=== PATIENT | female | born 1940 | race Caucasian/White ===

== ENCOUNTER → 2016-08-27 | Outpatient (CLI) | payer OTHER ==
[~2016-08-27] MED LIST: ALBU1AER9 INH; ASPCH81X PO; ATV1 PO; LSN40 PO; LXP10 PO; METF500T5 PO; ONDA4TAB46 PO; TRAM-10 PO; ZNTT/150 PO
--- NOTE | 2016-08-27 15:47 | MAMMOGRAPHY REPORT ---
BILATERAL DIGITAL SCREENING MAMMOGRAM WITH CAD: 08/27/2016 CLINICAL HISTORY: Routine screening. Patient has no complaints. TECHNIQUE: Bilateral CC, MLO and left cleavage views were obtained. Current study was also evaluate d with a Computer Aided Detection (CAD) system. COMPARISON: Comparison is made to exams dated: 05/09/2015 mammogram, 11/01/2013 mammogram, 10/13/2012 m ammogram, 07/22/2011 mammogram, 07/18/2010 mammogram, and 04/30/2009 mammogram - [facility] enter. BREAST COMPOSITION: There are scattered areas of fibroglandular density in both breasts. FINDINGS: There are minimal vascular calcifications bilaterally. Stable grouped microcalcifications in the 6:00 left breast and a stable circumscribed 7 mm mass in the upper outer quadrant of the lef t breast. No new suspicious mass, architectural distortion or cluster of microcalcifications is see n. IMPRESSION: ACR BI-RADS CATEGORY 1: NEGATIVE There is no mammographic evidence of malignancy. A 1 year screening mammogram is recommended. The p atient will receive written notification of the results. Approximately 10% of breast cancers are not detected with mammography. A negative mammographic repor t should not delay biopsy if a clinically suggestive mass is present. Ade Vargas M.D. ay/:08/27/2016 15:30:38 Paraprofessional Aide Teacher: Angelina DE LEON)(Tony), [facility] letter sent: Normal 1/2 BI-RADS Code: ACR BI-RADS Category 1: Negative
== END | disposition home or self-care (01) ==
LOC: C.MAMM 13:36
PROVIDERS: ATTEND Family Medicine
DX: Z12.31 Encounter for screening mammogram for malignant neoplasm of breast (principal)

== ENCOUNTER → 2017-04-15 | Day surgery (SDC) | payer OTHER ==
[2017-04-02 13:27] VITALS: Ht 160 cm; Wt 88.2 kg
[~2017-04-15] VITALS: Ht 160 cm; Wt 88.2 kg
[~2017-04-15] MED LIST changes: -ALBU1AER9 INH; -ASPCH81X PO; +GABA-113 PO; +LIDOCAINE HCL 2% 2 ML VIAL (20MG/ML) ONE; -LXP10 PO; +PANT1TAB3 PO; +PROPOFOL IV EMULSION 10 MG/ML 20 ML VIAL IV ONE; +SERT-234 PO; +SODIUM CHLORIDE 0.9% 500ML 500 ML IV ONE; +VNTHFA/IN INH; -ZNTT/150 PO
--- NOTE | 2017-04-15 15:39 | Endo History and Physical ---
History & Physical Date of Service: Apr 15, 2017. Chief Complaint: Abd Pain, Diarrhea Referring Physician: Dr Silvina Murrya History of Present Illness abd pain/diarrhea Past Surgical History Hx Cardiac Surgery: No Hx Internal Defibrillator: No Hx Pacemaker: No Hx Abdominal Surgery: Yes (LIANNA AND STITCH REMOVAL 7 YEARS LATER) Hx of Implantable Prosthesis: No Hx Post-Op Nausea and Vomiting: No Hx Cancer Surgery: No Hx Thoracic Surgery: No Hx Orthopedic: Yes (RT/LEFT TKA, LEFT KNEE REVISION) Hx Urinary Tract Surgery: No Family History None Social History Smoking Status: Never Smoker Hx Substance Use: No Hx Alcohol Use: No Allergies Coded Allergies: Ciprofloxacin (Verified Allergy, Unknown, DIARRHEA, 04/02/17) Pravastatin (Verified Allergy, Unknown, HEART ATTACK LIKE SYMPTOMS, ) Sitagliptin (Unverified Allergy, Unknown, ILLNESS, 04/02/17) CI Pigment Blue 63 (Verified Adverse Reaction, Unknown, LOSS OF CONSCIOUSNESS, 04/02/17) Duloxetine (Verified Adverse Reaction, Unknown, LOSS OF CONSCIOUSNESS, 04/02) Current Medications Reported Home Medications Medications Dose Route/Sig Max Daily Dose Days Date Category Ultram (Tramadol HCl) 50 Mg Tab 50-100 Mg PO Q6H PRN 04/02/17 Reported Zoloft (Sertraline HCl) 100 Mg Tab 100 Mg PO QAM 04/02/17 Reported Protonix (Pantoprazole) 40 Mg Tab 40 Mg PO QAM 04/02/17 Reported Zofran (Ondansetron HCl) 4 Mg Tab 4 Mg PO TID PRN 04/02/17 Reported Neurontin (Gabapentin) 300 Mg Cap 300 Mg PO HS 04/02/17 Reported Ventolin Hfa (Albuterol) 200 Puffs/84656 Mcg Aers 2-4 Puffs INH Q6H PRN 04/02/17 Reported Lorazepam 1 Mg Tab 1 Mg PO BID 10/22/15 Reported Lisinopril 40 Mg Tab 40 Mg PO QAM 10/22/15 Reported Glucophage Er (Metformin HCl) 500 Mg Tab 1,000 Mg PO BID 10/22/15 Reported Vital Signs Weight (Kilograms): 88.18 Height (Feet): 5 Height (Inches): 3 Date Time Temp Pulse Resp B/P (MAP) Pulse Ox O2 Delivery O2 Flow Rate FiO2 04/15/17 14:54 37.1 91 20 153/86 (108) 94 Room Air Physical Exam General Appearance: WD/WN, no apparent distress Respiratory/Chest: Auscultation: breath sounds normal Cardiovascular: Heart Auscultation: RRR Abdomen: Bowel Sounds: normal Inspection & Palpation: soft, non-distended, no tenderness, guarding & rebound Assessment and Plan EGD/Bx Colon Bx
--- NOTE | 2017-04-15 16:20 | Discharge Instructions ---
Endoscopy Patient Instructions Date / Procedure(s) Performed Apr 15, 2017. Colonoscopy, EGD Allergy Information Coded Allergies: Ciprofloxacin (Verified Allergy, Unknown, DIARRHEA, 04/02/17) Pravastatin (Verified Allergy, Unknown, HEART ATTACK LIKE SYMPTOMS, ) Sitagliptin (Unverified Allergy, Unknown, ILLNESS, 04/02/17) CI Pigment Blue 63 (Verified Adverse Reaction, Unknown, LOSS OF CONSCIOUSNESS, 04/02/17) Duloxetine (Verified Adverse Reaction, Unknown, LOSS OF CONSCIOUSNESS, 04/02) Discharge Date / Findings Apr 15, 2017. colon polyp/ diverticulosis Medication Instructions Stopped Medication(s): Metformin Restart Stopped Medication(s): Reported Home Medications Medications Dose Route/Sig Max Daily Dose Days Date Category Ultram (Tramadol HCl) 50 Mg Tab 50-100 Mg PO Q6H PRN 04/02/17 Reported Zoloft (Sertraline HCl) 100 Mg Tab 100 Mg PO QAM 04/02/17 Reported Protonix (Pantoprazole) 40 Mg Tab 40 Mg PO QAM 04/02/17 Reported Zofran (Ondansetron HCl) 4 Mg Tab 4 Mg PO TID PRN 04/02/17 Reported Neurontin (Gabapentin) 300 Mg Cap 300 Mg PO HS 04/02/17 Reported Ventolin Hfa (Albuterol) 200 Puffs/61059 Mcg Aers 2-4 Puffs INH Q6H PRN 04/02/17 Reported Lorazepam 1 Mg Tab 1 Mg PO BID 10/22/15 Reported Lisinopril 40 Mg Tab 40 Mg PO QAM 10/22/15 Reported Glucophage Er (Metformin HCl) 500 Mg Tab 1,000 Mg PO BID 10/22/15 Reported Reported Home Medications Medications Dose Route/Sig Max Daily Dose Days Date Category Ultram (Tramadol HCl) 50 Mg Tab 50-100 Mg PO Q6H PRN 04/02/17 Reported Zoloft (Sertraline HCl) 100 Mg Tab 100 Mg PO QAM 04/02/17 Reported Protonix (Pantoprazole) 40 Mg Tab 40 Mg PO QAM 04/02/17 Reported Zofran (Ondansetron HCl) 4 Mg Tab 4 Mg PO TID PRN 04/02/17 Reported Neurontin (Gabapentin) 300 Mg Cap 300 Mg PO HS 04/02/17 Reported Ventolin Hfa (Albuterol) 200 Puffs/09554 Mcg Aers 2-4 Puffs INH Q6H PRN 04/02/17 Reported Lorazepam 1 Mg Tab 1 Mg PO BID 10/22/15 Reported Lisinopril 40 Mg Tab 40 Mg PO QAM 10/22/15 Reported Glucophage Er (Metformin HCl) 500 Mg Tab 1,000 Mg PO BID 10/22/15 Reported Provider Instructions Activity Restrictions - No exercising or heavy lifting for 24 hours. - Do not drink alcohol the day of the procedure. - Do not drive a car or operate machinery until the day after the procedure. - Do not make any important decisions or sign important papers in 24 hours after the procedure. Following Day: - Return to full activity which may include returning to work/school. Diet Start your diet with liquids and light foods (jello, soup, juice, toast). Then eat your usual diet if not nauseated. Treatment For Common After Affects For mild abdominal pain, bloating, or excessive gas: - Rest - Eat lightly - Lie on right side Follow-Up Information Follow-up with Dr Silvina Murray as scheduled Anesthesia Information What You Should Know You have had a procedure that required some medicine to reduce anxiety and discomfort. This treatment is called moderate sedation. After receiving the treatment, you may be sleepy, but you will be able to breathe on your own. The effects of the treatment may last for several hours. Follow these instructions along with Activity/Diet recommendations noted above: * Do NOT do anything where dizziness or clumsiness would be dangerous. * Rest quietly at home today, then you can be up and about tomorrow. * Have a responsible person stay with you the rest of today. * You may have had an I.V. today. If so, you may take the dressing off later today. Recommendations Call your doctor if: * Trouble breathing * Continuous vomiting for more than 24 hours * Temperature above 101 degrees * Severe abdominal pain or bloating * Pain not relieved by pain medicine ordered * There is increased drainage or redness from any incision * A large amount of rectal bleeding greater than 2-3 tablespoons. (If you had a polyp/s removed or have hemorrhoids, a small amount of blood - from the rectum is to be expected.) * You have any unanswered questions or concerns. IN THE EVENT OF A SERIOUS EMERGENCY, GO TO THE NEAREST EMERGENCY ROOM Your discharge instructions were prepared by provider Jese Falk. Patient Instructions Signature Page Gena Perez Patient (or Guardian) Signature/Date: I have read and understand the instructions given to me by my caregivers. Caregiver/RN/Doctor Signature/Date: The above-named patient and/or guardian has received patient instructions on this date. + Original Patient Signature Page (only) stays with chart. Please make copy for patient.
--- NOTE | 2017-04-15 16:25 | GI REPORT ---
Procedure Date: 04/15/2017 3:45 PM Procedure: Colonoscopy Indications: Chronic diarrhea Medicines: Propofol per Anesthesia Complications: No immediate complications. Estimated blood loss: Minimal. Estimated Blood Loss: Estimated blood loss was minimal. Procedure: Pre-Anesthesia Assessment: - Prior to the procedure, a History and Physical was performed, and patient medications and allergies were reviewed. The patient's tolerance of previous anesthesia was also reviewed. The risks and benefits of the procedure and the sedation options and risks were discussed with the patient. All questions were answered, and informed consent was obtained. Prior Anticoagulants: The patient has taken no previous anticoagulant or antiplatelet agents. ASA Grade Assessment: III - A patient with severe systemic disease. After reviewing the risks and benefits, the patient was deemed in satisfactory condition to undergo the procedure. After I obtained informed consent, the scope was passed under direct vision. Throughout the procedure, the patient's blood pressure, pulse, and oxygen saturations were monitored continuously. The scope was introduced through the anus and advanced to the terminal ileum, with identification of the appendiceal orifice and IC valve. The colonoscopy was performed without difficulty. The patient tolerated the procedure well. The quality of the bowel preparation was good. Findings: The perianal and digital rectal examinations were normal. Pertinent negatives include normal sphincter tone, no palpable rectal lesions and no anal lesion or abnormality was detected. A 3 mm polyp was found in the proximal ascending colon. The polyp was sessile. The polyp was removed with a cold biopsy forceps. Resection and retrieval were complete. Estimated blood loss was minimal. Verification of patient identification for the specimen was done by the physician and hotel maintenance technician using the patient's name and medical record number. The rectum, descending colon, ascending colon and ileum appeared normal. Biopsies were taken with a cold forceps for histology. Estimated blood loss was minimal. Verification of patient identification for the specimen was done by the physician and hotel maintenance technician using the patient's name and medical record number. Many small-mouthed diverticula were found in the sigmoid colon. The retroflexed view of the distal rectum and anal verge was normal and showed no anal or rectal abnormalities. Impression: - One 3 mm polyp in the proximal ascending colon, removed with a cold biopsy forceps. Resected and retrieved. - The rectum, descending colon, ascending colon and terminal ileum are normal. Biopsied. - Diverticulosis in the sigmoid colon. - The distal rectum and anal verge are normal on retroflexion view. Recommendation: - Discharge patient to home (ambulatory). - Resume regular diet. - Continue present medications. - Await pathology results. - Repeat colonoscopy for surveillance based on pathology results. - Return to GI clinic as previously scheduled. MD Jese Aldridge MD 04/15/2017 4:24:48 PM This report has been signed electronically. Note Initiated On: 04/15/2017 3:45 PM I attest to the content of the Intraoperative Record and orders documented therein, exceptions below
--- NOTE | 2017-04-15 16:31 | GI REPORT ---
Procedure Date: 04/15/2017 3:45 PM Procedure: Upper GI endoscopy Indications: Epigastric abdominal pain, Diarrhea Medicines: Propofol per Anesthesia Complications: No immediate complications. Estimated blood loss: Minimal. Estimated Blood Loss: Estimated blood loss was minimal. Procedure: Pre-Anesthesia Assessment: - Prior to the procedure, a History and Physical was performed, and patient medications and allergies were reviewed. The patient's tolerance of previous anesthesia was also reviewed. The risks and benefits of the procedure and the sedation options and risks were discussed with the patient. All questions were answered, and informed consent was obtained. Prior Anticoagulants: The patient has taken no previous anticoagulant or antiplatelet agents. ASA Grade Assessment: III - A patient with severe systemic disease. After reviewing the risks and benefits, the patient was deemed in satisfactory condition to undergo the procedure. After obtaining informed consent, the endoscope was passed under direct vision. Throughout the procedure, the patient's blood pressure, pulse, and oxygen saturations were monitored continuously. The scope was introduced through the mouth, and advanced to the second part of duodenum. The upper GI endoscopy was accomplished without difficulty. The patient tolerated the procedure well. Findings: The upper third of the esophagus and middle third of the esophagus were normal. A widely patent, non-obstructing and mild Schatzki ring (acquired) was found at the gastroesophageal junction. A small hiatal hernia was found. The proximal extent of the gastric folds (end of tubular esophagus) was 35 cm from the incisors. The hiatal narrowing was 37 cm from the incisors. The Z-line was 35 cm from the incisors. Diffuse minimal inflammation characterized by erythema was found in the gastric body and in the gastric antrum. Biopsies were taken with a cold forceps for histology. Verification of patient identification for the specimen was done by the physician and career resource technician using the patient's name and medical record number. The examined duodenum was normal. Biopsies for histology were taken with a cold forceps for evaluation of celiac disease. Estimated blood loss was minimal. Verification of patient identification for the specimen was done by the physician and career resource technician using the patient's name and medical record number. The examined jejunum was normal. The cardia and gastric fundus were normal on retroflexion. Retained gastric contents are not identified on this exam. Impression: - Normal upper third of esophagus and middle third of esophagus. - Widely patent, non-obstructing and mild Schatzki ring. - Small hiatal hernia. - Gastritis. Biopsied. - Normal examined duodenum. Biopsied. - Normal examined jejunum. Recommendation: - Discharge patient to home (ambulatory). - Resume regular diet. - Continue present medications. - Await pathology results. MD Jese Aldridge MD 04/15/2017 4:31:14 PM This report has been signed electronically. Note Initiated On: 04/15/2017 3:45 PM I attest to the content of the Intraoperative Record and orders documented therein, exceptions below
--- NOTE | 2017-04-15 16:49 | Anesthesiology Progress Note ---
Anesthesia Post Op Note Date & Time Apr 15, 2017 at 16:49 Vital Signs Vital Signs Past 12 Hours Date Time Temp Pulse Resp B/P (MAP) Pulse Ox O2 Delivery O2 Flow Rate FiO2 04/15/17 16:41 83 20 129/80 (96) 95 Room Air 04/15/17 16:30 87 20 146/73 (97) 96 Room Air 04/15/17 14:54 37.1 91 20 153/86 (108) 94 Room Air Notes Mental Status: alert / awake / arousable, participated in evaluation Pt Amnestic to Procedure: Yes Nausea / Vomiting: adequately controlled Pain: adequately controlled Airway Patency, RR, SpO2: stable & adequate BP & HR: stable & adequate Hydration State: stable & adequate Anesthetic Complications: no major complications apparent
[2017-04-15 17:01] VITALS: BP 154/79; PULSE 80; O2SAT 97
== END | disposition home or self-care (01) ==
LOC: C.GI 13:39
PROVIDERS: ATTEND Internal Medicine Gastroenterology
DX: R10.9 Unspecified abdominal pain (principal); R19.7 Diarrhea, unspecified; K29.50 Unspecified chronic gastritis without bleeding; D12.2 Benign neoplasm of ascending colon; D12.8 Benign neoplasm of rectum; K22.2 Esophageal obstruction; K44.9 Diaphragmatic hernia without obstruction or gangrene; K29.70 Gastritis, unspecified, without bleeding; K57.30 Diverticulosis of large intestine without perforation or abscess without bleeding

== ENCOUNTER 2019-01-04 15:51 | Observation (INO) ==
[2019-01-04] MEDS ORDERED: NITROGLYCERIN SL 0.4 MG/TAB TAB SL STA ×2 (16:08→16:10)
[2019-01-04 16:58] LABS: Appearance Urine Clear (Clear); Bacteria Urine Automated 3+ (Negative); Bilirubin Urine Negative (Negative); Blood Urine Negative (Negative); Cast Urine Automated 0 /lpf (0-5); Color Urine Yellow; Epithelial Cell Urine Auto 0-5 /lpf (0-5); Glucose Urine UA Negative (Negative); Ketones Urine Negative (Negative); Leukocyte Esterase Urine Trace (Negative); Nitrite Urine Negative (Negative); Protein Urine Negative (Negative); Urobilinogen Urine Negative (Negative); WBC Urine Automated >30 /hpf (0-5); pH Urine 5.5 (4.5-7.5)
[2019-01-04 17:15] LABS: Basophils # (auto) 0.01 K/uL (0-0.2); Basophils % (auto) 0.2 %; Eosinophils % (auto) 3.2 %; Hematocrit (blood only) 42.9 % (37-47); Hemoglobin 14.7 g/dL (12.0-16.0); Immature Granulocytes # (auto) 0.02 K/uL (0.00-0.02); Immature Granulocytes % (auto) 0.3 %; Lymphocytes # (auto) 1.72 K/uL (1.2-3.4); Lymphocytes % (auto) 27.8 %; Mean Corpuscular Hemoglobin 30.8 pg (25-34); Mean Corpuscular Hgb Conc 34.3 g/dL (32-36); Mean Corpuscular Volume 89.9 fL (80-100); Mean Platelet Volume 9.9 fL (7.4-10.4); Monocytes # (auto) 0.34 K/uL (0.11-0.59); Monocytes % (auto) 5.5 %; Neutrophils # (auto) 3.89 K/uL (1.4-6.5); Platelet Count 211 K/uL (130-400); RDW Coefficient of Variation 13.1 % (11.5-14.5); RDW Standard Deviation 42.9 fL (36.4-46.3); Red Blood Count 4.77 M/uL (4.2-5.4); White Blood Count 6.18 K/uL (4.8-10.8)
--- NOTE | 2019-01-04 17:17 | XRay Report ---
XR chest 1V portable CLINICAL HISTORY: 78 years-old Female presenting with Dyspnea. TECHNIQUE: Portable upright AP view of the chest was obtained. COMPARISON: 12/26/2018. FINDINGS: Atherosclerosis of the aortic arch. Cardiac silhouette enlarged. Minimal bandlike opacity in the left mid lung periphery as on prior. No new focal opacity. No large effusion or pneumothorax. Degenerativ e changes of the thoracic spine. Upper abdomen normal. IMPRESSION: 1. Cardiomegaly. No other convincing evidence of acute cardiopulmonary disease. Electronically signed by: Beau Cerda M.D. 01/04/2019 5:15 PM
[2019-01-04 17:34] LABS: Partial Thromboplastin Ratio 1.1; Partial Thromboplastin Time 29.3 Seconds (21.0-31.0)
[2019-01-04 17:40] LABS: Alanine Aminotransferase 18 U/L (12-78); Albumin Globulin Ratio 0.8 (0.9-2); Albumin Level 3.9 gm/dl (3.4-5.0); Alkaline Phosphatase 81 U/L (45-117); Aspartate Aminotransferase 18 U/L (15-37); BUN Creatinine Ratio 10.2 (10-20); Bilirubin,Total 0.4 mg/dl (0.2-1); Blood Urea Nitrogen 10 mg/dl (7-18); Calcium 9.7 mg/dl (8.5-10.1); Carbon Dioxide 27 mmol/L (21-32); Chloride 102 mmol/L (98-107); Est GFR (African American) 65.2; Est GFR (Non-African American) 56.2; Globulin 4.6 gm/dl (2.5-4.0); Glucose 106 mg/dl (70-99); Potassium 3.8 mmol/L (3.5-5.1); Sodium 137 mmol/L (136-145); Total Protein 8.5 gm/dl (6.4-8.2); Troponin I < 0.015 ng/ml (0-0.045)
[2019-01-04] MEDS ORDERED: ASPIRIN CHEW 324 MG PO STA (18:03)
--- NOTE | 2019-01-04 19:11 | Consultation ---
Date of Consultation January 04, 2019 History of Present Illness Requesting Physician: Dr. Amezquita Reason for Consultation: Chest pain Attending Physician: Dr. Kirsten Stephens History of Present Illness 78 yo female h/o Afib, DM, HTN, HLD presents from behavioral health clinician office Allergies Allergy/AdvReac Type Severity Reaction Status Date / Time Cipro Allergy Unknown DIARRHEA Verified 04/15/17 13:24 ciprofloxacin Allergy Unknown DIARRHEA Verified 01/04/19 18:04 pravastatin Allergy Unknown HEART Verified 01/04/19 18:04 ATTACK LIKE SYMPTOMS sitagliptin Allergy Unknown ILLNESS Verified 01/04/19 18:04 apixaban [From Eliquis] AdvReac Severe BODY WENT Verified 01/04/19 18:05 NUMB duloxetine AdvReac Unknown LOSS OF Verified 01/04/19 18:04 CONSCIOUSNESS metformin AdvReac Diarrhea Unverified 01/04/19 18:04 Home Medications Home Medications Medication Instructions Recorded Confirmed Type albuterol sulfate [Ventolin HFA] 2 puff INHALATION Q4 PRN 12/16/17 01/04/19 His tory lisinopril 40 mg PO DAILY 12/16/17 01/04/19 History amitriptyline 10 mg PO HS 07/19/18 01/04/19 History lorazepam 1 mg tablet 1 mg PO TID PRN #90 tab 10/27/18 01/04/19 History metoprolol succinate ER 25 mg 25 mg PO DAILY #30 tab 11/10/18 01/04/19 History tablet,extended release 24 hr tramadol 50 mg tablet 50 mg PO BID tab 11/10/18 01/04/19 History ranitidine HCl 150 mg PO BID 12/26/18 01/04/19 History tramadol 100 mg PO HS 12/26/18 01/04/19 History glipizide 2.5 mg PO DAILY 01/04/19 01/04/19 History ondansetron HCl 4 mg tablet 4 mg PO TID PRN 01/04/19 01/04/19 History pantoprazole 40 mg tablet,delayed 40 mg PO DAILY 01/04/19 01/04/19 History release sertraline 100 mg tablet 100 mg PO DAILY 01/04/19 01/04/19 History Patient History Medical History Abdominal pain Asthma Diabetes mellitus, type 2 Diarrhea Dyslipidemia Hypertension Surgical History H/O tubal ligation Hx of cataract surgery Hx of cholecystectomy Hx of total knee arthroplasty Family History Grandmother Cancer Mother Diabetes Breast cancer Arthritis Skin cancer Brother Diabetes Lymphoma Sister Breast cancer Skin cancer Grandmother Lung cancer Social History Communication Ability: Effective Beliefs That Will Affect Care: None Current Living Situation: Alone Feels Safe at Home: Yes Smoking Status: Never smoker Hx Alcohol Use: No Hx Substance Use: No Results & Data Vital Signs (Past 12 Hours) Vital Signs Temp Pulse Pulse Resp BP BP Pulse Ox 01/04/19 18:58 76 18 142/89 H 98 01/04/19 18:14 82 17 117/83 96 01/04/19 17:00 92 H 18 127/80 93 01/04/19 16:55 85 24 156/88 H 95 01/04/19 16:53 75 20 161/86 H 94 01/04/19 15:54 37.5 C 88 20 167/93 H 96 PG Care Time/CCT Total # of Minutes Spent Total Time Spent with Patient: Total time spent is greater than 50% in coordination of care (as documented) at patient's floor/unit and/or counseling patient:
--- NOTE | 2019-01-04 19:44 | History & Physical Report ---
Date of Service January 04, 2019 Assessment & Plan (1) Chest pain: 78-year-old female with history of DM, HTN, HLD, A. fib, JILLIAN presents with chest pain shortness of breath. Her chest pain symptoms have been ongoing, nonexertional over the past couple months. The patient did not show any acute changes on EKG and troponins were negative the ED, but the patient has significant risk factors with a heart score of 5. Considering risk factors and recommendation of her gun perforator loader to come the ED, we are admitting for further work-upcontinue to trend troponin and consider additional test, stress test versus catheterization. Chest pain rule out Admit to telemetry, continue to trend troponin, EKG in the a.m., ASA in the a.m. Hold blood pressure medications for possible stress test tomorrow Keep the patient n.p.o. after midnight Atrial fibrillation Nonadherence with Eliquis We will start Xarelto tonight, 20 mg with evening meal Continue metoprolol Hypertension Hold meds for possible stress test Diabetes Sliding scale insulin Neuropathy Continue amitriptyline GERD Continue PPI, ranitidine Depression Continue sertraline Continue lorazepam 3 times daily DVT prophylaxisXarelto FENregular diet, carb count, n.p.o. after midnight CODE STATUSfull (2) Atrial fibrillation: (3) Shortness of breath: (4) Anxiety: (5) Diabetes: (6) HTN (hypertension): (7) Asthma: (8) Sleep apnea: History of Present Illness Primary Care Provider: Salena Angel DO 78-year-old female with a history of DM, HTN, HLD, A. fib presents from cardiology office with shortness of breath and chest pain, symptoms have been ongoing for the past couple months. She states that she is been more dyspneic recently and was in the ED last week. She states that the chest pain is intermittent, nonexertional. She describes it as a pressure like sensation with radiation to her left arm. She states that she sometimes wakes up in the middle the night with the chest pain. She does have a history of atrial fibrillation for which she is rate controlled. She stopped taking Eliquis because of perceived symptoms of numbness. The patient has neuropathy at baseline. She denies a history of smoking. Allergies Allergy/AdvReac Type Severity Reaction Status Date / Time Cipro Allergy Unknown DIARRHEA Verified 04/15/17 13:24 ciprofloxacin Allergy Unknown DIARRHEA Verified 01/04/19 18:04 pravastatin Allergy Unknown HEART Verified 01/04/19 18:04 ATTACK LIKE SYMPTOMS sitagliptin Allergy Unknown ILLNESS Verified 01/04/19 18:04 apixaban [From Eliquis] AdvReac Severe BODY WENT Verified 01/04/19 18:05 NUMB duloxetine AdvReac Unknown LOSS OF Verified 01/04/19 18:04 CONSCIOUSNESS metformin AdvReac Diarrhea Unverified 01/04/19 18:04 Home Medications Home Medications Medication Instructions Recorded Confirmed Type albuterol sulfate [Ventolin HFA] 2 puff INHALATION Q4 PRN 12/16/17 01/04/19 History lisinopril 40 mg PO DAILY 12/16/17 01/04/19 History amitriptyline 10 mg PO HS 07/19/18 01/04/19 History lorazepam 1 mg tablet 1 mg PO TID PRN #90 tab 10/27/18 01/04/19 History metoprolol succinate ER 25 mg 25 mg PO DAILY #30 tab 11/10/18 01/04/19 History tablet,extended release 24 hr tramadol 50 mg tablet 50 mg PO BID tab 11/10/18 01/04/19 History ranitidine HCl 150 mg PO BID 12/26/18 01/04/19 History tramadol 100 mg PO HS 12/26/18 01/04/19 History glipizide 2.5 mg PO DAILY 01/04/19 01/04/19 History ondansetron HCl 4 mg tablet 4 mg PO TID PRN 01/04/19 01/04/19 History pantoprazole 40 mg tablet,delayed 40 mg PO DAILY 01/04/19 01/04/19 History release sertraline 100 mg tablet 100 mg PO DAILY 01/04/19 01/04/19 History Past Med/Surg History Medical History Abdominal pain Asthma Diabetes mellitus, type 2 Diarrhea Dyslipidemia Hypertension Surgical History H/O tubal ligation Hx of cataract surgery Hx of cholecystectomy Hx of total knee arthroplasty Family History Grandmother Cancer Mother Diabetes Breast cancer Arthritis Skin cancer Brother Diabetes Lymphoma Sister Breast cancer Skin cancer Grandmother Lung cancer Social History Communication Ability: Effective Beliefs That Will Affect Care: None Current Living Situation: Alone Feels Safe at Home: Yes Smoking Status: Never smoker Hx Alcohol Use: No Hx Substance Use: No Review of Systems Review of Systems: All systems reviewed & are unremarkable except as noted in HPI & below Physical Exam Constitutional: WD/WN, vitals as above Eyes: PERRL, conjunctivae normal, anicteric sclerae ENMT: external ear and nose normal, oropharynx normal Neck: trachea midline, no thyromegaly Respiratory: normal respiratory effort, lungs clear to auscultation Cardiovascular: RRR, no murmur, no edema Gastrointestinal (Abdomen): normal bowel sounds, soft, nontender, no hepatosplenomegaly Musculoskeletal: no cyanosis or clubbing, extremities motor strength 5/5 Skin: no rashes, warm and dry Neurologic: PERRL, EOMI, accommodation nl, no face palsy, no dysarthria Psychiatric: A+Ox3, euthymic affect Results & Data Vital Signs (Past 12 Hours) Vital Signs Temp Pulse Pulse Resp BP BP Pulse Ox 01/04/19 18:58 76 18 142/89 H 98 01/04/19 18:14 82 17 117/83 96 01/04/19 17:00 92 H 18 127/80 93 01/04/19 16:55 85 24 156/88 H 95 01/04/19 16:53 75 20 161/86 H 94 01/04/19 15:54 37.5 C 88 20 167/93 H 96 Code Status & VTE Plan Code Status Full code VTE Prophylaxis Plan VTE Prophylaxis will be ordered: Yes Supervising Physician Co-Signing Physician Notes Patient seen and examined, chart reviewed, case discussed with Dr. Montejo and I agree with his assessment and plan as documented above. Briefly patient is a 78-year-old female with history of diabetes, hypertension, hyperlipidemia and paroxysmal atrial fibrillation on anticoagulation with Eliquis presenting with left-sided chest pain. Patient was sent to the ER at request of her gun perforator loader, Dr. Guaman. She reports a prolonged history of intermittent, nonexertional, nonpleuritic chest pain. It occurs often when she wakes in the morning and when she becomes upset. Additionally she admits to progressive dyspnea on exertion, becoming short of breath after walking as little as 50 feet. On physical exam she is afebrile, mildly hypertensive at 162/86 otherwise hemodynamically stable. Stable respiratory status with adequate oxygenation on room air General: No acute distress Skin: Warm, dry, intact. No rashes or lesions HEENT: Normocephalic atraumatic, pupils equal round and reactive, neck supple, moist mucous membranes, no JVD Heart: S1-S2 present, regular, no murmurs/rubs/gallops. One area of focal tenderness on left sternal border, pain with palpation Lungs: CTA, no rales/rhonchi/wheezes Abdomen: Bowel sounds present, soft, nontender/nondistended Extremities: Warm, well-perfused, no clubbing/cyanosis/edema, 2+ pulses Labs and images reviewed. Troponin x1 negative. Chest x-ray with atherosclerosis of the aortic arch. Enlarged cardiac silhouette EKG with normal sinus rhythm at 76 bpm. Normal axis and intervals. No acute ischemic changes Assessment/plan. 78-year-old female with hypertension, hyp erlipidemia, diabetes, paroxysmal A. fib on anticoagulation therapy with Eliquis, nonadherent with therapy presenting with prolonged history of atypical chest pain. She has been worked up for this in the past with a dobutamine stress echo on 12/21/2017. More concerning is patient's history of progressive dyspnea on exertion which may be an anginal equivalent. -Observation with telemetry -Trend cardiac enzymes -Cardiology consult appreciated -Remainder of plan as above PG Care Time/CCT Total # of Minutes Spent Total Time Spent with Patient: Total time spent is greater than 50% in coordination of care (as documented) at patient's floor/unit and/or counseling patient: Resident Activity Tracking Resident Involvement: Resident Care Provided Care Provided: Adult Hospital Medicine (1) Atrial fibrillation Atrial fibrillation type: paroxysmal Qualified Code(s): I48.0 - Paroxysmal atrial fibrillation
--- NOTE | 2019-01-04 19:48 | Emergency Department Note ---
Entered by Divya Navarro acting as a scribe for Swapnil Amezquita MD History of Present Illness General Chief complaint: Shortness of Breath/Dyspnea Stated complaint: TROUBLE BREATHING, CHEST PAIN Time Seen by Provider: 01/04/19 15:59 Source: patient History of Present Illness Provider complaint: shortness of breath Onset (ago): month(s) 2 Location: chest Pain Consistency: + other (worsening ) Quality: + other ("heavy") Relieved By: + medication (aspirin ) Exacerbated By: + movement Associated symptoms: + chest pain and + other (dry mouth ); no diaphoresis and no nausea/vomiting The patient is a 78 year old female with a PMHX of RAD, JILLIAN, A-fib, diabetes, HTN, who presents to the ED with complaints of a worsening shortness of breath that began this morning. She states that she can barely walk from the couch to the bathroom without needing her inhaler. The patient states that the chest pain feels heavy. The patient states that she was seen by Dr. Guaman, [facility], and this morning. She states that they did a CT of her Chest and found calcification in the arteries around her heart. The patient states that she has been short of breath for 2 months now, but it has progressively been getting worse. She states that she takes aspirin to relieve her pain. The patient denies nausea, vomiting, diaphoresis. The patient states that she was taking Eliquis and it made her legs numb but she stopped taking it 3-4 weeks ago. The patient denies smoking. The patient states that she has dry mouth. Medical review of the patient's chart revealed that the patient was seen in the ED on 12/30/2018. The patient had a CT Angio of Chest which came back negative, EKG was negative, and Lab work was unremarkable. Home Medications Home Medications Medication Instructions Recorded Confirmed Type albuterol sulfate [Ventolin HFA] 2 puff INHALATION Q4 PRN 12/16/17 01/04/19 History lisinopril 40 mg PO DAILY 12/16/17 01/04/19 History amitriptyline 10 mg PO HS 07/19/18 01/04/19 History lorazepam 1 mg tablet 1 mg PO TID PRN #90 tab 10/27/18 01/04/19 History metoprolol succinate ER 25 mg 25 mg PO DAILY #30 tab 11/10/18 01/04/19 History tablet,extended release 24 hr tramadol 50 mg tablet 50 mg PO BID tab 11/10/18 01/04/19 History ranitidine HCl 150 mg PO BID 12/26/18 01/04/19 History tramadol 100 mg PO HS 12/26/18 01/04/19 History glipizide 2.5 mg PO DAILY 01/04/19 01/04/19 History ondansetron HCl 4 mg tablet 4 mg PO TID PRN 01/04/19 01/04/19 History pantoprazole 40 mg tablet,delayed 40 mg PO DAILY 01/04/19 01/04/19 History release sertraline 100 mg tablet 100 mg PO DAILY 01/04/19 01/04/19 History Allergies Allergy/AdvReac Type Severity Reaction Status Date / Time Cipro Allergy Unknown DIARRHEA Verified 04/15/17 13:24 ciprofloxacin Allergy Unknown DIARRHEA Verified 01/04/19 18:04 pravastatin Allergy Unknown HEART Verified 01/04/19 18:04 ATTACK LIKE SYMPTOMS sitagliptin Allergy Unknown ILLNESS Verified 01/04/19 18:04 apixaban [From Eliquis] AdvReac Severe BODY WENT Verified 01/04/19 18:05 NUMB duloxetine AdvReac Unknown LOSS OF Verified 01/04/19 18:04 CONSCIOUSNESS metformin AdvReac Diarrhea Unverified 01/04/19 18:04 Past Med/Surg History Medical History Abdominal pain Asthma Diabetes mellitus, type 2 Diarrhea Dyslipidemia Hypertension Surgical History H/O tubal ligation Hx of cataract surgery Hx of cholecystectomy Hx of total knee arthroplasty Family History Grandmother Cancer Mother Diabetes Breast cancer Arthritis Skin cancer Brother Diabetes Lymphoma Sister Breast cancer Skin cancer Grandmother Lung cancer Social History Communication Ability: Effective Beliefs That Will Affect Care: None Current Living Situation: Alone Feels Safe at Home: Yes Smoking Status: Never smoker Hx Alcohol Use: No Hx Substance Use: No Review of Systems See HPI for pertinent positives & negatives. and A total of 10 systems reviewed and were otherwise negative Physical Exam Vital Signs Vital Signs - 24 hr 01/04/19 15:54 01/04/19 16:53 01/04/19 16:55 Temperature 37.5 C Temperature Source Oral Sepsis Recent Fever Within 48 Hours No Sepsis New/Unexplained Change in Mental Status No Sepsis Action Taken by Nursing No Action Required Pulse Rate 88 Pulse Rate [Left Finger] 75 85 Respiratory Rate 20 20 24 Respiratory Effort / Characteristics Non-Labored Non-Labored Respiratory Depth Normal Normal Normal Respiratory Pattern Regular Regular Blood Pressure 167/93 H Blood Pressure [Right Arm] 161/86 H 156/88 H Blood Pressure Mean 117 Blood Pressure Mean [Right Arm] 111 110 Pulse Oximetry 96 94 95 Oxygen Delivery Method Room Air Room Air 01/04/19 17:00 01/04/19 18:14 01/04/19 18:58 Temperature Temperature Source Sepsis Recent Fever Within 48 Hours Sepsis New/Unexplained Change in Mental Status Sepsis Action Taken by Nursing Pulse Rate Pulse Rate [Left Finger] 92 H 82 76 Respiratory Rate 18 17 18 Respiratory Effort / Characteristics Non-Labored Non-Labored Respiratory Depth Normal Normal Respiratory Pattern Regular Regular Blood Pressure Blood Pressure [Right Arm] 127/80 117/83 142/89 H Blood Pressure Mean Blood Pressure Mean [Right Arm] 95 94 106 Pulse Oximetry 93 96 98 Oxygen Delivery Method Room Air Room Air Room Air GENERAL: Well nourished, NAD, non-toxic. EYE EXAM: Normal conjunctiva. PERRL, no anisocoria and EOM's grossly intact w/o pain. OROPHARYNX: Moist mucous membranes. Grossly normal dentition. NECK: Supple, no nuchal rigidity, no adenopathy, non-tender. No signs of meningismus. LUNGS: Clear to auscultation. Normal chest wall mechanics. HEART: NSR, no MRG. ABDOMEN: Abdomen soft, non-tender, normo-active bowel sounds, no masses, no rebound or guarding. BACK: No CVA TTP. SKIN: No rashes and no bruising. UPPER EXTREMITIES: Upper extremities are grossly normal. LOWER EXTREMITIES: No pitting edema. No calf pain. Negative Rosalia's sign. NEURO EXAM: A&O x3, cranial nerves II-XII grossly intact, normal speech, moves all 4 extremities on command w/o issue. Course 1559: Past medical records reviewed. The patient was evaluated in room A4. A com plete history and physical exam was performed. 1702: I discussed the patients case with Dr. Guaman, Cardiology. He stated that he would like the patient to be admitted for a diagnostic catheterization. 1757: I discussed the patient's [facility] She agreed to evaluate the patient for further management. 1821: I reevaluated the patient at this time and updated her on the treatment plan. She verbally agreed and understood. Consultations Consultation #1: I discussed the patients case with Dr. Guaamn, Cardiology. He stated that he would like the patient to be admitted for a diagnostic catheterization. Time: 17:02 Consultation #2: I discussed the patient's case with Cat Nieves [facility]. She agreed to evaluate the patient for further management. Time: 17:57 Administered Medications Discontinued Medications Aspirin (Aspirin) 162 mg PO NOW STA Stop: 01/04/19 18:04 Last Admin: 01/04/19 18:13 Dose: 162 mg Documented by: [id number] Nitroglycerin (Nitrostat) 0.4 mg SL NOW STA Stop: 01/04/19 16:09 Last Admin: 01/04/19 16:53 Dose: 0.4 mg Documented by: [id number] Medical Decision Making Differential Diagnosis Differential diagnosis: Etiologies such as infections, reactive airway disease, COPD, pneumonia, pleural effusion, pulmonary edema, ARDS, pneumothorax, CHF, cardiac ischemia, cardiac tamponade, dysrhythmia, anemia, pulmonary embolism, musculoskeletal, gastrointestinal process, as well as others were entertained. Medical Records Attestation: I reviewed the patient's medical records. Home Medications Current Medication List: was personally reviewed by me Laboratory Data Attestation: I reviewed the patient's lab results. Result diagrams: 01/04/19 16:52 01/04/19 16:52 Lab Results 01/04/19 01/04/19 01/04/19 Range/Units 16:40 16:52 16:52 WBC 6.18 (4.8-10.8) K/uL RBC 4.77 (4.2-5.4) M/uL Hgb 14.7 (12.0-16.0) g/dL Hct 42.9 (37-47) % MCV 89.9 (80-100) fL MCH 30.8 (25-34) pg MCHC 34.3 (32-36) g/dL RDW Std Deviation 42.9 (36.4-46.3) fL RDW Coeff of Roxi 13.1 (11.5-14.5) % Plt Count 211 (130-400) K/uL MPV 9.9 (7.4-10.4) fL Immature Gran % (Auto) 0.3 % Neut % (Auto) 63.0 % Lymph % (Auto) 27.8 % Baldwin % (Auto) 5.5 % Eos % (Auto) 3.2 % Baso % (Auto) 0.2 % Immature Gran # (Auto) 0.02 (0.00-0.02) K/uL Neut # (Auto) 3.89 (1.4-6.5) K/uL Lymph # (Auto) 1.72 (1.2-3.4) K/uL Baldwin # (Auto) 0.34 (0.11-0.59) K/uL Eos # (Auto) 0.20 (0-0.5) K/uL Baso # (Auto) 0.01 (0-0.2) K/uL PT 10.0 (9.0-12.0) Seconds INR 1.0 (0.9-1.1) APTT 29.3 (21.0-31.0) Seconds PTT Ratio 1.1 Sodium (136-145) mmol/L Potassium (3.5-5.1) mmol/L Chloride (98-107) mmol/L Carbon Dioxide (21-32) mmol/L Anion Gap (3-11) BUN (7-18) mg/dl Creatinine (0.6-1.2) mg/dl Est Cr Clr Drug Dosing Est GFR ( Amer) Est GFR (Non-Af Amer) BUN/Creatinine Ratio (10-20) Glucose (70-99) mg/dl Calcium (8.5-10.1) mg/dl Magnesium (1.8-2.4) mg/dl Total Bilirubin (0.2-1) mg/dl AST (15-37) U/L ALT (12-78) U/L Alkaline Phosphatase (45-117) U/L Troponin I (0-0.045) ng/ml Total Protein (6.4-8.2) gm/dl Albumin (3.4-5.0) gm/dl Globulin (2.5-4.0) gm/dl Albumin/Globulin Ratio (0.9-2) Urine Color Yellow Urine Appearance Clear (Clear) Urine pH 5.5 (4.5-7.5) Ur Specific [place] 1.010 (1.000-1.030) Urine Protein Negative (Negative) Urine Glucose (UA) Negative (Negative) Urine Ketones Negative (Negative) Urine Blood Negative (Negative) Urine Nitrite Negative (Negative) Urine Bilirubin Negative (Negative) Urine Urobilinogen Negative (Negative) Ur Leukocyte Esterase Trace H (Negative) Urine WBC (Auto) >30 H (0-5) /hpf Urine RBC (Auto) 10-30 H (0-4) /hpf U Hyaline Cast (Auto) 0 (0-5) /lpf U Epithel Cells (Auto) 0-5 (0-5) /lpf Urine Bacteria (Auto) 3+ H (Negative) 01/04/19 Range/Units 16:52 WBC (4.8-10.8) K/uL RBC (4.2-5.4) M/uL Hgb (12.0-16.0) g/dL Hct (37-47) % MCV (80-100) fL MCH (25-34) pg MCHC (32-36) g/dL RDW Std Deviation (36.4-46.3) fL RDW Coeff of Roxi (11.5-14.5) % Plt Count (130-400) K/uL MPV (7.4-10.4) fL Immature Gran % (Auto) % Neut % (Auto) % Lymph % (Auto) % Baldwin % (Auto) % Eos % (Auto) % Baso % (Auto) % Immature Gran # (Auto) (0.00-0.02) K/uL Neut # (Auto) (1.4-6.5) K/uL Lymph # (Auto) (1.2-3.4) K/uL Baldwin # (Auto) (0.11-0.59) K/uL Eos # (Auto) (0-0.5) K/uL Baso # (Auto) (0-0.2) K/uL PT (9.0-12.0) Seconds INR (0.9-1.1) APTT (21.0-31.0) Seconds PTT Ratio Sodium 137 (136-145) mmol/L Potassium 3.8 (3.5-5.1) mmol/L Chloride 102 (98-107) mmol/L Carbon Dioxide 27 (21-32) mmol/L Anion Gap 8.0 (3-11) BUN 10 (7-18) mg/dl Creatinine 0.96 (0.6-1.2) mg/dl Est Cr Clr Drug Dosing Not Reportable Est GFR ( Amer) 65.2 Est GFR (Non-Af Amer) 56.2 BUN/Creatinine Ratio 10.2 (10-20) Glucose 106 H (70-99) mg/dl Calcium 9.7 (8.5-10.1) mg/dl Magnesium 2.0 (1.8-2.4) mg/dl Total Bilirubin 0.4 (0.2-1) mg/dl AST 18 (15-37) U/L ALT 18 (12-78) U/L Alkaline Phosphatase 81 (45-117) U/L Troponin I < 0.015 (0-0.045) ng/ml Total Protein 8.5 H (6.4-8.2) gm/dl Albumin 3.9 (3.4-5.0) gm/dl Globulin 4.6 H (2.5-4.0) gm/dl Albumin/Globulin Ratio 0.8 L (0.9-2) Urine Color Urine Appearance (Clear) Urine pH (4.5-7.5) Ur Specific [place] (1.000-1.030) Urine Protein (Negative) Urine Glucose (UA) (Negative) Urine Ketones (Negative) Urine Blood (Negative) Urine Nitrite (Negative) Urine Bilirubin (Negative) Urine Urobilinogen (Negative) Ur Leukocyte Esterase (Negative) Urine WBC (Auto) (0-5) /hpf Urine RBC (Auto) (0-4) /hpf U Hyaline Cast (Auto) (0-5) /lpf U Epithel Cells (Auto) (0-5) /lpf Urine Bacteria (Auto) (Negative) Imaging Data Radiologist's Impression: Radiology results as stated below per my review and the radiologist's interpretation: XR chest 1V portable CLINICAL HISTORY: 78 years-old Female presenting with Dyspnea. TECHNIQUE: Portable upright AP view of the chest was obtained. COMPARISON: 12/26/2018. FINDINGS: Atherosclerosis of the aortic arch. Cardiac silhouette enlarged. Minimal bandlike opacity in the left mid lung periphery as on prior. No new focal opacity. No large effusion or pneumothorax. Degenerative changes of the thoracic spine. Upper abdomen normal. IMPRESSION: 1. Cardiomegaly. No other convincing evidence of acute cardiopulmonary disease. Electronically signed by: Beau Cerda M.D. 01/04/2019 5:15 PM ECG Data Attestation: I personally reviewed and interpreted this ECG as follows: Indication: SOB/dyspnea Rate (beats per minute): 76 Rhythm: normal sinus Findings: + other (normal intervals and axis ), + Q waves and + T-wave inversion Comparison ECG Date: from (12/26/18) Change: no significant change Blood Pressure Blood Pressure Findings: Elevated blood pressure Blood Pressure Disposition: Referred to patients primary care provider MDM Narrative The patient is a 78 year old female with a PMHX of RAD, JILLIAN, A-fib, diabetes, HTN, who presents to the ED with complaints of a worsening shortness of breath that began this morning. Patient was seen and evaluated the bedside. The patient had been referred here from her primary geotechnical engineer Dr. Guaman from [facility]. The patient has had some off and on chest pains and shortness of breath. The patient has already taken 2 baby aspirin today. There was concern from the primary geotechnical engineer due to potential calcifications from a CAT scan of the chest that did not the patient had from several days ago which was negative for PE. There was a suggestion from the patient the primary geotechnical engineer wanted the patient to have a diagnostic cardiac catheterization. Patient's EKG does not show any acute changes from prior. Patient did a blood work completed was given nitro. Nitro did resolve the patient's chest pain. The patient does look and feel improved upon reassessment. I did speak with the hospitalist who agreed to further evaluate treat the patient. Given the patient's lack of an elevated t roponin chronicity of symptoms and no EKG changes I do not believe she needs to go to [employer] at this moment. I discussed with the patient that if she has recurrence of worsening symptoms she should notify someone for repeat EKGs and blood work to be obtained. Patient is a full code. I did speak the on-call hospitalist who agreed to further evaluate treat the patient. Patient was given the rest of a full dose aspirin. Patient was admitted to the medicine service. Of note the patient stop taking her apixaban at her own discretion. The patient is currently in sinus rhythm. Impression & Plan SOB (shortness of breath), Atypical chest pain Discharge Plan Visit Data Chief Complaint: Shortness of Breath/Dyspnea Stated Complaint: TROUBLE BREATHING, CHEST PAIN ED Provider: Swapnil Amezquita Discharge Problem: SOB (shortness of breath), Atypical chest pain Patient Disposition: Being Evaluated by Hospitalist Forms Stand Alone Forms: My [facility] Prescriptions Prescriptions: No Action sertraline 100 mg tablet 100 mg PO DAILY RF: 0 ondansetron HCl 4 mg tablet 4 mg PO TID PRN (Reason: Nausea) RF: 0 pantoprazole 40 mg tablet,delayed release (DR/EC) 40 mg PO DAILY RF: 0 lorazepam 1 mg tablet 1 mg PO TID PRN (Reason: Anxiety) Qty: 90 RF: 0 metoprolol succinate 25 mg tablet extended release 24 hr 25 mg PO DAILY Qty: 30 RF: 0 tramadol 50 mg tablet 50 mg PO BID RF: 0 amitriptyline 10 mg tablet 10 mg PO HS RF: 0 lisinopril 40 mg Tablet 40 mg PO DAILY RF: 0 albuterol sulfate [Ventolin HFA] 90 mcg/actuation Hfa Aerosol Inhaler 2 puff INHALATION Q4 PRN (Reason: Shortness Of Breath) RF: 0 tramadol 50 mg Tablet 100 mg PO HS RF: 0 ranitidine HCl 150 mg Tablet 150 mg PO BID RF: 0 glipizide 2.5 mg Tablet Extended Release 24hr 2.5 mg PO DAILY RF: 0 Referrals Referrals: Salena Angel DO [Primary Care Provider] - The scribe's documentation has been prepared under my direction and personally reviewed by me in its entirety. I confirm that the note above accurately reflects all work, treatment, procedures, and medical decision making performed by me.
[2019-01-04] MEDS ORDERED: ONDANSETRON 4 MG TAB PO PRN (20:55)
[2019-01-04] MEDS ORDERED: ACETAMINOPHEN 325 MG TAB PO PRN (20:55)
[2019-01-04] MEDS ORDERED: ALBUTEROL HFA 8 GM INHALER INH PRN (20:55)
[2019-01-04] MEDS ORDERED: TRAMADOL HCL 50 MG TABLET PO SCH (21:00)
[2019-01-04] MEDS ORDERED: GLUCOSE 10 TABS/TUBE PO PRN (21:15)
[2019-01-04] MEDS ORDERED: DEXTROSE 50% 50 ML SYRINGE IV PRN (21:15)
[2019-01-04] MEDS ORDERED: GLUCAGON FOR INJ 1 MG VIAL IM PRN (21:15)
[2019-01-04] MEDS ORDERED: CARBOHYDRATES FOR HYPOGLYCEMIA PO PRN (21:15)
[2019-01-04] MEDS ORDERED: GLUCOSE 40% GEL 15 GM TUBE PO PRN (21:15)
[2019-01-04] MEDS ORDERED: RIVAROXABAN 20 MG TAB PO ONE (21:45)
[2019-01-04] MEDS ORDERED: AMITRIPTYLINE HCL 10 MG TAB PO SCH (22:00)
[2019-01-04] MEDS: LORazepam 1 MG TAB PO PRN (22:09)
[2019-01-04] MEDS: INSULIN ASPART 100 UNITS/ML 3 ML PEN SC SCH (22:45)
[2019-01-05 05:29] LABS: Eosinophils # (auto) 0.25 K/uL (0-0.5); Eosinophils % (auto) 4.8 %; Hematocrit (blood only) 36.4 % (37-47); Hemoglobin 12.1 g/dL (12.0-16.0); Immature Granulocytes # (auto) 0.01 K/uL (0.00-0.02); Immature Granulocytes % (auto) 0.2 %; Lymphocytes # (auto) 1.84 K/uL (1.2-3.4); Lymphocytes % (auto) 35.2 %; Mean Corpuscular Hgb Conc 33.2 g/dL (32-36); Mean Corpuscular Volume 90.1 fL (80-100); Mean Platelet Volume 9.3 fL (7.4-10.4); Monocytes # (auto) 0.54 K/uL (0.11-0.59); Monocytes % (auto) 10.3 %; Neutrophils # (auto) 2.58 K/uL (1.4-6.5); Neutrophils % (auto) 49.5 %; Platelet Count 176 K/uL (130-400); RDW Coefficient of Variation 13.2 % (11.5-14.5); RDW Standard Deviation 43.5 fL (36.4-46.3); Red Blood Count 4.04 M/uL (4.2-5.4); White Blood Count 5.22 K/uL (4.8-10.8)
[2019-01-05 06:06] LABS: BUN Creatinine Ratio 13.7 (10-20); Calcium 8.8 mg/dl (8.5-10.1); Creatinine Clr Calc Pharmacy 59.1 ml/min; Est GFR (African American) 70.5; Est GFR (Non-African American) 60.8; Potassium 4.1 mmol/L (3.5-5.1)
[2019-01-05] MEDS: INSULIN ASPART 100 UNITS/ML 3 ML PEN SC SCH ×3 (08:15→17:07)
[2019-01-05] MEDS ORDERED: PANTOprazole 40 MG TAB PO SCH (09:00)
[2019-01-05] MEDS ORDERED: ASPIRIN 81 MG ECTAB PO SCH (09:00)
[2019-01-05] MEDS ORDERED: SERTRALINE HCL 100 MG TABLET PO SCH (09:00)
[2019-01-05] MEDS: LORazepam 1 MG TAB PO PRN (10:15)
[2019-01-05] MEDS ORDERED: fentaNYL citrate 100 MCG/2 ML VIAL ONE (11:19)
[2019-01-05] MEDS ORDERED: NiCARDipine HCL INJ 2.5 MG/ML 10 ML AMP ONE (11:19)
[2019-01-05] MEDS ORDERED: MIDAZOLAM HCL 1 MG/ML 2ML VIAL ONE (11:19)
[2019-01-05] MEDS ORDERED: HEPARIN (PORCINE) 1000 UNIT/ML 10 ML (CATH LAB USE ONLY) ONE (11:19)
[2019-01-05] MEDS ORDERED: NITROGLYCERIN/D5W 100MCG/ML 20ML SYR ONE (11:20)
--- NOTE | 2019-01-05 12:07 | Pre Anesthesia Assessment ---
Date of Service January 05, 2019 Pre Sedation Assessment Vital Signs Temp Pulse Pulse Resp BP BP BP 01/05/19 06:47 98.1 F 68 20 123/69 01/05/19 03:07 98.1 F 73 18 110/62 01/04/19 23:08 98.4 F 69 20 146/71 H 01/04/19 20:35 98.6 F 83 20 188/99 H 01/04/19 20:11 80 20 162/86 H 01/04/19 18:58 76 18 142/89 H 01/04/19 18:14 82 17 117/83 01/04/19 17:00 92 H 18 127/80 01/04/19 16:55 85 24 156/88 H 01/04/19 16:53 75 20 161/86 H 01/04/19 15:54 99.5 F 88 20 167/93 H Pulse Ox 01/05/19 06:47 96 01/05/19 03:07 96 01/04/19 23:08 96 01/04/19 20:35 99 01/04/19 20:11 97 01/04/19 18:58 98 01/04/19 18:14 96 01/04/19 17:00 93 01/04/19 16:55 95 01/04/19 16:53 94 01/04/19 15:54 96 Cardiovascular RRR, no murmur, no edema Respiratory normal respiratory effort, lungs clear to auscultation Pre-Sedation Airway Assessment Smoking Status: Never smoker Hx Sleep Apnea: No Hx Difficult Intubation: No Short, Thick Neck: No Thyromental Distance: > or= 3.5 Finger Breadths Mallampati Class: III Procedure Planning Contraindications for Sedation: none Current Medications Reviewed: Yes Notes The planned sedation has been discussed with the patient. Informed Consent was obtained. I have identified the patient, determined the appropriateness of sedation and have assessed the patient immediately prior to the procedure. All medicine(s) and interventions are by my order.
--- NOTE | 2019-01-05 12:08 | Post Anesthesia Assessment ---
Date of Service January 05, 2019 Post Sedation Assessment Vital Signs Temp Pulse Pulse Resp BP BP BP 01/05/19 06:47 98.1 F 68 20 123/69 01/05/19 03:07 98.1 F 73 18 110/62 01/04/19 23:08 98.4 F 69 20 146/71 H 01/04/19 20:35 98.6 F 83 20 188/99 H 01/04/19 20:11 80 20 162/86 H 01/04/19 18:58 76 18 142/89 H 01/04/19 18:14 82 17 117/83 01/04/19 17:00 92 H 18 127/80 01/04/19 16:55 85 24 156/88 H 01/04/19 16:53 75 20 161/86 H 01/04/19 15:54 99.5 F 88 20 167/93 H Pulse Ox 01/05/19 06:47 96 01/05/19 03:07 96 01/04/19 23:08 96 01/04/19 20:35 99 01/04/19 20:11 97 01/04/19 18:58 98 01/04/19 18:14 96 01/04/19 17:00 93 01/04/19 16:55 95 01/04/19 16:53 94 01/04/19 15:54 96 Recovery Score Activity: Moves 4 extremities Respiration: Deep Breath/Cough Circulation: +/-20% PreAnes Value Consciousness: Fully Awake Oxygen Saturation: O2 needed for >90% Discharge Sedation Level of Care: Fast Track Phase II Post Sedation Plan On clinical assessment, the patient appears to have tolerated the sedation without complications. Patient is recovering as anticipated. Patient will continue to be monitored by nursing and may be discharged when sedation discharge criteria are met per below protocol. Upon Completions of procedure and additional 15 minutes continue every 5 minute vital signs and the P.A.R. score; then discharge to a Phase I or Fast Track to Phase II per the following guidelines: * Discharge Patient to appropriate Phase II area if PAR is 8 or greater or return to pre- procedure baseline. The post - procedure orders will be as directed. * If PAR score is less than 8 or not return to pre-procedure baseline then patient will follow Phase I monitoring till PAR is reached for Phase II. The Phase I may be done in procedure room or may call to secure a Phase I area. * If naloxone or flumazenil are used for reversal, hold in Phase I for contin ued monitoring from when last reversal dose was given for a minimum of 60 minutes or longer pending the nurse and/or physician discretion of patient condition before discharge to Phase II. Please call the Sedation Physician to re-evaluate and complete post-note for discharge to Phase II area. Do NOT discharge from procedure sedation or Phase 1 until post- sedation evaluation note is complete by procedure /sedation MD Sedation Discharge Instructions to be given to the patient at discharge to home.
--- NOTE | 2019-01-05 12:26 | Cardiac Catheterization ---
[facility] Data: Commissary Helper Cardiac Status Clinical evaluation leading to the procedure CAD Presenation: Unstable angina Anginal Classification: CCS IV Heart Failure: No Cardiogenic Shock within 24 Hours: No Cardiac Arrest within 24 Hours: No Imaging Studies Past 6 Months: Yes Stress Studies Past 6 Months: Yes Stress Echocardiogram: Yes - Negative Diagnostic Physicians Name: Raul Beck MD Status: Elective Closure Device Percutaneous Entry Location: Radial Closure Device: Radial Band Recommendations: Medical Therapy and/or Counseling Intraprocedure Events Significant Disection: No Perforation: No Cardiac Cath Procedure Full Procedure Date January 05, 2019 Pre-Procedure Diagnosis Pre-Procedure Diagnosis: Cardiothoracic Symptom AUC Score AUC Score: 7 Post-Procedure Diagnosis Post-Procedure Diagnosis: Severe CAD and Normal Intracardiac Pressures Procedure(s) Performed Procedure(s) Performed: Coronary Angiography and Left Heart Cath Creative Producer Raul Beck MD Patient Financial Rep(s) Carlos Estimated Blood Loss Estimated Blood Loss: 10 Medication(s) Medication(s): Fentanyl, Heparin, Lidocaine 1%, Nicardipine, Nitroglycerin and Versed Summary of Findings Indication: Exertional dyspnea, atypical chest, coronary calcifications on CT Access: 6 Fr right radial artery Catheters: [place], pigtail Findings: LM -large caliber, luminal irregularities LAD -large caliber vessel, mildly calcified 30% proximal to mid diffuse disease. Distal vessel with luminal irregularities as wraps around apex. High first diagonal without significant disease. Moderate caliber second diagonal with 80 to 90% ostial/proximal stenosis, 50 to 60% mid segment stenosis. Small right PDA fills via collaterals from septals. Circumflex -large caliber, codominant, 20 to 30% mid segment disease, 40 to 50% ostial stenosis involving small OM 2. Moderate left PLB and PDA without significant disease. RCA -condominant, 80% mid segment disease, prior to 100% occlusion at takeoff of acute marginal. Subtotal occlusion of small acute marginal with vessel filling retrograde via collaterals from RV branch LVEDP - 13 Arterial Closure: TR Band Summary: 1. Severe multivessel coronary artery disease - 100% chronic mid RCA occlusion. Small R-PDA fills via left to right collaterals. - 80-90% ostial moderate caliber second diagonal 2. Normal intracardiac filling pressure Recommendations: No high risk disease or disease which would expect to cause chest pain at rest. Recommend further titration of antianginal therapy. Continue ASCVD risk factor modification. If in the future were to have refractory symptoms diagonal amenable to PCI. Post TR band removal could be discharged later today with follow-up with Dr. Guaman/Chelly. Hemodynamics Rest Ao:: 133/64/100 Final Ao: 156/70/110 LV: 150/13 Recommendations Recommendations: Medical Therapy and/or Counseling Specimens Specimens: None Radiation Exposure (mGy) 1239 Contrast (mls) 40 Fluids (cc crystalloids) Fluids (cc crystalloids): 45 Drains Drains: none Anesthesia moderate Procedural Complication(s) None Disposition PCU I attest to the content of the Intraoperative Record and any orders documented therein. Any exceptions are noted below.
--- NOTE | 2019-01-05 16:40 | Discharge Summary ---
Date of Service January 05, 2019 Admission HPI Per Admitting Provider 78-year-old female with a history of DM, HTN, HLD, A. kayley presents from cardiology office with shortness of breath and chest pain, symptoms have been ongoing for the past couple months. She states that she is been more dyspneic recently and was in the ED last week. She states that the chest pain is intermittent, nonexertional. She describes it as a pressure like sensation with radiation to her left arm. She states that she sometimes wakes up in the middle the night with the chest pain. She does have a history of atrial fibrillation for which she is rate controlled. She stopped taking Eliquis because of pe rceived symptoms of numbness. The patient has neuropathy at baseline. She denies a history of smoking. Admission Exam Per Admitting Provider Constitutional: WD/WN, vitals as above Eyes: PERRL, conjunctivae normal, anicteric sclerae ENMT: external ear and nose normal, oropharynx normal Neck: trachea midline, no thyromegaly Respiratory: normal respiratory effort, lungs clear to auscultation Cardiovascular: RRR, no murmur, no edema Gastrointestinal (Abdomen): normal bowel sounds, soft, nontender, no hepatos plenomegaly Musculoskeletal: no cyanosis or clubbing, extremities motor strength 5/5 Skin: no rashes, warm and dry Neurologic: PERRL, EOMI, accommodation nl, no face palsy, no dysarthria Psychiatric: A+Ox3, euthymic affect Principal Diagnosis Shortness of breath likely secondary to congestive heart failure Discharge Exam General: Obese female lying in bed in no acute distress HEENT: Normocephalic atraumatic Neck: Normal to visual inspection, exam limited due to adiposity Cardiac: Regular rate and rhythm, I did not appreciate any significant murmurs rubs or gallops, negative calf tenderness, 1+ pedal edema Respiratory: Clear to auscultation bilaterally with symmetrical chest rise I did not appreciate any wheezes, rales, rhonchi GI: Protuberant abdomen, soft, nontender, nondistended MSK: Moves all extremities Skin: Clean, dry, intact Neuro: Alert and oriented Psych: Calm, cooperative, bit tangential at times Discharge Data Allergies Allergy/AdvReac Type Severity Reaction Status Date / Time Cipro Allergy Unknown DIARRHEA Verified 04/15/17 13:24 ciprofloxacin Allergy Unknown DIARRHEA Verified 01/04/19 18:04 pravastatin Allergy Unknown HEART Verified 01/04/19 18:04 ATTACK LIKE SYMPTOMS sitagliptin Allergy Unknown ILLNESS Verified 01/04/19 18:04 apixaban [From Eliquis] AdvReac Severe BODY WENT Verified 01/04/19 18:05 NUMB duloxetine AdvReac Unknown LOSS OF Verified 01/04/19 18:04 CONSCIOUSNESS metformin AdvReac Diarrhea Unverified 01/04/19 18:04 Consultations 01/04/19 18:03 ED Decision to Admit Stat 01/04/19 20:55 Consult Case Management - Discharge Planning Routine 01/05/19 10:08 Consult Cardiology Routine Procedures Performed Operation Date: 01/05/19 11:00 Actual Procedures p Cath, Left with Cors and Vent - Edson Beck MD s Cineradiography w/Routine Exam - Edson Beck MD Ordered Studies 01/05/19 10:49 CL Cath Imgs for PACS use only Routine Hospital Course (1) Chest pain: 78-year-old female with history of DM, HTN, HLD, A. fib, JILLIAN presents with chest pain shortness of breath. Her chest pain symptoms have been ongoing, nonexertional over the past couple months. The patient did not show any acute changes on EKG and troponins were negative the ED, but the patient has significant risk factors with a heart score of 5. Considering risk factors and recommendation of her melter supervisor open hearth furnace to come the ED, we are admitting for further work-up. Chest pain rule out Troponins were trended overnight and continued to be negative, morning EKG was also within normal limits. Cardiology was consulted for further evaluation of her chest pain, the decision was made to perform a diagnostic cath. The patient tolerated the procedure well. Cardiac catheterization demonstrated 100% chronic mid RCA occlusion, with small right PDA filling via left to right collaterals and 80 to 90% ostial moderate caliber second diagonal. Cardiology felt there was no high risk disease or disease that would cause chest pain at rest. They recommend further titration of antianginal therapy, and risk factor mo dification. If in the future refractory symptoms were present diagonals amenable to PCI. Patient's TR band was removed and demonstrated adequate hemostasis. Patient was subsequently discharged. -Follow-up with Dr. Spaulding or Dr. Guaman Atrial fibrillation Patient has a history of nonadherence to her Eliquis secondary to diffuse numbness throughout her body which she attributes to Eliquis. Patient was started on Xarelto 20 mg and maintained on her home metoprolol on admission this will be continued as an outpatient. Patient provided with a prescription for Xarelto -Xarelto 20 mg daily -Metoprolol 25 mg daily Hypertension Upon admission antihypertensive medications were held overnight in the event the patient would require a stress test this morning. These were resumed upon discharge with the addition of amlodipine 5 mg -Amlodipine 5 mg -Continue lisinopril 40 mg daily Asthma versus COPD Patient still complaining of significant breathing difficulties status post cardiac catheterization. Given Dr. Cheung's findings these are not likely secondary to a cardiac source. After obtaining a further history, it sounds like the patient's pulmonary symptoms have been progressive in nature over the past 2 months, and she does not use her albuterol correctly at home. She reports during her last evaluation in the emergency department she felt significantly better status post albuterol nebulization. While hospitalized we provided the patient with a spacer and had respiratory therapy instruct her on the proper use of this. She can continue using this as an outpatient. Will defer to outpatient PCP for further evaluation and work-up of her pulmonary symptoms. -Outpatient spirometry and follow-up with Dr. Angel Diabetes Patient maintained on glipizide as an outpatient, this was stopped on admission and patient placed on SSI. Resume home diabetes medication on discharge Neuropathy Continue amitriptyline GERD Continue PPI, ranitidine Depression Continue sertraline Continue lorazepam 3 times daily DVT prophylaxisXarelto FENregular diet, carb count CODE STATUSfull Sam Stephens MD PGY 2, FCM This chart was completed utilizing [employer] voice recognition software. Grammatical errors, random word insertions, pronoun errors, and in complete sentences are an occasional consequence of the system. Any questions or concerns about the content, text, or information contained within the body of this dictation should be addressed directly to the physician for clarification. Total Time Total Time Spent Total Time Spent (In Minutes): >30 min Discharge Plan Discharge Items Patient Disposition: Home - Self-Care Reason For Visit: CHEST PAIN Discharge Diagnosis: Chest pain rule out hypertension Activity: Resume your previous activity Non-emergency contact: Primary Care Provider Call non-emergency contact if: you have any medication questions, your pain is worsening and your temperature is above 101 Follow-up/Referrals: Salena Angel, [Primary Care Provider] - Diet: Carb Consistent or DM2, Heart Healthy and Low Sodium (2gm) Addtl Attending Provider Instructions: Care instructions: You were admitted to [facility] for evaluation of chest pain. The melter supervisor open hearth furnace were consulted and a cardiac catheterization was performed demo nstrating some blockage however the melter supervisor open hearth furnace felt as if this was not the cause of your symptoms. Per the melter supervisor open hearth furnace recommendation you have also been started on a medication called amlodipine 5 mg, this is a blood pressure medication and should be taken once per day. Finally you were provided with sublingual nitroglycerin tablets to be taken in the event of chest pain. Should you require more than 2 of these or to be transported by ambulance to the hospital it is imperative that you alert them to the fact that you have taken this medication. Furthermore should you require more than 2 days medications you should contact your primary care provider or proceed to the emergency department for further evaluation. We also briefly discussed diet exercise and nutrition. Please see the attached forms for more information on this. Should you wish to see a specialist to discuss your diet and nutrition please feel free to contact Dr. Gabrielle Gutierrez he can schedule an appointment by contacting her at Upon speaking with you further it appears as if the majority of your symptoms appear to be related to your pulmonary status through a combination of both decreased exercise tolerance and asthma versus COPD. It is important to have this further evaluated seeking to determine the etiology of your shortness of breath on exertion. You have also been provided with a spacer to use with your albuterol and instructed on the correct usage of apparent respiratory therapy. Please discuss this with Dr. Angel in follow-up A discharge summary will be sent to your primary care physician to ensure continuity of care. Please bring this discharge summary with you to your next office appointment so that your provider can review it at that time. Follow-up appointments: - Keep all your follow-up appointments as already scheduled. If you cannot make an appointment, notify your provider. - Please call to request a follow-up appointment with your primary care physician within one week of discharge. Please let us know if you are unable to obtain an appointment Medications: - Your medication list has been reviewed and reconciled upon discharge to ensure accuracy and continuity of care. - You are provided with a list of all your current medications at this time. Please review this list closely and make note of any changes. - Please take all of your medications exactly as prescribed. - Tell your primary care provider if you cannot afford your medications. - Call your primary care provider if you are having any side effects or any other problems. - Call your primary care provider before taking any over the counter medications or supplements, including herbals and vitamins, because some of these may interact with your current medications and/or make your symptoms worse. Symptoms: Please call your primary care provider for symptoms including, but not limited to: fevers (temperatures greater than 100.4), chills, intractable nausea or vomiting, diarrhea, rash, shortness of breath, bleeding, pain, or if you experience any worsening of the symptoms that brought you to the hospital. For EMERGENCY and VERY SERIOUS health-related issues, such as chest pain, shortness of breath, or sudden onset of the symptoms that brought you to the hospital, you may need to call 911 or go directly to the Emergency Room It has been our privilege to take care of you during your hospital stay. And Above All Else Feel Better! Best Wishes, Sam Stephens MD PGY2 Resident, Family & Community Medicine [facility] [address] - [address], [address] : [place] [address] Addtl C[employer] [place] Cleaner Provider Instructions: ACTIVITY RECOMMENDATIONS: Excess manipulation of the wrist should be avoided for the next 24-48 hours. * No lifting over 2 pounds (approximately a 1/2 gallon of milk) with the utilized arm for 24 hours. * No strenuous activity such as bowling or tennis for 3 days. * Keep the site of the procedure covered with a bandage for 24 hours. *You may shower the day after the procedure. Do not take a tub bath or submerge the puncture site in water for the next 3 days. *Do not operate any motorized equipment for 3 days. SPECIAL CARE INSTRUCTIONS: The site may be slightly bruised and sore following your procedure. Should any of the following occur, contact the DrSabi who performed your procedure. 1. Redness/inflammation, swelling, chills, or fever, or colored drainage at procedure site within 3-7 days after your procedure. 2. Coldness, discoloration, ongoing numbness, severe pain, or swelling. Expect mild tingling of hand and tenderness at the puncture site for up to three days. If this persists beyond three days, or other symptoms develop, notify the Dr. who performed your procedure. BLEEDING: If the procedure site on your wrist begins to bleed, do not panic 1. Place 1 or 2 fingers firmly just slightly above the insertion site to stop the bleeding. You may be able to feel your pulse as you hold pressure. 2. Lift your finger after 5 minutes to see if the bleeding has stopped. 3. Once the bleeding has stopped, gently wipe the wrist area clean with a bandage. * If the bleeding from your wrist does not stop after 10 minutes, or if there is a large amount of bleeding or spurting, call 911 (do not drive yourself to the hospital). SKIN IRRITATION: * You may experience some redness and/or swelling in the area where radiation was administered. If any skin irritation occurs, please contact your family physician. FOLLOW UP VISIT: Keep any scheduled doctor appointments. Pending Studies at Discharge: No Visit Report Forms: Albuterol Inhaler Instructions Stand-Alone Forms: [facility] Medications and DC Order Prescriptions: New amlodipine [Norvasc] 5 mg Tablet 5 mg PO QAM 30 Days Qty: 30 RF: 6 aspirin [Ecotrin Low Strength] 81 mg Tablet,Delayed Release (Dr/Ec) 81 mg PO QAM 30 Days Qty: 30 RF: 0 Xarelto 20 mg Tablet 20 mg PO DAILY@1700 Qty: 30 RF: 3 nitroglycerin 0.3 mg tablet, sublingual 0.3 mg sublingual Q5M PRN (Reason: chest pain) Qty: 10 RF: 0 Continued sertraline 100 mg tablet 100 mg PO DAILY RF: 0 ondansetron HCl 4 mg tablet 4 mg PO TID PRN (Reason: Nausea) RF: 0 pantoprazole 40 mg tablet,delayed release (DR/EC) 40 mg PO DAILY RF: 0 lorazepam 1 mg tablet 1 mg PO TID PRN (Reason: Anxiety) Qty: 90 RF: 0 metoprolol succinate 25 mg tablet extended release 24 hr 25 mg PO DAILY Qty: 30 RF: 0 tramadol 50 mg tablet 50 mg PO BID RF: 0 amitriptyline 10 mg tablet 10 mg PO HS RF: 0 lisinopril 40 mg Tablet 40 mg PO DAILY RF: 0 albuterol sulfate [Ventolin HFA] 90 mcg/actuation Hfa Aerosol Inhaler 2 puff INHALATION Q4 PRN (Reason: Shortness Of Breath) RF: 0 tramadol 50 mg Tablet 100 mg PO HS RF: 0 ranitidine HCl 150 mg Tablet 150 mg PO BID RF: 0 glipizide 2.5 mg Tablet Extended Release 24hr 2.5 mg PO DAILY RF: 0 Discharge Orders: Discharge Order (Routine); Ordered 01/05/19 Ordered By: Sam Harris/Other Patient Handouts: Choices Low Salt, Diabetes Healthy Meals, Diabetes Carbs, Weight Manage Eat Healthy, Weight Manage Fact Fiction, Cooking Healthy Ways Quick, MyPlate Worksheet 1600 Calories Admission Data Admit Date/Time: 01/04/19 19:31 Attending Provider: Tracey Fan Admit Provider: Kirsten Stephens Primary Care Provider: Salena Angel Other Providers: Kirsten Stephens ; Nam Spaulding Other Interventions: Discharge Summary Assessment (RN) Last Done: 01/05/19 17:36 DC Date/Time DO NOT enter until pt leaves facility: 01/05/19 18:34 Supervising Physician Co-Signing Physician Notes Patient seen and examined with PGY-2 Dr. Stephens. Agree with history, exam findings, assessment and plan of care. IN brief, Ms. Perez is a 78 year old female with hx of DM, HTN, afib, JILLIAN sent to the ED for exertion dyspnea and chest pain from her cardiologists' office for possible diagnostic cardiac cath. She is doing well. Has some dyspnea, but minimal chest pain. Troponins have been flat. EKGs without ischemic changes. Had a stress echo in Nov 2017 that was negative for ischemia. I personally discussed the case with her referring melter supervisor open hearth furnace, Dr. Guaman. VS reviewed. Nursing notes reviewed. Heart with regular rate and rhythm. Lungs clear to ascultation. 1. chest pain concerning for angina. Cardiac cath today with multivessel disease, but no stents required. Started amlodipine for anti-anginal effects. Continue home metoprolol, lisinopril. 2. pafib. switched anticoagulation to Xarelto. Previously had side effects (numbness) with Eliquis. 3. HTN. lisinopril and metoprolol held at admission. Restart on discharge. 4. DM. Home glipizide held on admission, but ok to restart on discharge. Dispo: discharge home today. Close follow up with PCP. I personally spent 35 minutes discharge planning for this patient. Resident Activity Tracking Resident Involvement: Resident Care Provided Care Provided: Adult Hospital Medicine
[2019-01-05] MEDS ORDERED: RIVAROXABAN 20 MG TAB PO SCH (17:00)
[2019-01-06] MEDS ORDERED: AMLODIPINE BESYLATE 5 MG TAB PO SCH (09:00)
== END 2019-01-05 18:34 | disposition home or self-care (01) ==
LOC: 2S 15:51 → ED 15:51 → SUATTDRO 19:31 → 2S 20:22

== ENCOUNTER 2019-10-11 12:48 | Inpatient (IN) ==
[2019-10-11 13:38] LABS: Basophils # (auto) 0.01 K/uL (0-0.2); Basophils % (auto) 0.2 %; Eosinophils # (auto) 0.16 K/uL (0-0.5); Eosinophils % (auto) 2.5 %; Hematocrit (blood only) 39.8 % (37-47); Hemoglobin 13.3 g/dL (12.0-16.0); Immature Granulocytes # (auto) 0.02 K/uL (0.00-0.02); Immature Granulocytes % (auto) 0.3 %; Lymphocytes # (auto) 1.03 K/uL (1.2-3.4); Lymphocytes % (auto) 15.9 %; Mean Corpuscular Hemoglobin 29.6 pg (25-34); Mean Corpuscular Hgb Conc 33.4 g/dL (32-36); Mean Corpuscular Volume 88.4 fL (80-100); Mean Platelet Volume 9.7 fL (7.4-10.4); Monocytes # (auto) 0.34 K/uL (0.11-0.59); Monocytes % (auto) 5.2 %; Neutrophils # (auto) 4.93 K/uL (1.4-6.5); Neutrophils % (auto) 75.9 %; Platelet Count 245 K/uL (130-400); RDW Coefficient of Variation 13.8 % (11.5-14.5); RDW Standard Deviation 44.6 fL (36.4-46.3); White Blood Count 6.49 K/uL (4.8-10.8)
[2019-10-11 13:50] LABS: Partial Thromboplastin Ratio 1.2; Partial Thromboplastin Time 32.6 Seconds (21.0-31.0); Prothrombin Time 10.7 Seconds (9.0-12.0)
[2019-10-11 13:58] LABS: Alanine Aminotransferase 17 U/L (12-78); Albumin Level 3.3 gm/dl (3.4-5.0); Aspartate Aminotransferase 16 U/L (15-37); BUN Creatinine Ratio 6.8 (10-20); Blood Urea Nitrogen 7 mg/dl (7-18); Calcium 9.1 mg/dl (8.5-10.1); Carbon Dioxide 25 mmol/L (21-32); Chloride 105 mmol/L (98-107); Creatinine Clr Calc Pharmacy 47.7 ml/min; Est GFR (African American) 60.2; Est GFR (Non-African American) 51.9; Glucose 243 mg/dl (70-99); Potassium 4.2 mmol/L (3.5-5.1); Sodium 137 mmol/L (136-145)
[2019-10-11 14:02] LABS: Albumin Globulin Ratio 0.7 (0.9-2); Alkaline Phosphatase 90 U/L (45-117); Bilirubin,Total 0.4 mg/dl (0.2-1); Globulin 4.6 gm/dl (2.5-4.0); Total Protein 7.9 gm/dl (6.4-8.2); Troponin I < 0.015 ng/ml (0-0.045)
--- NOTE | 2019-10-11 14:14 | XRay Report ---
XR chest 1V portable CLINICAL HISTORY: SOB COMPARISON STUDY: May 17, 2019 FINDINGS: The heart is at the upper limits of normal in size. A parenchymal opacity visualized toward s left lung base laterally likely represents focal atelectasis/scarring. There is no lobar consolidat ion. There is mild interstitial prominence without evidence of overt failure. There are no significan t pleural effusions.[ IMPRESSION: No active disease in the chest. ACT 112: Negative or not required by law. Electronically signed by: Chiki Haddad M.D. 10/11/2019 2:12 PM
--- NOTE | 2019-10-11 14:32 | Emergency Department Note ---
History of Present Illness General Chief complaint: Shortness of Breath/Dyspnea Stated complaint: SOB Time Seen by Provider: 10/11/19 13:58 History of Present Illness Provider complaint: Shortness of breath Onset (ago): day(s) 4 Maximum Pain Intensity: 2 Exacerbated By: + movement Associated symptoms: + chest pain (Central chest tightness) and + shortness of breath; no syncope 79-year-old female presents emergency department shortness of breath. She reports that her shortness of breath is gotten worse over the last 4 days. She also reports central chest tightness. She states her symptoms are worsened with minimal exacerbation. She did state that she took a nitroglycerin yesterday which relieved some of her symptoms. Patient has a history of being on Xarelto for atrial fibrillation. She sees Dr. Lebron from cardiology. She has a history of severe multivessel coronary artery disease Home Medications Home Medications Medication Instructions Recorded Confirmed Type albuterol sulfate [Ventolin HFA] 2 puff INHALATION Q4 PRN 12/16/17 10/11/19 History lisinopril 40 mg PO DAILY 12/16/17 10/11/19 History amitriptyline 10 mg PO HS 07/19/18 10/11/19 History lorazepam 1 mg tablet 1 mg PO TID PRN #90 tab 10/27/18 10/11/19 History glipizide 2.5 mg PO DAILY 01/04/19 10/11/19 History ondansetron HCl 4 mg tablet 4 mg PO TID PRN 01/04/19 10/11/19 History pantoprazole 40 mg tablet,delayed 40 mg PO DAILY 01/04/19 10/11/19 History release sertraline 100 mg tablet 100 mg PO DAILY 01/04/19 10/11/19 History nitroglycerin 0.3 mg SUBLINGUAL Q5M PRN #10 tab 01/05/19 10/11/19 Rx rivaroxaban [Xarelto] 20 mg PO DAILY@1700 #30 tab 01/05/19 10/11/19 Rx metoprolol succinate 25 mg 25 mg PO DAILY #90 tab 01/17/19 10/11/19 Rx tablet,extended release 24 hr tramadol 50 mg tablet 50 mg PO .COMPLEX tab 01/24/19 10/11/19 History diltiazem HCl 300 mg PO DAILY 10/11/19 10/11/19 History Allergies Allergy/AdvReac Type Severity Reaction Status Date / Time pravastatin Allergy Intermediate HEART Verified 10/11/19 15:29 ATTACK LIKE SYMPTOMS apixaban [From Eliquis] AdvReac Severe BODY WENT Verified 10/11/19 15:29 NUMB duloxetine AdvReac Severe LOSS OF Verified 10/11/19 15:29 CONSCIOUSNESS ciprofloxacin AdvReac Intermediate DIARRHEA Verified 10/11/19 15:29 metformin AdvReac Intermediate Diarrhea Verified 10/11/19 15:29 sitagliptin AdvReac Intermediate ILLNESS Verified 10/11/19 15:29 Past Med/Surg History Medical History Abdominal pain Asthma Diabetes mellitus, type 2 Diarrhea Dyslipidemia Hypertension Surgical History H/O tubal ligation Hx of cataract surgery Hx of cholecystectomy Hx of total knee arthroplasty Family History Grandmother Cancer Mother Diabetes Breast cancer Arthritis Skin cancer Brother Diabetes Lymphoma Sister Breast cancer Skin cancer Grandmother Lung cancer Social History Communication Ability: Effective Beliefs That Will Affect Care: None Current Living Situation: Family Feels Safe at Home: Yes Smoking Status: Never smoker Hx Alcohol Use: No Hx Substance Use: No Review of Systems A total of 10 systems reviewed and were otherwise negative Physical Exam Vital Signs Vital Signs - 24 hr 10/11/19 13:08 10/11/19 13:48 10/11/19 14:48 Temperature 37.1 C Temperature Source Oral Pulse Rate 87 Pulse Rate [Apical] 72 Pulse Rate from SpO2 Sensor Pulse Rhythm [Apical] Regular Pulse Strength [Apical] Normal Respiratory Rate 26 H 19 Respiratory Effort / Characteristics Non-Labored Spontaneous Short of Breath SOB on Exertion Non-Labored Spontaneous Respiratory Depth Normal Normal Normal Respiratory Pattern Regular Regular Blood Pressure 150/89 H Blood Pressure [Right Arm] 137/82 Blood Pressure Mean 109 Blood Pressure Mean [Right Arm] 100 Pulse Oximetry 96 93 Oxygen Delivery Method Room Air Room Air Room Air Sepsis Recent Fever Within 48 Hours No Sepsis New/Unexplained Change in Mental Status No 10/11/19 15:16 10/11/19 15:30 10/11/19 16:39 Temperature Temperature Source Pulse Rate 82 77 83 Pulse Rate [Apical] Pulse Rate from SpO2 Sensor 81 Pulse Rhythm [Apical] Pulse Strength [Apical] Respiratory Rate 18 20 18 Respiratory Effort / Characteristics Respiratory Depth Respiratory Pattern Blood Pressure 137/82 114/82 157/85 H Blood Pressure [Right Arm] Blood Pressure Mean 101 94 123 Blood Pressure Mean [Right Arm] Pulse Oximetry 94 94 95 Oxygen Delivery Method Sepsis Recent Fever Within 48 Hours Sepsis New/Unexplained Change in Mental Status Course Course 1415: Patient seen by resident physician Dr. Pace. Patient was seen during time of extreme volume and acuity in the emergency department and nursing orders were placed via protocol. 1445: Vital signs stable. Labs and imaging within normal limits. Patient will be admitted for rule out ACS given her high heart score. Discussed with Dr. Starr who will evaluate the patient. Medical Decision Making Laboratory Data Result diagrams: 10/11/19 13:23 10/11/19 13:23 Lab Results 10/11/19 10/11/19 10/11/19 Range/Units 13:23 13:23 13:23 WBC 6.49 (4.8-10.8) K/uL RBC 4.50 (4.2-5.4) M/uL Hgb 13.3 (12.0-16.0) g/dL Hct 39.8 (37-47) % MCV 88.4 (80-100) fL MCH 29.6 (25-34) pg MCHC 33.4 (32-36) g/dL RDW Std Deviation 44.6 (36.4-46.3) fL RDW Coeff of Roxi 13.8 (11.5-14.5) % Plt Count 245 (130-400) K/uL MPV 9.7 (7.4-10.4) fL Immature Gran % (Auto) 0.3 % Neut % (Auto) 75.9 % Lymph % (Auto) 15.9 % Bladen % (Auto) 5.2 % Eos % (Auto) 2.5 % Baso % (Auto) 0.2 % Neut # (Auto) 4.93 (1.4-6.5) K/uL Lymph # (Auto) 1.03 L (1.2-3.4) K/uL Bladen # (Auto) 0.34 (0.11-0.59) K/uL Eos # (Auto) 0.16 (0-0.5) K/uL Baso # (Auto) 0.01 (0-0.2) K/uL Immature Gran # (Auto) 0.02 (0.00-0.02) K/uL PT 10.7 (9.0-12.0) Seconds INR 1.0 (0.9-1.1) APTT 32.6 H (21.0-31.0) Seconds PTT Ratio 1.2 Sodium 137 (136-145) mmol/L Potassium 4.2 (3.5-5.1) mmol/L Chloride 105 (98-107) mmol/L Carbon Dioxide 25 (21-32) mmol/L Anion Gap 7.0 (3-11) BUN 7 (7-18) mg/dl Creatinine 1.02 (0.6-1.2) mg/dl Est Cr Clr Drug Dosing 47.7 ml/min Est GFR ( Amer) 60.2 Est GFR (Non-Af Amer) 51.9 BUN/Creatinine Ratio 6.8 L (10-20) Glucose 243 H (70-99) mg/dl Calcium 9.1 (8.5-10.1) mg/dl Total Bilirubin 0.4 (0.2-1) mg/dl AST 16 (15-37) U/L ALT 17 (12-78) U/L Alkaline Phosphatase 90 (45-117) U/L Troponin I < 0.015 (0-0.045) ng/ml Total Protein 7.9 (6.4-8.2) gm/dl Albumin 3.3 L (3.4-5.0) gm/dl Globulin 4.6 H (2.5-4.0) gm/dl Albumin/Globulin Ratio 0.7 L (0.9-2) Imaging Data Radiologist's Impression: XR chest 1V portable CLINICAL HISTORY: SOB COMPARISON STUDY: May 17, 2019 FINDINGS: The heart is at the upper limits of normal in size. A parenchymal opacity visualized towards left lung base laterally likely represents focal atelectasis/scarring. There is no lobar consolidation. There is mild interstitial prominence without evidence of overt failure. There are no significant pleural effusions.[ IMPRESSION: No active disease in the chest. ACT 112: Negative or not required by law. Electronically signed by: Chiki Haddad M.D. 10/11/2019 2:12 PM Dictated: 10/11/19 141 Transcribed: 10/11/19 141 ECG Data Indication: + chest pain Rate (beats per minute): 84 Rhythm: + atrial fibrillation ECG Intervals/blocks: + Normal QRS and + Normal QT-c ECG ST segments: + Normal ST segments MDM Narrative Vital signs stable. Labs and imaging within normal limits. Patient will be admitted for rule out ACS given her high heart score. Discussed with Dr. Starr who will evaluate the patient. Impression & Plan Chest pain Discharge Plan Visit Data Chief Complaint: Shortness of Breath/Dyspnea Stated Complaint: SOB ED Provider: Oswaldo Thomas Discharge Problem: Chest pain Patient Disposition: Being Evaluated by Hospitalist Forms [facility] Prescriptions Prescriptions: No Action sertraline 100 mg tablet 100 mg PO DAILY RF: 0 ondansetron HCl 4 mg tablet 4 mg PO TID PRN (Reason: Nausea) RF: 0 pantoprazole 40 mg tablet,delayed release (DR/EC) 40 mg PO DAILY RF: 0 metoprolol succinate 25 mg tablet extended release 24 hr 25 mg PO DAILY Qty: 90 RF: 3 lorazepam 1 mg tablet 1 mg PO TID PRN (Reason: Anxiety) Qty: 90 RF: 0 tramadol 50 mg tablet 50 mg PO .COMPLEX RF: 0 amitriptyline 10 mg tablet 10 mg PO HS RF: 0 diltiazem HCl 300 mg capsule,extended release 24hr 300 mg PO DAILY RF: 0 lisinopril 40 mg Tablet 40 mg PO DAILY RF: 0 albuterol sulfate [Ventolin HFA] 90 mcg/actuation Hfa Aerosol Inhaler 2 puff INHALATION Q4 PRN (Reason: Shortness Of Breath) RF: 0 glipizide 2.5 mg Tablet Extended Release 24hr 2.5 mg PO DAILY RF: 0 Xarelto 20 mg Tablet 20 mg PO DAILY@1700 Qty: 30 RF: 3 nitroglycerin 0.3 mg tablet, sublingual 0.3 mg sublingual Q5M PRN (Reason: chest pain) Qty: 10 RF: 0 Referrals Referrals: Salena Angel DO [Primary Care Provider] - Discharge Problem: Chest pain Qualifiers: Chest pain type: unspecified Qualified Code(s): R07.9 - Chest pain, unspecified
--- NOTE | 2019-10-11 15:26 | Emergency Department Note ---
ED Visit Note This patient was seen in concert with Dr. Thomas and we discussed and agreed upon the history, physical, assessment and plan. See attending's note for details. Resident Activity Tracking Resident Involvement: Resident Care Provided Care Provided: Adult ED
--- NOTE | 2019-10-11 15:42 | Electrocardiogram Report ---
Test Reason : Blood Pressure : / mmHG Vent. Rate : 084 BPM Atrial Rate : 091 BPM P-R Int : 000 ms QRS Dur : 060 ms QT Int : 378 ms P-R-T Axes : 000 022 089 degrees QTc Int : 446 ms Atrial fibrillation Nonspecific ST abnormality Abnormal ECG When compared with ECG of 05-JAN-2019 10:13, Atrial fibrillation has replaced Sinus rhythm Confirmed by Raul Martins ([id number]) on 10/11/2019 3:42:05 PM Referred By: Confirmed By:Grabiel Martins
--- NOTE | 2019-10-11 16:39 | History & Physical Report ---
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 fib with RVR rate controlled on anticoagulation with rivaroxaban, and osteoarthritis who presents to the emergency department with increasing shortness of breath over 4 days Chest pain with associated shortness of breath, suspect 2/2 worsening angina ddx includes rate dependent Afib w/ pulm edema Patient with known multivessel coronary artery disease not previously amenable to PCI Patient with albuterol at home for history of asthma, PFTs this month were normal. Trace crackles on exam, trace JVD Patient reports that her shortness of breath and chest pain both quickly improved following nitro.? Progressing angina versus if she has some rate dependent pulmonary edema improved by nitrate. Patient mildly hypertensive today, reports of hypotension previously Decrease lisinopril to 20 mg, trialed Nitropaste 1/2 inch. If patient becomes hypotensive, wipe. If clinically does well consider addition of isosorbide to med management of CAD Observe on telemetry overnight Troponin negative, EKG without ST elevations on admission. Troponin trended x3. Low suspicion for acute coronary syndrome. - BNP pending - Pt reportedly had an echo via [facility] last week, will attempt to obtain records - CXR naf. Parenchymal opacity visualized towards left lung base laterally likely represents focal atelectasis/scarring. There is no lobar consolidation. There is mild interstitial prominence without evidence of overt failure. There are no significant pleural effusions. Continue metoprolol, aspirin, lisinopril. Lisinopril dose reduced with addition of nitrate as above Type 2 diabetes mellitus, [id number]-kweytbc-infbztynd with neuropathy A1c pending Lipid panel pending [employer] oral anti-glycemics held Sliding scale insulin ordered BMP daily On renal protective lisinopril as noted above Continue [employer] amitriptyline A. fib with history of RVR on anticoagulation Continue rivaroxaban 20 mg daily Rate controlled with diltiazem, metoprolol Patient with mild bilateral leg swelling since diltiazem started, no pitting edema. Follow clinically this time Med/telemetry ? Underlying rate dependent edema while medications (diltiazem) have been adjusted over the last week Anxiety Continue sertraline 100 mg daily [employer] lorazepam 1 mg up to 3 times daily continued, minimize use History of asthma Patient with normal PFTs this month, has an albuterol inhaler which has not improved her symptoms. No wheezing, suspect shortness of breath of cardiac etiology. Obstructive sleep apnea Continue CPAP, home CPAP at 12 cm H2O GERD - Continue protonix 40mg daily DVT prophylaxis: On A. fib anticoagulation as above Disposition: Medical/surgical with telemetry CODE STATUS: Full code FEN/GI: Heart healthy, consistent carb diet. 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 fib with RVR rate controlled on anticoagulation with rivaroxaban, and osteoarthritis who presents to the emergency department with increasing shortness of breath over 4 days. Jaclyn reports that over the last week she has had slowly and progressive increasing shortness of breath with one episode of chest pain yesterday. She reports her shortness of breath is exacerbated with any ambulation, and she is extremely winded even trying to get up to the restroom. She had an episode of pressure-like pain under her sternum yesterday which resolved with sublingual nitro. She has had intermittent heaviness in her chest, but has not tried nitro for several months. She has tried using her albuterol "puffer "which has not improved her symptoms. She reports she is not able to sleep laying flat due to shortness of breath, which improved sitting up with 3 pillows. Prior to this she has had gradually worsening shortness of breath and decreased exercise tolerance for several months. She has had outpatient PFTs in the last month which were normal. She reports she has no/minimal chest discomfort at time of HPI, at first says none and then "maybe a little ". 1 week ago she was switched from amlodipine to diltiazem for rate control of her A. fib, but has had bilateral leg swelling since. Last took her medications this morning. She has been seen by cardiology [facility] in the past, reportedly has multivessel severe disease not amenable to PCI and recommended for medical management. Family history: Reviewed Medical history: Reviewed in EMR, as above Medications: Patient poor historian of her medications, manages her own meds at home with a list. Does not have a list with her. Medications reconciled as noted in EMR state [place] system and last notes to cardiology, patient given affirmation to medications. Surgical history: Reviewed in EMR Allergies: Pravastatin, Eliquis, duloxetine, Cipro, metformin, sitagliptin as noted in EMR Social: Patient lives at home with her 36-year-old grandson. Trailer, minimal ambulation between rooms. Denies current or former tobacco product use. Denies current and former alcohol use. Denies recreational drug use. CODE STATUS: Full code. Decision maker would be her son Mo. Allergies Allergy/AdvReac Type Severity Reaction Status Date / Time pravastatin Allergy Intermediate HEART Verified 10/11/19 15:29 ATTACK LIKE SYMPTOMS apixaban [From Eliquis] AdvReac Severe BODY WENT Verified 10/11/19 15:29 NUMB duloxetine AdvReac Severe LOSS OF Verified 10/11/19 15:29 CONSCIOUSNESS ciprofloxacin AdvReac Intermediate DIARRHEA Verified 10/11/19 15:29 metformin AdvReac Intermediate Diarrhea Verified 10/11/19 15:29 sitagliptin AdvReac Intermediate ILLNESS Verified 10/11/19 15:29 Home Medications Home Medications Medication Instructions Recorded Confirmed Type albuterol sulfate [Ventolin HFA] 2 puff INHALATION Q4 PRN 12/16/17 10/11/19 History lisinopril 40 mg PO DAILY 12/16/17 10/11/19 History amitriptyline 10 mg PO HS 07/19/18 10/11/19 History lorazepam 1 mg tablet 1 mg PO TID PRN #90 tab 10/27/18 10/11/19 History glipizide 2.5 mg PO DAILY 01/04/19 10/11/19 History ondansetron HCl 4 mg tablet 4 mg PO TID PRN 01/04/19 10/11/19 History pantoprazole 40 mg tablet,delayed 40 mg PO DAILY 01/04/19 10/11/19 History release sertraline 100 mg tablet 100 mg PO DAILY 01/04/19 10/11/19 History nitroglycerin 0.3 mg SUBLINGUAL Q5M PRN #10 tab 01/05/19 10/11/19 Rx rivaroxaban [Xarelto] 20 mg PO DAILY@1700 #30 tab 01/05/19 10/11/19 Rx metoprolol succinate 25 mg 25 mg PO DAILY #90 tab 01/17/19 10/11/19 Rx tablet,extended release 24 hr tramadol 50 mg tablet 50 mg PO .COMPLEX tab 01/24/19 10/11/19 History diltiazem HCl 300 mg PO DAILY 10/11/19 10/11/19 History Past Med/Surg History Medical History Abdominal pain Asthma Diabetes mellitus, type 2 Diarrhea Dyslipidemia Hypertension Surgical History H/O tubal ligation Hx of cataract surgery Hx of cholecystectomy Hx of total knee arthroplasty Family History Grandmother Cancer Mother Diabetes Breast cancer Arthritis Skin cancer Brother Diabetes Lymphoma Sister Breast cancer Skin cancer Grandmother Lung cancer Social History Communication Ability: Effective Beliefs That Will Affect Care: None Current Living Situation: Alone Other Information That Helps Us Care for You: No Feels Safe at Home: Yes Safety Concerns: Feels Safe At This Time Smoking Status: Never smoker Hx Alcohol Use: No Hx Substance Use: No Review of Systems Review of Systems: Constitutional: Denies fever, chills. Endorses fatigue Eyes: Denies vision change ENT: Denies ear pain, sore throat, sinus pain Cardiovascular: See HPI Respiratory: See HPI Gastrointestinal: Denies abdominal pain, nausea, vomiting, constipation, diarrhea Genitourinary: Denies urinary symptoms Musculoskeletal: Chronic arthritis, otherwise denies acute muscle aches/pain Integumentary:Denies acute rash, lesions, bruising Neurological: Denies headache. Endorses numbness, tingling in the legs at baseline Physical Exam Physical Exam: General: A&Ox3. NAD. Cooperative. HEENT: Atraumatic, normocephalic. Pupils equal, round, and reactive to light and accommodation. No visual field cuts. Visual acuity grossly intact. No nystagmus. Pulm: Trace crackles in the dependent lobe bilaterally which clear with deep breath/cough. Symmetrical chest rise. No increased work of breathing. No respiratory distress. Cardiac: Irregularly irregular without murmur. Radial pulses intact and symmetrical. JVD is present about 1 inch above the clavicle, increases to the a ngle of the mandible with HJR. Abdominal: Nontender, nondistended, soft. BS present. Extremities: Nonpitting bilateral lower extremity swelling, nontender, Roman negative, soft touch intact in the toes bilaterally without asymmetry, plantarflexion/dorsiflexion with 5/5 strength, web assistant strength/elbow flexion 5/5 without asymmetry, sensation in fingertips intact to soft touch bilaterally without asymmetry. Superficial abrasion on right distal hallux, no signs of ulceration or erythema. Results & Data Results & Data ([facility]) Vital Signs (Past 12 Hours) Vital Signs Temp Pulse Pulse Resp BP BP Pulse Ox 10/11/19 15:30 77 20 114/82 94 10/11/19 15:16 82 18 137/82 94 10/11/19 14:48 72 19 137/82 93 10/11/19 13:08 37.1 C 87 26 H 150/89 H 96 Supervising Physician Co-Signing Physician Notes I also saw the patient and confirmed reyna portions of the history and physical examination. I discussed the case with the resident physician. This pleasant 79-year-old female notes what she describes as a 2-year history of progressive shortness of breath. It seemed to get worse approximately 6 weeks ago and she saw her superintendent terminal in early August noting the worsening shortness of breath. Over the last week, she notes that it has worsened furthermore, and along with this she has had some substernal chest discomfort. When I asked her what brought her into the emergency department today -the shortness of breath or the chest pain -she says both, although the progressive exertional dyspnea is what bothers her more. She took a nitroglycerin and was surprised how much relief she had from both the chest discomfort and the shortness of breath. Initial troponin is negative. Blood work is unremarkable except for elevated glucose. A chest x-ray is read as normal. EKG shows atrial fibrillation, nonspecific ST abnormality. Rate 90. Historically PFTs completed August 2019 were unremarkable. Cardiac catheterization December 2018 showed severe multivessel coronary disease. In November 2018 she had elevated d-dimer and an ED visit; subsequent CT of the chest was negative for thromboembolic phenomena. I agree with the impression and plan as documented above. Serial cardiac enzymes, observation on telemetry Trial dose of Lasix with repeat chest x-ray in AM Nitroglycerin paste with consideration for addition of long-acting nitrates. Cardiology consultation. Resident Activity Tracking Resident Involvement: Resident Care Provided Care Provided: Adult [facility] Medicine
[2019-10-11] MEDS ORDERED: CARBOHYDRATES FOR HYPOGLYCEMIA PO PRN (18:03)
[2019-10-11] MEDS ORDERED: NITROGLYCERIN 0.3 MG/1 TAB 100 TAB BTL SL PRN (18:03)
[2019-10-11] MEDS ORDERED: GLUCOSE 10 TABS/TUBE PO PRN (18:03)
[2019-10-11] MEDS ORDERED: ALBUTEROL HFA 8 GM INHALER INH PRN (18:03)
[2019-10-11] MEDS ORDERED: MoRPHine SULFATE 2 MG/ML CARP IV PRN (18:03)
[2019-10-11] MEDS ORDERED: DEXTROSE 50% 50 ML SYRINGE IV PRN (18:03)
[2019-10-11] MEDS ORDERED: ACETAMINOPHEN 325 MG TAB PO PRN (18:03)
[2019-10-11] MEDS ORDERED: NITROGLYCERIN SL 0.4 MG/TAB TAB SL PRN (18:03)
[2019-10-11] MEDS ORDERED: ONDANSETRON 4 MG OD TAB PO PRN (18:03)
[2019-10-11] MEDS ORDERED: GLUCOSE 40% GEL 15 GM TUBE PO PRN (18:03)
[2019-10-11] MEDS ORDERED: GLUCAGON FOR INJ 1 MG VIAL SQ PRN (18:03)
[2019-10-11 19:09] LABS: NT Pro B Type Natriuretic Pept 1986 pg/ml (0-1800); Troponin I < 0.015 ng/ml (0-0.045)
[2019-10-11] MEDS: NITROGLYCERIN 2% OINTMENT 30GM TUBE EXT SCH ×2 (19:57→23:51)
[2019-10-11] MEDS: RIVAROXABAN 20 MG TAB PO SCH (20:04)
[2019-10-11] MEDS: INSULIN GLARGINE SOLOSTAR 100 UNITS/ML 3 ML PEN SC SCH (20:15)
[2019-10-11] MEDS: INSULIN ASPART 100 UNITS/ML 3 ML PEN SC SCH (20:16)
[2019-10-11] MEDS: LORazepam 1 MG TAB PO PRN (22:00)
[2019-10-11] MEDS: TRAMADOL HCL 50 MG TABLET PO SCH (22:00)
[2019-10-11] MEDS: AMITRIPTYLINE HCL 10 MG TAB PO SCH (22:00)
[2019-10-12 01:33] LABS: Basophils # (auto) 0.01 K/uL (0-0.2); Basophils % (auto) 0.1 %; Eosinophils % (auto) 2.8 %; Hematocrit (blood only) 38.9 % (37-47); Hemoglobin 12.9 g/dL (12.0-16.0); Immature Granulocytes # (auto) 0.01 K/uL (0.00-0.02); Immature Granulocytes % (auto) 0.1 %; Lymphocytes % (auto) 26.5 %; Mean Corpuscular Hemoglobin 29.1 pg (25-34); Mean Corpuscular Hgb Conc 33.2 g/dL (32-36); Mean Corpuscular Volume 87.8 fL (80-100); Mean Platelet Volume 9.3 fL (7.4-10.4); Monocytes # (auto) 0.44 K/uL (0.11-0.59); Monocytes % (auto) 6.1 %; Neutrophils % (auto) 64.4 %; Platelet Count 237 K/uL (130-400); RDW Coefficient of Variation 13.8 % (11.5-14.5); RDW Standard Deviation 44.2 fL (36.4-46.3); Red Blood Count 4.43 M/uL (4.2-5.4); White Blood Count 7.16 K/uL (4.8-10.8)
[2019-10-12 01:43] LABS: BUN Creatinine Ratio 6.9 (10-20); Calcium 8.7 mg/dl (8.5-10.1); Creatinine Clr Calc Pharmacy 55.3 ml/min; Est GFR (African American) 67.3; Potassium 3.6 mmol/L (3.5-5.1)
[2019-10-12 05:57] LABS: Estimated Average Glucose 183 mg/dl
[2019-10-12] MEDS: NITROGLYCERIN 2% OINTMENT 30GM TUBE EXT SCH ×3 (06:10→18:09)
[2019-10-12] MEDS ORDERED: FUROSEMIDE 20 MG in SYRINGE 0 ML IV ONE ×2 (07:30→11:30)
--- NOTE | 2019-10-12 07:44 | Hospitalist Progress Note ---
Date of Service October 12, 2019 Assessment & Plan (1) SOB (shortness of breath): Linda is an 79-year-old female with a past medical history of multi- vessel coronary artery disease not amenable to stenting, type 2 diabetes mellitus not on insulin therapy with neuropathy, sleep apnea, anxiety/ depression, hypertension, A. fib with RVR rate controlled on anticoagulation with rivaroxaban, and osteoarthritis who presents to the emergency department with increasing shortness of breath over 4 days Chest pain with associated shortness of breath, suspect 2/2 AoC CHF, ddx includes rate dependent Afib w/ pulm edema Patient with known multivessel coronary artery disease not previously amenable to PCI. Cath December 2018 with a 30% proximal to mid LAD lesion, moderate size D2 with 80 to 90% ostial stenosis; Large caliber codominant circumflex with a 40 to 50% ostial stenosis of a small OM 2; Total occlusion of the right coronary artery with [id number] collaterals - Dobut echo 09/25 reach 90% max age-adjust HR, no signs of ischemia. EF 55-60% Patient with albuterol at home for history of asthma, PFTs this month were normal. Trace crackles on exam, trace JVD Patient reports that her shortness of breath and chest pain both quickly improved following nitro. ? Progressing angina versus if she has some rate dependent pulmonary edema improved by nitrate. Patient mildly hypertensive today, reports of hypotension previously - Seen by cards. Appreciate recs. Increase toprol to 25mg BID, will start on amio 400mg BID and plan for cardioversion prior to d/c. Increasing lasix to 40mg daily. Uptrate BB if symptoms persist, may still consider addition of isosorbide. Observe on telemetry overnight Troponin negative, EKG without ST elevations on admission. Troponin trended x3, negative. Low suspicion for acute coronary syndrome. - BNP 1985. - Lasix 20mg started. Pt lasix naiive. - CXR naf. Parenchymal opacity visualized towards left lung base laterally likely represents focal atelectasis/scarring. There is no lobar consolidation. There is mild interstitial prominence without evidence of overt failure. There are no significant pleural effusions. Continue metoprolol, aspirin, lisinopril. 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 fib with history of RVR on anticoagulation Continue rivaroxaban 20 mg daily Rate controlled with diltiazem, metoprolol Patient with mild bilateral leg swelling since diltiazem started, no pitting edema. Follow clinically this time Med/telemetry ? Underlying rate dependent edema while medications (diltiazem) have been adjusted over the last week. 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 No wheezing, suspect shortness of breath of cardiac etiology. Obstructive sleep apnea Continue CPAP, home CPAP at 12 cm H2O GERD - Continue protonix 40mg daily DVT prophylaxis: On A. fib anticoagulation as above Disposition: Medical/surgical with telemetry CODE STATUS: Full code FEN/GI: Heart healthy, consistent carb diet. Admission and Anticipated Discharge Date Admission Date: October 11, 2019 Supervising Physician Co-Signing Physician Notes I also saw the patient and confirmed reyna portions of the history and physical examination. I discussed the case with the resident physician. I also personally discussed the case with the senior product consultant. I agree with the impression and plan as noted above. Overall she continues to note the shortness of breath, not really at rest but she does noted with a short ambulation to the bathroom. Sounds as if the chest pain has not been evident overnight. Troponin I were negative overnight. BNP elevated at 1986. Cholesterol dated 05/24, with LDL cholesterol 153, HDL 46. As noted yesterday, historically: PFTs completed August 2019 were unremarkable. Cardiac catheterization December 2018 showed severe multivessel coronary disease. In November 2018 she had elevated d-dimer and an ED visit; subsequent CT of the chest was negative for thromboembolic phenomena. PLAN Appreciate cardiology input; emergent started with potential cardioversion later this week. Will review outpatient chart with respect to her previous statin intolerances. Could also consider addition of long-acting nitrates. Subjective Seen at the bedside this morning. Pleasant, reports her night went "okay ". She is not having shortness of breath at rest, no chest pain at rest, but quickly and immediately became badly winded trying to get up to go to the bathroom. She feels her breathing is about the same as it was yesterday. Has not noticed a benefit from the nitro paste. Has been several times overnight, pending Lasix this morning. No dysuria. Was not able to sleep laying flat, but did get some rest with the bed at a 30 degree incline. No palpitations. Review of Systems Review of Systems: Constitutional: Denies fever, chills. Endorses fatigue Eyes: Denies vision change ENT: Denies ear pain, sore throat, sinus pain Cardiovascular: See subj Respiratory: See subj Gastrointestinal: Denies abdominal pain, nausea, vomiting, constipation, diarrhea Genitourinary: Denies urinary symptoms Musculoskeletal: Chronic arthritis, otherwise denies acute muscle aches/pain Integumentary:Denies acute rash, lesions, bruising Neurological: Denies headache. Endorses numbness, tingling in the legs at baseline Physical Exam Physical Exam: General: A&Ox3. NAD. Cooperative. HEENT: Atraumatic, normocephalic. Visual acuity grossly intact. Pulm: Trace crackles in the dependent lobe bilaterally which clear with deep breath/cough. Symmetrical chest rise. No increased work of breathing. No respiratory distress. Cardiac: Irregularly irregular without murmur. Radial pulses intact and symmetrical. JVD is present about 1 inch above the clavicle, increases to the angle of the mandible with HJR. Abdominal: Nontender, nondistended, soft. BS present. Extremities: Nonpitting bilateral lower extremity swelling, nontender, soft touch intact in the toes bilaterally without asymmetry, plantarflexion/dorsiflexion with 5/5 strength, supervisor [employer] strength 5/5 without asymmetry, sensation in fingertips intact to soft touch bilaterally without asymmetry. Superficial abrasion on right distal hallux, unchanged from prior with no signs of ulceration or erythema. Results & Data Results & Data ([facility]) Vital Signs (Past 12 Hours) Vital Signs Temp Pulse Pulse Resp BP Pulse Ox 10/12/19 07:31 82 10/12/19 03:00 36.7 C 72 20 120/78 96 10/11/19 22:00 36.8 C 78 20 126/77 95 Resident Activity Tracking Resident Involvement: Resident Care Provided Care Provided: Adult [facility] Medicine
[2019-10-12 08:38] LABS: Chol HDL Ratio 5; Cholesterol 225 mg/dl (0-200); HDL Cholesterol 46 mg/dl; LDL Cholesterol Calculated 153 mg/dl; Triglycerides 129 mg/dl (0-150); VLDL Cholesterol 26 mg/dl
[2019-10-12] MEDS: PANTOprazole 40 MG TAB PO SCH (08:39)
[2019-10-12] MEDS: ASPIRIN 81 MG ECTAB PO SCH (08:40)
[2019-10-12] MEDS: lisinopriL 10 MG TAB PO SCH (08:40)
[2019-10-12] MEDS: POLYETHYLENE (MIRALAX) 17 GM PACK PO SCH (08:40)
[2019-10-12] MEDS: SERTRALINE HCL 100 MG TABLET PO SCH (08:40)
[2019-10-12] MEDS: INSULIN GLARGINE SOLOSTAR 100 UNITS/ML 3 ML PEN SC SCH ×2 (08:41→20:41)
[2019-10-12] MEDS: INSULIN ASPART 100 UNITS/ML 3 ML PEN SC SCH ×4 (08:43→20:42)
[2019-10-12] MEDS: TRAMADOL HCL 50 MG TABLET PO SCH ×3 (08:54→21:49)
[2019-10-12] MEDS ORDERED: lisinopriL 40 MG TAB PO SCH (09:00)
[2019-10-12] MEDS ORDERED: dilTIAZem HCL 300 MG CAPCR PO SCH (09:00)
[2019-10-12] MEDS ORDERED: METOPROLOL SUCC 25MG EXT REL TAB PO SCH (09:00)
[2019-10-12] MEDS: LORazepam 1 MG TAB PO PRN (09:16)
[2019-10-12 09:21] LABS: Appearance Urine Clear (Clear); Bacteria Urine Automated Negative (Negative); Bilirubin Urine Negative (Negative); Blood Urine Negative (Negative); Cast Urine Automated 0 /lpf (0-5); Color Urine Yellow; Epithelial Cell Urine Auto 20-30 /lpf (0-5); Glucose Urine UA Negative (Negative); Ketones Urine Negative (Negative); Leukocyte Esterase Urine Trace (Negative); Nitrite Urine Negative (Negative); Protein Urine Negative (Negative); RBC Urine Automated 0-4 /hpf (0-4); Specific Gravity Urine 1.011 (1.000-1.030); Urobilinogen Urine Negative (Negative)
--- NOTE | 2019-10-12 11:18 | Cardiology Consultation ---
Date of Consultation The patient notes increasing shortness of breath along with chest tightness. She is also aware that her weight continues to go up and down but predominantly up even though she is not eating as much. She definitely notes a decline in the last 6 months. She is unaware of any palpitations or fluttering. She notes occasional lightheadedness. She does have some chest tightness with activity. She denies any presyncope or syncope she does note worsening lower extremity edema since we uptitrated her diltiazem as an outpatient to help control her A. fib. She seems frustrated how she is feeling she does note that the heat bothers her breathing. She does have an electric chair that she rides around the neighborhood in order for her to get some outside air and feels well with this. She has any bleeding or bruising dark stools or black stools on anticoagulation. She has any fevers chills or sweats. She is sleeping with her CPAP on a regular basis and is compliant. The rest of a complete review of systems otherwise negative October 12, 2019 History of Present Illness Attending Physician: Rocael Sigala DO Allergies Allergy/AdvReac Type Severity Reaction Status Date / Time pravastatin Allergy Intermediate HEART Verified 10/11/19 15:29 ATTACK LIKE SYMPTOMS apixaban [From Eliquis] AdvReac Severe BODY WENT Verified 10/11/19 15:29 NUMB duloxetine AdvReac Severe LOSS OF Verified 10/11/19 15:29 CONSCIOUSNESS ciprofloxacin AdvReac Intermediate DIARRHEA Verified 10/11/19 15:29 metformin AdvReac Intermediate Diarrhea Verified 10/11/19 15:29 sitagliptin AdvReac Intermediate ILLNESS Verified 10/11/19 15:29 Home Medications Home Medications Medication Instructions Recorded Confirmed Type albuterol sulfate [Ventolin HFA] 2 puff INHALATION Q4 PRN 12/16/17 10/11/19 History lisinopril 40 mg PO DAILY 12/16/17 10/11/19 History amitriptyline 10 mg PO HS 07/19/18 10/11/19 History lorazepam 1 mg tablet 1 mg PO TID PRN #90 tab 10/27/18 10/11/19 History glipizide 2.5 mg PO DAILY 01/04/19 10/11/19 History ondansetron HCl 4 mg tablet 4 mg PO TID PRN 01/04/19 10/11/19 History pantoprazole 40 mg tablet,delayed 40 mg PO DAILY 01/04/19 10/11/19 History release sertraline 100 mg tablet 100 mg PO DAILY 01/04/19 10/11/19 History nitroglycerin 0.3 mg SUBLINGUAL Q5M PRN #10 tab 01/05/19 10/11/19 Rx rivaroxaban [Xarelto] 20 mg PO DAILY@1700 #30 tab 01/05/19 10/11/19 Rx metoprolol succinate 25 mg 25 mg PO DAILY #90 tab 01/17/19 10/11/19 Rx tablet,extended release 24 hr tramadol 50 mg tablet 50 mg PO .COMPLEX tab 01/24/19 10/11/19 History diltiazem HCl 300 mg PO DAILY 10/11/19 10/11/19 History Patient History Medical History Abdominal pain Asthma Diabetes mellitus, type 2 Diarrhea Dyslipidemia Hypertension Surgical History H/O tubal ligation Hx of cataract surgery Hx of cholecystectomy Hx of total knee arthroplasty Family History Grandmother Cancer Mother Diabetes Breast cancer Arthritis Skin cancer Brother Diabetes Lymphoma Sister Breast cancer Skin cancer Grandmother Lung cancer Social History Communication Ability: Effective Beliefs That Will Affect Care: None Current Living Situation: Alone Other Information That Helps Us Care for You: No Feels Safe at Home: Yes Safety Concerns: Feels Safe At This Time Smoking Status: Never smoker Hx Alcohol Use: No Hx Substance Use: No Results & Data ([facility]) Vital Signs (Past 12 Hours) Vital Signs Temp Pulse Pulse Resp BP Pulse Ox 10/12/19 07:51 36.9 C 84 18 139/74 97 10/12/19 07:31 82 10/12/19 03:00 36.7 C 72 20 120/78 96 She is awake alert and oriented x3 she is in no acute distress. HEENT 2+ carotid upstrokes no evidence of carotid bruits her jugular venous pressure cannot be assessed due to her neck size her sclerae anicteric her hearing is normal lungs Lungs: Clear to auscultation bilaterally with faint crackles in the bases bilaterally Heart: Irregular rate and rhythm no appreciable murmurs or rubs Abdomen: Soft nontender nondistended positive bowel sounds Extremities mild bilateral lower extremity edema Psychiatric her affect appeared appropriate Neurologic she is awake alert and oriented x3 Impressions: 1. Acute on chronic diastolic heart failure 2. Worsening heart failure likely due to persistent atrial fibrillation 3. History of paroxysmal atrial fibrillation which appears more persistent in the last 6 months based on her EKGs 4.Echocardiogram in the [place] system 09/23/2019 with normal LV size and function and EF in the range of 60% dilated right ventricle with normal RV function her left atrium was dilated and she had no significant valvular heart disease 5. Coronary disease status post cardiac catheterization December 2018 with a 30% proximal to mid LAD lesion, moderate size D2 with 80 to 90% ostial stenosis; Large caliber codominant circumflex with a 40 to 50% ostial stenosis of a small OM 2; Total occlusion of the right coronary artery with [id number] collaterals 6. Chronic stable angina 7.Sleep apnea tolerating CPAP 8. Chronic dyspnea on exertion remaining functional class III Her troponins are negative and Her BNP is elevated. she continues to have chest tightness and shortness of breath. I do wonder if the loss of her atrial kick given the fact that she is more permanent atrial fibrillation is causing worsening heart failure symptoms and worsening angina. If you look at her EKGs in the [facility] system in the fall she was in sinus rhythm. It would appear that sometime in early 2019 she converted to a more persistent atrial fibrillation. In light of that I made the following recommendations: 1. stop her diltiazem which will help Improve her lower extremity edema 2. increase her Toprol to 25 mg twice daily 3. start her on amiodarone 400 mg twice daily with the plan for cardioversion prior to discharge. 4.She has been on Xarelto long-term. 5. I would increase her diuretics to Lasix 40 mg daily as there is no evidence of her being prerenal. 6. If she continues to have worsening anginal symptoms at that point I would continue to uptitrate her beta-blockers and/or add long-acting nitrates to her medical regimen.As an outpatient she did tolerate amlodipine up to 5 mg it is unclear whether this was causing worsening swelling or not.
[2019-10-12] MEDS ORDERED: TRAMADOL HCL 50 MG TABLET PO SCH (11:30)
[2019-10-12] MEDS: AMIODARONE 200 MG TAB PO SCH ×2 (12:55→17:19)
[2019-10-12] MEDS ORDERED: FUROSEMIDE 20 MG in SYRINGE 0 ML IV SCH (15:00)
[2019-10-12] MEDS: RIVAROXABAN 20 MG TAB PO SCH (17:19)
[2019-10-12] MEDS: AMITRIPTYLINE HCL 10 MG TAB PO SCH (20:40)
[2019-10-12] MEDS: METOPROLOL SUCC 25MG EXT REL TAB PO SCH (20:40)
[2019-10-13] MEDS: NITROGLYCERIN 2% OINTMENT 30GM TUBE EXT SCH ×5 (01:01→23:45)
[2019-10-13 06:26] LABS: Basophils # (auto) 0.01 K/uL (0-0.2); Basophils % (auto) 0.2 %; Eosinophils # (auto) 0.27 K/uL (0-0.5); Eosinophils % (auto) 4.1 %; Hematocrit (blood only) 41.5 % (37-47); Hemoglobin 13.6 g/dL (12.0-16.0); Immature Granulocytes # (auto) 0.01 K/uL (0.00-0.02); Immature Granulocytes % (auto) 0.2 %; Lymphocytes % (auto) 24.3 %; Mean Corpuscular Hemoglobin 29.2 pg (25-34); Mean Corpuscular Hgb Conc 32.8 g/dL (32-36); Mean Corpuscular Volume 89.1 fL (80-100); Mean Platelet Volume 9.7 fL (7.4-10.4); Monocytes # (auto) 0.57 K/uL (0.11-0.59); Monocytes % (auto) 8.6 %; Neutrophils # (auto) 4.13 K/uL (1.4-6.5); Neutrophils % (auto) 62.6 %; Platelet Count 232 K/uL (130-400); RDW Coefficient of Variation 13.9 % (11.5-14.5); Red Blood Count 4.66 M/uL (4.2-5.4); White Blood Count 6.59 K/uL (4.8-10.8)
[2019-10-13 06:45] LABS: BUN Creatinine Ratio 9.6 (10-20); Calcium 8.5 mg/dl (8.5-10.1); Creatinine Clr Calc Pharmacy 52.1 ml/min; Est GFR (African American) 63.9; Est GFR (Non-African American) 55.2; Potassium 3.6 mmol/L (3.5-5.1)
--- NOTE | 2019-10-13 07:23 | Hospitalist Progress Note ---
Date of Service October 13, 2019 Assessment & Plan (1) SOB (shortness of breath): Linda is an 79-year-old female with a past medical history of multi- vessel coronary artery disease not amenable to stenting, type 2 diabetes mellitus not on insulin therapy with neuropathy, sleep apnea, anxiety/ depression, hypertension, A. fib with RVR rate controlled on anticoagulation with rivaroxaban, and osteoarthritis who presents to the emergency department with increasing shortness of breath over 4 days Chest pain with associated shortness of breath, suspect 2/2 AoC CHF, ddx includes rate dependent Afib w/ pulm edema - Seen by cards. Appreciate recs. Increase toprol to 25mg BID, will continue ami o 400mg BID and plan for cardioversion tomorrow morning. Tolerating lasix 40mg daily well, nearly 10lbs down from fluid indicated much more volume overloaded on admission that CXR and BNP suggested. Will continue lasix on discharge (convert to oral, which will be a 50% potency decrease.) Pt can have BB uptitrated as no evidence of pulmonary disease on PFTs. - Clinically improving - Poor tolerance to CCB with fluid retention, d.c and not to resume on discharge Patient with known multivessel coronary artery disease not previously amenable to PCI. Cath December 2018 with a 30% proximal to mid LAD lesion, moderate size D2 with 80 to 90% ostial stenosis; Large caliber codominant circumflex with a 40 to 50% ostial stenosis of a small OM 2; Total occlusion of the right coronary artery with [id number] collaterals - Dobut echo 09/25 reach 90% max age-adjust HR, no signs of ischemia. EF 55-60% Patient with albuterol at home for history of asthma, PFTs this month were normal. Trace crackles on exam, trace JVD Troponin negative, EKG without ST elevations on admission. Troponin trended x3, negative. Low suspicion for acute coronary syndrome. - BNP 1985 on admit. - CXR 10/10 naf. Parenchymal opacity visualized towards left lung base laterally likely represents focal atelectasis/scarring. There is no lobar consolidation. There is mild interstitial prominence without evidence of overt failure. There are no significant pleural effusions. Continue metoprolol, aspirin, lisinopril. 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 Pt would benefit due to known coronary disease and elevated cholesterol with LDL>100 - A. fib with history of RVR on anticoagulation Continue rivaroxaban 20 mg daily Rate controlled with metoprolol, started on amio Patient with mild bilateral leg swelling since diltiazem started, no pitting edema. Follow clinically this time Med/telemetry ? Underlying rate dependent edema and vulnerability to loss of atrial kick. 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 No wheezing, suspect shortness of breath of cardiac etiology. Obstructive sleep apnea Continue CPAP, home CPAP at 12 cm H2O GERD - Continue protonix 40mg daily DVT prophylaxis: On A. fib anticoagulation as above Disposition: Medical/surgical with telemetry CODE STATUS: Full code FEN/GI: Heart healthy, consistent carb diet. Admission and Anticipated Discharge Date Admission Date: October 11, 2019 Supervising Physician Co-Signing Physician Notes I saw the patient concurrent with the resident physician and confirmed reyna portions of the history and physical examination. I also personally discussed the case with the color consultant. I agree with the impression and plan as noted above. The patient does note some improvement in her dyspnea compared to yesterday. As noted above, she is diuresed nearly 10 pounds. Discussed medication changes as well as the concept of catholic of sinus rhythm to restore her "atrial kick." Cardiology reviewed the risk and benefits as well and she is willing to proceed. PLAN Hopeful cardioversion tomorrow Continue Lasix diuresis; she will need to go home with some dose of Lasix Discussed importance of checking daily weights when she is home. Subjective Seen at bedside this morning. Reports she feels improved compared to prior. She is down almost 10 pounds since initiating Lasix. She feels her chest discomfort and her shortness of breath have both improved. She still appreciates some shortness of breath walking to the bathroom, but feels this is greatly improved since coming in to the hospital. Discussed case with cardiology. Given that patient has normal PFTs and no signs of airway disease, is a candidate to uptitrate her metoprolol for rate control of her A. fib which is especially preferable since she has not tolerated calcium channel blockers well with fluid retention. Likely suffers from loss of her atrial kick, is on amiodarone and anticipate cardioversion tomorrow morning. Patient understands risk benefits, no questions concerns "just wants to get better, cannot live like this " Review of Systems Review of Systems: Constitutional: Denies fever, chills. Endorses fatigue, improved today. Eyes: Denies vision change ENT: Denies ear pain, sore throat, sinus pain Cardiovascular: See HPI. Leg swelling improved today. Respiratory: See HPI. Improved today. Gastrointestinal: Denies abdominal pain, nausea, vomiting, constipation, diarrhea Genitourinary: Denies urinary symptoms Musculoskeletal: Chronic arthritis, otherwise denies acute muscle aches/pain. Endorses chronic leg swelling, improved today Integumentary:Denies acute rash, lesions, bruising Neurological: Denies headache. Endorses numbness, tingling in the legs at baseline Physical Exam Physical Exam: General: A&Ox3. NAD. Cooperative. HEENT: Atraumatic, normocephalic. Pupils equal, round, and reactive to light and accommodation. No visual field cuts. Visual acuity grossly intact. No nystagmus. Pulm: Trace crackles in the dependent lobe bilaterally which clear with deep breath/cough. Symmetrical chest rise. No increased work of breathing. No respiratory distress. Cardiac: Irregularly irregular without murmur. Radial pulses intact and symmetrical. No JVD today. Abdominal: Nontender, nondistended, soft. BS present. Extremities: Nonpitting bilateral lower extremity swelling improved from prior. Plantarflexion/dorsiflexion with 5/5 strength, receiving checker strength/elbow flexion 5/5 without asymmetry, sensation in fingertips intact to soft touch bilaterally without asymmetry. Superficial abrasion on right distal hallux, no signs of ulceration or erythema. Results & Data Results & Data ([facility]) Vital Signs (Past 12 Hours) Vital Signs Temp Pulse Resp BP Pulse Ox 10/13/19 04:08 36.8 C 74 16 133/80 98 10/12/19 23:50 36.7 C 67 18 124/73 97 Resident Activity Tracking Resident Involvement: Resident Care Provided Care Provided: Adult Hospital Medicine
[2019-10-13] MEDS: INSULIN ASPART 100 UNITS/ML 3 ML PEN SC SCH ×4 (08:50→20:19)
[2019-10-13] MEDS: INSULIN GLARGINE SOLOSTAR 100 UNITS/ML 3 ML PEN SC SCH ×2 (08:50→20:18)
[2019-10-13] MEDS: FUROSEMIDE 40 MG in SYRINGE 0 ML IV SCH (08:54)
[2019-10-13] MEDS: METOPROLOL SUCC 25MG EXT REL TAB PO SCH ×2 (08:54→20:18)
[2019-10-13] MEDS: AMIODARONE 200 MG TAB PO SCH ×2 (08:54→17:19)
[2019-10-13] MEDS: ASPIRIN 81 MG ECTAB PO SCH (08:54)
[2019-10-13] MEDS: lisinopriL 10 MG TAB PO SCH (08:54)
[2019-10-13] MEDS: SERTRALINE HCL 100 MG TABLET PO SCH (08:55)
[2019-10-13] MEDS: PANTOprazole 40 MG TAB PO SCH (08:55)
[2019-10-13] MEDS: POLYETHYLENE (MIRALAX) 17 GM PACK PO SCH (08:55)
[2019-10-13] MEDS ORDERED: ISOSORBIDE MONO EXTENDED REL 30 MG TABCR PO SCH (09:00)
[2019-10-13] MEDS: LORazepam 1 MG TAB PO PRN (09:08)
[2019-10-13] MEDS: TRAMADOL HCL 50 MG TABLET PO SCH ×3 (09:08→20:17)
--- NOTE | 2019-10-13 09:48 | Cardiology Progress Note ---
Date of Service October 13, 2019 Subjective She feels better this morning. Her chest discomfort is improving her weight is down 9 pounds and she notes decreased abdominal distention. She has any lightheadedness or dizziness currently. She has any palpitations or fluttering. She had been short of breath walking to the bathroom. In the room today this has improved but she has not walked in the hallways at all. She has any bleeding or bruising. Results & Data Vital Signs (Past 12 Hours) Vital Signs Temp Pulse Resp BP Pulse Ox 10/13/19 08:53 94 H 125/73 94 10/13/19 07:52 37.0 C 68 18 94/54 L 96 10/13/19 04:08 36.8 C 74 16 133/80 98 10/12/19 23:50 36.7 C 67 18 124/73 97 She is awake alert and oriented x3 she is in no acute distress. HEENT 2+ carotid upstrokes no evidence of carotid bruits her jugular venous pressure cannot be assessed due to her neck size her sclerae anicteric her hearing is normal lungs Lungs: Clear to auscultation bilaterally with faint crackles in the bases bilaterally Heart: Irregular rate and rhythm no appreciable murmurs or rubs Abdomen: Soft nontender nondistended positive bowel sounds Extremities mild bilateral lower extremity edema Psychiatric her affect appeared appropriate Neurologic she is awake alert and oriented x3 Impressions: 1. Acute on chronic diastolic heart failure 2. Worsening heart failure likely due to persistent atrial fibrillation 3. History of paroxysmal atrial fibrillation which appears more persistent in the last 6 months based on her EKGs 4.Echocardiogram in the [facility] system 09/23/2019 with normal LV size and function and EF in the range of 60% dilated right ventricle with normal RV function her left atrium was dilated and she had no significant valvular heart disease 5. Coronary disease status post cardiac catheterization December 2018 with a 30% proximal to mid LAD lesion, moderate size D2 with 80 to 90% ostial stenosis; Large caliber codominant circumflex with a 40 to 50% ostial stenosis of a small OM 2; Total occlusion of the right coronary artery with [id number] collaterals 6. Chronic stable angina 7.Sleep apnea tolerating CPAP 8. Chronic dyspnea on exertion remaining functional class III She was examined with the hospitalist service today. The only thing that has changed over the last year is the fact that now she is in more persistent atrial fibrillation. This appears to happen sometime in March or April. She notes compared to a year ago she is significantly more short of breath and even compared to the fall she is more short of breath. In light of that I did start amiodarone in addition to her beta-blockers. She had normal PFTs recently as an outpatient. And she is compliant with her CPAP. We will make her n.p.o. after midnight. I will contact the [employer] to see if cardioversion can be arranged tomorrow with the EP service. Assuming she feels better after cardioversion she could be discharged home on 400 mg of amiodarone twice daily for a week then 400 mg thereafter for a month then 200 mg daily we would need to see her in the office in the next 2 weeks. She also should be discharged home on furosemide 40 mg p.o. daily. She continues to receive IV diuretics here with a very good diuresis and without evidence of a bump in her creatinine. Risks and benefits of cardioversion were discussed with the patient in detail. She is willing to proceed
[2019-10-13] MEDS: RIVAROXABAN 20 MG TAB PO SCH (17:19)
[2019-10-13] MEDS: AMITRIPTYLINE HCL 10 MG TAB PO SCH (20:17)
[2019-10-14] MEDS: NITROGLYCERIN 2% OINTMENT 30GM TUBE EXT SCH ×2 (05:56→12:42)
[2019-10-14 07:02] LABS: Basophils # (auto) 0.01 K/uL (0-0.2); Basophils % (auto) 0.2 %; Eosinophils # (auto) 0.32 K/uL (0-0.5); Eosinophils % (auto) 5.7 %; Hematocrit (blood only) 42.6 % (37-47); Immature Granulocytes # (auto) 0.02 K/uL (0.00-0.02); Immature Granulocytes % (auto) 0.4 %; Mean Corpuscular Hemoglobin 29.4 pg (25-34); Mean Corpuscular Hgb Conc 32.9 g/dL (32-36); Mean Corpuscular Volume 89.5 fL (80-100); Mean Platelet Volume 9.4 fL (7.4-10.4); Monocytes # (auto) 0.49 K/uL (0.11-0.59); Monocytes % (auto) 8.7 %; Neutrophils # (auto) 3.12 K/uL (1.4-6.5); Platelet Count 208 K/uL (130-400); RDW Coefficient of Variation 13.7 % (11.5-14.5); RDW Standard Deviation 45.3 fL (36.4-46.3); Red Blood Count 4.76 M/uL (4.2-5.4); White Blood Count 5.66 K/uL (4.8-10.8)
[2019-10-14 07:36] LABS: BUN Creatinine Ratio 10.9 (10-20); Calcium 8.6 mg/dl (8.5-10.1); Creatinine Clr Calc Pharmacy 48.7 ml/min; Est GFR (African American) 58.8; Est GFR (Non-African American) 50.7; Potassium 3.9 mmol/L (3.5-5.1)
--- NOTE | 2019-10-14 07:40 | Anesthesiology Consultation ---
Date of Service October 14, 2019 Assessment & Plan (1) Encounter for pre-operative examination: Chart Review Chart Review: Acceptable Risk for Surgery Consults Requested none ASA ASA4 Proposed Anesthesia Anesthesia Type: MAC Risk / Benefits Reviewed With: PT / POA / Parent / Guardian, Accepts Plan and Informed Consent Obtained History Surgery Operation Date: 10/14/19 07:45 Proposed Procedures p Cardioversion Battery Plate Remover w/Anesthesia - Edson Martins MD Height/Weight Height: 5 ft 3 in Weight: 100.2 kg Allergies Allergy/AdvReac Type Severity Reaction Status Date / Time pravastatin Allergy Intermediate HEART Verified 10/11/19 15:29 ATTACK LIKE SYMPTOMS apixaban [From Eliquis] AdvReac Severe BODY WENT Verified 10/11/19 15:29 NUMB duloxetine AdvReac Severe LOSS OF Verified 10/11/19 15:29 CONSCIOUSNESS ciprofloxacin AdvReac Intermediate DIARRHEA Verified 10/11/19 15:29 metformin AdvReac Intermediate Diarrhea Verified 10/11/19 15:29 sitagliptin AdvReac Intermediate ILLNESS Verified 10/11/19 15:29 Medications Home Medications Medication Instructions Recorded Confirmed Last Taken albuterol sulfate [Ventolin HFA] 2 puff INHALATION Q4 PRN 12/16/17 10/11/19 Unknown lisinopril 40 mg PO DAILY 12/16/17 10/11/19 10/11/19 amitriptyline 10 mg PO HS 07/19/18 10/11/19 10/10/19 lorazepam 1 mg tablet 1 mg PO TID PRN #90 tab 10/27/18 10/11/19 Unknown glipizide 2.5 mg PO DAILY 01/04/19 10/11/19 10/11/19 ondansetron HCl 4 mg tablet 4 mg PO TID PRN 01/04/19 10/11/19 Unknown pantoprazole 40 mg tablet,delayed 40 mg PO DAILY 01/04/19 10/11/19 10/11/19 release sertraline 100 mg tablet 100 mg PO DAILY 01/04/19 10/11/19 10/11/19 nitroglycerin 0.3 mg SUBLINGUAL Q5M PRN #10 tab 01/05/19 10/11/19 Unknown rivaroxaban [Xarelto] 20 mg PO DAILY@1700 #30 tab 01/05/19 10/11/19 10/10/19 metoprolol succinate 25 mg 25 mg PO DAILY #90 tab 01/17/19 10/11/19 10/11/19 tablet,extended release 24 hr tramadol 50 mg tablet 50 mg PO .COMPLEX tab 01/24/19 10/11/19 10/11/19 diltiazem HCl 300 mg PO DAILY 10/11/19 10/11/19 10/11/19 Active Medications Generic Name Dose Route Start Last Admin Trade Name Freq PRN Reason Stop Dose Admin Acetaminophen 650 mg 10/11/19 18:03 10/13/19 23:44 Tylenol PO 11/10/19 18:02 650 mg Q4H PRN Administration Pain or Fever Amiodarone HCl 400 mg 10/12/19 11:10 10/13/19 17:19 Cordarone PO 11/11/19 11:09 400 mg BIDM RIVAS Administration Amitriptyline HCl 10 mg 10/11/19 21:00 10/13/19 20:17 Elavil PO 11/10/19 20:59 10 mg HS RIVAS Administration Aspirin 81 mg 10/12/19 09:00 10/13/19 08:54 Ecotrin Ectab PO 11/11/19 08:59 81 mg QAM RIVAS Administration Furosemide 40 mg/ Syringe 4 mls @ 4 mls/min 10/13/19 09:00 10/13/19 08:54 IV 11/12/19 08:59 4 mls/min DAILY RIVAS Administration Insulin Aspart 0 units 10/11/19 21:00 10/13/19 20:19 Novolog Flexpen SC 11/10/19 20:59 1 units ACHS RIVAS Administration Insulin Glargine 8 units 10/13/19 09:00 10/13/19 20:18 Lantus Solostar Pen SC 11/12/19 08:59 8 units BID RIVAS Administration Lisinopril 10 mg 10/12/19 09:00 10/13/19 08:54 Zestril PO 11/11/19 08:59 10 mg DAILY RIVAS Administration Lorazepam 1 mg 10/11/19 18:03 10/13/19 09:08 Ativan PO 11/10/19 18:02 1 mg TID PRN Administration Anxiety Metoprolol Succinate 25 mg 10/12/19 21:00 10/13/19 20:18 Toprol Xl PO 11/11/19 20:59 25 mg BID RIVAS Administration Nitroglycerin 0.5 inch 10/11/19 18:03 10/14/19 05:56 Nitro-Bid 2% EXT 11/10/19 18:02 0.5 inch Q6H RIVAS Administration Pantoprazole Sodium 40 mg 10/12/19 09:00 10/13/19 08:55 Protonix PO 11/11/19 08:59 40 mg DAILY RIVAS Administration Polyethylene Glycol 17 gm 10/12/19 09:00 10/13/19 08:55 Miralax Powder Packet PO 11/11/19 08:59 17 gm DAILY RIVAS Administration Rivaroxaban 20 mg 10/11/19 18:03 10/13/19 17:19 Xarelto PO 11/10/19 18:02 20 mg DAILY@1700 RIVAS Administration Sertraline HCl 100 mg 10/12/19 09:00 10/13/19 08:55 Zoloft PO 11/11/19 08:59 100 mg DAILY RIVAS Administration Tramadol HCl 50 mg 10/11/19 21:00 10/13/19 20:17 Ultram PO 11/10/19 20:59 50 mg BID RIVAS Administration Protocol Tramadol HCl 100 mg 10/12/19 19:00 10/13/19 18:17 Ultram PO 11/11/19 18:59 100 mg 1900 RIVAS Administration Protocol NPO Date Last Intake of Fluids: 10/14/19 Time Last Intake of Fluids: 00:00 Date Last Intake of Solids: 10/14/19 Time Last Intake of Solids: 00:00 Past Medical History Medical History Abdominal pain Asthma Diabetes mellitus, type 2 Diarrhea Dyslipidemia Hypertension Exercise / Class Metabolic Activity IV < 2 Limit ADL/Bedbound Past Family History Family History Grandmother Cancer Mother Diabetes Breast cancer Arthritis Skin cancer Brother Diabetes Lymphoma Sister Breast cancer Skin cancer Grandmother Lung cancer Past Surgical History Surgical History H/O tubal ligation Hx of cataract surgery Hx of cholecystectomy Hx of total knee arthroplasty Past Anesthesia History No Hx of Anesthesia Complications and No Family Hx of Anesthesia Complications History of PONV No Hx of PONV and No Hx of Motion Sickness Social History Smoking Status: Never smoker Hx Alcohol Use: No Hx Substance Use: No Physical Exam Vital Signs Last Vital Signs Temp 97.7 F 10/14/19 04:39 Pulse 99 H 10/14/19 04:39 Resp 18 10/14/19 04:39 BP 113/78 10/14/19 04:39 Pulse Ox 99 10/14/19 04:39 ENMT Mouth: no dentition abnormality Thyromental Distance: > or= 3.5 Finger Breadths Mallampati Class: II Neck normal visual inspection Respiratory normal respiratory effort Auscultation: lungs clear to auscultation bilaterally Cardiovascular Rate/Rhythm: + abnormal rate and + abnormal rhythm Testing Laboratory Results 10/14/19 06:48 10/14/19 06:48 PT 10.7 Seconds (9.0-12.0) 10/11/19 13:23 INR 1.0 (0.9-1.1) 10/11/19 13:23 APTT 32.6 Seconds (21.0-31.0) H 10/11/19 13:23 Hemoglobin A1c 8.0 % (4.5-5.6) H 10/11/19 13:23 Urine Color Yellow 10/12/19 09:07 Urine Appearance Clear (Clear) 10/12/19 09:07 Urine pH 7.0 (4.5-7.5) 10/12/19 09:07 Ur Specific [place] 1.011 (1.000-1.030) 10/12/19 09:07 Urine Protein Negative (Negative) 10/12/19 09:07 Urine Glucose (UA) Negative (Negative) 10/12/19 09:07 Urine Ketones Negative (Negative) 10/12/19 09:07 Urine Nitrite Negative (Negative) 10/12/19 09:07 Ur Leukocyte Esterase Trace (Negative) H 10/12/19 09:07 Urine WBC (Auto) 1-5 /hpf (0-5) 10/12/19 09:07 Urine RBC (Auto) 0-4 /hpf (0-4) 10/12/19 09:07 U Hyaline Cast (Auto) 0 /lpf (0-5) 10/12/19 09:07 U Epithel Cells (Auto) 20-30 /lpf (0-5) H 10/12/19 09:07 Urine Bacteria (Auto) Negative (Negative) 10/12/19 09:07 10/13/19 20:03 POC Glucose 169 H Electrocardiogram Date: 10/11/19 Atrial fibrillation, rate [address] abnormality Abnormal ECG When compared with ECG of 05-JAN-2019 10:13, Atrial fibrillation has replaced Sinus rhythm Confirmed by Raul Martins ([id number]) on 10/11/2019 3:42:05 PM Chest X-Ray Date: 10/11/19 Findings: + NAD Stress Test Date: 12/17/17 Findings: + achieved max HR (90% MPHR) Resting EF: 55-60% Cardiac Catheterization Date: 01/05/19 Summary: 1. Severe multivessel coronary artery disease - 100% chronic mid RCA occlusion. Small R-PDA fills via left to right collaterals. - 80-90% ostial moderate caliber second diagonal 2. Normal intracardiac filling pressure Recommendations: No high risk disease or disease which would expect to cause chest pain at rest. Recommend further titration of antianginal therapy. Continue ASCVD risk factor modification. If in the future were to have refractory symptoms diagonal amenable to PCI.
--- NOTE | 2019-10-14 07:57 | Cardioversion ---
Date of Service October 14, 2019 PG Electrical Cardioversion Rp Electrical Cardioversion Report Procedure performed: Cardioversion Indication: The patient is a an 79-year-old woman with a history of paroxysmal atrial fibrillation who presented to the hospital with persistent atrial fibril lation. Staff drafter cartographic: Raul Martins MD Procedure in detail: The patient was informed of the risks benefits and alternatives to the intended procedure. She understood such which proceed. She was taken to the cardiac catheterization suite holding area. A general anesthetic was administered by the Anesthesiology Service. Initial application 200 J delivered in a biphasic fashion failed to return the patient to sinus rhythm. A second and third application of 360 J delivered in a biphasic fashion did return the patient temporarily to sinus rhythm but there was an early return to atrial fibrillation. The patient tolerated procedure well, there were no immediate complications. Patient was neurologically intact subsequent to the procedure. Impression: Unsuccessful cardioversion due to early return to atrial fibrillation Coding Level of Care Code Cardioversion, elective Additional Codes Electrical Cardioversion Report ([id number])
[2019-10-14] MEDS ORDERED: PROPOFOL IV EMULSION 10 MG/ML 20 ML VIAL IV ONE (08:00)
--- NOTE | 2019-10-14 08:14 | Anesthesiology Progress Note ---
Date of Service October 14, 2019 Anesthesia Post Procedure Vital Signs Vital Signs: Temp Pulse Pulse Resp BP Pulse Ox 10/14/19 04:39 97.7 F 99 H 18 113/78 99 10/13/19 22:39 98.4 F 74 18 130/74 95 10/13/19 19:31 99.0 F 82 18 123/76 97 10/13/19 15:52 98.6 F 76 18 128/78 97 10/13/19 14:21 73 10/13/19 11:50 98.4 F 75 18 109/68 91 10/13/19 08:53 94 H 125/73 94 Pain Intensity Generalized: Pain Intensity: 10 Transfer of Care Handoff Completed per policy Notes Mental Status: alert / awake / arousable and participated in evaluation Patient Amnestic to Procedure: Yes Nausea / Vomiting: adequately controlled Pain: adequately controlled Airway Patency, RR, SpO2: stable & adequate BP & HR: stable & adequate Hydration State: stable & adequate Anesthetic Complications: no major complications apparent and Pt Satisfied with anesthetic care
[2019-10-14] MEDS: lisinopriL 10 MG TAB PO SCH (08:38)
[2019-10-14] MEDS: METOPROLOL SUCC 25MG EXT REL TAB PO SCH (08:38)
[2019-10-14] MEDS: SERTRALINE HCL 100 MG TABLET PO SCH (08:38)
[2019-10-14] MEDS: AMIODARONE 200 MG TAB PO SCH ×2 (08:38→17:01)
[2019-10-14] MEDS: ASPIRIN 81 MG ECTAB PO SCH (08:38)
[2019-10-14] MEDS: POLYETHYLENE (MIRALAX) 17 GM PACK PO SCH (08:39)
[2019-10-14] MEDS: TRAMADOL HCL 50 MG TABLET PO SCH (09:05)
[2019-10-14] MEDS: LORazepam 1 MG TAB PO PRN (09:05)
[2019-10-14] MEDS: INSULIN GLARGINE SOLOSTAR 100 UNITS/ML 3 ML PEN SC SCH (09:51)
[2019-10-14] MEDS: FUROSEMIDE 40 MG in SYRINGE 0 ML IV SCH (09:51)
[2019-10-14] MEDS: INSULIN ASPART 100 UNITS/ML 3 ML PEN SC SCH ×2 (09:53→12:38)
[2019-10-14] MEDS: PANTOprazole 40 MG TAB PO SCH (10:44)
--- NOTE | 2019-10-14 12:52 | Electrocardiogram Report ---
Test Reason : Blood Pressure : / mmHG Vent. Rate : 072 BPM Atrial Rate : 258 BPM P-R Int : 000 ms QRS Dur : 070 ms QT Int : 422 ms P-R-T Axes : 000 003 066 degrees QTc Int : 462 ms Atrial fibrillation Nonspecific ST abnormality Possible Inferior infarct , age undetermined Abnormal ECG Confirmed by Raul Martins ([id number]) on 10/14/2019 12:52:15 PM Referred By: REFERRED SELF Confirmed By:Grabiel Martins
--- NOTE | 2019-10-14 13:54 | Discharge Summary ---
Date of Service October 14, 2019 Admission HPI Per Admitting Provider Linda is an 79-year-old female with a past medical history of multi-vessel coronary artery disease not amenable to stenting, type 2 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 fib with RVR rate controlled on anticoagulation with rivaroxaban, and osteoarthritis who presents to the emergency department with increasing shortness of breath over 4 days. Jaclyn reports that over the last week she has had slowly and progressive increasing shortness of breath with one episode of chest pain yesterday. She reports her shortness of breath is exacerbated with any ambulation, and she is extremely winded even trying to get up to the restroom. She had an episode of pressure-like pain under her sternum yesterday which resolved with sublingual nitro. She has had intermittent heaviness in her chest, but has not tried nitro for several months. She has tried using her albuterol "puffer "which has not improved her symptoms. She reports she is not able to sleep laying flat due to shortness of breath, which improved sitting up with 3 pillows. Prior to this she has had gradually worsening shortness of breath and decreased exercise tolerance for several months. She has had outpatient PFTs in the last month which were normal. She reports she has no/minimal chest discomfort at time of HPI, at first says none and then "maybe a little ". 1 week ago she was switched from amlodipine to diltiazem for rate control of her A. fib, but has had bilateral leg swelling since. Last took her medications this morning. She has been seen by cardiology [facility] in the past, reportedly has multivessel severe disease not amenable to PCI and recommended for medical management. Family history: Reviewed Medical history: Reviewed in EMR, as above Medications: Patient poor historian of her medications, manages her own meds at home with a list. Does not have a list with her. Medications reconciled as noted in EMR state [facility] system and last notes to cardiology, patient given affirmation to medications. Surgical history: Reviewed in EMR Allergies: Pravastatin, Eliquis, duloxetine, Cipro, metformin, sitagliptin as noted in EMR Social: Patient lives at home with her 36-year-old grandson. Trailer, minimal ambulation between rooms. Denies current or former tobacco product use. Denies current and former alcohol use. Denies recreational drug use. CODE STATUS: Full code. Decision maker would be her son Mo. Admission Exam Per Admitting Provider General: A&Ox3. NAD. Cooperative. HEENT: Atraumatic, normocephalic. Pupils equal, round, and reactive to light and accommodation. No visual field cuts. Visual acuity grossly intact. No nystagmus. Pulm: Trace crackles in the dependent lobe bilaterally which clear with deep breath/cough. Symmetrical chest rise. No increased work of breathing. No respiratory distress. Cardiac: Irregularly irregular without murmur. Radial pulses intact and symmetrical. JVD is present about 1 inch above the clavicle, increases to the angle of the mandible with HJR. Abdominal: Nontender, nondistended, soft. BS present. 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 Superficial abrasion on right distal hallux, no signs of ulceration or erythema. Principal Diagnosis AFib with RVR CHF Discharge Exam Constitutional WD/WN, vitals as above Eyes PERRL, conjunctivae normal, anicteric sclerae ENMT external ear and nose normal, oropharynx normal Neck normal visual inspection Respiratory normal respiratory effort, lungs clear to auscultation Cardiovascular RRR, no murmur, no edema Gastrointestinal (Abdomen) normal bowel sounds, soft, nontender, no hepatosplenomegaly Skin no rashes, warm and dry Psychiatric A+Ox3, euthymic affect Discharge Data Allergies Allergy/AdvReac Type Severity Reaction Status Date / Time pravastatin Allergy Intermediate HEART Verified 10/11/19 15:29 ATTACK LIKE SYMPTOMS apixaban [From Eliquis] AdvReac Severe BODY WENT Verified 10/11/19 15:29 NUMB duloxetine AdvReac Severe LOSS OF Verified 10/11/19 15:29 CONSCIOUSNESS ciprofloxacin AdvReac Intermediate DIARRHEA Verified 10/11/19 15:29 metformin AdvReac Intermediate Diarrhea Verified 10/11/19 15:29 sitagliptin AdvReac Intermediate ILLNESS Verified 10/11/19 15:29 Consultations 10/11/19 14:41 ED Decision to Admit Stat 10/11/19 17:06 Consult Cardiology Routine 10/14/19 13:48 Consult [facility] 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 fib with RVR rate controlled on anticoagulation with rivaroxaban, and osteoarthritis admitted for increasing shortness of breath. Chest pain with associated shortness of breath, suspect 2/2 AoC CHF, ddx includes rate dependent Afib w/ pulm edema: - BNP 1985 on admit. - Clinically improved with Lasix IV for suspected CHF, metoprolol and amiodarone for AFib. - Patient with known multivessel coronary artery disease not previously amenable to PCI. Cath December 2018 with a 30% proximal to mid LAD lesion, moderate size D2 with 80 to 90% ostial stenosis; Large caliber codominant circumflex with a 40 to 50% ostial stenosis of a small OM 2; Total occlusion of the right coronary artery with [id number] collaterals - Troponin negative, EKG without ST elevations on admission. Troponin trended x3, negative. Low suspicion for acute coronary syndrome. - Dobut echo 09/25 reach 90% max age-adjust HR, no signs of ischemia. EF 55-60% - Seen by cardiology and appreciate recommendations for discharge: - Increase metoprolol to 25mg BID. - Continue [id number] daily, Imdur 30mg daily. - Lasix 40mg daily with daily weights. - Have stopped CCB given poor tolerance and peripheral edema. - Amiodarone 400mg BID for a total of 7 days, then amiodarone 400mg daily until seen by Dr. Spaulding. - Follow up with Dr. Spaulding in 1 month. Type 2 diabetes mellitus, yel-[id number] with neuropathy: - A1c 8.0. - Resume home medications. - Encouraged DM2 diet adherence. Will need follow up outpatient. HLD - Lipid profile: Chol 225/ATQ576/HDL 46. - Pt intolerant to water soluble (pravastatin) in the past with 'heart attack like symptoms'. - Patient refuses other statin medications at this time. Will require outpatient follow up. Keagan zaldivar with history of RVR on anticoagulation: - Continue rivaroxaban 20 mg daily. - Metoprolol 25mg BID, amiodarone 400mg BID -> 400mg daily until follow up with Dr. Spaulding. - Cardioversion unsuccessful while admitted. - CXR 10/10: Parenchymal opacity visualized towards left lung base laterally likely represents focal atelectasis/scarring. There is no lobar consolidation. There is mild interstitial prominence without evidence of overt failure. There are no significant pleural effusions. Anxiety: - Continue sertraline 100 mg daily. History of asthma: - Patient with normal PFTs this month, has an albuterol inhaler which has not improved her symptoms. - No wheezing, suspect shortness of breath of cardiac etiology. Obstructive sleep apnea: - Continue home CPAP. GERD: - Continue Protonix 40mg daily. Dispo: home with self care Total Time Total Time Spent Total Time Spent (In Minutes): see attending attestation Discharge Plan Discharge Items Patient Disposition: Home - Self-Care Reason For Visit: CHEST PAIN,SHORTNESS OF BREATH Discharge Diagnosis: Atrial fibrillation Activity: Per Instructions section Weightbearing: Left non-weightbearing Non-emergency contact: Primary Care Provider and Manuscripts Curator Call non-emergency contact if: you have any medication questions, your symptoms worsen and your temperature is above 101 Follow-up/Referrals: Salena Angel DO [Primary Care Provider] - Diet: Carb Consistent or DM2 and Heart Healthy Addtl Attending Provider Instructions: You were admitted to the hospital for increasing shortness of breath. You were found to have persistent atrial fibrillation, a heart rhythm which made some fluid back up in your lungs making you feel more short of breath. You were started on water pills and arrhythmia medication and your symptoms began to improve. This morning you had a cardioversion, where the dog control officer shocks your heart back into normal rhythm. You felt well and we felt safe to discharge you home with some changes in your home medicines as below. 1) START taking amiodarone, a rhythm medication. For 3 days you will take one 400 milligram pill every 12 hours (with breakfast and supper). This will end on October 16. 2) The following week (October 17) you will take one 400 milligram amiodarone pill every day (only with breakfast). You will continue this until you see Dr. Spaulding. 3) START taking a water pill called Lasix (furosemide), one pill every day (with breakfast). 4) STOP taking your diltiazem. 5) START taking metoprolol 25 milligrams, one pill every 12 hours (with breakfast and supper). 6) STOP taking your lisinopril 40mg daily. START taking lisinopril 10mg daily. 7) START taking Imdur (isosorbide mononitrate) one pill every day. 8) You should weigh yourself every day to see if you are retaining fluid. If you start to gain more than 3 pounds you should call Dr. Angel's office. These prescriptions were sent to the [facility] in [place]. You should have follow up with Dr. Angel within a week of discharge. You will have follow up with Dr. Spaulding in 1 month. Please call both offices to schedule follow up. If you start to have increased trouble breathing, chest pain, palpitations, fevers over 100.4, nausea or vomiting Pending Studies at Discharge: No Stand-Alone Forms: My [facility] [employer], Smoking Cessation Medications and DC Order Prescriptions: New amiodarone 200 mg Tablet 400 mg PO BIDM 7 Days Qty: 28 RF: 0 metoprolol succinate 25 mg Tablet Extended Release 24 Hr 25 mg PO BID Qty: 60 RF: 0 amiodarone 400 mg tablet 400 mg PO DAILY 30 Days Qty: 30 RF: 0 furosemide 40 mg tablet 40 mg PO DAILY Qty: 30 RF: 0 isosorbide mononitrate 30 mg Tablet Extended Release 24 Hr 30 mg PO DAILY Qty: 30 RF: 0 lisinopril 10 mg Tablet 10 mg PO DAILY Qty: 30 RF: 0 Continued sertraline 100 mg tablet 100 mg PO DAILY RF: 0 ondansetron HCl 4 mg tablet 4 mg PO TID PRN (Reason: Nausea) RF: 0 pantoprazole 40 mg tablet,delayed release (DR/EC) 40 mg PO DAILY RF: 0 lorazepam 1 mg tablet 1 mg PO TID PRN (Reason: Anxiety) Qty: 90 RF: 0 tramadol 50 mg tablet 50 mg PO .COMPLEX RF: 0 amitriptyline 10 mg tablet 10 mg PO HS RF: 0 albuterol sulfate [Ventolin HFA] 90 mcg/actuation Hfa Aerosol Inhaler 2 puff INHALATION Q4 PRN (Reason: Shortness Of Breath) RF: 0 glipizide 2.5 mg Tablet Extended Release 24hr 2.5 mg PO DAILY RF: 0 Xarelto 20 mg Tablet 20 mg PO DAILY@1700 Qty: 30 RF: 3 nitroglycerin 0.3 mg tablet, sublingual 0.3 mg sublingual Q5M PRN (Reason: chest pain) Qty: 10 RF: 0 Discontinued metoprolol succinate 25 mg tablet extended release 24 hr 25 mg PO DAILY Qty: 90 RF: 3 diltiazem HCl 300 mg capsule,extended release 24hr 300 mg PO DAILY RF: 0 lisinopril 40 mg Tablet 40 mg PO DAILY RF: 0 Discharge Orders: Discharge Order (Routine); Ordered 10/14/19 Ordered By: Anahy Alarcon Admission Data Admit Date/Time: 10/13/19 09:09 Attending Provider: Tracey Fan Admit Provider: Beau Alcantara Primary Care Provider: Salena Angel Other Providers: Jules Starr ; Nam Spaulding Other Interventions: Discharge Summary Assessment (RN) Last Done: 10/14/19 16:37 DC Date/Time DO NOT enter until pt leaves facility: 10/14/19 18:04 Supervising Physician Co-Signing Physician Notes Patient seen and examined with PGY-2 Dr. Alarcon. Agree with history, exam findings, assessment and plan of care as outlined. In brief, Ms. Perez is an 79 year old female with history of persistent afib, DM. CAD admitted with chest pain and dyspnea. She is feeling well today. She did have some skin sensitivity in the area where the cardioversion leads were placed, but this has improved. She did undergo cardioversion today, but attempts were not successful in reverting her back to sustained sinus rhythm. Continue with amio, increase to 400mg after 1 week. continue lasix that was started here. She will follow up with Dr. Spaulding in 2 weeks and with PCP Dr[address] Angel within 1 week. AC with xarelto. I personally spent 35 minutes discharge planning for this patient. Resident Activity Tracking Resident Involvement: Resident Care Provided Care Provided: Adult Hospital Medicine
[2019-10-14] MEDS: RIVAROXABAN 20 MG TAB PO SCH (17:01)
== END 2019-10-14 18:04 | disposition home or self-care (01) | DRG 308 ==
LOC: ED 12:48 → 2N 12:48 → SUATTDRO 10-13 09:09

== ENCOUNTER 2022-03-10 14:25 | Observation (INO) ==
[2022-03-10] MEDS ORDERED: NITROGLYCERIN 2% OINTMENT 30GM TUBE EXT STA (15:04)
--- NOTE | 2022-03-10 15:21 | Electrocardiogram Report ---
Test Reason : Blood Pressure : / mmHG Vent. 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
--- NOTE | 2022-03-10 15:28 | Emergency Department Note ---
Impression & Plan Precordial chest pain, SOB (shortness of breath), Diaphoresis ED Provider Note NAME: RODRIGUEZ ROPER AGE: 81 SEX: F : 1940 ARRIVES VIA: Ambulance INFORMANT: [Patient] ED PROVIDER(S): [Boom Masterson MD] CHIEF COMPLAINT: Chest pain HISTORY OF PRESENT ILLNESS: The patient is an 81-year-old female who 8 hours ago developed some substernal and left-sided chest discomfort that was a 9/10. She was resting at the time the pain started. The pain caused her to feel short of breath and she was sweating. She took 2 of her own nitroglycerin and chewed up 4 baby aspirin. The patient was starting to feel better. She went to her doctor's office. At the doctor's office, she was promptly placed in an ambulance and sent to the ER for further evaluation. Patient was given a nitroglycerin sublingual in route and now is completely pain-free. There has been no cough or congestion. She has been in baseline health. No recent exertional chest pain or dyspnea. She does not typically use nitroglycerin. REVIEW OF SYSTEMS: See HPI for pertinent positives and negatives. A total of ten systems were reviewed and were otherwise negative. PMHx/PSHx: See Below SOCIAL HISTORY: See Below. PHYSICAL EXAM: GENERAL: Patient is in no acute distress. HEENT: No acute trauma, normocephalic atraumatic, mucous membranes moist, no nasal congestion, no scleral icterus. NECK: No stridor, no adenopathy, no meningismus, trachea is midline. LUNGS: Clear to auscultation bilaterally, no wheeze, no rhonchi, breath sounds equal. HEART: Without murmurs gallops or rubs, regular rate and rhythm. ABDOMEN: Soft, nontender, bowel sounds positive, no peritonitis. EXTREMITIES: No cyanosis or edema, full range of motion of all the joints without pain or difficulty, no signs for acute trauma. NEUROLOGIC: Oriented x 3, no acute motor or sensory deficits, no focal weakness. SKIN: No rash, no jaundice, no diaphoresis. DIFFERENTIAL DIAGNOSIS: Cardiac ischemia, aortic dissection, pulmonary embolism, pneumothorax, pneumonia, pericarditis, myocarditis, esophageal rupture, GERD, cholecystitis, pancreatitis, musculoskeletal, as well as other pathologies. EMERGENCY DEPARTMENT COURSE/PROCEDURES: ECG: Indication was chest pain. The ECG shows what appears to be a sinus rhythm with some poor baseline. The rate is 88. 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 There is evidence for potential old inferior infarct. There are some inverted T waves in the high lateral leads. No ST elevation, no PVCs. Compared to an ECG from 27 September 2020, I see no significant change. Continuous Cardiac Monitoring: An order was placed for continuous cardiac monitoring. The monitor shows a rate of 99 with normal sinus rhythm. MEDICAL DECISION MAKING: There is no leukocytosis or concerning anemia. There is a normal platelet count. No coagulopathy. No renal failure or significant electrolyte abnormality. No concerning liver enzyme elevation. No pancreatitis. COVID test returned negative. Chest x-ray does not show mediastinal widening, pneumonia or pneumothorax. ECG shows a sinus rhythm with a poor baseline. There are older changes seen. No acute ST elevation. Cardiac enzyme testing x1 is not consistent with acute cardiac injury. Patient was given Nitropaste, 1 inch. She remains chest pain-free. The patient presents with chest discomfort, shortness of breath and sweating. She felt improvement after 3 nitroglycerin and oral aspirin. I do think further cardiac work-up is warranted. I did speak with the patient and case management, the on-call hospitalist was consulted. Past Med/Surg History Medical History (Updated 03/10/22 @ 22:54 by Boom Masterson MD) Abdominal pain Asthma Diabetes mellitus, type 2 Diarrhea Dyslipidemia Hypertension Surgical History H/O tubal ligation Hx of cataract surgery Hx of cholecystectomy Hx of total knee arthroplasty Family History Grandmother Cancer Mother Diabetes Breast cancer Arthritis Skin cancer Brother Diabetes Lymphoma Sister Breast cancer Skin cancer Grandmother Lung cancer Social History Smoking Status: Never smoker Hx Alcohol Use: No Hx Substance Use: No Preferred Language: [place] Communication Ability: Effective 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 Beliefs That Will Affect Care: None Current Living Situation: Family Current Living Situation Comment: lives with grandson Other Information That Helps Us Care for You: No Feels Safe at Home: Yes Safety Concerns: Feels Safe At This Time Assistive Devices: Walker and Wheelchair Assistive Devices Comment: hover round Allergies Allergies Allergy/AdvReac Type Severity Reaction Status Date / Time pravastatin Allergy Intermediate HEART Verified 10/11/19 15:29 ATTACK LIKE SYMPTOMS apixaban [From Eliquis] AdvReac Severe BODY WENT Verified 10/11/19 15:29 NUMB duloxetine AdvReac Severe LOSS OF Verified 10/11/19 15:29 CONSCIOUSNESS ciprofloxacin AdvReac Intermediate DIARRHEA Verified 10/11/19 15:29 metformin AdvReac Intermediate Diarrhea Verified 10/11/19 15:29 sitagliptin AdvReac Intermediate ILLNESS Verified 10/11/19 15:29 Home Meds Home Medications Medication Instructions Recorded Confirmed albuterol sulfate 90 mcg/actuation 2 puff inhalation QID PRN Wheezing 12/16/17 03/10/22 aerosol inhaler (Ventolin HFA) amitriptyline 10 mg tablet 10 mg PO HS 07/19/18 03/10/22 ondansetron HCl 4 mg tablet 4 mg PO TID PRN Nausea/vomiting 01/04/19 03/10/22 pantoprazole 40 mg tablet,delayed 40 mg PO DAILY 01/04/19 03/10/22 release tramadol 50 mg tablet 50 mg PO .COMPLEX 01/24/19 03/10/22 amiodarone 200 mg tablet 200 mg PO DAILY 09/27/20 03/10/22 furosemide 40 mg tablet 40 mg PO DAILY 09/27/20 03/10/22 glipizide 5 mg tablet, extended 5 mg PO DAILY 09/27/20 03/10/22 release 24 hr isosorbide mononitrate 30 mg 30 mg PO QAM 09/27/20 03/10/22 tablet,extended release 24 hr lorazepam 0.5 mg tablet 0.5 mg PO BID PRN Anxiety 09/27/20 03/10/22 omeprazole 20 mg capsule,delayed 20 mg PO DAILY 09/27/20 03/10/22 release potassium chloride 20 mEq 20 meq PO DAILY 09/27/20 03/10/22 tablet,extended release sertraline 50 mg tablet 50 mg PO DAILY 09/27/20 03/10/22 venlafaxine 37.5 mg 37.5 mg PO DAILY 09/27/20 03/10/22 capsule,extended release 24 hr aspirin 81 mg tablet,delayed 81 mg PO DAILY 03/10/22 03/10/22 release diclofenac sodium 1 % topical gel 1 ea topical QID 03/10/22 03/10/22 lisinopril 5 mg tablet 5 mg PO DAILY 03/10/22 03/10/22 polyethylene glycol 3350 17 17 g PO DAILY 03/10/22 03/10/22 gram/dose oral powder (Miralax) Previous Rx's Medication Instructions Recorded nitroglycerin 0.3 mg sublingual 0.3 mg sublingual Q5M PRN chest 01/05/19 tablet pain #10 tabs metoprolol succinate 25 mg 25 mg PO BID #60 tabs 10/14/19 tablet,extended release 24 hr Results & Data (ED) Vital Signs Vital Signs - 24 hr 03/10/22 14:40 03/10/22 14:40 03/10/22 15:04 Temperature 37.1 C Temperature Source Oral Pulse Rate 100 H 85 Pulse Rate from SpO2 Sensor Pulse Rhythm Regular Regular Pulse Strength Normal Respiratory Rate 20 20 Respiratory Effort / Characteristics Non-Labored Respiratory Depth Normal Respiratory Pattern Regular Blood Pressure 182/96 H Blood Pressure Mean 124 Blood Pressure Position Lying Pulse Oximetry 93 93 Oxygen Delivery Method Room Air Room Air Room Air Sepsis Recent Fever Within 48 Hours No Sepsis New/Unexplained Change in Mental Status No Sepsis Action Taken by Nursing No Action Required 03/10/22 14:44 03/10/22 14:50 03/10/22 14:50 Temperature Temperature Source Pulse Rate 85 85 Pulse Rate from SpO2 Sensor 86 85 Pulse Rhythm Pulse Strength Respiratory Rate 24 21 Respiratory Effort / Characteristics Respiratory Depth Respiratory Pattern Blood Pressure 120/75 Blood Pressure Mean 90 Blood Pressure Position Pulse Oximetry 90 89 L Oxygen Delivery Method Sepsis Recent Fever Within 48 Hours Sepsis New/Unexplained Change in Mental Status Sepsis Action Taken by Nursing 03/10/22 15:00 03/10/22 15:00 03/10/22 15:10 Temperature Temperature Source Pulse Rate 85 85 Pulse Rate from SpO2 Sensor 85 85 Pulse Rhythm Pulse Strength Respiratory Rate 21 20 Respiratory Effort / Characteristics Respiratory Depth Respiratory Pattern Blood Pressure 120/72 Blood Pressure Mean 88 Blood Pressure Position Pulse Oximetry 87 L 89 L Oxygen Delivery Method Sepsis Recent Fever Within 48 Hours Sepsis New/Unexplained Change in Mental Status Sepsis Action Taken by Nursing 03/10/22 15:10 03/10/22 15:21 03/10/22 15:21 Temperature Temperature Source Pulse Rate 85 Pulse Rate from SpO2 Sensor 86 Pulse Rhythm Pulse Strength Respiratory Rate 15 Respiratory Effort / Characteristics Respiratory Depth Respiratory Pattern Blood Pressure 134/78 143/82 H Blood Pressure Mean 96 102 Blood Pressure Position Pulse Oximetry 95 Oxygen Delivery Method Sepsis Recent Fever Within 48 Hours Sepsis New/Unexplained Change in Mental Status Sepsis Action Taken by Nursing 03/10/22 15:30 03/10/22 15:30 03/10/22 15:46 Temperature Temperature Source Pulse Rate 82 Pulse Rate from SpO2 Sensor 89 92 H Pulse Rhythm Pulse Strength Respiratory Rate 18 Respiratory Effort / Characteristics Respiratory Depth Respiratory Pattern Blood Pressure 171/100 H Blood Pressure Mean 123 Blood Pressure Position Pulse Oximetry 94 90 Oxygen Delivery Method Sepsis Recent Fever Within 48 Hours Sepsis New/Unexplained Change in Mental Status Sepsis Action Taken by Nursing 03/10/22 15:46 03/10/22 15:52 03/10/22 15:52 Temperature Temperature Source Pulse Rate 82 Pulse Rate from SpO2 Sensor 74 Pulse Rhythm Pulse Strength Respiratory Rate 23 Respiratory Effort / Characteristics Respiratory Depth Respiratory Pattern Blood Pressure 138/81 170/86 H Blood Pressure Mean 100 114 Blood Pressure Position Pulse Oximetry 94 Oxygen Delivery Method Sepsis Recent Fever Within 48 Hours Sepsis New/Unexplained Change in Mental Status Sepsis Action Taken by Nursing 03/10/22 16:00 03/10/22 16:01 03/10/22 16:01 Temperature Temperature Source Pulse Rate 92 H 98 H Pulse Rate from SpO2 Sensor 88 91 H Pulse Rhythm Pulse Strength Respiratory Rate 15 26 H Respiratory Effort / Characteristics Respiratory Depth Respiratory Pattern Blood Pressure 127/92 Blood Pressure Mean 103 Blood Pressure Position Pulse Oximetry 92 83 L Oxygen Delivery Method Sepsis Recent Fever Within 48 Hours Sepsis New/Unexplained Change in Mental Status Sepsis Action Taken by Nursing 03/10/22 16:10 03/10/22 16:10 03/10/22 16:20 Temperature Temperature Source Pulse Rate 90 88 Pulse Rate from SpO2 Sensor 87 86 Pulse Rhythm Pulse Strength Respiratory Rate 17 19 Respiratory Effort / Characteristics Respiratory Depth Respiratory Pattern Blood Pressure 140/97 Blood Pressure Mean 111 Blood Pressure Position Pulse Oximetry 92 94 Oxygen Delivery Method Sepsis Recent Fever Within 48 Hours Sepsis New/Unexplained Change in Mental Status Sepsis Action Taken by Nursing 03/10/22 16:20 03/10/22 16:30 03/10/22 16:30 Temperature Temperature Source Pulse Rate 92 H Pulse Rate from SpO2 Sensor 91 H Pulse Rhythm Pulse Strength Respiratory Rate 21 Respiratory Effort / Characteristics Respiratory Depth Respiratory Pattern Blood Pressure 138/87 127/88 Blood Pressure Mean 104 101 Blood Pressure Position Pulse Oximetry 92 Oxygen Delivery Method Sepsis Recent Fever Within 48 Hours Sepsis New/Unexplained Change in Mental Status Sepsis Action Taken by Nursing 03/10/22 16:41 03/10/22 16:41 03/10/22 16:50 Temperature Temperature Source Pulse Rate 87 83 Pulse Rate from SpO2 Sensor 80 83 Pulse Rhythm Pulse Strength Respiratory Rate 20 22 Respiratory Effort / Characteristics Respiratory Depth Respiratory Pattern Blood Pressure 154/106 H Blood Pressure Mean 122 Blood Pressure Position Pulse Oximetry 95 96 Oxygen Delivery Method Sepsis Recent Fever Within 48 Hours Sepsis New/Unexplained Change in Mental Status Sepsis Action Taken by Nursing 03/10/22 16:50 03/10/22 17:00 03/10/22 17:00 Temperature Temperature Source Pulse Rate 85 Pulse Rate from SpO2 Sensor 85 Pulse Rhythm Pulse Strength Respiratory Rate 24 Respiratory Effort / Characteristics Respiratory Depth Respiratory Pattern Blood Pressure 150/102 H 160/88 H Blood Pressure Mean 118 112 Blood Pressure Position Pulse Oximetry 93 Oxygen Delivery Method Sepsis Recent Fever Within 48 Hours Sepsis New/Unexplained Change in Mental Status Sepsis Action Taken by Nursing 03/10/22 17:10 03/10/22 17:10 03/10/22 17:20 Temperature Temperature Source Pulse Rate 84 88 Pulse Rate from SpO2 Sensor 84 88 Pulse Rhythm Pulse Strength Respiratory Rate 19 19 Respiratory Effort / Characteristics Respiratory Depth Respiratory Pattern Blood Pressure 147/95 H Blood Pressure Mean 112 Blood Pressure Position Pulse Oximetry 93 92 Oxygen Delivery Method Sepsis Recent Fever Within 48 Hours Sepsis New/Unexplained Change in Mental Status Sepsis Action Taken by Nursing 03/10/22 17:20 03/10/22 17:30 03/10/22 17:30 Temperature Temperature Source Pulse Rate 89 Pulse Rate from SpO2 Sensor 89 Pulse Rhythm Pulse Strength Respiratory Rate 23 Respiratory Effort / Characteristics Respiratory Depth Respiratory Pattern Blood Pressure 136/91 167/102 H Blood Pressure Mean 106 123 Blood Pressure Position Pulse Oximetry 93 Oxygen Delivery Method Sepsis Recent Fever Within 48 Hours Sepsis New/Unexplained Change in Mental Status Sepsis Action Taken by Alf Medications Current Medication List: was personally reviewed by me Laboratory Data Attestation: I reviewed the patient's lab results. Result diagrams: 03/10/22 14:02 03/10/22 14:02 Lab Results 03/10/22 03/10/22 03/10/22 Range/Units 14:02 14:02 14:02 WBC 6.39 (4.8-10.8) K/ul RBC 4.98 (3.93-5.22) M/uL Hgb 14.7 (12.0-16.0) g/dl Hct 44.1 (34.1-44.9) % MCV 88.6 (80.0-100.0) fL MCH 29.5 (25.0-34.0) pg MCHC 33.3 (32.0-36.0) g/dL RDW Std Deviation 43.6 (36.4-46.3) fL RDW Coeff of Roxi 13.5 (11.5-14.5) % Plt Count 250 (130-400) K/uL MPV 10.0 (9.4-12.3) fL Immature Gran % (Auto) 0.2 % Neut % (Auto) 63.4 % Lymph % (Auto) 27.5 % [place] % (Auto) 6.4 % Eos % (Auto) 2.3 % Baso % (Auto) 0.2 % Neut # (Auto) 4.05 (1.4-6.5) K/uL Lymph # (Auto) 1.76 (1.2-3.4) K/uL [place] # (Auto) 0.41 (0.24-0.82) K/uL Eos # (Auto) 0.15 (0-0.50) K/uL Baso # (Auto) 0.01 (0-0.2) K/uL Immature Gran # (Auto) 0.01 (0.00-0.02) K/uL PT 10.2 (9.0-12.0) Seconds INR 1.0 (0.9-1.1) APTT 27.6 (21.0-31.0) Seconds PTT Ratio 1.0 Sodium 139 (136-145) mmol/L Potassium 3.5 (3.5-5.1) mmol/L Chloride 99 (98-107) mmol/L Carbon Dioxide 31 (21-32) mmol/L Anion Gap 9 (3-11) BUN 9 (6-23) mg/dl Creatinine 0.82 (0.6-1.2) mg/dl Est Cr Clr Drug Dosing 57.7 ml/min Est GFR ( Amer) 77.2 ml/min Est GFR (Non-Af Amer) 66.6 ml/min BUN/Creatinine Ratio 11.0 (10-20) Glucose 113 H (70-99(Fasting)) mg/dl Calcium 8.8 (8.5-10.1) mg/dl Magnesium 1.8 (1.7-2.4) mg/dl Total Bilirubin 0.5 (0.2-1.0) mg/dl AST 20 (13-39) U/L ALT 12 (7-52) U/L Alkaline Phosphatase 75 (34-104) U/L Troponin I High Sens 6.4 (0-14) pg/ml Total Protein 7.5 (6.0-8.3) gm/dl Albumin 4.1 (3.4-5.0) gm/dl Globulin 3.4 (2.5-4.0) gm/dl Albumin/Globulin Ratio 1.2 (0.9-2) Lipase 12 (11-82) U/L SARS-CoV-2, RNA, NAAT (NEGATIVE) 03/10/22 Range/Units 15:48 WBC (4.8-10.8) K/ul RBC (3.93-5.22) M/uL Hgb (12.0-16.0) g/dl Hct (34.1-44.9) % MCV (80.0-100.0) fL MCH (25.0-34.0) pg MCHC (32.0-36.0) g/dL RDW Std Deviation (36.4-46.3) fL RDW Coeff of Roxi (11.5-14.5) % Plt Count (130-400) K/uL MPV (9.4-12.3) fL Immature Gran % (Auto) % Neut % (Auto) % Lymph % (Auto) % [place] % (Auto) % Eos % (Auto) % Baso % (Auto) % Neut # (Auto) (1.4-6.5) K/uL Lymph # (Auto) (1.2-3.4) K/uL [place] # (Auto) (0.24-0.82) K/uL Eos # (Auto) (0-0.50) K/uL Baso # (Auto) (0-0.2) K/uL Immature Gran # (Auto) (0.00-0.02) K/uL PT (9.0-12.0) Seconds INR (0.9-1.1) APTT (21.0-31.0) Seconds PTT Ratio Sodium (136-145) mmol/L Potassium (3.5-5.1) mmol/L Chloride (98-107) mmol/L Carbon Dioxide (21-32) mmol/L Anion Gap (3-11) BUN (6-23) mg/dl Creatinine (0.6-1.2) mg/dl Est Cr Clr Drug Dosing ml/min Est GFR ( Amer) ml/min Est GFR (Non-Af Amer) ml/min BUN/Creatinine Ratio (10-20) Glucose (70-99(Fasting)) mg/dl Calcium (8.5-10.1) mg/dl Magnesium (1.7-2.4) mg/dl Total Bilirubin (0.2-1.0) mg/dl AST (13-39) U/L ALT (7-52) U/L Alkaline Phosphatase (34-104) U/L Troponin I High Sens (0-14) pg/ml Total Protein (6.0-8.3) gm/dl Albumin (3.4-5.0) gm/dl Globulin (2.5-4.0) gm/dl Albumin/Globulin Ratio (0.9-2) Lipase (11-82) U/L SARS-CoV-2, RNA, NAAT NEGATIVE (NEGATIVE) Administered Medications Amitriptyline HCl (Amitriptyline Hcl 10 Mg Tab) 10 mg PO HS RIVAS Stop: 04/09/22 20:59 Last Admin: 03/10/22 21:33 Dose: 10 mg Documented By: IDRIS Insulin Aspart (Insulin Aspart Per Unit) 0 units SC ACHS RIVAS Stop: 04/09/22 20:59 Last Admin: 03/10/22 20:58 Dose: Not Given Documented By: IDRIS Insulin Glargine (Lantus Per Unit Charge) 5 units SQ BID RIVAS Stop: 04/09/22 20:59 Last Admin: 03/10/22 21:07 Dose: 5 units Documented By: IDRIS Co-signed By: CHARANJIT Lorazepam (Lorazepam 0.5 Mg Tab) 0.5 mg PO BID PRN PRN Reason: Anxiety Stop: 04/09/22 20:00 Last Admin: 03/10/22 21:07 Dose: 0.5 mg Documented By: IDRIS Metoprolol Succinate (Metoprolol Succ 25mg Ext Rel Tab) 25 mg PO BID RIVAS Stop: 04/09/22 20:59 Last Admin: 03/10/22 21:33 Dose: 25 mg Documented By: IDRIS Tramadol HCl (Tramadol Hcl 50 Mg Tablet) 50 - 100 mg PO TID PRN PRN Reason: Pain Stop: 04/09/22 20:00 Last Admin: 03/10/22 21:05 Dose: 100 mg Documented By: IDRIS Discontinued Medications Nitroglycerin (Nitroglycerin 2% Ointment 30gm Tube) 1 inch EXT NOW STA Stop: 03/10/22 15:05 Last Admin: 03/10/22 15:35 Dose: 1 inch Documented By: PRIYA Imaging Data Radiologist's Impression: Chest X-Ray 03/10/22 15:04 XR chest 1V portable CLINICAL HISTORY: Chest pain, nonspecific COMPARISON STUDY: Chest CT and chest radiograph September 27, 2020. FINDINGS: Lung volumes are normal. Linear left midlung opacity is unchanged and represents atelectasis or scarring. There is no pneumothorax or pleural effusion. Cardiac size is stable. Mediastinal contours are normal. There is no evidence for pulmonary edema. IMPRESSION: No acute cardiopulmonary findings. ACT 112: Negative or not required by law. Electronically signed by: Arnold Rivers M.D. 03/10/2022 3:34 PM Discharge Plan Visit Data Chief Complaint: Chest Pain ED Provider: Boom Masterson Discharge Problem: Precordial chest pain, SOB (shortness of breath), Diaphoresis Patient Disposition: Admitted As Inpatient Condition: Good Discharge Instructions Interventions: ED Discharge Assessment Last Done: 03/10/22 19:26
--- NOTE | 2022-03-10 15:35 | XRay Report ---
XR chest 1V portable CLINICAL HISTORY: Chest pain, nonspecific COMPARISON STUDY: Chest CT and chest radiograph September 27, 2020. FINDINGS: Lung volumes are normal. Linear left midlung opacity is unchanged and represents atelectasi s or scarring. There is no pneumothorax or pleural effusion. Cardiac size is stable. Mediastinal cont ours are normal. There is no evidence for pulmonary edema. IMPRESSION: No acute cardiopulmonary findings. ACT 112: Negative or not required by law. Electronically signed by: Arnold Rivers M.D. 03/10/2022 3:34 PM
[2022-03-10 15:48] LABS: Basophils # (auto) 0.01 K/uL (0-0.2); Basophils % (auto) 0.2 %; Eosinophils # (auto) 0.15 K/uL (0-0.50); Eosinophils % (auto) 2.3 %; Hematocrit (blood only) 44.1 % (34.1-44.9); Hemoglobin 14.7 g/dl (12.0-16.0); Immature Granulocytes # (auto) 0.01 K/uL (0.00-0.02); Immature Granulocytes % (auto) 0.2 %; Lymphocytes # (auto) 1.76 K/uL (1.2-3.4); Lymphocytes % (auto) 27.5 %; Mean Corpuscular Hemoglobin 29.5 pg (25.0-34.0); Mean Corpuscular Hgb Conc 33.3 g/dL (32.0-36.0); Mean Corpuscular Volume 88.6 fL (80.0-100.0); Monocytes # (auto) 0.41 K/uL (0.24-0.82); Monocytes % (auto) 6.4 %; Neutrophils # (auto) 4.05 K/uL (1.4-6.5); Neutrophils % (auto) 63.4 %; Platelet Count 250 K/uL (130-400); RDW Coefficient of Variation 13.5 % (11.5-14.5); RDW Standard Deviation 43.6 fL (36.4-46.3); Red Blood Count 4.98 M/uL (3.93-5.22); White Blood Count 6.39 K/ul (4.8-10.8)
[2022-03-10 15:59] LABS: Partial Thromboplastin Time 27.6 Seconds (21.0-31.0); Prothrombin Time 10.2 Seconds (9.0-12.0)
[2022-03-10 16:07] LABS: Albumin Globulin Ratio 1.2 (0.9-2); Albumin Level 4.1 gm/dl (3.4-5.0); Bilirubin,Total 0.5 mg/dl (0.2-1.0); Calcium 8.8 mg/dl (8.5-10.1); Creatinine Clr Calc Pharmacy 57.7 ml/min; Est GFR (African American) 77.2 ml/min; Est GFR (Non-African American) 66.6 ml/min; Globulin 3.4 gm/dl (2.5-4.0); Magnesium 1.8 mg/dl (1.7-2.4); Potassium 3.5 mmol/L (3.5-5.1); Total Protein 7.5 gm/dl (6.0-8.3); Troponin I High Sensitivity 6.4 pg/ml (0-14)
--- NOTE | 2022-03-10 17:37 | History & Physical Report ---
Date of Service March 10, 2022 Assessment & Plan (1) Chest pain: Plan: -Admit to Med/tele -Patient is currently afebrile, hemodynamically stable, and stable on RA -Patient with symptoms concerning for possible ACS which woke her up from sleep this am, they were relieved with Nitro and aspirin -No acute ECG changes and initial high sensitivity troponin is WNL -Patient still with mild chest pressure but no other symptoms -Was given 1 inch of nitro paste prior to admission, will continue for now -Had heart cath in 2018 without stent placement, currently on aspirin -Will continue to monitor on tele, repeat troponin in process, will trend troponin overnight, if any significant symptoms or troponin elevations would repeat ECG, will obtain TTE in the am to monitor for wall motion abnormalities -Routine cardiology consult placed, she follows with Dr. Spaulding outpatient -AM CBC and BMP (2) SOB (shortness of breath): Plan: -At baseline and stable on RA -continue prn albuterol (3) Afib: Plan: -Currently rate controlled -Was S/P unsuccessful cardioversion in 2019, now on metoprolol and amiodarone -Continue metoprolol and amiodarone -Per the last cardiology note from 10/31/21, the patient was taken off Xarelto due to multiple falls. Since being on amiodarone she has been in sinus rhythm and has continued off of anticoagulation due to her bleeding risk (4) Sleep apnea: Plan: -Normally uses HS CPAP -Had a previous fall with neck trauma, makes CPAP mask difficult to wear -Has been using HS O2 as needed, will order (5) Hyperlipidemia: Plan: -Not currently on a statin -Will get am lipid levels (6) GERD without esophagitis: Plan: -Continue pantoprazole (7) Diabetes mellitus: Plan: -Hold glipizide -Will start with lantus at 5 units BID, correction factor of 50, and carb ration of 16 -Monitor BSG ACHS with goal range of 110-140 -Consistent carb diet (8) Depression: Plan: -Continue sertraline and venlafaxine (9) Benign hypertension: Plan: -Hemodynamically stable -Continue nitro paste -Continue metoprolol and lasix (10) Anxiety: Plan: -Continue sertraline and venlafaxine Plan The patient was discussed with Dr. Alcantara at the time of the admission History of Present Illness Chief Complaint: Chest pain Primary Care Provider: Swapnil Castro MD Gena is an 81 year old female with a PMH significant for CAD S/P cardiac catheterization in 2019 (30% proximal to mid LAD lesion, moderate size D2 with 80 to 90% ostial stenosis; Large caliber codominant circumflex with a 40 to 50% ostial stenosis of a small OM 2; Total occlusion of the right coronary artery with [id number] collaterals, No stents placed at that time), chronic stable angina, chronic SOB, HTN, Afib S/P failed cardioversion in 2019 on amiodarone, hyperlipidemia, GERD, and DM II who presented to the [facility] ED on 03/10/22 with a chief complaint of chest pain. Per discussions with the ED staff the patient's chest discomfort began approximately 8 hours ago wiht 9/10 substernal and left- sided chest pain. She was noted to be resting at the start of her pain, sweating, associated SOB. She took 2 of her own Nitroglycerine tabs and chewed 4 baby aspirin at that time which improved her symptoms. She went to her PCP's office today who recommended she go to the ED for further evaluation. In the ambulance the patient received an additional dose of sublingual nitroglycerine. In the ED the patient was found to be afebrile, hemodynamically stable, and stable on RA. Labs were remarkable for a CBC WNL, stable renal function and electrolytes, initial high sensitivity troponin of 6.4, and covid negative. Ini tial ECG was without acute ST segment or T-wave changes but did note a QTc of 709. Prior to admission the patient was started on 1 inch of 2% nitroglycerine paste. At the time of the exam the patient was resting comfortably in bed in no acute distress with her Son sitting bedside. She states that she experienced left-sided chest pain which woke her up this morning at approximately 7:30 am. She states that at it's worst the pain was an 8-9/10, sharp/stabbing, and not associated with movement. She got up to make breakfast and she states that her chest discomfort was exacerbated, she was at her baseline SOB. She also noted some diaphoresis but denies her pain radiating anywhere else. Her pain remained consistent so she took the nitroglycerin and baby aspirin at approximately 9- 9:30 am. She states that her chest discomfort was significantly improved after taking the nitro and aspirin. She already had an appointment scheduled today so she attended it, and they sent her to the ED to be evaluated. At the current time she states that the chest pain she experienced this am has subsided but she is having a small amount of "chest heaviness" at this time. I spoke to her regarding code status, she is a Full Code. Her Son/POA Raul Carter ([phone]) would make decisions for her if she could not make them herself. Please refer to Dr. Alcantara's attestation for any changes to the treatment plan Allergies Allergy/AdvReac Type Severity Reaction Status Date / Time pravastatin Allergy Intermediate HEART Verified 10/11/19 15:29 ATTACK LIKE SYMPTOMS apixaban [From Eliquis] AdvReac Severe BODY WENT Verified 10/11/19 15:29 NUMB duloxetine AdvReac Severe LOSS OF Verified 10/11/19 15:29 CONSCIOUSNESS ciprofloxacin AdvReac Intermediate DIARRHEA Verified 10/11/19 15:29 metformin AdvReac Intermediate Diarrhea Verified 10/11/19 15:29 sitagliptin AdvReac Intermediate ILLNESS Verified 10/11/19 15:29 Home Medications Medication Instructions Recorded Confirmed Type albuterol sulfate 90 mcg/actuation 2 puff inhalation QID PRN Wheezing 12/16/17 03/10/22 History aerosol inhaler (Ventolin HFA) amitriptyline 10 mg tablet 10 mg PO HS 07/19/18 03/10/22 History ondansetron HCl 4 mg tablet 4 mg PO TID PRN Nausea/vomiting 01/04/19 03/10/22 History pantoprazole 40 mg tablet,delayed 40 mg PO DAILY 01/04/19 03/10/22 History release nitroglycerin 0.3 mg sublingual 0.3 mg sublingual Q5M PRN chest 01/05/19 03/10/22 Rx tablet pain #10 tabs tramadol 50 mg tablet 50 mg PO .COMPLEX 01/24/19 03/10/22 History metoprolol succinate 25 mg 25 mg PO BID #60 tabs 10/14/19 03/10/22 Rx tablet,extended release 24 hr amiodarone 200 mg tablet 200 mg PO DAILY 09/27/20 03/10/22 History furosemide 40 mg tablet 40 mg PO DAILY 09/27/20 03/10/22 History glipizide 5 mg tablet, extended 5 mg PO DAILY 09/27/20 03/10/22 History release 24 hr isosorbide mononitrate 30 mg 30 mg PO QAM 09/27/20 03/10/22 History tablet,extended release 24 hr lorazepam 0.5 mg tablet 0.5 mg PO BID PRN Anxiety 09/27/20 03/10/22 History omeprazole 20 mg capsule,delayed 20 mg PO DAILY 09/27/20 03/10/22 History release potassium chloride 20 mEq 20 meq PO DAILY 09/27/20 03/10/22 History tablet,extended release sertraline 50 mg tablet 50 mg PO DAILY 09/27/20 03/10/22 History venlafaxine 37.5 mg 37.5 mg PO DAILY 09/27/20 03/10/22 History capsule,extended release 24 hr aspirin 81 mg tablet,delayed 81 mg PO DAILY 03/10/22 03/10/22 History release diclofenac sodium 1 % topical gel 1 ea topical QID 03/10/22 03/10/22 History lisinopril 5 mg tablet 5 mg PO DAILY 03/10/22 03/10/22 History polyethylene glycol 3350 17 17 g PO DAILY 03/10/22 03/10/22 History gram/dose oral powder (Miralax) Past Med/Surg History Medical History (Updated 03/10/22 @ 18:21 by Ezequiel Horan PA-C) Abdominal pain Asthma Diabetes mellitus, type 2 Diarrhea Dyslipidemia Hypertension Surgical History H/O tubal ligation Hx of cataract surgery Hx of cholecystectomy Hx of total knee arthroplasty Family History Grandmother Cancer Mother Diabetes Breast cancer Arthritis Skin cancer Brother Diabetes Lymphoma Sister Breast cancer Skin cancer Grandmother Lung cancer Social History Smoking Status: Never smoker Hx Alcohol Use: No Hx Substance Use: No Communication Ability: Effective Beliefs That Will Affect Care: None Current Living Situation: Alone Feels Safe at Home: Yes Assistive Devices: None Review of Systems Review of Systems: Denies current fever, chills, headache, changes in vision, hearing, taste, and smell, chest pain, SOB, cough, abdominal pain, nausea, vomiting, diarrhea, hematemesis, melena, dysuria, hematuria, and recent falls. All systems have been reviewed and are otherwise negative. Physical Exam Physical Exam: Physical Exam: General: In no acute distress, stated age, well-nourished, good hygiene HEENT: Normocephalic, atraumatic, no scleral icterus, pupils around round, symmetrical, and reactive to light, Dry mucus membranes, trachea midline, no thyromegaly Chest/Pulm: No respiratory distress, symmetrical chest expansion, clear breath sounds throughout Cardiac: RRR, no murmurs noted Abdomen: Negative for ascites and bruising, normoactive bowel sounds, soft, non-tender to palpation throughout Musculoskeletal: Symmetrical and without signs of acute trauma, upper and lower extremities with full ROM, no atrophy, spasticity, or flaccidity, pain is not reproducible with palpation Extremities: Radial, dorsalis pedis, and posterior tibial pulses are intact and symmetrical, no edema noted in the BL LE's Skin: Warm, dry, no rashes , lesions, or scars noted Neuro: Alert and oriented to person, place, month, year, and president, no focal defects, CN II-XII tested and intact, finger to nose test negative, no tremors noted Psych: No acute distress, calm and cooperative during the exam Results & Data Results & Data ([facility]) Vital Signs (Past 12 Hours) Vital Signs Temp Pulse Resp BP Pulse Ox O2 Del Method 03/10/22 15:04 85 20 93 Room Air 03/10/22 14:40 Room Air 03/10/22 14:40 37.1 C 100 H 20 182/96 H 93 Room Air Laboratory Results Abnormal lab results 03/10/22 Range/Units 14:02 Glucose 113 H (70-99(Fasting)) mg/dl Diagnostic Findings Chest X-Ray 03/10/22 15:04 XR chest 1V portable CLINICAL HISTORY: Chest pain, nonspecific COMPARISON STUDY: Chest CT and chest radiograph September 27, 2020. FINDINGS: Lung volumes are normal. Linear left midlung opacity is unchanged and represents atelectasis or scarring. There is no pneumothorax or pleural effusion. Cardiac size is stable. Mediastinal contours are normal. There is no evidence for pulmonary edema. IMPRESSION: No acute cardiopulmonary findings. ACT 112: Negative or not required by law. Electronically signed by: Arnold Rivers M.D. 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 She reports she woke up this morning with chest pain which improved with nitro. Does not normally need nitro, denies chest pain with exertion or at rest in the weeks leading up to this episode. She reports she normally does physical therapy and exercise and does not have exercise-induced angina/chest pain. Her chest pain was in her center/left chest and improved with nitro and aspirin, recurred and then again improved with nitro spray, and has remained improved with nitro paste. At time of assessment she denies chest pain or chest pressure, syncope/presyncope, shortness of breath, difficulty breathing. She does endorse some anxiety. Labs reviewed, no EKG ST segment or T wave changes, troponin trended. Initial troponin negative at time of admission greater than 10 hours after onset of symptoms. She is not hypoxic, and is not short of breath. Heart rate is regular 88 at bedside assessment. Her pain is not reproducible on palpation. she was previously anticoagulated for, this was discontinued due to multiple falls and concern for bleeding risk. Patient subsequently doing well on A. fib. Lungs are clear, heart rate is regular, legs are without edema at bedside assessment. Agree with cardiac evaluation above. PG Care Time/CCT Total # of Minutes Spent Total Time Spent with Patient: Total time spent is greater than 50% in coordination of care (as documented) at patient's floor/unit and/or counseling patient: [place] [address] Initial Inpt Care Lvl 2 Patient Type Established Medical Decision Making Moderate Complexity Diagnoses Chest pain R07.9 Chest pain type: unspecified SOB (shortness of breath) R06.02 Afib I48.91 Sleep apnea G47.30 Hyperlipidemia E78.5 GERD without esophagitis K21.9 Diabetes mellitus E11.9 Depression F32.9 Benign hypertension I10 Anxiety F41.9 (1) Chest pain Chest pain type: unspecified Qualified Code(s): R07.9 - Chest pain, unspecified
[2022-03-10] MEDS ORDERED: CARBOHYDRATES FOR HYPOGLYCEMIA PO PRN (18:02)
[2022-03-10] MEDS ORDERED: GLUCOSE 40% GEL 15 GM TUBE PO PRN (18:02)
[2022-03-10] MEDS ORDERED: DEXTROSE 50% 50 ML SYRINGE IV PRN (18:02)
[2022-03-10] MEDS ORDERED: GLUCAGON FOR INJ 1 MG VIAL SQ PRN (18:02)
[2022-03-10] MEDS ORDERED: GLUCOSE 10 TAB/TUBE PO PRN (18:02)
[2022-03-10] MEDS ORDERED: ACETAMINOPHEN 325 MG TAB PO PRN (20:01)
[2022-03-10] MEDS ORDERED: traMADol HCL 50 MG TABLET PO PRN (20:01)
[2022-03-10] MEDS ORDERED: LORazepam 0.5 MG TAB PO PRN (20:01)
[2022-03-10] MEDS ORDERED: ALBUTEROL HFA 8 GM INHALER INH PRN (20:01)
[2022-03-10] MEDS: INSULIN ASPART PER UNIT SC SCH (20:58)
[2022-03-10] MEDS ORDERED: AMITRIPTYLINE HCL 10 MG TAB PO SCH (21:00)
[2022-03-10] MEDS: LANTUS PER UNIT CHARGE SQ SCH (21:07)
[2022-03-10] MEDS: METOPROLOL SUCC 25MG EXT REL TAB PO SCH (21:33)
[2022-03-10] MEDS ORDERED: FLUTICASONE PROPIONATE NA SPR 16 GM BTL PRN (21:42)
[2022-03-11 07:49] LABS: Hematocrit (blood only) 41.2 % (34.1-44.9); Hemoglobin 13.7 g/dl (12.0-16.0); Mean Corpuscular Hemoglobin 29.6 pg (25.0-34.0); Mean Corpuscular Hgb Conc 33.3 g/dL (32.0-36.0); Mean Platelet Volume 9.4 fL (9.4-12.3); Platelet Count 206 K/uL (130-400); RDW Coefficient of Variation 13.6 % (11.5-14.5); RDW Standard Deviation 44.2 fL (36.4-46.3); Red Blood Count 4.63 M/uL (3.93-5.22); White Blood Count 6.37 K/ul (4.8-10.8)
[2022-03-11 08:09] LABS: BUN Creatinine Ratio 10.3 (10-20); Calcium 8.6 mg/dl (8.5-10.1); Chol HDL Ratio 3.8 (0-5); Creatinine Clr Calc Pharmacy 53.6 ml/min; Est GFR (African American) 71.9 ml/min
--- NOTE | 2022-03-11 08:12 | Electrocardiogram Report ---
Test Reason : Blood Pressure : / mmHG Vent. 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
[2022-03-11 08:15] LABS: Troponin I High Sensitivity 4.7 pg/ml (0-14)
--- NOTE | 2022-03-11 08:51 | XCELERA ---
[id number]
[2022-03-11] MEDS ORDERED: POTASSIUM CHLORIDE CRTAB 20 MEQ TABCR PO SCH (09:00)
[2022-03-11] MEDS ORDERED: AMIODARONE 200 MG TAB PO SCH (09:00)
[2022-03-11] MEDS ORDERED: POLYETHYLENE (MIRALAX) 17 GM PACK PO SCH (09:00)
[2022-03-11] MEDS ORDERED: PANTOprazole 40 MG TAB PO SCH (09:00)
[2022-03-11] MEDS ORDERED: FUROSEMIDE 40 MG TAB PO SCH (09:00)
[2022-03-11] MEDS ORDERED: NON-FORMULARY MEDICATION (Omeprazole 20 mg capsule,delayed release(DR/EC)) PO SCH (09:00)
[2022-03-11] MEDS ORDERED: ISOSORBIDE MONO EXTENDED REL 30 MG TABCR PO SCH (09:00)
[2022-03-11] MEDS ORDERED: VENLAFAXINE HCL XR 37.5 MG CAPXR PO SCH (09:00)
[2022-03-11] MEDS ORDERED: SERTRALINE HCL 50 MG TABLET PO SCH (09:00)
[2022-03-11] MEDS ORDERED: ASPIRIN 81 MG ECTAB PO SCH (09:00)
[2022-03-11] MEDS ORDERED: lisinopril 5 MG TAB PO SCH (09:00)
[2022-03-11] MEDS: METOPROLOL SUCC 25MG EXT REL TAB PO SCH (09:10)
[2022-03-11] MEDS: LANTUS PER UNIT CHARGE SQ SCH (09:16)
[2022-03-11] MEDS: INSULIN ASPART PER UNIT SC SCH ×2 (09:17→12:17)
--- NOTE | 2022-03-11 09:18 | Cardiology Consultation ---
Date of Consultation March 11, 2022 Assessment & Plan (1) Precordial chest pain: Plan IMPRESSION: 1. Chest pain 2. Coronary artery disease status post cardiac catheterization 12/2018 with a large caliber LAD with a 30% proximal to mid-lesion, moderate caliber second diagonal with an 80-90% ostial stenosis and a 50- 60% mid-stenosis, large caliber codominant circumflex with a 40-50% ostial stenosis of a small OM2; with totally occluded mid-RCA with left to right collaterals. 3. Preserved left ventricular size and function with an EF in the range of 60% with a dilated right ventricle, mildly elevated right ventricular systolic pressures, no WMA 3. Chronic shortness of breath remaining functional class 3. 4. Hypertension. 5. Paroxysmal atrial fibrillation, status post failed cardioversion but maintaining sinus rhythm on amiodarone 6. Hyperlipidemia. 7. 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 8. Negative dobutamine stress echo 11/2017. 9. Chronic diastolic heart failure. 10. Chronic stable angina. It's reassuring that Ms. Perez' troponins have remained normal and she does not have ischemic changes on her EKG. Her echo is without changes in her LVF or WMA. These make it unlikely that a cardiac event is responsible for her symptoms. She was tender enough to palpation in one spot of her left chest to jump when I pressed. It may be that taking the aspirin helped with chest wall pain and it was not actually the nitro that relieved it. However, given her description of intense stabbing pain and her elevated pressure on admission as well as lingering chest heaviness, I think it's worth sending her for a CTA to rule out dissection. She appears euvolemic. Her blood pressure was elevated on admission but is typically well controlled on outpatient visits. No changes to antihypertensive regimen. She can discharge from a cardiology perspective if her CTA is without concerning findings. History of Present Illness Attending Physician: Oral Mercado MD History of Present Illness Ms. Perez presented to the ED yesterday for acute chest pain starting at about 0730 that morning. She woke up with sharp pain in her left chest wrapping to under her left breast and back. The pain was so intense she was in tears. She took two nitro and four baby aspirin and it subsided somewhat with a dull pressure lingering. She saw her pcp at a previously scheduled visit that afternoon and was referred to the emergency department. Since coming to the hospital she has not had any further sharp chest pain. She does continue to feel pressure in her chest. No palpitations. No worsening with deep inspiration. No edema. She is chronically sob and thinks it is about the same as usual. Allergies Allergy/AdvReac Type Severity Reaction Status Date / Time pravastatin Allergy Intermediate HEART Verified 10/11/19 15:29 ATTACK LIKE SYMPTOMS apixaban [From Eliquis] AdvReac Severe BODY WENT Verified 10/11/19 15:29 NUMB duloxetine AdvReac Severe LOSS OF Verified 10/11/19 15:29 CONSCIOUSNESS ciprofloxacin AdvReac Intermediate DIARRHEA Verified 10/11/19 15:29 metformin AdvReac Intermediate Diarrhea Verified 10/11/19 15:29 sitagliptin AdvReac Intermediate ILLNESS Verified 10/11/19 15:29 Home Medications Medication Instructions Recorded Confirmed Type albuterol sulfate 90 mcg/actuation 2 puff inhalation QID PRN Wheezing 12/16/17 03/10/22 History aerosol inhaler (Ventolin HFA) amitriptyline 10 mg tablet 10 mg PO HS 07/19/18 03/10/22 History ondansetron HCl 4 mg tablet 4 mg PO TID PRN Nausea/vomiting 01/04/19 03/10/22 History pantoprazole 40 mg tablet,delayed 40 mg PO DAILY 01/04/19 03/10/22 History release nitroglycerin 0.3 mg sublingual 0.3 mg sublingual Q5M PRN chest 01/05/19 03/10/22 Rx tablet pain #10 tabs tramadol 50 mg tablet 50 mg PO .COMPLEX 01/24/19 03/10/22 History metoprolol succinate 25 mg 25 mg PO BID #60 tabs 10/14/19 03/10/22 Rx tablet,extended release 24 hr amiodarone 200 mg tablet 200 mg PO DAILY 09/27/20 03/10/22 History furosemide 40 mg tablet 40 mg PO DAILY 09/27/20 03/10/22 History glipizide 5 mg tablet, extended 5 mg PO DAILY 09/27/20 03/10/22 History release 24 hr isosorbide mononitrate 30 mg 30 mg PO QAM 09/27/20 03/10/22 History tablet,extended release 24 hr lorazepam 0.5 mg tablet 0.5 mg PO BID PRN Anxiety 09/27/20 03/10/22 History omeprazole 20 mg capsule,delayed 20 mg PO DAILY 09/27/20 03/10/22 History release potassium chloride 20 mEq 20 meq PO DAILY 09/27/20 03/10/22 History tablet,extended release sertraline 50 mg tablet 50 mg PO DAILY 09/27/20 03/10/22 History venlafaxine 37.5 mg 37.5 mg PO DAILY 09/27/20 03/10/22 History capsule,extended release 24 hr aspirin 81 mg tablet,delayed 81 mg PO DAILY 03/10/22 03/10/22 History release diclofenac sodium 1 % topical gel 1 ea topical QID 03/10/22 03/10/22 History lisinopril 5 mg tablet 5 mg PO DAILY 03/10/22 03/10/22 History polyethylene glycol 3350 17 17 g PO DAILY 03/10/22 03/10/22 History gram/dose oral powder (Miralax) Patient History Medical History Abdominal pain Asthma Diabetes mellitus, type 2 Diarrhea Dyslipidemia Hypertension Surgical History H/O tubal ligation Hx of cataract surgery Hx of cholecystectomy Hx of total knee arthroplasty Family History Grandmother Cancer Mother Diabetes Breast cancer Arthritis Skin cancer Brother Diabetes Lymphoma Sister Breast cancer Skin cancer Grandmother Lung cancer Social History Smoking Status: Never smoker Hx Alcohol Use: No Hx Substance Use: No Preferred Language: Tajik Communication Ability: Effective [employer] Driver Required: No Beliefs That Will Affect Care: None Current Living Situation: Family Current Living Situation Comment: lives with grandson Other Information That Helps Us Care for You: No Feels Safe at Home: Yes Safety Concerns: Feels Safe At This Time Assistive Devices: Walker and Wheelchair Assistive Devices Comment: hover round Review of Systems Review of Systems: All systems reviewed & are unremarkable except as noted in HPI & below Physical Exam Constitutional: WD/WN, vitals as above Respiratory: normal respiratory effort, lungs clear to auscultation Cardiovascular: RRR, no murmur, no edema Chest (Breasts): Additional Comments: left chest tender to palpation Skin: no rashes, warm and dry Neurologic: moves all extremities and awake Psychiatric: A+Ox3, euthymic affect Results & Data ([facility]) Vital Signs (Past 12 Hours) Vital Signs Temp Pulse Pulse Resp BP Pulse Ox O2 Del Method 03/11/22 08:08 37.0 C 63 19 163/91 H 93 Room Air 03/11/22 07:57 59 L 03/11/22 03:43 36.7 C 70 16 127/74 95 Room Air 03/11/22 00:00 88 03/10/22 23:44 37.1 C 80 18 132/82 90 Room Air
[2022-03-11] MEDS ORDERED: POTASSIUM CHLORIDE CRTAB 20 MEQ TABCR PO STA (10:16)
[2022-03-11] MEDS ORDERED: OPTIRAY 320 500ml IV ONE (10:57)
--- NOTE | 2022-03-11 11:39 | CT Scan Report ---
CT ANGIOGRAM OF THE CHEST COMBO CLINICAL HISTORY: Atypical chest pain. COMPARISON STUDY: Chest CT dated 09/27/2020. Chest x-ray dated 03/10/2022. TECHNIQUE: Before and following the IV administration of 120 cc of Optiray 320, CT angiogram of the c hest was performed from the thoracic inlet to the upper abdomen utilizing the dissection protocol. Im ages are reviewed in the axial, sagittal, and coronal planes. 3-D MIPS images are created and assesse d. IV contrast was administered without complication. A dose lowering technique was utilized adherin g to the principles of ALARA. CT DOSE: 1587.19 mGy.cm FINDINGS: Thyroid: Imaged portions of the thyroid gland are normal in size and attenuation. Thoracic aorta: No intramural hematoma is seen on the unenhanced series. There is atherosclerotic mayra cification of the thoracic aorta, which is normal in caliber and demonstrates standard 3-vessel arch anatomy. No dissection is seen. The arch vessels are widely patent. Pulmonary vasculature: The pulmonary trunk is normal in caliber. There are no filling defects identif ied in the main, lobar, or segmental pulmonary arteries to indicate pulmonary embolus. Heart: The heart is normal in size and without pericardial effusion. The coronary arteries are densel y calcified. Lungs and pleural spaces: There is no airspace consolidation typical for pneumonia or pleural effusio n. Scarring/atelectasis is noted at the lung bases. A 4 mm right lower lobe pulmonary nodule is seen on image #138 and 2 mm right lower lobe nodules are seen on images #89 and #148. 3 mm pleural-based n odules at the left lung base are seen on images #199, #204, and #215. These are unchanged from previo us. The trachea and central airways are clear. Mediastinum: There is no mediastinal lymphadenopathy. Mercedes: Clear. Axillae: There is no axillary lymphadenopathy. Upper abdomen: Cholecystectomy clips are noted. There is a small hiatal hernia. The partially visuali zed kidneys demonstrate cortical atrophy and 1.3 cm left adrenal nodule meets CT criteria for a fat-c ontaining adenoma. Coarse calcifications are incidentally noted in the pancreatic tail. Skeletal structures: The skeletal structures are osteopenic. Degenerative change and hyperkyphosis is noted in the thoracic spine. There is a mild chronic compression deformity of L1. No lytic or blasti c bony lesions are seen. IMPRESSION: 1. Unremarkable CT angiogram of the thoracic aorta. 2. There is no evidence of pulmonary embolus in the main, lobar, or segmental pulmonary arteries. 3. There is no airspace consolidation or pleural effusion. 4. Additional findings as above. ACT 112: Negative or not required by law. Electronically signed by: Boom Chang M.D. 03/11/2022 11:37 AM
--- NOTE | 2022-03-11 12:53 | Discharge Summary ---
Date of Service March 11, 2022 Admission HPI Per Admitting Provider Gena is an 81 year old female with a PMH significant for CAD S/P cardiac catheterization in 2019 (30% proximal to mid LAD lesion, moderate size D2 with 80 to 90% ostial stenosis; Large caliber codominant circumflex with a 40 to 50% ostial stenosis of a small OM 2; Total occlusion of the right coronary artery with [id number] collaterals, No stents placed at that time), chronic stable angina, chronic SOB, HTN, Afib S/P failed cardioversion in 2019 on amiodarone, hyperlipidemia, GERD, and DM II who presented to the [facility] ED on 03/10/22 with a chief complaint of chest pain. Per discussions with the ED staff the patient's chest discomfort began approximately 8 hours ago wiht 9/10 substernal and left- sided chest pain. She was noted to be resting at the start of her pain, sweating, associated SOB. She took 2 of her own Nitroglycerine tabs and chewed 4 baby aspirin at that time which improved her symptoms. She went to her PCP's office today who recommended she go to the ED for further evaluation. In the ambulance the patient received an additional dose of sublingual nitroglycerine. In the ED the patient was found to be afebrile, hemodynamically stable, and stable on RA. Labs were remarkable for a CBC WNL, stable renal function and electrolytes, initial high sensitivity troponin of 6.4, and covid negative. Initial ECG was without acute ST segment or T-wave changes but did note a QTc of 709. Prior to admission the patient was started on 1 inch of 2% nitroglycerine paste. At the time of the exam the patient was resting comfortably in bed in no acute distress with her Son sitting bedside. She states that she experienced left-sided chest pain which woke her up this morning at approximately 7:30 am. She states that at it's worst the pain was an 8-9/10, sharp/stabbing, and not associated with movement. She got up to make breakfast and she states that her chest discomfort was exacerbated, she was at her baseline SOB. She also noted some diaphoresis but denies her pain radiating anywhere else. Her pain remained consistent so she took the nitroglycerin and baby aspirin at approximately 9- 9:30 am. She states that her chest discomfort was significantly improved after taking the nitro and aspirin. She already had an appointment scheduled today so she attended it, and they sent her to the ED to be evaluated. At the current time she states that the chest pain she experienced this am has subsided but she is having a small amount of "chest heaviness" at this time. I spoke to her regarding code status, she is a Full Code. Her Son/POA Raul Carter ([phone]) would make decisions for her if she could not make them herself. Please refer to Dr. Alcantara's attestation for any changes to the treatment plan Principal Diagnosis Chest pain, acs and PE ruled out Discharge Exam GENERAL: 81 yo Well-developed, well-nourished WF. NAD. LUNGS: Clear to auscultation bilaterally. No W/R/R. CARDIOVASCULAR: Regular rate and rhythm. Tenderness to palpation of L chest wall. ABDOMEN: Soft, non-tender and non-distended. BS normoactive x 4 quad. EXTREMITIES: No edema. Non-tender. Peripheral pulses +2/4. NEUROLOGIC: A&O x3. PSYCHIATRIC: Cooperative. Appropriate mood and affect. SKIN: Warm, dry, intact. No rashes or lesions. Discharge Data Allergies Allergy/AdvReac Type Severity Reaction Status Date / Time pravastatin Allergy Intermediate HEART Verified 10/11/19 15:29 ATTACK LIKE SYMPTOMS apixaban [From Eliquis] AdvReac Severe BODY WENT Verified 10/11/19 15:29 NUMB duloxetine AdvReac Severe LOSS OF Verified 10/11/19 15:29 CONSCIOUSNESS ciprofloxacin AdvReac Intermediate DIARRHEA Verified 10/11/19 15:29 metformin AdvReac Intermediate Diarrhea Verified 10/11/19 15:29 sitagliptin AdvReac Intermediate ILLNESS Verified 10/11/19 15:29 Consultations 03/10/22 16:21 ED Decision to Admit Stat 03/10/22 18:17 Consult Cardiology Routine Ordered Studies Chest X-Ray 03/10/22 15:04 XR chest 1V portable CLINICAL HISTORY: Chest pain, nonspecific COMPARISON STUDY: Chest CT and chest radiograph September 27, 2020. FINDINGS: Lung volumes are normal. Linear left midlung opacity is unchanged and represents atelectasis or scarring. There is no pneumothorax or pleural effusion. Cardiac size is stable. Mediastinal contours are normal. There is no evidence for pulmonary edema. IMPRESSION: No acute cardiopulmonary findings. ACT 112: Negative or not required by law. Electronically signed by: Arnold Rivers M.D. 03/10/2022 3:34 PM Chest CTA 03/11/22 09:45 CT ANGIOGRAM OF THE CHEST COMBO CLINICAL HISTORY: Atypical chest pain. COMPARISON STUDY: Chest CT dated 09/27/2020. Chest x-ray dated 03/10/2022. TECHNIQUE: Before and following the IV administration of 120 cc of Optiray 320, CT angiogram of the chest was performed from the thoracic inlet to the upper abdomen utilizing the dissection protocol. Images are reviewed in the axial, sagittal, and coronal planes. 3-D MIPS images are created and assessed. IV contrast was administered without complication. A dose lowering technique was utilized adhering to the principles of ALARA. CT DOSE: 1587.19 mGy.cm FINDINGS: Thyroid: Imaged portions of the thyroid gland are normal in size and attenuation. Thoracic aorta: No intramural hematoma is seen on the unenhanced series. There is atherosclerotic calcification of the thoracic aorta, which is normal in caliber and demonstrates standard 3-vessel arch anatomy. No dissection is seen. The arch vessels are widely patent. Pulmonary vasculature: The pulmonary trunk is normal in caliber. There are no filling defects identified in the main, lobar, or segmental pulmonary arteries to indicate pulmonary embolus. Heart: The heart is normal in size and without pericardial effusion. The coronary arteries are densely calcified. Lungs and pleural spaces: There is no airspace consolidation typical for pneumonia or pleural effusion. Scarring/atelectasis is noted at the lung bases. A 4 mm right lower lobe pulmonary nodule is seen on image #138 and 2 mm right lower lobe nodules are seen on images #89 and #148. 3 mm pleural-based nodules at the left lung base are seen on images #199, #204, and #215. These are unchanged from previous. The trachea and central airways are clear. Mediastinum: There is no mediastinal lymphadenopathy. Mercedes: Clear. Axillae: There is no axillary lymphadenopathy. Upper abdomen: Cholecystectomy clips are noted. There is a small hiatal hernia. The partially visualized kidneys demonstrate cortical atrophy and 1.3 cm left adrenal nodule meets CT criteria for a fat-containing adenoma. Coarse calcifications are incidentally noted in the pancreatic tail. Skeletal structures: The skeletal structures are osteopenic. Degenerative change and hyperkyphosis is noted in the thoracic spine. There is a mild chronic compression deformity of L1. No lytic or blastic bony lesions are seen. IMPRESSION: 1. Unremarkable CT angiogram of the thoracic aorta. 2. There is no evidence of pulmonary embolus in the main, lobar, or segmental pulmonary arteries. 3. There is no airspace consolidation or pleural effusion. 4. Additional findings as above. ACT 112: Negative or not required by law. Electronically signed by: Boom Chang M.D. 03/11/2022 11:37 AM Echocardiogram: 03/11/22 - The study was technically limited. - LV systolic function is normal. - Ejection fraction = 55-60% - The left ventricular wall motion is normal. - There is mild concentric LVH - Grade I diastolic dysfunction, (abnormal relaxation pattern) - The right ventricle is mildly dilated. - There is mild tricuspid regurgitation. - RVSP is elevated at 30-40 mmHg. Hospital Course (1) Chest pain: -Admitted to Med/tele -Patient with symptoms concerning for possible ACS which woke her up from sleep this am, they were relieved with Nitro and aspirin -No acute ECG changes and high sensitivity troponin is WNL -Patient still with mild chest pressure but no other symptoms -Was given 1 inch of nitro paste prior to admission, will continue for now -Had heart cath in 2019 without stent placement, currently on aspirin -Serial HS trop obtained, all negative x 4 total, EKG nonacute -TTE completed and w/o changes in LVEF or new WMA -Routine cardiology consult placed, seen by FERMIN, CTA obtained to r/o dissection which came back negative (2) SOB (shortness of breath): -At baseline and stable on RA -continue prn albuterol (3) Afib: -Currently rate controlled -Was S/P unsuccessful cardioversion in 2019, now on metoprolol and amiodarone -Continue metoprolol and amiodarone -Per the last cardiology note from 10/31/21, the patient was taken off Xarelto due to multiple falls. Since being on amiodarone she has been in sinus rhythm and has continued off of anticoagulation due to her bleeding risk (4) Sleep apnea: -Normally uses HS CPAP -Had a previous fall with neck trauma, makes CPAP mask difficult to wear -Has been using HS O2 as needed, will order (5) Hyperlipidemia: -Not currently on a statin -Will get am lipid levels (6) GERD without esophagitis: -Continue pantoprazole (7) Diabetes mellitus: -Hold glipizide -Will start with lantus at 5 units BID, correction factor of 50, and carb ration of 16 -Monitor BSG ACHS with goal range of 110-140 -Consistent carb diet (8) Depression: -Continue sertraline and venlafaxine (9) Benign hypertension: -Hemodynamically stable -Continue nitro paste -Continue metoprolol and lasix (10) Anxiety: -Continue sertraline and venlafaxine Plan Patient is currently cp free. Work up reassuring that this is not cardiac. CTA neg for dissection or PE. She does have tenderness to palpation of L chest wall, could be MSK in nature. At this point, she has been ruled out for ACS and other emergent etiologies and cp has resolved. She is felt to be suitable for dc from cardiac standpoint, appreciate their assistance. She can f/u with Dr. Spaulding as scheduled. Pt is medically and hemodynamically stable for discharge home and would advise close follow up with pcp within 1 week of discharge. No medication changes have been made during her stay. Plan has been d/w Dr. Oral Mercado who is in agreement with aforementioned. Total Time Total Time Spent Total Time Spent (In Minutes): >30 minutes Discharge Plan Discharge Items Patient Disposition: Home - Self-Care Reason For Visit: CHEST PAIN Discharge Diagnosis: chest pain, likely muscular Condition on Discharge: Good Activity: Resume your previous activity Non-emergency contact: Primary Care Provider Call non-emergency contact if: you have any medication questions Follow-up/Referrals: Swapnil Castro MD [Primary Care Provider] - 03/13/22 7:45 am Diet: Carb Consistent or DM2 Addtl Attending Provider Instructions: You were hospitalized due to chest pain. You underwent an ultrasound of your heart which did not reveal any concerning findings that would indicate that your symptoms are due to a heart problem. You also had a scan of your lungs which was negative for blood clots. You were noted to have a tender spot on the left side of your chest which indicates that your symptoms could be due to a muscular strain. You can take Tylenol and/or use a heating pad on the lowest setting to the affected area if you wish. Otherwise, this muscle strain will heal over time. Avoid heavy lifting/moving or strenuous activity. It is recommended that you follow up with your family doctor within 1 week of discharge. All of your medications can be resumed as prescribed, no changes have been made during your stay. If you have any questions or concerns following your discharge, feel free to contact the nonemergency number listed on your discharge paperwork. In the event of a medical emergency, call 911. Pending Studies at Discharge: No Stand-Alone Forms: My [facility], Smoking Cessation Medications and DC Order Prescriptions: Continued ondansetron HCl 4 mg tablet 4 mg PO TID PRN (Reason: Nausea/vomiting) pantoprazole 40 mg tablet,delayed release (DR/EC) 40 mg PO DAILY tramadol 50 mg tablet 50 mg PO .COMPLEX Rx Instructions: 50 mg BID and 100 mg QHS as needed for pain amitriptyline 10 mg tablet 10 mg PO HS metoprolol succinate 25 mg Tablet Extended Release 24 Hr 25 mg PO BID Qty: 60 0RF albuterol sulfate [Ventolin HFA] 90 mcg/actuation Hfa Aerosol Inhaler 2 puff INHALATION QID PRN (Reason: Wheezing) nitroglycerin 0.3 mg tablet, sublingual 0.3 mg sublingual Q5M PRN (Reason: chest pain) Qty: 10 0RF amiodarone 200 mg tablet 200 mg PO DAILY omeprazole 20 mg capsule,delayed release(DR/EC) 20 mg PO DAILY furosemide 40 mg tablet 40 mg PO DAILY glipizide 5 mg tablet extended release 24hr 5 mg PO DAILY lorazepam 0.5 mg tablet 0.5 mg PO BID PRN (Reason: Anxiety) isosorbide mononitrate 30 mg tablet extended release 24 hr 30 mg PO QAM venlafaxine 37.5 mg capsule,extended release 24hr 37.5 mg PO DAILY sertraline 50 mg tablet 50 mg PO DAILY potassium chloride 20 mEq tablet extended release 20 meq PO DAILY aspirin 81 mg Tablet,Delayed Release (Dr/Ec) 81 mg PO DAILY lisinopril 5 mg Tablet 5 mg PO DAILY diclofenac sodium 1 % Gel 1 ea TOPICAL QID polyethylene glycol 3350 [Miralax] 17 gram/dose Powder 17 g PO DAILY Discharge Orders: Discharge Order (Routine); Ordered 03/11/22 Ordered By: Joyce Harris/Other Patient Handouts: Managing Type 2 Diabetes Admission Data Admit Date/Time: 03/10/22 17:39 Attending Provider: Oral Mercado Admit Provider: Beau Alcantara Primary Care Provider: Swapnil Castro Other Providers: Beau Alcantara ; Nam Spaulding Other Interventions: Discharge Summary Assessment (RN) Last Done: 03/11/22 13:20 Supervising Physician Co-Signing Physician Notes I supervised Joyce Snowden PA-C on the care of this patient. I did not see this patient as she had been admitted <24 hours prior to discharge. The plan is as written in her note except for any following changes/exceptions: None 81yo F presenting with chest pain. Likely MSK, as troponins, EKG, and echo all stable. CTA chest r/o dissection or significant aortic pathology. Ready for discharge. Coding Level of Care Code D/C DAY MANAGEMENT >30 MINS Diagnoses Chest pain R07.9 Chest pain type: unspecified SOB (shortness of breath) R06.02 Afib I48.91 Sleep apnea G47.30 Hyperlipidemia E78.5 GERD without esophagitis K21.9 Diabetes mellitus E11.9 Depression F32.9 Benign hypertension I10 Anxiety F41.9
== END 2022-03-11 15:10 | disposition home or self-care (01) ==
LOC: ED 14:25 → SUATTDRO 17:39 → INTOOBSV 17:39 → 2S 17:39

== ENCOUNTER 2022-09-22 13:24 | Inpatient (IN) ==
--- NOTE | 2022-09-22 13:56 | ED Triage Note ---
Date of Service September 22, 2022 History of Present Illness This patient was briefly evaluated while in triage. An abbreviated physical exam was performed. This patient is a 82-year-old Female who presents to the ED for evaluation of pain, redness, swelling to several toes on her L foot. This has worsened over the past week. History of diabetes and neuropathy. No fevers or red streaks. Hurts to walk. She states there is a hole in her 2nd toe. Physical Exam CONSTITUTIONAL: in no acute pain or distress, resting comfortably SKIN: pink, warm, dry. Good capillary refill in toes of L foot MSK: left foot: 2nd toe is red, warm, tender. adjacent 1st and 3rd toes are also erythematous. malodorous. Initial orders for labs and / or imaging were placed and patient was placed in the waiting area until a bed is available. Please see further documentation for the full ED course.
--- NOTE | 2022-09-22 15:17 | XRay Report ---
XR foot LT min 3V routine CLINICAL HISTORY: Diabetic infection toes 1-3, predominantly toe 2 COMPARISON: None FINDINGS: Tarsometatarsal joints are intact. There is chronic deformity of the left second toe. No a cute fracture within the left foot is noted. Severe osteoarthritis of the left first metatarsophalang eal joint. There is moderate plantar heel spurring. No bony erosions are identified. IMPRESSION: 1. No acute fracture. No radiographic evidence for acute osteomyelitis. 2. Severe left first MTP joint osteoarthritis. ACT 112: Negative or not required by law. Electronically signed by: Arnold Rivers M.D. 09/22/2022 3:15 PM
[2022-09-22] MEDS ORDERED: CEFEPIME 2,000 MG/20 ML VIAL IV STA (15:23)
[2022-09-22 15:26] LABS: Alanine Aminotransferase 9 U/L (7-52); Albumin Globulin Ratio 1.1 (0.9-2); Alkaline Phosphatase 73 U/L (34-104); Anion Gap 7 (3-11); Aspartate Aminotransferase 17 U/L (13-39); BUN Creatinine Ratio 11.5 (10-20); Bilirubin,Total 0.4 mg/dl (0.2-1.0); Blood Urea Nitrogen 10 mg/dl (6-23); Calcium 9.2 mg/dl (8.6-10.3); Carbon Dioxide 29 mmol/L (21-32); Chloride 99 mmol/L (98-107); Est GFR (African American) 71.4 ml/min; Est GFR (Non-African American) 61.6 ml/min; Globulin 3.6 gm/dl (2.5-4.0); Glucose 237 mg/dl (70-99(Fasting)); Potassium 3.2 mmol/L (3.5-5.1); Sodium 135 mmol/L (136-145); Total Protein 7.6 gm/dl (6.0-8.3)
--- NOTE | 2022-09-22 15:31 | Emergency Department Note ---
Impression & Plan Hypoxia, Cellulitis, Acute pain of left foot ED Provider Note NAME: RODRIGUEZ ROPER AGE: 82 SEX: F : 1940 ARRIVES VIA: Walk-In INFORMANT: [Patient] ED PROVIDER(S): [Boom Masterson MD] CHIEF COMPLAINT: Foot infection HISTORY OF PRESENT ILLNESS: The patient is a 82-year-old diabetic who presents with about 1 week of left foot erythema and increased pain. She notices the pain mostly to walk. No fever. The patient is not currently on any antibiotic. The patient has not had any issues with her toes before. She states that the erythema started with the second toe but has now spread to the third. Of note, the patient does have a puffer that she uses for her lungs. She is supposed to use CPAP at night but really does not use it very often. She is not on daily oxygen. Triage noted her O2 saturation to be low in the 80s. She was placed on nasal cannula O2. PMHx/PSHx: See Below SOCIAL HISTORY: See Below. PHYSICAL EXAM: GENERAL: Patient is in no acute distress. HEENT: No acute trauma, normocephalic atraumatic, mucous membranes moist, no nasal congestion. NECK: No stridor, no adenopathy, no meningismus, trachea is midline. LUNGS: Clear to auscultation bilaterally, no wheeze, no rhonchi, breath sounds equal. HEART: Without murmurs gallops or rubs, regular rate and rhythm. ABDOMEN: Soft, nontender, bowel sounds positive, no peritonitis. EXTREMITIES: No cyanosis or edema, the patient's second and third toes are erythematous. A foul odor is noted. No excessive discharge. There is erythema spreading up the dorsum of the left foot and there is some warmth in the dorsal foot as well. NEUROLOGIC: Oriented x 3, no acute motor or sensory deficits, no focal weakness. SKIN: No jaundice, no diaphoresis. DIFFERENTIAL DIAGNOSIS: Osteomyelitis, cellulitis, bacteremia or sepsis, fracture, among others. EMERGENCY DEPARTMENT COURSE/PROCEDURES: Prior/Outside records reviewed: None. MEDICAL DECISION MAKING: There is no leukocytosis or concerning anemia. There is a normal platelet count. Potassium slightly low at 3.2 but not in need of emergent correction. No renal failure. Lactic acid level is not elevated making severe sepsis less likely. No concerning liver enzyme elevation. Procalcitonin level was not elevated making a serious bacterial infection less likely. COVID test returned negative. Chest film did not show mediastinal widening, pneumonia or pneumothorax per my review. Left foot film per my review showed arthritis, no obvious fracture, no osteomyelitis. Left foot CT showed cellulitis, no osteomyelitis. On exam, the patient did have a left foot cellulitis. A culture of the area was obtained and sent, the results are pending. Patient received IV cefepime as empiric antibiotic coverage. Patient has been on O2 supplementation while here in the ED. She had presented hypoxic while in triage. She is diabetic with left foot pain and now has a left foot cellulitis which has markedly worsened in just the last few days. I do think the patient requires IV antibiotic therapy. Admission is warranted. The reason for the hypoxia is unclear, she does have a history of lung disease and the hypoxia may be completely unrelated to the left foot infection. I spoke with the patient and case management, the on-call hospitalist was consulted. DISPOSITION: Patient's presentation and findings warrant a hospital stay. Past Med/Surg History Medical History (Updated 09/22/22 @ 20:54 by Boom Masterson MD) Abdominal pain Asthma Diabetes mellitus, type 2 Diarrhea Dyslipidemia Hypertension Surgical History H/O tubal ligation Hx of cataract surgery Hx of cholecystectomy Hx of total knee arthroplasty Family History Grandmother Cancer Mother Diabetes Breast cancer Arthritis Skin cancer Brother Diabetes Lymphoma Sister Breast cancer Skin cancer Grandmother Lung cancer Social History Smoking Status: Never smoker Hx Alcohol Use: No Hx Substance Use: No Preferred Language: [place] Communication Ability: Effective 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 Beliefs That Will Affect Care: None Current Living Situation: Family Current Living Situation Comment: lives with grandson Feels Safe at Home: Yes Assistive Devices: Other Allergies Allergies Allergy/AdvReac Type Severity Reaction Status Date / Time pravastatin Allergy Intermediate HEART Verified 09/22/22 16:49 ATTACK LIKE SYMPTOMS apixaban [From Eliquis] AdvReac Severe BODY WENT Verified 09/22/22 16:49 NUMB duloxetine AdvReac Severe LOSS OF Verified 09/22/22 16:49 CONSCIOUSNESS ciprofloxacin AdvReac Intermediate DIARRHEA Verified 09/22/22 16:49 metformin AdvReac Intermediate Diarrhea Verified 09/22/22 16:49 sitagliptin AdvReac Intermediate ILLNESS Verified 09/22/22 16:49 Home Meds Home Medications Medication Instructions Recorded Confirmed albuterol sulfate 90 mcg/actuation 2 puff inhalation QID PRN Wheezing 12/16/17 09/22/22 aerosol inhaler (Ventolin HFA) amitriptyline 10 mg tablet 10 mg PO HS 07/19/18 09/22/22 ondansetron HCl 4 mg tablet 4 mg PO TID PRN Nausea/vomiting 01/04/19 09/22/22 pantoprazole 40 mg tablet,delayed 40 mg PO DAILY 01/04/19 09/22/22 release tramadol 50 mg tablet 50 mg PO .COMPLEX PRN Pain 01/24/19 09/22/22 amiodarone 200 mg tablet 200 mg PO DAILY 09/27/20 09/22/22 furosemide 40 mg tablet 40 mg PO DAILY 09/27/20 09/22/22 glipizide 5 mg tablet, extended 5 mg PO DAILY 09/27/20 09/22/22 release 24 hr isosorbide mononitrate 30 mg 30 mg PO QAM 09/27/20 09/22/22 tablet,extended release 24 hr lorazepam 0.5 mg tablet 0.5 mg PO BID PRN Anxiety 09/27/20 09/22/22 omeprazole 20 mg capsule,delayed 20 mg PO DAILY 09/27/20 09/22/22 release potassium chloride 20 mEq 20 meq PO DAILY 09/27/20 09/22/22 tablet,extended release sertraline 50 mg tablet 50 mg PO DAILY 09/27/20 09/22/22 venlafaxine 37.5 mg 37.5 mg PO DAILY 09/27/20 09/22/22 capsule,extended release 24 hr aspirin 81 mg tablet,delayed 81 mg PO DAILY 03/10/22 09/22/22 release diclofenac sodium 1 % topical gel 1 ea topical QID PRN Pain 03/10/22 09/22/22 lisinopril 5 mg tablet 5 mg PO DAILY 03/10/22 09/22/22 polyethylene glycol 3350 17 17 g PO DAILY 03/10/22 09/22/22 gram/dose oral powder (Miralax) Previous Rx's Medication Instructions Recorded nitroglycerin 0.3 mg sublingual 0.3 mg sublingual Q5M PRN chest 01/05/19 tablet pain #10 tabs metoprolol succinate 25 mg 25 mg PO BID #60 tabs 10/14/19 tablet,extended release 24 hr Results & Data (ED) Vital Signs Vital Signs - 24 hr 09/22/22 13:49 09/22/22 14:39 09/22/22 15:32 Temperature 36.9 C Temperature Source Temporal Artery Scan Pulse Rate 96 H 86 Pulse Rate from SpO2 Sensor Respiratory Rate 16 Respiratory Depth Normal Blood Pressure 149/89 H 134/85 Blood Pressure Mean 109 101 Pulse Oximetry 92 95 Oxygen Delivery Method Room Air Nasal Cannula Oxygen Flow Rate 3 Sepsis Recent Fever Within 48 Hours No Sepsis New/Unexplained Change in Mental Status No Sepsis Action Taken by Nursing No Action Required 09/22/22 14:36 09/22/22 15:00 09/22/22 15:01 Temperature Temperature Source Pulse Rate 90 89 Pulse Rate from SpO2 Sensor 87 Respiratory Rate 24 21 Respiratory Depth Blood Pressure 128/97 Blood Pressure Mean 103 Pulse Oximetry 91 Oxygen Delivery Method Oxygen Flow Rate Sepsis Recent Fever Within 48 Hours Sepsis New/Unexplained Change in Mental Status Sepsis Action Taken by Nursing 09/22/22 15:01 09/22/22 15:30 09/22/22 15:30 Temperature Temperature Source Pulse Rate 88 85 Pulse Rate from SpO2 Sensor 85 Respiratory Rate 25 H 14 Respiratory Depth Blood Pressure 134/85 Blood Pressure Mean 98 Pulse Oximetry 95 Oxygen Delivery Method Nasal Cannula Oxygen Flow Rate 2 Sepsis Recent Fever Within 48 Hours Sepsis New/Unexplained Change in Mental Status Sepsis Action Taken by Nursing 09/22/22 16:15 09/22/22 16:30 09/22/22 17:00 Temperature Temperature Source Pulse Rate Pulse Rate from SpO2 Sensor 86 88 89 Respiratory Rate Respiratory Depth Blood Pressure Blood Pressure Mean Pulse Oximetry 96 98 95 Oxygen Delivery Method Oxygen Flow Rate Sepsis Recent Fever Within 48 Hours Sepsis New/Unexplained Change in Mental Status Sepsis Action Taken by Nursing 09/22/22 17:30 Temperature Temperature Source Pulse Rate Pulse Rate from SpO2 Sensor 91 H Respiratory Rate Respiratory Depth Blood Pressure Blood Pressure Mean Pulse Oximetry 95 Oxygen Delivery Method Oxygen Flow Rate Sepsis Recent Fever Within 48 Hours Sepsis New/Unexplained Change in Mental Status Sepsis Action Taken by [facility] Medications Current Medication List: was personally reviewed by me Laboratory Data Attestation: I reviewed the patient's lab results. 09/22/22 14:40 09/22/22 14:40 Lab Results 09/22/22 09/22/22 09/22/22 Range/Units 14:40 14:40 14:40 WBC 5.77 (4.8-10.8) K/ul RBC 4.94 (4.20-5.40) M/uL Hgb 14.3 (12.0-16.0) g/dl Hct 43.2 (37.0-47.0) % MCV 87.4 (80.0-100.0) fL MCH 28.9 (25.0-34.0) pg MCHC 33.1 (32.0-36.0) g/dL RDW Std Deviation 43.6 (36.4-46.3) fL RDW Coeff of Roxi 13.6 (11.5-14.5) % Plt Count 249 (130-400) K/uL MPV 9.4 (9.4-12.4) fL Immature Gran % (Auto) 0.3 % Neut % (Auto) 69.9 % Lymph % (Auto) 21.1 % [place] % (Auto) 5.9 % Eos % (Auto) 2.3 % Baso % (Auto) 0.5 % Neut # (Auto) 4.03 (1.40-6.50) K/uL Lymph # (Auto) 1.22 (1.2-3.4) K/uL [place] # (Auto) 0.34 (0.11-0.59) K/uL Eos # (Auto) 0.13 (0-0.50) K/uL Baso # (Auto) 0.03 (0-0.2) K/uL Immature Gran # (Auto) 0.02 (0.01-0.20) K/uL Sodium 135 L (136-145) mmol/L Potassium 3.2 L (3.5-5.1) mmol/L Chloride 99 (98-107) mmol/L Carbon Dioxide 29 (21-32) mmol/L Anion Gap 7 (3-11) BUN 10 (6-23) mg/dl Creatinine 0.87 (0.6-1.2) mg/dl Est Cr Clr Drug Dosing Not Reportable Est GFR ( Amer) 71.4 ml/min Est GFR (Non-Af Amer) 61.6 ml/min BUN/Creatinine Ratio 11.5 (10-20) Glucose 237 H (70-99(Fasting)) mg/dl Lactate 1.8 (0.4-2.0) mmol/L Calcium 9.2 (8.6-10.3) mg/dl Magnesium (1.7-2.4) mg/dl Total Bilirubin 0.4 (0.2-1.0) mg/dl AST 17 (13-39) U/L ALT 9 (7-52) U/L Alkaline Phosphatase 73 (34-104) U/L Total Protein 7.6 (6.0-8.3) gm/dl Albumin 4.0 (3.4-5.0) gm/dl Globulin 3.6 (2.5-4.0) gm/dl Albumin/Globulin Ratio 1.1 (0.9-2) Procalcitonin (0-0.5) ng/ml SARS-CoV-2, RNA, NAAT (NEGATIVE) 09/22/22 09/22/22 09/22/22 Range/Units 15:46 15:46 16:00 WBC (4.8-10.8) K/ul RBC (4.20-5.40) M/uL Hgb (12.0-16.0) g/dl Hct (37.0-47.0) % MCV (80.0-100.0) fL MCH (25.0-34.0) pg MCHC (32.0-36.0) g/dL RDW Std Deviation (36.4-46.3) fL RDW Coeff of [place]oxi (11.5-14.5) % Plt Count (130-400) K/uL MPV (9.4-12.4) fL Immature Gran % (Auto) % Neut % (Auto) % Lymph % (Auto) % [place] % (Auto) % Eos % (Auto) % Baso % (Auto) % Neut # (Auto) (1.40-6.50) K/uL Lymph # (Auto) (1.2-3.4) K/uL [place] # (Auto) (0.11-0.59) K/uL Eos # (Auto) (0-0.50) K/uL Baso # (Auto) (0-0.2) K/uL Immature Gran # (Auto) (0.01-0.20) K/uL Sodium (136-145) mmol/L Potassium (3.5-5.1) mmol/L Chloride (98-107) mmol/L Carbon Dioxide (21-32) mmol/L Anion Gap (3-11) BUN (6-23) mg/dl Creatinine (0.6-1.2) mg/dl Est Cr Clr Drug Dosing Est GFR ( Amer) ml/min Est GFR (Non-Af Amer) ml/min BUN/Creatinine Ratio (10-20) Glucose (70-99(Fasting)) mg/dl Lactate (0.4-2.0) mmol/L Calcium (8.6-10.3) mg/dl Magnesium 1.7 (1.7-2.4) mg/dl Total Bilirubin (0.2-1.0) mg/dl AST (13-39) U/L ALT (7-52) U/L Alkaline Phosphatase (34-104) U/L Total Protein (6.0-8.3) gm/dl Albumin (3.4-5.0) gm/dl Globulin (2.5-4.0) gm/dl Albumin/Globulin Ratio (0.9-2) Procalcitonin < 0.05 (0-0.5) ng/ml SARS-CoV-2, RNA, NAAT NEGATIVE (NEGATIVE) Administered Medications Discontinued Medications Cefepime HCl (Maxipime) 2,000 mg in 20 mls @ 5 mls/min IV NOW STA; Protocol Stop: 09/22/22 15:26 Last Admin: 09/22/22 15:39 Dose: 5 mls/min Documented By: AY Imaging Data Radiologist's Impression: Foot X-Ray 09/22/22 13:52 XR foot LT min 3V routine CLINICAL HISTORY: Diabetic infection toes 1-3, predominantly toe 2 COMPARISON: None FINDINGS: Tarsometatarsal joints are intact. There is chronic deformity of the left second toe. No acute fracture within the left foot is noted. 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 There is moderate plantar heel spurring. No bony erosions are identified. IMPRESSION: 1. No acute fracture. No radiographic evidence for acute osteomyelitis. 2. Severe left first MTP joint osteoarthritis. ACT 112: Negative or not required by law. Electronically signed by: Arnold Rivers M.D. 09/22/2022 3:[address] 09/22/22 15:23 CT foot LT wo con CLINICAL HISTORY: poss osteo TECHNIQUE: Multidetector row helical CT of the right foot was performed without intravenous contrast. Coronal and sagittal reformations were obtained. Automated dose lowering techniques and/or adjustment according to patient size were utilized for this examination. CT DOSE: 388.51 mGy.cm Comparison: None available at the time of this dictation. FINDINGS: The osseous structures are without fracture or dislocation. Degenerative changes are seen in the foot. No focal erosions are seen to suggest osteomyelitis. Soft tissue swelling is seen in the first through third digits. IMPRESSION: Degenerative changes are seen. There is cellulitis without evidence of osteomyelitis in the first through third digits. Of note, MRI is a more sensitive modality if clinical concern remains. ACT 112: Negative or not required by law. Electronically signed by: Karel Andre M.D. 09/22/2022 4:29 PM Chest X-Ray 09/22/22 15:24 XR chest 1V portable CLINICAL HISTORY: hypoxia COMPARISON STUDY: Chest CT March 11, 2022. Chest radiograph May 30, 2022. FINDINGS: Lung volumes are normal. There is no consolidation to suggest pneumonia. Linear left basilar opacity represents atelectasis or scarring. There is no pneumothorax or pleural effusion. Cardiac size is normal. Mediastinal contours are normal. There is no evidence for pulmonary edema. IMPRESSION: No acute cardiopulmonary findings. ACT 112: Negative or not required by law. Electronically signed by: Arnold Rivers M.D. 09/22/2022 4:40 PM Discharge Plan Visit Data Chief Complaint: Foot Injury/Pain Stated Complaint: LT FOOT PAIN ED Provider: Boom Masterson Discharge Problem: Hypoxia, Cellulitis, Acute pain of left foot Patient Disposition: Admitted As Inpatient Condition: Fair Discharge Instructions Interventions: ED Discharge Assessment Last Done: 09/22/22 18:21
[2022-09-22 15:35] LABS: Basophils # (auto) 0.03 K/uL (0-0.2); Basophils % (auto) 0.5 %; Eosinophils # (auto) 0.13 K/uL (0-0.50); Eosinophils % (auto) 2.3 %; Hematocrit (blood only) 43.2 % (37.0-47.0); Hemoglobin 14.3 g/dl (12.0-16.0); Immature Granulocytes # (auto) 0.02 K/uL (0.01-0.20); Immature Granulocytes % (auto) 0.3 %; Lymphocytes # (auto) 1.22 K/uL (1.2-3.4); Lymphocytes % (auto) 21.1 %; Mean Corpuscular Hemoglobin 28.9 pg (25.0-34.0); Mean Corpuscular Hgb Conc 33.1 g/dL (32.0-36.0); Mean Corpuscular Volume 87.4 fL (80.0-100.0); Mean Platelet Volume 9.4 fL (9.4-12.4); Monocytes # (auto) 0.34 K/uL (0.11-0.59); Monocytes % (auto) 5.9 %; Neutrophils # (auto) 4.03 K/uL (1.40-6.50); Neutrophils % (auto) 69.9 %; Platelet Count 249 K/uL (130-400); RDW Coefficient of Variation 13.6 % (11.5-14.5); RDW Standard Deviation 43.6 fL (36.4-46.3); Red Blood Count 4.94 M/uL (4.20-5.40); White Blood Count 5.77 K/ul (4.8-10.8)
--- NOTE | 2022-09-22 16:30 | CT Scan Report ---
CT foot LT wo con CLINICAL HISTORY: poss osteo TECHNIQUE: Multidetector row helical CT of the right foot was performed without intravenous contrast. Coronal and sagittal reformations were obtained. Automated dose lowering techniques and/or adjustmen t according to patient size were utilized for this examination. CT DOSE: 388.51 mGy.cm Comparison: None available at the time of this dictation. FINDINGS: The osseous structures are without fracture or dislocation. Degenerative changes are seen in the foot . No focal erosions are seen to suggest osteomyelitis. Soft tissue swelling is seen in the first thro ugh third digits. IMPRESSION: Degenerative changes are seen. There is cellulitis without evidence of osteomyelitis in the first thr ough third digits. Of note, MRI is a more sensitive modality if clinical concern remains. ACT 112: Negative or not required by law. Electronically signed by: Karel Andre M.D. 09/22/2022 4:29 PM
--- NOTE | 2022-09-22 16:42 | XRay Report ---
XR chest 1V portable CLINICAL HISTORY: hypoxia COMPARISON STUDY: Chest CT March 11, 2022. Chest radiograph May 30, 2022. FINDINGS: Lung volumes are normal. There is no consolidation to suggest pneumonia. Linear left basila r opacity represents atelectasis or scarring. There is no pneumothorax or pleural effusion. Cardiac s ize is normal. Mediastinal contours are normal. There is no evidence for pulmonary edema. IMPRESSION: No acute cardiopulmonary findings. ACT 112: Negative or not required by law. Electronically signed by: Arnold Rivers M.D. 09/22/2022 4:40 PM
--- NOTE | 2022-09-22 17:58 | History & Physical Report ---
Date of Service September 22, 2022 Assessment & Plan (1) Wound of left foot: Plan: Acute/unstable - moderate risk - Admit to med/surg unit - Continue pseudomonal coverage with Cefepime 2g q12 - No h/o MRSA and not septic, defer Vanco - Cultures collected, both wound and blood - CBC reviewed, no leukocytosis or shift - Tramadol ordered PRN pain - pig handler consulted, appreciate assistance (2) Acute respiratory failure with hypoxia: Plan: Acute/unstable - high risk - No prior h/o hypoxia outside of JILLIAN - Obtain VBG - Update echo - Wells score 0, very low suspicion for PE - CXR negative for PNA or PVC - Continue supplemental O2 to keep sat >90% - Consider updated PFTs as outpatient (3) Hypokalemia: Plan: Acute/unstable - CMP reviewed, potassium 3.2 - Potassium supplemented with KCl 40meq PO x1 now - Trend with chemistry in AM (4) Obstructive sleep apnea: Plan: Chronic/unstable - Noted to have pulm HTN on last echo from Feb - Noncompliant with cpap mask - Will need an updated referral back to sleep medicine/Dr. Hillman - Feel that she will need an updated sleep study +/- new settings/device (5) Diabetes mellitus: Plan: Chronic/unsure of stability - Currently only on Glipizide, last A1c is unknown as it was in our system was 2019 and was 8.0% - Will hold Glipizide and place on basal/bolus - Diabetic diet ordered - Accuchecks AC and HS - A1c ordered for tomorrow AM (6) Depression: Plan: Chronic/stable - Continue Amitriptyline and Venlafaxine (7) HTN (hypertension): Plan: HTN, CAD, h/o AFib currently in NSR Chronic/stable - Continue Amiodarone, Lisinopril, Imdur, Lasix, ASA, and Metoprolol - Previously on ACT for her afib but this was discontinued due to frequent falls Plan Lovenox ordered for DVT ppx. AM labs have been ordered. Above plan of care has been d/w Dr. Alcantara who will also see and evaluate this patient. Further orders will be implemented as the hospitalization warrants. History of Present Illness Chief Complaint: wound on L toe Primary Care Provider: MD Gena Acevedo is an 82 yo F with a pmhx of t2dm, peripheral neuropathy, HTN, CAD, paroxysmal afib, JILLIAN, and chronic TERRY who presented to the ER today c/o a wound on her left 2nd toe x 1 week. Patient reports that she noticed a small area of redness/ulceration on her left 2nd toe about a week ago that has progressed fairly rapidly. Now, the entire toe is red and swollen and the redness is beginning to spread to the 3rd toe. She denies fever, states she "always has chills." She has neuropathy but her sensation is intact on the b ottom of her foot and her toes and she admits to pain. She presented to the ER today for evaluation due to the progression in her symptoms. She notes that she lives with her grandson and does not walk due to her chronic TERRY and frequent falls, she is mobile via her motor chair. She is supposed to be wearing a cpap at night but states that she sustained some falls and with them has suffered some neck discomfort. Since they have occurred, she has not worn her cpap due to the discomfort. She also states that it "doesn't work" and that her "tongue sticks to the roof of my mouth and my mouth is really dry." She hasn't seen Dr. Hillman in "years" and does not follow with a clinical partner. She has never been told she has low oxygen before and does not wear home O2. In ER triage, she was noted to have a pulse ox in the low 80s and was placed on supplemental O2. She was noted to be afebrile in the ED. Labs demonstrated a normal wbc count without shift. Cultures of the toe were drawn in ED and blood cultures were sent prior to administration of Cefepime. She has no prior h/o MRSA. She is currently comfortable, denies dyspnea, chest pain, cough, fever/chills, n/v/d, and gu symptoms. Hospitalists have been consulted for admission. Allergies Allergy/AdvReac Type Severity Reaction Status Date / Time pravastatin Allergy Intermediate HEART Verified 09/22/22 16:49 ATTACK LIKE SYMPTOMS apixaban [From Eliquis] AdvReac Severe BODY WENT Verified 09/22/22 16:49 NUMB duloxetine AdvReac Severe LOSS OF Verified 09/22/22 16:49 CONSCIOUSNESS ciprofloxacin AdvReac Intermediate DIARRHEA Verified 09/22/22 16:49 metformin AdvReac Intermediate Diarrhea Verified 09/22/22 16:49 sitagliptin AdvReac Intermediate ILLNESS Verified 09/22/22 16:49 Home Medications Medication Instructions Recorded Confirmed Type albuterol sulfate 90 mcg/actuation 2 puff inhalation QID PRN Wheezing 12/16/17 09/22/22 History aerosol inhaler (Ventolin HFA) amitriptyline 10 mg tablet 10 mg PO HS 07/19/18 09/22/22 History ondansetron HCl 4 mg tablet 4 mg PO TID PRN Nausea/vomiting 01/04/19 09/22/22 History pantoprazole 40 mg tablet,delayed 40 mg PO DAILY 01/04/19 09/22/22 History release nitroglycerin 0.3 mg sublingual 0.3 mg sublingual Q5M PRN chest 01/05/19 09/22/22 Rx tablet pain #10 tabs tramadol 50 mg tablet 50 mg PO .COMPLEX PRN Pain 01/24/19 09/22/22 History metoprolol succinate 25 mg 25 mg PO BID #60 tabs 10/14/19 09/22/22 Rx tablet,extended release 24 hr amiodarone 200 mg tablet 200 mg PO DAILY 09/27/20 09/22/22 History furosemide 40 mg tablet 40 mg PO DAILY 09/27/20 09/22/22 History glipizide 5 mg tablet, extended 5 mg PO DAILY 09/27/20 09/22/22 History release 24 hr isosorbide mononitrate 30 mg 30 mg PO QAM 09/27/20 09/22/22 History tablet,extended release 24 hr lorazepam 0.5 mg tablet 0.5 mg PO BID PRN Anxiety 09/27/20 09/22/22 History omeprazole 20 mg capsule,delayed 20 mg PO DAILY 09/27/20 09/22/22 History release potassium chloride 20 mEq 20 meq PO DAILY 09/27/20 09/22/22 History tablet,extended release sertraline 50 mg tablet 50 mg PO DAILY 09/27/20 09/22/22 History venlafaxine 37.5 mg 37.5 mg PO DAILY 09/27/20 09/22/22 History capsule,extended release 24 hr aspirin 81 mg tablet,delayed 81 mg PO DAILY 03/10/22 09/22/22 History release diclofenac sodium 1 % topical gel 1 ea topical QID PRN Pain 03/10/22 09/22/22 History lisinopril 5 mg tablet 5 mg PO DAILY 03/10/22 09/22/22 History polyethylene glycol 3350 17 17 g PO DAILY 03/10/22 09/22/22 History gram/dose oral powder (Miralax) Past Med/Surg History Medical History (Updated 09/22/22 @ 18:22 by Joyce Snowden PA-C) Abdominal pain Asthma Diabetes mellitus, type 2 Diarrhea Dyslipidemia Hypertension Surgical History H/O tubal ligation Hx of cataract surgery Hx of cholecystectomy Hx of total knee arthroplasty Family History Grandmother Cancer Mother Diabetes Breast cancer Arthritis Skin cancer Brother Diabetes Lymphoma Sister Breast cancer Skin cancer Grandmother Lung cancer Social History Smoking Status: Never smoker Hx Alcohol Use: No Hx Substance Use: No Preferred Language: [place] Communication Ability: Effective Instructor Of Spanish Required: No Beliefs That Will Affect Care: None Current Living Situation: Family Current Living Situation Comment: lives with grandson Feels Safe at Home: Yes Assistive Devices: Other Physical Exam Physical Exam: GENERAL: 82 yo obese elderly F. AAOx4. NAD. LUNGS: Clear to auscultation bilaterally w/o W/R/R. CARDIOVASCULAR: Regular rate and rhythm. No M/G/R. EXT: No edema SKIN: Left 2nd toe with lateral ulceration with slough on distal tip with significant erythema and edema. Erythema noted to spread to adjacent 3rd toe but not as severe. No lymphangitic streaking noted. Mildly ttp. Results & Data Results & Data Vital Signs (Past 12 Hours) Vital Signs Temp Pulse Resp BP Pulse Ox O2 Del Method O2 Flow Rate 09/22/22 17:30 95 09/22/22 17:00 95 09/22/22 16:30 98 09/22/22 16:15 96 09/22/22 15:30 85 14 95 Nasal Cannula 2 09/22/22 15:30 134/85 09/22/22 15:01 88 25 H 09/22/22 15:01 128/97 09/22/22 15:00 89 21 09/22/22 14:36 90 24 91 09/22/22 15:32 134/85 95 Nasal Cannula 3 09/22/22 14:39 86 09/22/22 13:49 36.9 C 96 H 16 149/89 H 92 Room Air Laboratory Results 09/22/22 14:40 09/22/22 14:40 Diagnostic Findings Foot X-Ray 09/22/22 13:52 XR foot LT min 3V routine CLINICAL HISTORY: Diabetic infection toes 1-3, predominantly toe 2 COMPARISON: None FINDINGS: Tarsometatarsal joints are intact. There is chronic deformity of the left second toe. No acute fracture within the left foot is noted. 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 There is moderate plantar heel spurring. No bony erosions are identified. IMPRESSION: 1. No acute fracture. No radiographic evidence for acute osteomyelitis. 2. Severe left first MTP joint osteoarthritis. ACT 112: Negative or not required by law. Electronically signed by: Arnold Rivers M.D. 09/22/2022 3:[address] 09/22/22 15:23 CT foot LT wo con CLINICAL HISTORY: poss osteo TECHNIQUE: Multidetector row helical CT of the right foot was performed without intravenous contrast. Coronal and sagittal reformations were obtained. Automated dose lowering techniques and/or adjustment according to patient size were utilized for this examination. CT DOSE: 388.51 mGy.cm Comparison: None available at the time of this dictation. FINDINGS: The osseous structures are without fracture or dislocation. Degenerative changes are seen in the foot. No focal erosions are seen to suggest osteomyelitis. Soft tissue swelling is seen in the first through third digits. IMPRESSION: Degenerative changes are seen. There is cellulitis without evidence of osteomyelitis in the first through third digits. Of note, MRI is a more sensitive modality if clinical concern remains. ACT 112: Negative or not required by law. Electronically signed by: Karel Andre M.D. 09/22/2022 4:29 PM Chest X-Ray 09/22/22 15:24 XR chest 1V portable CLINICAL HISTORY: hypoxia COMPARISON STUDY: Chest CT March 11, 2022. Chest radiograph May 30, 2022. FINDINGS: Lung volumes are normal. There is no consolidation to suggest pneumonia. Linear left basilar opacity represents atelectasis or scarring. There is no pneumothorax or pleural effusion. Cardiac size is normal. Mediastinal contours are normal. There is no evidence for pulmonary edema. IMPRESSION: No acute cardiopulmonary findings. ACT 112: Negative or not required by law. Electronically signed by: Arnold Rivers M.D. 09/22/2022 4:40 PM Supervising Physician Co-Signing Physician Notes Patient seen and examined, chart reviewed, case discussed with Joyce Snowden PA-C and I agree with the assessment and plan as above except as otherwise noted Labs and images reviewed 82-year-old female the past medical history of A-fib not on anticoagulation due to frequent falls, left foot wound, JILLIAN noncompliant with CPAP, type II DM who presents with concern for left foot cellulitis, and acute hypoxic respiratory f ailure without prior history of CHF or oxygen dependence. CXR does not show evidence of pneumonia or significant pulmonary congestion. Lungs are clear and without wheezing at bedside. She is not tachycardic, Wells score of 0. Agree with treatment of left foot wound with pseudomonal coverage as above, CPAP nightly, and wean oxygen as able. If persistent oxygen requirement not improving with above treatments follow-up with CT. Agree with management of chronic issues as above PG Care Time/CCT Total # of Minutes Spent Total Time Spent with Patient: Total time spent is greater than 50% in coordination of care (as documented) at patient's floor/unit and/or counseling patient: Coding Level of Care Code 03582 INT INP/OBS CARE 75MIN Diagnoses Wound of left foot S91.302A Acute respiratory failure with hypoxia J96.01 Hypokalemia E87.6 Obstructive sleep apnea G47.33 Diabetes mellitus E11.9 Depression F32.9 HTN (hypertension) I10
[2022-09-22] MEDS ORDERED: GLUCAGON FOR INJ 1 MG VIAL SQ PRN (18:53)
[2022-09-22] MEDS ORDERED: CARBOHYDRATES FOR HYPOGLYCEMIA PO PRN (18:53)
[2022-09-22] MEDS ORDERED: ALUMINUM/MAGNESIUM SUSP 30 ML UDC PO PRN (18:53)
[2022-09-22] MEDS ORDERED: DEXTROSE 50% 50 ML SYRINGE IV PRN (18:53)
[2022-09-22] MEDS ORDERED: MAGNESIUM HYDROXIDE SUSP 30 ML UDC PO PRN (18:53)
[2022-09-22] MEDS ORDERED: ONDANSETRON INJ 2 MG/ML 2 ML VIAL IV PRN (18:53)
[2022-09-22] MEDS ORDERED: GLUCOSE 40% GEL 15 GM TUBE PO PRN (18:53)
[2022-09-22] MEDS ORDERED: GLUCOSE 10 TAB/TUBE PO PRN (18:53)
[2022-09-22] MEDS ORDERED: traMADol HCL 50 MG TABLET PO PRN (18:53)
[2022-09-22] MEDS ORDERED: POTASSIUM CHLORIDE CRTAB 20 MEQ TABCR PO STA (19:03)
[2022-09-22] MEDS ORDERED: ALBUTEROL HFA 8 GM INHALER INH PRN (19:05)
[2022-09-22 19:54] LABS: Base Excess VBG 11.1 mEq/L; HCO3 VBG 37 mmol/L; Oxygen Saturation VBG < 60.0 %; PCO2 VBG 55 mmHg (38-50); PO2 VBG 40 mmHg; pH VBG 7.44 (7.36-7.41)
[2022-09-22] MEDS: INSULIN ASPART PER UNIT CHARGE SC SCH (20:57)
[2022-09-22] MEDS ORDERED: GADOBUTROL 65ML VIAL IV ONE (22:32)
[2022-09-22] MEDS: AMITRIPTYLINE HCL 10 MG TAB PO SCH (23:10)
[2022-09-22] MEDS: LANTUS PER UNIT CHARGE SQ SCH (23:10)
[2022-09-22] MEDS: traMADol HCL 50 MG TABLET PO PRN (23:12)
[2022-09-22] MEDS: METOPROLOL SUCC 25MG EXT REL TAB PO SCH (23:12)
[2022-09-22] MEDS: LORazepam 0.5 MG TAB PO PRN (23:13)
--- NOTE | 2022-09-22 23:28 | Magnetic Resonance Report ---
Exam(s): MRI LEFT FOOT W/WO Contrast EXAM: MR Left Lower Extremity Without and With Intravenous Contrast, Foot CLINICAL HISTORY: Reason for exam: eval for osteo of L 2nd toe. TECHNIQUE: Multiplanar magnetic resonance images of the left foot without and with intravenous contrast. CONTRAST: Gadavist 9 mL IV COMPARISON: CT left foot 09/22/22 FINDINGS: Evaluation is limited by motion artifact. There are hammertoe deformities of toes 2-5. There is severe osteoarthritis of the first MTP joint. There is no acute fracture or dislocation. There are no bone marrow signal changes to suggest acute osteomyelitis. Minimal reactive marrow edema suggested in the second distal phalanx. Soft tissue swelling and edema of the distal second toe is consistent with cellulitis. There is no evidence of drainable soft tissue abscess on postcontrast imaging. Visualized tendons appear intact. IMPRESSION: Cellulitis of the second toe. No evidence of acute osteomyelitis. Electronically signed by: Kisha Oneal M.D. 09/22/22 23:28 PM
[2022-09-23] MEDS: traMADol HCL 50 MG TABLET PO PRN ×2 (05:36→20:50)
[2022-09-23] MEDS: CEFEPIME 2,000 MG in SYRINGE 0 ML IV SCH ×2 (05:39→17:15)
[2022-09-23 07:13] LABS: Basophils # (auto) 0.03 K/uL (0-0.2); Basophils % (auto) 0.5 %; Eosinophils # (auto) 0.22 K/uL (0-0.50); Eosinophils % (auto) 3.6 %; Hematocrit (blood only) 39.3 % (37.0-47.0); Hemoglobin 13.4 g/dl (12.0-16.0); Immature Granulocytes # (auto) 0.01 K/uL (0.01-0.20); Immature Granulocytes % (auto) 0.2 %; Lymphocytes # (auto) 1.87 K/uL (1.2-3.4); Lymphocytes % (auto) 30.5 %; Mean Corpuscular Hemoglobin 29.3 pg (25.0-34.0); Mean Corpuscular Hgb Conc 34.1 g/dL (32.0-36.0); Mean Corpuscular Volume 85.8 fL (80.0-100.0); Mean Platelet Volume 9.1 fL (9.4-12.4); Monocytes # (auto) 0.52 K/uL (0.11-0.59); Monocytes % (auto) 8.5 %; Neutrophils # (auto) 3.48 K/uL (1.40-6.50); Neutrophils % (auto) 56.7 %; Platelet Count 214 K/uL (130-400); RDW Coefficient of Variation 13.8 % (11.5-14.5); RDW Standard Deviation 43.1 fL (36.4-46.3); Red Blood Count 4.58 M/uL (4.20-5.40); White Blood Count 6.13 K/ul (4.8-10.8)
[2022-09-23 07:42] LABS: BUN Creatinine Ratio 14.3 (10-20); Calcium 8.6 mg/dl (8.6-10.3); Creatinine Clr Calc Pharmacy 59.5 ml/min; Est GFR (African American) 82.8 ml/min; Est GFR (Non-African American) 71.4 ml/min; Magnesium 1.6 mg/dl (1.7-2.4); Potassium 3.5 mmol/L (3.5-5.1)
--- NOTE | 2022-09-23 08:07 | Hospitalist Progress Note ---
Date of Service September 23, 2022 Assessment & Plan (1) Hypoxia: (2) Cellulitis: (3) Acute pain of left foot: (4) Hypokalemia: (5) Acute respiratory failure with hypoxia: (6) Wound of left foot: (7) SOB (shortness of breath): Plan (1) Wound of left foot: Plan: Acute/unstable - moderate risk - Admit to med/surg unit - Continue pseudomonal coverage with Cefepime 2g q12 - No h/o MRSA and not septic, defer Vanco - Cultures collected, both wound and blood - CBC reviewed, no leukocytosis or shift - Tramadol ordered PRN pain - [employer] consultant consulted, appreciate assistance (2) Acute respiratory failure with hypoxia: Plan: Acute/unstable - high risk - No prior h/o hypoxia outside of JILLIAN - Obtain VBG - Update echo - Wells score 0, very low suspicion for PE - CXR negative for PNA or PVC - Continue supplemental O2 to keep sat >90% - Consider updated PFTs as outpatient Hypokalemia - CMP reviewed, potassium 3.2 - Potassium supplemented with KCl 40meq PO x1 now - Trend with chemistry in AM Obstructive Sleep Apnea Chronic/unstable - Noted to have pulm HTN on last echo from Feb - Noncompliant with cpap mask - Will need an updated referral back to sleep medicine/Dr. Hillman - Feel that she will need an updated sleep study +/- new settings/device Diabetes Mellitus Chronic/unsure of stability - Currently only on Glipizide, last A1c is unknown as it was in our system was 2019 and was 8.0% - Will hold Glipizide and place on basal/bolus - Diabetic diet ordered - Accuchecks AC and HS - A1c ordered for tomorrow AM Depression Chronic/stable - Continue Amitriptyline and Venlafaxine (7) HTN (hypertension): Plan: HTN, CAD, h/o AFib currently in NSR Chronic/stable - Continue Amiodarone, Lisinopril, Imdur, Lasix, ASA, and Metoprolol - Previously on ACT for her afib but this was discontinued due to frequent falls Admission and Anticipated Discharge Date Admission Date: September 22, 2022 Review of Systems Review of Systems: As per above Results & Data Results & Data Vital Signs (Past 12 Hours) Vital Signs Temp Pulse Pulse Resp BP Pulse Ox Pulse Ox 09/23/22 07:30 09/23/22 07:18 36.6 C 82 16 174/96 H 94 09/23/22 05:33 74 92 09/23/22 01:44 77 90 09/22/22 23:11 79 96 09/22/22 21:28 37.0 C 82 16 159/70 H 97 O2 Del Method O2 Del Method O2 Flow Rate 09/23/22 07:30 Room Air 09/23/22 07:18 Room Air 09/23/22 05:33 Room Air 09/23/22 01:44 Room Air 09/22/22 23:11 Room Air 09/22/22 21:28 Nasal Cannula 2 Resident Activity Tracking Resident Involvement: Resident Care Provided Care Provided: Adult Hospital Medicine (2) Cellulitis Laterality: left Site of cellulitis: extremity Site of cellulitis of extremity: lower extremity Qualified Code(s): L03.116 - Cellulitis of left lower limb
[2022-09-23] MEDS: SERTRALINE HCL 50 MG TABLET PO SCH (08:56)
[2022-09-23] MEDS: lisinopril 5 MG TAB PO SCH (08:56)
[2022-09-23] MEDS: VENLAFAXINE HCL XR 37.5 MG CAPXR PO SCH (08:56)
[2022-09-23] MEDS: ASPIRIN 81 MG ECTAB PO SCH (08:56)
[2022-09-23] MEDS: FUROSEMIDE 40 MG TAB PO SCH (08:56)
[2022-09-23] MEDS: PANTOprazole 40 MG TAB PO SCH (08:56)
[2022-09-23] MEDS: METOPROLOL SUCC 25MG EXT REL TAB PO SCH ×2 (08:56→20:41)
[2022-09-23] MEDS: POTASSIUM CHLORIDE CRTAB 20 MEQ TABCR PO SCH (08:56)
[2022-09-23] MEDS: ISOSORBIDE MONO EXTENDED REL 30 MG TABCR PO SCH (08:57)
[2022-09-23] MEDS: AMIODARONE 200 MG TAB PO SCH (08:57)
[2022-09-23 09:00] LABS: Estimated Average Glucose 171 mg/dl; Hemoglobin A1C 7.6 % (4.5-5.6)
[2022-09-23] MEDS: ENOXAPARIN INJ 40 MG/0.4 ML SYR SQ SCH (09:03)
[2022-09-23] MEDS: POLYETHYLENE (MIRALAX) 17 GM PACK PO SCH (09:05)
[2022-09-23] MEDS: LANTUS PER UNIT CHARGE SQ SCH ×2 (09:08→20:42)
[2022-09-23] MEDS: INSULIN ASPART PER UNIT CHARGE SC SCH ×4 (09:08→20:42)
[2022-09-23] MEDS: MAGNESIUM SULFATE / D5W 1 GM/100 ML BAG IV SCH ×2 (10:31→12:20)
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
[2022-09-23] MEDS: AMITRIPTYLINE HCL 10 MG TAB PO SCH (20:42)
[2022-09-23] MEDS: LORazepam 0.5 MG TAB PO PRN (20:50)
[2022-09-24] MEDS: CEFEPIME 2,000 MG in SYRINGE 0 ML IV SCH ×2 (06:03→17:34)
[2022-09-24 06:31] LABS: Hematocrit (blood only) 39.6 % (37.0-47.0); Hemoglobin 13.3 g/dl (12.0-16.0); Mean Corpuscular Hemoglobin 28.9 pg (25.0-34.0); Mean Corpuscular Hgb Conc 33.6 g/dL (32.0-36.0); Mean Corpuscular Volume 86.1 fL (80.0-100.0); Platelet Count 216 K/uL (130-400); RDW Coefficient of Variation 14.2 % (11.5-14.5); RDW Standard Deviation 44.5 fL (36.4-46.3); White Blood Count 6.01 K/ul (4.8-10.8)
[2022-09-24 06:50] LABS: BUN Creatinine Ratio 14.6 (10-20); Calcium 8.7 mg/dl (8.6-10.3); Creatinine Clr Calc Pharmacy 44.5 ml/min; Est GFR (African American) 58.2 ml/min; Est GFR (Non-African American) 50.2 ml/min; Potassium 3.9 mmol/L (3.5-5.1)
--- NOTE | 2022-09-24 07:36 | Hospitalist Progress Note ---
Date of Service September 24, 2022 Assessment & Plan (1) Acute pain of left foot: Plan: Gena is an 82yo female with a history of HTN, HLD, DM2, atrial fibrillation, MDD, HERMELINDO, JILLIAN (non-adherent with CPAP) who presents with acute left second toe pain, suspected secondary to cellulitis. 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 Left foot wound cultures + for moura sensitive pseudomonas aeruginosa (few) and moura sensitive staph aureus (moderate) Patient was started on cefepime on admission. Discussed conversion to po abx therapy to cover for both pseudomonas and MSSA, however, unable to convert to po abx therapy due to drug-drug interaction between patient's home amiodarone and ciprofloxacin. 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 Will recheck EKG during this hospitalization. Discussed with patient need for continued abx therapy. Per CM, patient reports that she has no assistance at home for the IV abx therapy; CM to place referral to [facility]. Appreciate their assistance. Continue cefepime 2g IV q12 hours. Pain control: tramadol prn compressed yeast supervisor consulted Hypoxia, JILLIAN History of JILLIAN, CPAP non-adherent Continue supplemental oxygen prn Outpatient follow-up with Dr. Hillman recommended DM2 HbA1c 7.6% (09/23/22) Patient's home regimen held on admission Continue BSG checks, sliding-scale insulin, hypoglycemic protocol HTN, CAD Continue home amiodarone, lisinopril, imdur, lasix, ASA, metoprolol History of atrial fibrillation Currently NSR; continue to monitor; continue the above medication regimen Patient is not on anticoagulation due to history of frequent falls SCDs Asthma Continue home regimen Hypokalemia Replete as indicated Trend BMP MDD/HERMELINDO Continue home amitriptyline, venlafaxine, sertraline FEN: heart healthy, DM2 diet Code status: full code DVT ppx: jaylenx PT/OT: ordered Dispo: med/surg (2) Cellulitis: (3) HTN (hypertension): Admission and Anticipated Discharge Date Admission Date: September 22, 2022 Supervising Physician Co-Signing Physician Notes Resident Physician Supervision Note: I independently interviewed and examined the patient and verified the reyna history and physical, reviewed labs and image studies and agree with resident findings and care plan. Subjective Patient seen and evaluated at bedside this morning. States that she is overall doing well w/o any significant concerns. Did not sleep well last night, but notes that she does not sleep well at baseline. She is eating well. Patient's foot is currently wrapped (per bakery supervisor yesterday afternoon) and patient denies any specific pain in the foot. Review of Systems Review of Systems: See HPI Physical Exam Physical Exam: GENERAL: Very pleasant elderly female, appears stated age, in no acute distress. Well developed and well nourished. Resting comfortably in bed. Vital signs reviewed as above. EYES: Anicteric sclerae. HENT: Moist mucous membranes. Nares patent bilaterally. RESPIRATORY: No respiratory distress. No increased work of breathing. No conv ersational dyspnea. EXTREMITIES: Left foot is wrapped; dressing is C/D/I. SKIN: Warm. Dry. Otherwise, see extremities above. NEUROLOGIC: A/O x3. Normal speech. No gross focal neurological deficits. PSYCHIATRIC: Cooperative. Appropriate mood and affect. Results & Data Results & Data Vital Signs (Past 12 Hours) Vital Signs Temp Pulse Resp BP Pulse Ox O2 Del Method 09/24/22 07:20 36.5 C 56 L 18 107/60 91 Room Air 09/23/22 19:40 Room Air 09/23/22 20:33 36.9 C 66 16 104/71 94 Room Air Laboratory Results 09/24/22 09/24/22 09/24/22 Range/Units 11:55 08:10 05:54 WBC 6.01 (4.8-10.8) K/ul RBC 4.60 (4.20-5.40) M/uL Hgb 13.3 (12.0-16.0) g/dl Hct 39.6 (37.0-47.0) % MCV 86.1 (80.0-100.0) fL MCH 28.9 (25.0-34.0) pg MCHC 33.6 (32.0-36.0) g/dL RDW Std Deviation 44.5 (36.4-46.3) fL RDW Coeff of Roxi 14.2 (11.5-14.5) % Plt Count 216 (130-400) K/uL MPV 9.0 L (9.4-12.4) fL Sodium (136-145) mmol/L Potassium (3.5-5.1) mmol/L Chloride (98-107) mmol/L Carbon Dioxide (21-32) mmol/L Anion Gap (3-11) BUN (6-23) mg/dl Creatinine (0.6-1.2) mg/dl Est Cr Clr Drug Dosing ml/min Est GFR ( Amer) ml/min Est GFR (Non-Af Amer) ml/min BUN/Creatinine Ratio (10-20) Glucose (70-99(Fasting)) mg/dl POC Glucose 135 H 104 H (70-99) mg/dl Calcium (8.6-10.3) mg/dl 09/24/22 09/23/22 09/23/22 Range/Units 05:54 20:31 17:14 WBC (4.8-10.8) K/ul RBC (4.20-5.40) M/uL Hgb (12.0-16.0) g/dl Hct (37.0-47.0) % MCV (80.0-100.0) fL MCH (25.0-34.0) pg MCHC (32.0-36.0) g/dL RDW Std Deviation (36.4-46.3) fL RDW Coeff of Roxi (11.5-14.5) % Plt Count (130-400) K/uL MPV (9.4-12.4) fL Sodium 136 (136-145) mmol/L Potassium 3.9 (3.5-5.1) mmol/L Chloride 100 (98-107) mmol/L Carbon Dioxide 30 (21-32) mmol/L Anion Gap 6 (3-11) BUN 15 (6-23) mg/dl Creatinine 1.03 (0.6-1.2) mg/dl Est Cr Clr Drug Dosing 44.5 ml/min Est GFR ( Amer) 58.2 ml/min Est GFR (Non-Af Amer) 50.2 ml/min BUN/Creatinine Ratio 14.6 (10-20) Glucose 99 (70-99(Fasting)) mg/dl POC Glucose 161 H 96 (70-99) mg/dl Calcium 8.7 (8.6-10.3) mg/dl Resident Activity Tracking Resident Involvement: Resident Care Provided Care Provided: Adult Hospital Medicine (2) Cellulitis Laterality: left Site of cellulitis: extremity Site of cellulitis of extremity: lower extremity Qualified Code(s): L03.116 - Cellulitis of left lower limb
[2022-09-24] MEDS: INSULIN ASPART PER UNIT CHARGE SC SCH ×4 (08:45→20:41)
[2022-09-24] MEDS: ASPIRIN 81 MG ECTAB PO SCH (08:50)
[2022-09-24] MEDS: lisinopril 5 MG TAB PO SCH (08:50)
[2022-09-24] MEDS: METOPROLOL SUCC 25MG EXT REL TAB PO SCH ×2 (08:50→20:41)
[2022-09-24] MEDS: FUROSEMIDE 40 MG TAB PO SCH (08:51)
[2022-09-24] MEDS: ISOSORBIDE MONO EXTENDED REL 30 MG TABCR PO SCH (08:51)
[2022-09-24] MEDS: VENLAFAXINE HCL XR 37.5 MG CAPXR PO SCH (08:51)
[2022-09-24] MEDS: POTASSIUM CHLORIDE CRTAB 20 MEQ TABCR PO SCH (08:52)
[2022-09-24] MEDS: PANTOprazole 40 MG TAB PO SCH (08:52)
[2022-09-24] MEDS: SERTRALINE HCL 50 MG TABLET PO SCH (08:52)
[2022-09-24] MEDS: POLYETHYLENE (MIRALAX) 17 GM PACK PO SCH (08:53)
[2022-09-24] MEDS: AMIODARONE 200 MG TAB PO SCH (08:53)
[2022-09-24] MEDS: ENOXAPARIN INJ 40 MG/0.4 ML SYR SQ SCH (08:57)
[2022-09-24] MEDS: LANTUS PER UNIT CHARGE SQ SCH ×2 (09:04→20:41)
[2022-09-24] MEDS: ACETAMINOPHEN 325 MG TAB PO PRN (17:33)
[2022-09-24] MEDS: AMITRIPTYLINE HCL 10 MG TAB PO SCH (20:40)
[2022-09-24] MEDS: traMADol HCL 50 MG TABLET PO PRN (20:46)
[2022-09-24] MEDS: LORazepam 0.5 MG TAB PO PRN (20:46)
[2022-09-25] MEDS: CEFEPIME 2,000 MG in SYRINGE 0 ML IV SCH ×2 (05:16→18:22)
[2022-09-25 06:24] LABS: Basophils # (auto) 0.02 K/uL (0-0.2); Basophils % (auto) 0.4 %; Eosinophils # (auto) 0.26 K/uL (0-0.50); Eosinophils % (auto) 4.9 %; Hematocrit (blood only) 36.9 % (37.0-47.0); Hemoglobin 12.3 g/dl (12.0-16.0); Immature Granulocytes # (auto) 0.01 K/uL (0.01-0.20); Immature Granulocytes % (auto) 0.2 %; Lymphocytes # (auto) 1.61 K/uL (1.2-3.4); Lymphocytes % (auto) 30.1 %; Mean Corpuscular Hemoglobin 28.9 pg (25.0-34.0); Mean Corpuscular Hgb Conc 33.3 g/dL (32.0-36.0); Mean Corpuscular Volume 86.8 fL (80.0-100.0); Mean Platelet Volume 9.7 fL (9.4-12.4); Monocytes % (auto) 9.4 %; Neutrophils # (auto) 2.94 K/uL (1.40-6.50); Platelet Count 208 K/uL (130-400); RDW Standard Deviation 44.3 fL (36.4-46.3); Red Blood Count 4.25 M/uL (4.20-5.40); White Blood Count 5.34 K/ul (4.8-10.8)
[2022-09-25 06:40] LABS: BUN Creatinine Ratio 17.1 (10-20); Calcium 8.5 mg/dl (8.6-10.3); Creatinine Clr Calc Pharmacy 41.2 ml/min; Est GFR (African American) 53.2 ml/min; Est GFR (Non-African American) 45.9 ml/min; Magnesium 2.1 mg/dl (1.7-2.4); Phosphorus 4.1 mg/dl (2.5-4.9); Potassium 4.3 mmol/L (3.5-5.1)
[2022-09-25] MEDS: LANTUS PER UNIT CHARGE SQ SCH ×2 (08:24→21:46)
[2022-09-25] MEDS: INSULIN ASPART PER UNIT CHARGE SC SCH ×4 (08:24→21:46)
--- NOTE | 2022-09-25 08:30 | Electrocardiogram Report ---
Test Reason : Blood Pressure : / mmHG Vent. 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
--- NOTE | 2022-09-25 08:58 | Hospitalist Progress Note ---
Date of Service September 25, 2022 Assessment & Plan (1) Acute pain of left foot: Plan: Gena is an 82yo female with a history of HTN, HLD, DM2, atrial fibrillation, MDD, HERMELINDO, JILLIAN (non-adherent with CPAP) who presents with acute left second toe pain, suspected secondary to cellulitis. Diabetic foot infection Cellulitis of left toe #2 No leukocytosis, vitals stable Imaging (foot MRI 09/22): No osteomyelitis/abscess Left foot wound cx + for moura sensitive pseudomonas aeruginosa (few) and moura sensitive staph aureus (moderate) Started on cefepime on admission. --Unable to convert to PO abx (cipro) for pseudomonas therapy due to drug- drug interaction between patient's home amiodarone and ciprofloxacin. 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 --Will continue IV abx therapy. Per CM, patient reports that she has no assistance at home for the IV abx therapy; CM to place referral to [facility] Continue cefepime 2g IV q12 hours (last dose will be 09/29) Pain control: tramadol prn veterinary technician instructor consulted Hypoxia, JILLIAN History of JILLIAN, CPAP non-adherent Continue supplemental oxygen prn Outpatient follow-up with Dr. Hillman recommended DM2 HbA1c 7.6% (09/23/22) Patient's home regimen held on admission Continue BSG checks, sliding-scale insulin, hypoglycemic protocol HTN, CAD Continue home amiodarone, lisinopril, imdur, lasix, ASA, metoprolol History of atrial fibrillation Currently NSR; continue to monitor; continue the above medication regimen Patient is not on anticoagulation due to history of frequent falls SCDs MDD/HERMELINDO Continue home amitriptyline, venlafaxine, sertraline FEN: heart healthy, DM2 diet Code status: full code DVT ppx: lovenox PT/OT: ordered Dispo: med/surg (2) Cellulitis: (3) HTN (hypertension): Admission and Anticipated Discharge Date Admission Date: September 22, 2022 Supervising Physician Co-Signing Physician Notes Resident Physician Supervision Note: I independently interviewed and examined the patient and verified the reyna history and physical, reviewed labs and image studies and agree with resident findings and care plan. Subjective Patient seen and evaluated at bedside this morning. Patient notes she didn't sleep well but that she otherwise feels well. Toe pain is minimal. Patient denies CP, SOB, abdominal pain, nausea, vomiting, lightheadedness, dizziness, and diarrhea. Review of Systems Review of Systems: See HPI Physical Exam Physical Exam: Constitutional: tired-appearing, no acute distress CV: regular rhythm, no murmur appreciated, extremities well-perfused Resp: CTABL, no wheezes/rales/rhonchi appreciated, no increased WOB Skin: left foot second toe erythematous, minimallly tender to palpation Neuro: alert, oriented, no focal neurologic deficit appreciated Results & Data Results & Data Vital Signs (Past 12 Hours) Vital Signs Temp Pulse Resp BP Pulse Ox O2 Del Method 09/25/22 07:29 36.7 C 55 L 16 115/68 92 Room Air 09/24/22 22:09 37.1 C 69 18 105/66 91 Room Air 09/24/22 21:14 Room Air Resident Activity Tracking Resident Involvement: Resident Care Provided Care Provided: Adult Hospital Medicine (2) Cellulitis Laterality: left Site of cellulitis: extremity Site of cellulitis of extremity: lower extremity Qualified Code(s): L03.116 - Cellulitis of left lower limb
[2022-09-25] MEDS: ASPIRIN 81 MG ECTAB PO SCH (09:32)
[2022-09-25] MEDS: FUROSEMIDE 40 MG TAB PO SCH (09:33)
[2022-09-25] MEDS: lisinopril 5 MG TAB PO SCH (09:33)
[2022-09-25] MEDS: PANTOprazole 40 MG TAB PO SCH (09:33)
[2022-09-25] MEDS: POTASSIUM CHLORIDE CRTAB 20 MEQ TABCR PO SCH (09:35)
[2022-09-25] MEDS: POLYETHYLENE (MIRALAX) 17 GM PACK PO SCH (09:35)
[2022-09-25] MEDS: SERTRALINE HCL 50 MG TABLET PO SCH (09:35)
[2022-09-25] MEDS: ISOSORBIDE MONO EXTENDED REL 30 MG TABCR PO SCH (09:35)
[2022-09-25] MEDS: AMIODARONE 200 MG TAB PO SCH (09:35)
[2022-09-25] MEDS: METOPROLOL SUCC 25MG EXT REL TAB PO SCH ×2 (09:35→21:48)
[2022-09-25] MEDS: VENLAFAXINE HCL XR 37.5 MG CAPXR PO SCH (09:36)
[2022-09-25] MEDS: ENOXAPARIN INJ 40 MG/0.4 ML SYR SQ SCH (09:36)
[2022-09-25] MEDS: AMITRIPTYLINE HCL 10 MG TAB PO SCH (21:47)
[2022-09-25] MEDS: traMADol HCL 50 MG TABLET PO PRN (21:48)
[2022-09-25] MEDS: LORazepam 0.5 MG TAB PO PRN (21:48)
[2022-09-26] MEDS: CEFEPIME 2,000 MG in SYRINGE 0 ML IV SCH ×2 (05:44→17:13)
[2022-09-26 06:03] LABS: Hematocrit (blood only) 37.5 % (37.0-47.0); Hemoglobin 12.3 g/dl (12.0-16.0); Mean Corpuscular Hgb Conc 32.8 g/dL (32.0-36.0); Mean Corpuscular Volume 88.4 fL (80.0-100.0); Mean Platelet Volume 9.3 fL (9.4-12.4); Platelet Count 200 K/uL (130-400); RDW Coefficient of Variation 14.1 % (11.5-14.5); RDW Standard Deviation 45.1 fL (36.4-46.3); Red Blood Count 4.24 M/uL (4.20-5.40); White Blood Count 5.92 K/ul (4.8-10.8)
[2022-09-26 06:19] LABS: BUN Creatinine Ratio 19.6 (10-20); Calcium 8.5 mg/dl (8.6-10.3); Creatinine Clr Calc Pharmacy 49.8 ml/min; Est GFR (African American) 66.7 ml/min; Est GFR (Non-African American) 57.6 ml/min; Potassium 3.8 mmol/L (3.5-5.1)
--- NOTE | 2022-09-26 07:49 | Hospitalist Progress Note ---
Date of Service September 26, 2022 Assessment & Plan (1) Acute pain of left foot: Plan: Gena is an 82yo female with a history of HTN, HLD, DM2, atrial fibrillation, MDD, HERMELINDO, JILLIAN (non-adherent with CPAP) who presents with acute left second toe pain, suspected secondary to cellulitis. Diabetic foot infection Cellulitis of left toe #2 No leukocytosis, vitals stable foot MRI 09/22: No osteomyelitis Left foot wound cultures + for moura sensitive pseudomonas aeruginosa (few) and moura sensitive staph aureus (moderate) Started on cefepime on admission. 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 Hillman recommended DM2 HbA1c 7.6% (09/23/22) Patient's home regimen held on admission Continue BSG checks, sliding-scale insulin, hypoglycemic protocol HTN, CAD Continue home amiodarone, lisinopril, imdur, lasix, ASA, metoprolol History of atrial fibrillation Currently NSR; continue to monitor; continue the above medication regimen Patient is not on anticoagulation due to history of frequent falls SCDs MDD/HERMELINDO Continue home amitriptyline, venlafaxine, sertraline FEN: heart healthy, DM2 diet Code status: full code DVT ppx: lovenox PT/OT: ordered Dispo: med/surg (2) Cellulitis: (3) HTN (hypertension): Admission and Anticipated Discharge Date Admission Date: September 22, 2022 Supervising Physician Co-Signing Physician Notes Resident Physician Supervision Note: I independently interviewed and examined the patient and verified the reyna history and physical, reviewed labs and image studies and agree with resident findings and care plan. Subjective Patient seen and evaluated at bedside this morning. Patient notes she slept better than she did yesterdayl. Toe pain remains minimal. Patient denies CP, SOB, abdominal pain, nausea, vomiting, lightheadedness, dizziness, and diarrhea. Review of Systems Review of Systems: See HPI Physical Exam Physical Exam: Constitutional: tired-appearing, no acute distress CV: regular rhythm, no murmur appreciated, extremities well-perfused Resp: CTABL, no wheezes/rales/rhonchi appreciated, no increased WOB Skin: left foot second toe erythematous, minimallly tender to palpation Neuro: alert, oriented, no focal neurologic deficit appreciated Results & Data Results & Data Vital Signs (Past 12 Hours) Vital Signs Temp Pulse Resp BP Pulse Ox O2 Del Method 09/26/22 07:32 36.7 C 58 L 16 124/76 96 Room Air 09/25/22 20:48 37.4 C 66 16 151/78 H 95 Room Air Resident Activity Tracking Resident Involvement: Resident Care Provided Care Provided: Adult Hospital Medicine (2) Cellulitis Laterality: left Site of cellulitis: extremity Site of cellulitis of extremity: lower extremity Qualified Code(s): L03.116 - Cellulitis of left lower limb
[2022-09-26] MEDS: LANTUS PER UNIT CHARGE SQ SCH ×2 (08:23→20:53)
[2022-09-26] MEDS: INSULIN ASPART PER UNIT CHARGE SC SCH ×4 (08:24→20:52)
[2022-09-26] MEDS: PANTOprazole 40 MG TAB PO SCH (09:05)
[2022-09-26] MEDS: METOPROLOL SUCC 25MG EXT REL TAB PO SCH ×2 (09:05→20:57)
[2022-09-26] MEDS: ASPIRIN 81 MG ECTAB PO SCH (09:05)
[2022-09-26] MEDS: VENLAFAXINE HCL XR 37.5 MG CAPXR PO SCH (09:06)
[2022-09-26] MEDS: lisinopril 5 MG TAB PO SCH (09:06)
[2022-09-26] MEDS: ISOSORBIDE MONO EXTENDED REL 30 MG TABCR PO SCH (09:06)
[2022-09-26] MEDS: FUROSEMIDE 40 MG TAB PO SCH (09:06)
[2022-09-26] MEDS: POLYETHYLENE (MIRALAX) 17 GM PACK PO SCH (09:06)
[2022-09-26] MEDS: AMIODARONE 200 MG TAB PO SCH (09:07)
[2022-09-26] MEDS: POTASSIUM CHLORIDE CRTAB 20 MEQ TABCR PO SCH (09:07)
[2022-09-26] MEDS: SERTRALINE HCL 50 MG TABLET PO SCH (09:07)
[2022-09-26] MEDS: ENOXAPARIN INJ 40 MG/0.4 ML SYR SQ SCH (09:08)
[2022-09-26] MEDS: ACETAMINOPHEN 325 MG TAB PO PRN (18:30)
[2022-09-26] MEDS: AMITRIPTYLINE HCL 10 MG TAB PO SCH (20:53)
[2022-09-26] MEDS: LORazepam 0.5 MG TAB PO PRN (21:03)
[2022-09-26] MEDS: traMADol HCL 50 MG TABLET PO PRN (23:55)
[2022-09-27] MEDS: CEFEPIME 2,000 MG in SYRINGE 0 ML IV SCH ×2 (05:15→18:28)
[2022-09-27 06:41] LABS: Hematocrit (blood only) 37.5 % (37.0-47.0); Hemoglobin 12.4 g/dl (12.0-16.0); Mean Corpuscular Hemoglobin 28.6 pg (25.0-34.0); Mean Corpuscular Hgb Conc 33.1 g/dL (32.0-36.0); Mean Corpuscular Volume 86.6 fL (80.0-100.0); Mean Platelet Volume 9.5 fL (9.4-12.4); Platelet Count 200 K/uL (130-400); RDW Coefficient of Variation 14.2 % (11.5-14.5); RDW Standard Deviation 44.8 fL (36.4-46.3); Red Blood Count 4.33 M/uL (4.20-5.40); White Blood Count 5.07 K/ul (4.8-10.8)
--- NOTE | 2022-09-27 06:56 | Hospitalist Progress Note ---
Date of Service September 27, 2022 Assessment & Plan (1) Acute pain of left foot: Plan: Gena is an 82yo female with a history of HTN, HLD, DM2, atrial fibrillation, MDD, HERMELINDO, JILLIAN (non-adherent with CPAP) who presents with acute left second toe pain, suspected secondary to cellulitis. Diabetic foot infection -Cellulitis of left toe #2 -No leukocytosis, vitals stable -foot MRI 09/22: No osteomyelitis -Left foot wound cultures + for moura sensitive pseudomonas aeruginosa (few) and moura sensitive staph aureus (moderate) -Started on cefepime on admission. Due to drug-drug interaction between patient's home amiodarone and ciprofloxacin - continue IV abx -Continue cefepime 2g IV q12 hours (last dose will be 09/29) -Placement to [facility] denied as patient does not have acute rehab needs; patient will stay in hospital to finish the remainder of her IV antibiotic regimen -Unable to arrange home IV abx since it will require frequent administration. -Pain control: tramadol prn -bill hiker consulted Hypoxia, JILLIAN -History of JILLIAN, CPAP non-adherent -Continue supplemental oxygen prn -Outpatient follow-up with Dr. Hillman recommended DM2 -HbA1c 7.6% (09/23/22) -Patient's home regimen held on admission -Continue BSG checks, sliding-scale insulin, hypoglycemic protocol HTN, CAD -Continue home amiodarone, lisinopril, imdur, lasix, ASA, metoprolol History of atrial fibrillation -Currently NSR; continue to monitor; continue the above medication regimen -Patient is not on anticoagulation due to history of frequent falls -SCDs MDD/HERMELINDO -Continue home amitriptyline, venlafaxine, sertraline FEN: heart healthy, DM2 diet Code status: full code DVT ppx: lovenox PT/OT: ordered Dispo: med/surg (2) Cellulitis: (3) HTN (hypertension): Admission and Anticipated Discharge Date Admission Date: September 22, 2022 Supervising Physician Co-Signing Physician Notes Resident Physician Supervision Note: I independently interviewed and examined the patient and verified the reyna history and physical, reviewed labs and image studies and agree with resident findings and care plan. Subjective Patient seen at the bedside this morning without any acute complaints. No overnight events. Review of Systems Review of Systems: See HPI Physical Exam Constitutional: WD/WN, vitals as above Eyes: PERRL, conjunctivae normal, anicteric sclerae Respiratory: normal respiratory effort, lungs clear to auscultation Cardiovascular: RRR, no murmur, no edema Gastrointestinal (Abdomen): normal bowel sounds, soft, nontender, no hepatosplenomegaly Musculoskeletal: Range of motion at LLE ankle in tact, able to wiggle toes. Neurologic: sensation at bilateral feet in tact. Psychiatric: A+Ox3, euthymic affect Results & Data Results & Data Vital Signs (Past 12 Hours) Vital Signs Temp Pulse Resp BP Pulse Ox O2 Del Method O2 Flow Rate 09/26/22 20:50 Room Air, Nasal Cannula 2 09/26/22 20:55 37.3 C 68 16 148/88 H 95 Room Air 09/26/22 20:34 37.1 C 76 18 169/91 H 96 Room Air Resident Activity Tracking Resident Involvement: Resident Care Provided Care Provided: Adult Hospital Medicine (2) Cellulitis Laterality: left Site of cellulitis: extremity Site of cellulitis of extremity: lower extremity Qualified Code(s): L03.116 - Cellulitis of left lower limb
[2022-09-27 07:03] LABS: Calcium 8.6 mg/dl (8.6-10.3); Creatinine Clr Calc Pharmacy 48.7 ml/min; Est GFR (Non-African American) 56.1 ml/min; Potassium 3.7 mmol/L (3.5-5.1)
[2022-09-27] MEDS: ASPIRIN 81 MG ECTAB PO SCH (08:30)
[2022-09-27] MEDS: METOPROLOL SUCC 25MG EXT REL TAB PO SCH ×2 (08:30→20:25)
[2022-09-27] MEDS: FUROSEMIDE 40 MG TAB PO SCH (08:30)
[2022-09-27] MEDS: PANTOprazole 40 MG TAB PO SCH (08:30)
[2022-09-27] MEDS: lisinopril 5 MG TAB PO SCH (08:30)
[2022-09-27] MEDS: SERTRALINE HCL 50 MG TABLET PO SCH (08:31)
[2022-09-27] MEDS: VENLAFAXINE HCL XR 37.5 MG CAPXR PO SCH (08:31)
[2022-09-27] MEDS: AMIODARONE 200 MG TAB PO SCH (08:31)
[2022-09-27] MEDS: ENOXAPARIN INJ 40 MG/0.4 ML SYR SQ SCH (08:31)
[2022-09-27] MEDS: POTASSIUM CHLORIDE CRTAB 20 MEQ TABCR PO SCH (08:31)
[2022-09-27] MEDS: ISOSORBIDE MONO EXTENDED REL 30 MG TABCR PO SCH (08:32)
[2022-09-27] MEDS: POLYETHYLENE (MIRALAX) 17 GM PACK PO SCH (08:33)
[2022-09-27] MEDS: INSULIN ASPART PER UNIT CHARGE SC SCH ×4 (08:52→20:29)
[2022-09-27] MEDS: LANTUS PER UNIT CHARGE SQ SCH ×2 (08:52→20:37)
[2022-09-27] MEDS: AMITRIPTYLINE HCL 10 MG TAB PO SCH (20:24)
[2022-09-27] MEDS: traMADol HCL 50 MG TABLET PO PRN (22:57)
[2022-09-27] MEDS: LORazepam 0.5 MG TAB PO PRN (22:57)
[2022-09-28] MEDS: CEFEPIME 2,000 MG in SYRINGE 0 ML IV SCH ×2 (06:03→17:53)
--- NOTE | 2022-09-28 07:10 | Hospitalist Progress Note ---
Date of Service September 28, 2022 Assessment & Plan (1) Acute pain of left foot: Plan: Gena is an 82yo female with a history of HTN, HLD, DM2, atrial fibrillation, MDD, HERMELINDO, JILLIAN (non-adherent with CPAP) who presents with acute left second toe pain, suspected secondary to cellulitis. Diabetic foot infection -Cellulitis of left toe #2 -No leukocytosis, vitals stable -foot MRI 09/22: No osteomyelitis -Left foot wound cultures + for moura sensitive pseudomonas aeruginosa (few) and moura sensitive staph aureus (moderate) -Started on cefepime on admission. Due to drug-drug interaction between patient's home amiodarone and ciprofloxacin - continue IV abx -Continue cefepime 2g IV q12 hours (last dose will be 09/29) -Placement to [facility] denied as patient does not have acute rehab needs; patient will likely stay in hospital to finish the remainder of her IV antibiotic regimen -Pain control: tramadol prn -pediatric associate consulted -Likely discharge tomorrow on 09/29/22 Hypoxia, JILLIAN -History of JILLIAN, CPAP non-adherent -Continue supplemental oxygen prn -Outpatient follow-up with Dr. Hillman recommended DM2 -HbA1c 7.6% (09/23/22) -Patient's home regimen held on admission -Continue BSG checks, sliding-scale insulin, hypoglycemic protocol HTN, CAD -Continue home amiodarone, lisinopril, imdur, lasix, ASA, metoprolol History of atrial fibrillation -Currently NSR; continue to monitor; continue the above medication regimen -Patient is not on anticoagulation due to history of frequent falls -SCDs MDD/HERMELINDO -Continue home amitriptyline, venlafaxine, sertraline FEN: heart healthy, DM2 diet Code status: full code DVT ppx: lovenox PT/OT: ordered Dispo: med/surg, Likely d/c tomorrow (2) Cellulitis: (3) HTN (hypertension): Admission and Anticipated Discharge Date Admission Date: September 22, 2022 Supervising Physician Co-Signing Physician Notes Resident Physician Supervision Note: I independently interviewed and examined the patient and verified the reyna history and physical, reviewed labs and image studies and agree with resident findings and care plan. Subjective Patient seen at bedside this morning. No acute events reported overnight. Patient is comfortably eating breakfast at the time of my arrival. No new complaints at this time Review of Systems Review of Systems: All systems reviewed & are unremarkable except as noted in HPI & below Physical Exam Constitutional: WD/WN, vitals as above Eyes: PERRL, conjunctivae normal, anicteric sclerae Respiratory: normal respiratory effort, lungs clear to auscultation Cardiovascular: RRR, no murmur, no edema Gastrointestinal (Abdomen): normal bowel sounds, soft, nontender, no hepatosplenomegaly Musculoskeletal: Left foot is wrapped and appears dry. Psychiatric: A+Ox3, euthymic affect Results & Data Results & Data Vital Signs (Past 12 Hours) Vital Signs Temp Pulse Resp BP Pulse Ox O2 Del Method 09/27/22 20:24 Room Air 09/27/22 20:20 37 C 66 16 118/71 97 Room Air (2) Cellulitis Laterality: left Site of cellulitis: extremity Site of cellulitis of extremity: lower extremity Qualified Code(s): L03.116 - Cellulitis of left lower limb
[2022-09-28 07:30] LABS: Hematocrit (blood only) 40.9 % (37.0-47.0); Hemoglobin 13.3 g/dl (12.0-16.0); Mean Corpuscular Hemoglobin 28.9 pg (25.0-34.0); Mean Corpuscular Hgb Conc 32.5 g/dL (32.0-36.0); Mean Corpuscular Volume 88.7 fL (80.0-100.0); Mean Platelet Volume 9.4 fL (9.4-12.4); Platelet Count 230 K/uL (130-400); RDW Coefficient of Variation 14.3 % (11.5-14.5); Red Blood Count 4.61 M/uL (4.20-5.40); White Blood Count 5.62 K/ul (4.8-10.8)
[2022-09-28 07:52] LABS: Anion Gap 4 (3-11); BUN Creatinine Ratio 17.2 (10-20); Blood Urea Nitrogen 16 mg/dl (6-23); Carbon Dioxide 30 mmol/L (21-32); Chloride 103 mmol/L (98-107); Creatinine Clr Calc Pharmacy 49.2 ml/min; Est GFR (African American) 65.9 ml/min; Est GFR (Non-African American) 56.8 ml/min; Glucose 79 mg/dl (70-99(Fasting)); Sodium 137 mmol/L (136-145)
[2022-09-28] MEDS: ACETAMINOPHEN 325 MG TAB PO PRN (08:33)
[2022-09-28] MEDS: traMADol HCL 50 MG TABLET PO PRN ×3 (08:34→21:49)
[2022-09-28] MEDS: FUROSEMIDE 40 MG TAB PO SCH (08:38)
[2022-09-28] MEDS: ENOXAPARIN INJ 40 MG/0.4 ML SYR SQ SCH (08:38)
[2022-09-28] MEDS: ASPIRIN 81 MG ECTAB PO SCH (08:38)
[2022-09-28] MEDS: AMIODARONE 200 MG TAB PO SCH (08:38)
[2022-09-28] MEDS: METOPROLOL SUCC 25MG EXT REL TAB PO SCH ×2 (08:39→21:48)
[2022-09-28] MEDS: POTASSIUM CHLORIDE CRTAB 20 MEQ TABCR PO SCH (08:39)
[2022-09-28] MEDS: SERTRALINE HCL 50 MG TABLET PO SCH (08:39)
[2022-09-28] MEDS: lisinopril 5 MG TAB PO SCH (08:39)
[2022-09-28] MEDS: ISOSORBIDE MONO EXTENDED REL 30 MG TABCR PO SCH (08:39)
[2022-09-28] MEDS: PANTOprazole 40 MG TAB PO SCH (08:40)
[2022-09-28] MEDS: POLYETHYLENE (MIRALAX) 17 GM PACK PO SCH (08:40)
[2022-09-28] MEDS: VENLAFAXINE HCL XR 37.5 MG CAPXR PO SCH (08:40)
[2022-09-28] MEDS: INSULIN ASPART PER UNIT CHARGE SC SCH ×4 (08:47→21:50)
[2022-09-28] MEDS: LANTUS PER UNIT CHARGE SQ SCH ×2 (08:48→21:50)
[2022-09-28] MEDS: LORazepam 0.5 MG TAB PO PRN (21:48)
[2022-09-28] MEDS: AMITRIPTYLINE HCL 10 MG TAB PO SCH (21:48)
[2022-09-29] MEDS: CEFEPIME 2,000 MG in SYRINGE 0 ML IV SCH (05:25)
[2022-09-29 06:38] LABS: Hematocrit (blood only) 39.4 % (37.0-47.0); Hemoglobin 12.7 g/dl (12.0-16.0); Mean Corpuscular Hemoglobin 28.9 pg (25.0-34.0); Mean Corpuscular Hgb Conc 32.2 g/dL (32.0-36.0); Mean Corpuscular Volume 89.7 fL (80.0-100.0); Mean Platelet Volume 9.8 fL (9.4-12.4); Platelet Count 219 K/uL (130-400); RDW Coefficient of Variation 14.3 % (11.5-14.5); RDW Standard Deviation 46.5 fL (36.4-46.3); Red Blood Count 4.39 M/uL (4.20-5.40)
[2022-09-29 06:50] LABS: BUN Creatinine Ratio 17.4 (10-20); Calcium 8.7 mg/dl (8.6-10.3); Est GFR (African American) 54.4 ml/min; Est GFR (Non-African American) 46.9 ml/min; Potassium 4.4 mmol/L (3.5-5.1)
[2022-09-29] MEDS: ENOXAPARIN INJ 40 MG/0.4 ML SYR SQ SCH (08:45)
[2022-09-29] MEDS: POLYETHYLENE (MIRALAX) 17 GM PACK PO SCH (08:45)
[2022-09-29] MEDS: AMIODARONE 200 MG TAB PO SCH (08:46)
[2022-09-29] MEDS: PANTOprazole 40 MG TAB PO SCH (08:46)
[2022-09-29] MEDS: lisinopril 5 MG TAB PO SCH (08:46)
[2022-09-29] MEDS: ASPIRIN 81 MG ECTAB PO SCH (08:46)
[2022-09-29] MEDS: METOPROLOL SUCC 25MG EXT REL TAB PO SCH (08:46)
[2022-09-29] MEDS: ISOSORBIDE MONO EXTENDED REL 30 MG TABCR PO SCH (08:46)
[2022-09-29] MEDS: FUROSEMIDE 40 MG TAB PO SCH (08:46)
[2022-09-29] MEDS: VENLAFAXINE HCL XR 37.5 MG CAPXR PO SCH (08:47)
[2022-09-29] MEDS: POTASSIUM CHLORIDE CRTAB 20 MEQ TABCR PO SCH (08:47)
[2022-09-29] MEDS: SERTRALINE HCL 50 MG TABLET PO SCH (08:47)
[2022-09-29] MEDS: INSULIN ASPART PER UNIT CHARGE SC SCH ×2 (08:48→12:51)
[2022-09-29] MEDS: LANTUS PER UNIT CHARGE SQ SCH (08:50)
--- NOTE | 2022-09-29 13:17 | Discharge Summary ---
Date of Service September 29, 2022 Admission HPI Per Admitting Provider Gena Perez is an 82 yo F with a pmhx of t2dm, peripheral neuropathy, HTN, CAD, paroxysmal afib, JILLIAN, and chronic TERRY who presented to the ER today c/o a wound on her left 2nd toe x 1 week. Patient reports that she noticed a small area of redness/ulceration on her left 2nd toe about a week ago that has progressed fairly rapidly. Now, the entire toe is red and swollen and the redness is beginning to spread to the 3rd toe. She denies fever, states she "always has chills." She has neuropathy but her sensation is intact on the bottom of her foot and her toes and she admits to pain. She presented to the ER today for evaluation due to the progression in her symptoms. She notes that she lives with her grandson and does not walk due to her chronic TERRY and frequent falls, she is mobile via her motor chair. She is supposed to be wearing a cpap at night but states that she sustained some falls and with them has suffered some neck discomfort. Since they have occurred, she has not worn her cpap due to the discomfort. She also states that it "doesn't work" and that her "tongue sticks to the roof of my mouth and my mouth is really dry." She hasn't seen Dr. 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 She has never been told she has low oxygen before and does not wear home O2. In ER triage, she was noted to have a pulse ox in the low 80s and was placed on supplemental O2. She was noted to be afebrile in the ED. Labs demonstrated a normal wbc count without shift. Cultures of the toe were drawn in ED and blood cultures were sent prior to administration of Cefepime. She has no prior h/o MRSA. She is currently comfortable, denies dyspnea, chest pain, cough, fever/chills, n/v/d, and gu symptoms. Hospitalists have been consulted for admission. Principal Diagnosis Cellulitis Discharge Exam Constitutional: well-appearing, no acute distress HEENT: NCAT, no conjunctival injection CV: extremities well-perfused, no LE edema Resp:no increased work of breathing MSK: no gross deformities appreciated Skin: warm, dry, no rash appreciated, wound on left toe with dressing clean/dry Neuro: alert, oriented, no focal neurologic deficit appreciated Discharge Data Allergies Allergy/AdvReac Type Severity Reaction Status Date / Time pravastatin Allergy Intermediate HEART Verified 09/22/22 16:49 ATTACK LIKE SYMPTOMS apixaban [From Eliquis] AdvReac Severe BODY WENT Verified 09/22/22 16:49 NUMB duloxetine AdvReac Severe LOSS OF Verified 09/22/22 16:49 CONSCIOUSNESS ciprofloxacin AdvReac Intermediate DIARRHEA Verified 09/22/22 16:49 metformin AdvReac Intermediate Diarrhea Verified 09/22/22 16:49 sitagliptin AdvReac Intermediate ILLNESS Verified 09/22/22 16:49 Consultations 09/22/22 17:26 ED Decision to Admit Stat 09/29/22 12:21 Consult KENYON white kid buffer Routine Ordered Studies 09/22/22 15:23 CT foot LT wo con Stat 09/22/22 18:12 MRI Foot [MR foot LT wo/w con] Routine Hospital Course (1) Acute pain of left foot: Gena is an 82yo female with a history of HTN, HLD, DM2, atrial fibrillation, MDD, HERMELINDO, JILLIAN (non-adherent with CPAP) who presents with left second toe pain secondary to cellulitis. Diabetic foot infection -Cellulitis of left toe #2 -No leukocytosis, vitals stable -foot MRI 09/22: No osteomyelitis -Left foot wound cultures + for moura sensitive pseudomonas aeruginosa (few) and moura sensitive staph aureus (moderate) -Started on cefepime on admission. Due to drug-drug interaction between patient's home amiodarone and ciprofloxacin - completed coarse of IV cefepime prior to d/c -Wound care f/u Hypoxia, JILLIAN -History of JILLIAN, CPAP non-adherent -Continue supplemental oxygen prn -Outpatient follow-up with Dr. Hillman recommended DM2 -HbA1c 7.6% (09/23/22) -Resume home regimen upon discharge HTN, CAD -Continue home amiodarone, lisinopril, imdur, lasix, ASA, metoprolol History of atrial fibrillation -Patient is not on anticoagulation due to history of frequent falls MDD/HERMELINDO -Continue home amitriptyline, venlafaxine, sertraline (2) Cellulitis: (3) HTN (hypertension): Total Time Total Time Spent Total Time Spent (In Minutes): <30 Discharge Plan Discharge Items Patient Disposition: Home - Self-Care Reason For Visit: LLE CELLULITIS, HYPOXIA Discharge Diagnosis: cellulitis Condition on Discharge: Fair Activity: Per Instructions section Non-emergency contact: Primary Care Provider Call non-emergency contact if: you have any medication questions Follow-up/Referrals: Destiny Meng CRNP [Nurse Practitioner] - Swapnil Castro MD [Primary Care Provider] - Diet: Carb Consistent or DM2 and Heart Healthy Addtl Attending Provider Instructions: You were admitted with a infection of your left 2nd toe. We adequately treated the infection with antibiotics. We would like you to follow up with wound care so they can continue to watch and take care of your wound. If is also important to keep your diabetes under good control to help prevent future infections. Your hemoglobin a1c was 7.6% this admission. This measures your average blood glucose for the past 3 months. This shows us that over the past few months your blood sugar has been pretty well controlled. You should continue to take your home medications as you were prior. To Do: - Resume home medications, we did not make any changes to your medications - Follow up with wound care, they should reach out to you to schedule an appointment, if you do not hear from them in the next couple of days their office number is [phone] - Follow up with your Primary Care Doctor. Pending Studies at Discharge: No Stand-Alone Forms: [facility] [employer] Medications and DC Order Prescriptions: Continued ondansetron HCl 4 mg tablet 4 mg PO TID PRN (Reason: Nausea/vomiting) pantoprazole 40 mg tablet,delayed release (DR/EC) 40 mg PO DAILY tramadol 50 mg tablet 50 mg PO .COMPLEX PRN (Reason: Pain) Rx Instructions: 50 mg BID and 100 mg QHS as needed for pain amitriptyline 10 mg tablet 10 mg PO HS metoprolol succinate 25 mg Tablet Extended Release 24 Hr 25 mg PO BID Qty: 60 0RF albuterol sulfate [Ventolin HFA] 90 mcg/actuation Hfa Aerosol Inhaler 2 puff INHALATION QID PRN (Reason: Wheezing) nitroglycerin 0.3 mg tablet, sublingual 0.3 mg sublingual Q5M PRN (Reason: chest pain) Qty: 10 0RF amiodarone 200 mg tablet 200 mg PO DAILY omeprazole 20 mg capsule,delayed release(DR/EC) 20 mg PO DAILY furosemide 40 mg tablet 40 mg PO DAILY glipizide 5 mg tablet extended release 24hr 5 mg PO DAILY lorazepam 0.5 mg tablet 0.5 mg PO BID PRN (Reason: Anxiety) isosorbide mononitrate 30 mg tablet extended release 24 hr 30 mg PO QAM venlafaxine 37.5 mg capsule,extended release 24hr 37.5 mg PO DAILY sertraline 50 mg tablet 50 mg PO DAILY potassium chloride 20 mEq tablet extended release 20 meq PO DAILY aspirin 81 mg Tablet,Delayed Release (Dr/Ec) 81 mg PO DAILY lisinopril 5 mg Tablet 5 mg PO DAILY diclofenac sodium 1 % Gel 1 ea TOPICAL QID PRN (Reason: Pain) polyethylene glycol 3350 [Miralax] 17 gram/dose Powder 17 g PO DAILY Discharge Orders: Discharge Order (Routine); Ordered 09/29/22 Ordered By: Nicole Harris/Other Patient Handouts: Nutrition for Wound Healing, Managing Type 2 Diabetes Admission Data Admit Date/Time: 09/22/22 17:53 Attending Provider: Octavio Pat Admit Provider: Beau Alcantara Primary Care Provider: Swapnil Castro Other Providers: Beau Alcantara Other Interventions: Discharge Summary Assessment (RN) Last Done: 09/29/22 13:02 Supervising Physician Co-Signing Physician Notes I personally examined the patient and verified all reyna points of history and exam, discussed case, and agree with decision making with Dr Youssef feeling better would like to go home. dtr present to take her home vitals noted nad heent nc at mmm breathing unlabored no accessory muscles good effort skin no rashes no pallor or icterus DM foot infection - stable for home. d/w pt and dtr outpt wound clinic follow up (asking nurse navigator to assist) otherwise as above Resident Activity Tracking Resident Involvement: Resident Care Provided Care Provided: Adult Hospital Medicine
--- NOTE | 2022-09-29 18:59 | Billing Data ---
Date of Service September 29, 2022 Coding Level of Care Code 34642 IN/OBS DISCH 30 MIN/LESS
== END 2022-09-29 13:55 | disposition home or self-care (01) | DRG 637 ==
LOC: ED 13:24 → SUATTDRO 17:53 → 3N 17:53

== ENCOUNTER 2024-02-25 22:31 | Inpatient (IN) ==
--- OUTSIDE RECORDS SUMMARY | 2024-02-25 22:34 | External Medical Summary | Continuity of Care Document ---
Author Name Unknown Organization [facility] [address] [place], [place] [id number] Care Team Providers Care Safemaker Name Role Phone Mariangel Rojas Primary Care Physician [phone] Encounter [facility] [id number] Date(s): 11/11/23 - 11/11/23 [facility] [address] [facility] [address], [facility] [address] [place], [place] [phone] Encounter Diagnosis Unspecified atrial fibrillation(Final) - Type 2 diabetes mellitus with hyperglycemia(Final) - Discharge Disposition: Home or Self Care Attending Physician: FERMIN Rojas Kimberly A Referring Physician: FERMIN Rojas Kimberly A Allergies, Adverse Reactions, Alerts Substance Criticality Severity Reaction Reaction Severity Status pravastatin shortness of breath Active gabapentin itchy/jittery Activ e Eliquis numbness Active Cipro Diarrhea Active Cymbalta Fainting Active Januvia nausea Active Immunizations Given and Recorded Vaccine Date Status Refusal Reason SARS-CoV-2 (COVID-19) mRNA-1273 vaccine 09/22/20 R ecorded SARS-CoV-2 (COVID-19) mRNA BNT-162b2 vax 08/25/20 Recorded pneumococcal 23-valent vaccine 11/21/15 Given pneumococcal 13-valent vaccine 03/05/15 Given Medications amiodarone 200 mg oral tablet Start: 05/06/23 9:14:00 AM EST, 1 tab, PO, Daily, Disp# 90 tab, Refills: 3, Pharmacy: [id number] Start Date: 05/06/23 Status: Ordered aspirin 81 mg oral delayed release tablet Start: 08/31/19 11:41:00 AM EDT, 1 tab, PO, Daily, Disp# 90 tab, Refills: 3, other Start Date: 08/31/19 Status: Ordered diclofenac 1% topical gel Start: 11/02/23 12:55:00 PM EDT, See Instructions, Disp# 100 g, Refills: 11, APPLY TO AFFECTED AREA 4TIMES A DAY, Pharmacy: [id number] Start Date: 11/02/23 Status: Ordered Elavil 25 mg oral tablet Start: 10/30/23 3:45:00 PM EDT, 1 tab, PO, qhs, Disp# 90 tab, Refills: 1, Pharmacy: [facility]/pharmacy #[id number] Start Date: 10/30/23 Stop Date: 04/27/24 Status: Ordered Flovent HFA 110 mcg/inh MDI Start: 06/01/22 5:03:00 PM EST, 2 puff, inhaled, bid, Disp# 1 each, Refills: 1, Pharmacy: [id number] Start Date: 06/01/22 Status: Ordered furosemide 40 mg oral tablet Start: 05/21/23 4:50:00 PM EST, 1.5 tab, PO, Daily, Disp# 135 tab, Refills: 3, Pharmacy: [facility] [id number] Start Date: 05/21/23 Status: Ordered glipiZIDE 5 mg oral tablet, extended release Start: 09/14/21 6:27:00 PM EDT, See Instructions, Disp# 90 tab, Refills: 2, TAKE 1 TABLET BY MOUTH EVERY DAY, Pharmacy: [id number] Start Date: 09/14/21 Status: Ordered isosorbide mononitrate 30 mg oral tablet, extended release Start: 11/12/23 10:29:00 AM EDT, 1 tab, PO, qAM, Disp# 90 tab, Refills: 4, Pharmacy: [id number] Start Date: 11/12/23 Status: Ordered KlonoPIN 0.5 mg oral tablet Start: 10/12/23 3:27:00 PM EDT, 1 tab, PO, bid, Disp# 60 tab, Refills: 2, Pharmacy: [facility]/pharmacy #[id number] Start Date: 10/12/23 Stop Date: 01/10/24 Status: Ordered lisinopril 5 mg oral tablet Start: 07/09/23 4:08:00 PM EDT, 1 tab, PO, Daily, Disp# 90 tab, Refills: 3, Pharmacy: [facility]/pharmacy #[id number] Start Date: 07/09/23 Status: Ordered Metoprolol Succinate ER 25 mg oral tablet, extended release See Instructions, Disp# 60 tab, Refills: 11, TAKE 1 TABLET BY MOUTH TWICE A DAY, Pharmacy: [id number] Start Date: 12/02/19 Status: Ordered MiraLax oral powder for reconstitution Start: 10/24/19 4:50:00 PM EDT, 17 g =, PO, Daily, Disp# 527 g, Refills: 11, [id number] Start Date: 10/24/19 Status: Ordered Narcan 4 mg/0.1 mL nasal spray Start: 01/07/23 4:50:00 PM EDT, 4 mg =, intranasal, ONCE, Disp# 2 each, may repeat every 2 to 3 minutes until patient responds, [id number] Start Date: 01/07/23 Status: Ordered nitroglycerin 0.4 mg sublingual tablet Start: 09/01/22 4:57:00 PM EDT, See Instructions, Disp# 100 tab, Refills: 0, 1 TAB SUBLINGUALLY [id number], NEEDED FOR CHEST PAIN (UP TO 3 DOSES), [id number] Start Date: 09/01/22 Status: Ordered omeprazole 20 mg oral delayed release capsule Start: 01/27/23 4:06:00 PM EDT, 1 cap, PO, Daily, Disp# 90 cap, Refills: 2, Pharmacy: [id number] Start Date: 01/27/23 Status: Ordered ondansetron 4 mg oral tablet Start: 04/11/22 3:51:00 AM EST, 1 tab, PO, tid, Disp# 30 tab, Refills: 0, PRN: as needed for nausea/vomiting, [id number] Start Date: 04/11/22 Status: Ordered One Touch Delica Plus (33G) Lancets Start: 04/09/23 9:28:00 PM EST, See Instructions, Disp# 100 each, check blood glucose 3x per day andas needed for concerns of hypo or hyperglycemia, Pharmacy: [facility] #[id number] Start Date: 04/09/23 Status: Ordered One Touch Ultra Test Strips 100 ct Start: 08/12/22 8:03:00 AM EDT, See Instructions, Disp# 100 strip, Refills: 2, TEST ONCE DAILY. DX :E11.9., [id number] Start Date: 08/12/22 Status: Ordered One Touch Verio Flex Glucose Monitor Start: 04/09/23 9:28:00 PM EST, See Instructions, Disp# 1 each, E11.65, Note to Pharmacy: Dispense as written;, Pharmacy: [facility] #[id number] Start Date: 04/09/23 Status: Ordered One Touch Verio Test Strips Start: 04/09/23 9:28:00 PM EST, See Instructions, Disp# 100 each, Refills: 3, check blood glucose 1xper day and as needed for concerns of hypo or hyperglycemia, Note to Pharmacy: E11.65, [id number] Start Date: 04/09/23 Status: Ordered Potassium Chloride (Eqv-K-Tab) 20 mEq oral tablet, extended release Start: 11/12/23 10:29:00 AM EDT, 1 tab, PO, Daily, Disp# 90 tab, Refills: 3, Pharmacy: [id number] Start Date: 11/12/23 Status: Ordered predniSONE 20 mg oral tablet Start: 03/02/23 2:50:00 PM EST, 1 tab, PO, Daily, Disp# 3 tab, Pharmacy: [facility] #[id number] Start Date: 03/02/23 Stop Date: 03/05/23 Status: Ordered sertraline 50 mg oral tablet Start: 07/10/23 7:19:00 AM EDT, 1 tab, PO, Daily, Disp# 90 tab, Refills: 1, [id number] Start Date: 07/10/23 Status: Ordered traMADol 50 mg oral tablet Start: 10/12/23 3:27:00 PM EDT, See Instructions, Disp# 100 tab, Refills: 2, TAKE 1 TABLET BY MOUTH TWICE A DAY AND 2 TABS BEFORE BED NEEDED FOR SEVERE PAIN (7-10), Pharmacy: [facility] #[id number] Start Date: 10/12/23 Status: Ordered venlafaxine 37.5 mg oral capsule, extended release Start: 07/10/23 7:19:00 AM EDT, 1 cap, PO, Daily, Disp# 90 cap, Refills: 1, Pharmacy: [facility] #[id number] Start Date: 07/10/23 Status: Ordered Ventolin HFA 90 mcg/inh inhalation aerosol Start: 04/03/22 1:01:00 PM EST, 2 puff, inhaled, qid, Disp# 1 each, Refills: 6, PRN: as needed for wheezing, Pharmacy: [facility]/pharmacy #[id number] Start Date: 04/03/22 Status: Ordered Problem List Condition Confirmation Course Effective Dates Status H ealth Status Informant Gait instability Confirmed Active ANXIETY Confirmed Active Asthma Confirmed Active Atrial fibrillation Confirmed Active Central obesity Confirmed Active Chronic depression Confirmed Active Chronic diarrhea Confirmed Active Chronic diastolic CHF (congestive heart failure) Confirmed Active CAD (coronary artery disease) Confirmed Active Cough Confirmed Active Generalized osteoarthritis Confirmed Active Diabetes mellitus with microalbuminuria, without long-term current use of insulin Confirmed Active Fatigue Confirmed Active Forgetfulness Confirmed Active Gallbladder 1 Confirmed Active HERMELINDO (generalized anxiety disorder) Confirmed Active Hx of viral illness Confirmed Active HEARTBURN Confirmed Active Chronic Helicobacter pylori gastritis Confirmed Active Hyperlipidemia Confirmed Active Insomnia Confirmed Active Knee replacement 2 Confirmed Active Traumatic hematoma of lower back Confirmed Active Nodules present 3 Confirmed Active Polypharmacy Confirmed Active Chronic RLQ pain Confirmed Active Tubal ligation Confirmed Active Diabetic neuropathy Confirmed Active Type 2 diabetes mellitus with peripheral neuropathy Confirmed Active Weight disorder Confirmed Active 1removal 2bilaterally repair 3on lungs Procedures Procedure Date Related Diagnosis Body Site Status Chest X-ray 1 09/22/[address] of left foot 2 09/22/22 Complet ed X-ray of left foot 3 09/22/22 Comp leted Chest X-ray 4 05/30/22 Completed Chest X-ray 5 03/10/22 Completed Cardioversion 6 10/13/19 Completed Cardiac catheterisation 7 12/2018 Completed Stress echocardiography usin g dobutamine 8 12/17/17 Completed Colonoscopy 9, 10, 11 04/15/17 Com pleted Upper GI endoscopy 12 04/15/17 Com pleted Upper GI endoscopy 13 04/15/17 Com pleted Mammogram - screening 14 08/27/16 Completed Shave biopsy and cauterizati on of skin 15 12/12/15 Completed Full sleep study 16 10/31/15 Compl eted Two-dimensional transthoraci c echocardiogram 17 10/23/15 Completed Cardiac echo 18 10/22/15 Completed CXR - Chest X-ray 19 10/22/15 Comp leted Cervical spine X-ray 20 09/05/15 C ompleted Gastric emptying study 21 08/01/15 Completed Mammogram with CAD 22 05/09/15 Com pleted Dilated retinal eye exam wit h interpretation by an comic illustrator or roll hand documented and reviewed (DM) 23 01/26/15 Completed Colonoscopy 24 03/30/13 Completed Bilateral replacement of knee joints Completed Cataracts, bilateral Comp leted Cholecystectomy Completed Hand surgery service Comp leted Laser eye surgery Complet ed 1Impression: No acute cardiopulmonary 2Impression:Degenerative changes are seen. There is cellulitis without evidence of osteomyelitis in the first through third digits. of note MRi is a more sensitive modality if clinical concer remains 3Impression: 1. No acute fracture. No radiographic evidence for acute osteomyelitis 2. Severe left first MTp joint osteoarthritis 4Impression: No significant change compaired to the prior study 5Impression: No acute cardiopulmonary findings. 6Unsuccessful cardioversion due to early return to atrial fibrillation 7Heart catherization at [facility] 8Dobutamine Stress Echo: 1. Negative dobutamine stress echo for ischemia at 90% MPHR. 2. Negative dobutamine ECG for ischemia at 90% MPHR. 3. Hypertensive blood pressure response. 4. No arrhythmia. 5. No chest pain reported. 6. Technically difficult study, enhanced with IV definity. Echo: 1. Normal left ventricular size with normal systolic function. EF 55-60%. No regional wall motion abnormalities. Mild concentric left ventricular hypertrophy. Type 1 diastolic dysfunction. 2. The right ventricle is mildy dilateds 3. No significant valvular abnormalities visualized. 4. Normal estimated right ventricular systolic pressure. 9duodenum BX- no diagnostic abnomaility Stomach, antrum body- BX, Chroic gastritis, No significant activity identified. Immunostain for h-pylori: negative. Colon, proximal ascending, poylpectomy- fragments of colonc mucosa with hyperplastic/serrated changes. Terminal ileum, bx- no dx abnormaility Col on, asceding bx- no dx abnormality Colon- descending bx- no dx abnormailty Rectum bx- no dx abnorality 10One 3mm polyp in the proximal ascending colon removed with a cold biopsy forceps. Resected and retrieved. The rectum, descending colon, ascending colon and terminal ileum arae normal. Biopsied. Diverticulosis in the sigmoid colon. The distal rectum and anal verge are normal on retroflexion view. 11Repeat in 5 years. 12Normal upper third of esophagus and middle third of esophagus. Widely patent, non obstructing and mild Schatzki ring. Small hiatal hernia. Gastritis. Biopsied. Normal examined duodenum. Biopsied. Normal examined jejunum. 13Normal upper third of esophagus and middle third of esophagus. Widely patent, non-obstructing and mild Schatzki ring. Small hiatal hernia. Gastritis, biopsied Normal examined duodenum, biopsied. Normal examined jejunum. 14No mammographic evidence of malgnancy. 1 year screening mammogram recommended. 15midline mid back 16The patient should be started on CPAP 10cm water pressure using the facemask as noted above. She should be seen back in follow up within 90 days to document efficacy and compliance. 17[facility] Impression: 1. Normal biventricular dilatation. trace tricuspid regugitation. Mildly elevated estimated RV systolic pessure. Ejection Fraction = 55- 60% 181. Negative dobutamine stress echocardiogram for myocardial ischemia at 93% masimum predicted heartrate. 2. No dobutamine induced chest pain. 3. No EKG changes. 4. Baseline echocardiogram notes normal left vetricular systolic funciton. 19AP portable study. No acute findings. 20Degenerative changes. 21Findings are consistent with a normal study. 22[facility] Impression: AR Bi Rads Category 2: benign There is no mammographic evidence of malignancy. A 1 year screening mammogram is recommended. The patient will recieve written notification of the results. 23No diabetic retinopathy 24diverticulae Results Laboratory List Name Date Hemoglobin A1C (HEMOGLOBIN, A1C) 11/11/23 Most recent to oldest [Reference Range]: 1 Estimated Average Glucose 200 mg/dL 1 (11/11/23 2:59 PM) HbA1c [4.0-6.0 %] 8.6 % *HI* (11/11/23 2:59 PM) 1Result Comment: Testing Performed By: Dept of Pathology [facility] [address], [address], [place] [address] Social History Social History Type Response Smoking Status Never smoked cigaret ovidio Sex Female Sex Representation Female (finding) Patient Care team information Care Team Personnel Name: FERMIN Rojas, Mariangel Ferreira Position: Physician Asst Exmpt - Family Med Member Role: Primary Care Provider Address: [address] [place] [address] [place] Name: GIOVANA Gibbons Leslie L Position: MOA Schedule II Member Role: HIS Lifetime Care Team Related Persons Name: MENDY LAKE
--- OUTSIDE RECORDS SUMMARY | 2024-02-25 22:34 | External Medical Summary | Continuity of Care Document ---
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 Name Role Phone BobMariangel Primary Care Physician [phone] [id number] Date(s): 11/11/23 - 11/11/23 [facility] [address], [address] [place] [address] [phone] Encounter Diagnosis Afib(Discharge Diagnosis) - 11/11/23 Unspecified atrial fibrillation(Final) - Atherosclerotic heart disease of ramona coronary artery without angina pectoris (Final) - Hyperlipidemia, unspecified(Final) - Discharge Disposition: Home or Self Care Attending Physician: GREG Sutton Sarah A Allergies, Adverse Reactions, Alerts Substance Criticality Severity Reaction Reaction Severity Status pravastatin shortness of breath Active gabapentin itchy/jittery Activ e Eliquis numbness Active Cipro Diarrhea Active Cymbalta Fainting Active Januvia nausea Active Assessment and Plan Extracted from: Title:Cardiology Office Visit Note Author:GREG Hayden rd, Sarah A Date:11/11/23 Impression: 1. Coronary artery disease status post cardiac catheterization 12/2018 with a large caliber LAD with a 30% proximal to mid-lesion, moderate caliber second diagonal with an 80-90% ostial stenosis and a 50- 60% mid-stenosis, large caliber codominant circumflex with a 40-50% ostial stenosis of a small OM2; with totally occluded mid-RCA with left to right collaterals. 2. Preserved left ventricular size and function with an EF in the range of 60% with a dilated right ventricle and normal RV function 08/2019. 3. Chronic shortness of breath remaining functional class 3. 4. Hypertension. 5. Paroxysmal atrial fibrillation, status post failed cardioversion but in sinus rhythm on amiodarone 10/28/19. 6. Hyperlipidemia. 7. 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 8. Negative dobutamine stress echo 11/2017. 9. Chronic diastolic heart failure. 10. Chronic stable angina. Gena is doing well. The angina she had been having last winter has resolved. She continues to live alone and can care for her house. She had an EKG today which showed NSR. She has very small T wave inversions in the lateral leads but given that she feels well and is actually having less angina, no change to her regimen at this point. Her blood pressure is controlled. She will have a cmp, tsh and t4 on her way out today. She will return to the clinic in 6 months. Immunizations Given and Recorded Vaccine Date Status Refusal Reason SARS-CoV-2 (COVID-19) mRNA-1273 vaccine 09/22/20 R ecorded SARS-CoV-2 (COVID-19) mRNA BNT-162b2 vax 08/25/20 Recorded pneumococcal 23-valent vaccine 11/21/15 Given pneumococcal 13-valent vaccine 03/05/15 Given Medications amiodarone 200 mg oral tablet Start: 05/06/23 9:14:00 AM EST, 1 tab, PO, Daily, Disp# 90 tab, Refills: 3, Pharmacy: [facility] [id number] Start Date: 05/06/23 Status: Ordered aspirin 81 mg oral delayed release tablet Start: 08/31/19 11:41:00 AM EDT, 1 tab, PO, Daily, Disp# 90 tab, Refills: 3, other Start Date: 08/31/19 Status: Ordered diclofenac 1% topical gel Start: 11/02/23 12:55:00 PM EDT, See Instructions, Disp# 100 g, Refills: 11, APPLY TO AFFECTED AREA 4TIMES A DAY, Pharmacy: [facility] [id number] Start Date: 11/02/23 Status: Ordered Elavil 25 mg oral tablet Start: 10/30/23 3:45:00 PM EDT, 1 tab, PO, qhs, Disp# 90 tab, Refills: 1, Pharmacy: [facility]/pharmacy #[id number] Start Date: 10/30/23 Stop Date: 04/27/24 Status: Ordered Flovent HFA 110 mcg/inh MDI Start: 06/01/22 5:03:00 PM EST, 2 puff, inhaled, bid, Disp# 1 each, Refills: 1, [id number] Start Date: 06/01/22 Status: Ordered furosemide 40 mg oral tablet Start: 05/21/23 4:50:00 PM EST, 1.5 tab, PO, Daily, Disp# 135 tab, Refills: 3, Pharmacy: [facility] [id number] Start Date: 05/21/23 Status: Ordered glipiZIDE 5 mg oral tablet, extended release Start: 09/14/21 6:27:00 PM EDT, See Instructions, Disp# 90 tab, Refills: 2, TAKE 1 TABLET BY MOUTH EVERY DAY, Pharmacy: [id number] Start Date: 09/14/21 Status: Ordered isosorbide mononitrate 30 mg oral tablet, extended release Start: 11/12/23 10:29:00 AM EDT, 1 tab, PO, qAM, Disp# 90 tab, Refills: 4, Pharmacy: [facility] [id number] Start Date: 11/12/23 Status: Ordered KlonoPIN 0.5 mg oral tablet Start: 10/12/23 3:27:00 PM EDT, 1 tab, PO, bid, Disp# 60 tab, Refills: 2, [id number] Start Date: 10/12/23 Stop Date: 01/10/24 Status: Ordered lisinopril 5 mg oral tablet Start: 07/09/23 4:08:00 PM EDT, 1 tab, PO, Daily, Disp# 90 tab, Refills: 3, [id number] Start Date: 07/09/23 Status: Ordered Metoprolol Succinate ER 25 mg oral tablet, extended release See Instructions, Disp# 60 tab, Refills: 11, TAKE 1 TABLET BY MOUTH TWICE A DAY, Pharmacy: [facility] [id number] Start Date: 12/02/19 Status: Ordered MiraLax oral powder for reconstitution Start: 10/24/19 4:50:00 PM EDT, 17 g =, PO, Daily, Disp# 527 g, Refills: 11, Pharmacy: [facility]/pharmacy #[id number] Start Date: 10/24/19 Status: Ordered Narcan 4 mg/0.1 mL nasal spray Start: 01/07/23 4:50:00 PM EDT, 4 mg =, intranasal, ONCE, Disp# 2 each, may repeat every 2 to 3 minutes until patient responds, Pharmacy: [facility] #[id number] Start Date: 01/07/23 Status: Ordered nitroglycerin 0.4 mg sublingual tablet Start: 09/01/22 4:57:00 PM EDT, See Instructions, Disp# 100 tab, Refills: 0, 1 TAB SUBLINGUALLY [id number], NEEDED FOR CHEST PAIN (UP TO 3 DOSES), Pharmacy: [facility] #[id number] Start Date: 09/01/22 Status: Ordered omeprazole 20 mg oral delayed release capsule Start: 01/27/23 4:06:00 PM EDT, 1 cap, PO, Daily, Disp# 90 cap, Refills: 2, Pharmacy: [id number] Start Date: 01/27/23 Status: Ordered ondansetron 4 mg oral tablet Start: 04/11/22 3:51:00 AM EST, 1 tab, PO, tid, Disp# 30 tab, Refills: 0, PRN: as needed for nausea/vomiting, [id number] Start Date: 04/11/22 Status: Ordered One Touch Delica Plus (33G) Lancets Start: 04/09/23 9:28:00 PM EST, See Instructions, Disp# 100 each, check blood glucose 3x per day andas needed for concerns of hypo or hyperglycemia, Pharmacy: [facility] #[id number] Start Date: 04/09/23 Status: Ordered One Touch Ultra Test Strips 100 ct Start: 08/12/22 8:03:00 AM EDT, See Instructions, Disp# 100 strip, Refills: 2, TEST ONCE DAILY. DX :E11.9., [id number] Start Date: 08/12/22 Status: Ordered One Touch Verio Flex Glucose Monitor Start: 04/09/23 9:28:00 PM EST, See Instructions, Disp# 1 each, E11.65, Note to Pharmacy: Dispense as written;, Pharmacy: [facility] #[id number] Start Date: 04/09/23 Status: Ordered One Touch Verio Test Strips Start: 04/09/23 9:28:00 PM EST, See Instructions, Disp# 100 each, Refills: 3, check blood glucose 1xper day and as needed for concerns of hypo or hyperglycemia, Note to Pharmacy: E11.65, Pharmacy: [facility] #[id number] Start Date: 04/09/23 Status: Ordered Potassium Chloride (Eqv-K-Tab) 20 mEq oral tablet, extended release Start: 11/12/23 10:29:00 AM EDT, 1 tab, PO, Daily, Disp# 90 tab, Refills: 3, Pharmacy: [id number] Start Date: 11/12/23 Status: Ordered predniSONE 20 mg oral tablet Start: 03/02/23 2:50:00 PM EST, 1 tab, PO, Daily, Disp# 3 tab, Pharmacy: [facility] #[id number] Start Date: 03/02/23 Stop Date: 03/05/23 Status: Ordered sertraline 50 mg oral tablet Start: 07/10/23 7:19:00 AM EDT, 1 tab, PO, Daily, Disp# 90 tab, Refills: 1, Pharmacy: [facility] #[id number] Start Date: 07/10/23 Status: Ordered traMADol 50 mg oral tablet Start: 10/12/23 3:27:00 PM EDT, See Instructions, Disp# 100 tab, Refills: 2, TAKE 1 TABLET BY MOUTH TWICE A DAY AND 2 TABS BEFORE BED NEEDED FOR SEVERE PAIN (7-10), Pharmacy: [facility] #[id number] Start Date: 10/12/23 Status: Ordered venlafaxine 37.5 mg oral capsule, extended release Start: 07/10/23 7:19:00 AM EDT, 1 cap, PO, Daily, Disp# 90 cap, Refills: 1, Pharmacy: [facility] #[id number] Start Date: 07/10/23 Status: Ordered Ventolin HFA 90 mcg/inh inhalation aerosol Start: 04/03/22 1:01:00 PM EST, 2 puff, inhaled, qid, Disp# 1 each, Refills: 6, PRN: as needed for wheezing, Pharmacy: [facility] #[id number] Start Date: 04/03/22 Status: Ordered Mental Status 11/11/23 Barriers to Learning one year None evide nt Mandatory Health Literacy Documentation Yes Health Literacy Communication Barriers N ever Primary Language Tajik Problem List Condition Confirmation Course Effective Dates [...] Confirmed Active 1removal 2bilaterally repair 3on lungs Diagnosis Diagnosis Type Effective Dates Health Status Clini mayra Service Informant Afib Discharge Diagnosis 11/11/23 Non-Specified Procedures Procedure Date Related Diagnosis Body Site [...] eye exam wit h interpretation by an chief engineer production or deputy director of nursing documented and reviewed (DM) 23 01/26/15 Completed [...] return to atrial fibrillation 7Heart catherization at [facility] 8Dobutamine Stress Echo: 1. Negative dobutamine stress [...] changes. Terminal ileum, bx- no dx abnormaility Co [place], asceding bx- no dx abnormality Colon- descending [...] days to document efficacy and compliance. 17[facility] Impression: 1. Normal biventricular dilatation. trace tricuspid [...] are consistent with a normal study. 22[facility] Impression: AR Bi Rads Category 2: benign There is no mammographic evidence of malignancy. A 1 year screening mammogram is recommended. The patient will recieve written notification of the results. 23No diabetic retinopathy 24diverticulae Results Laboratory List Name Date Comprehensive Metabolic Panel (COMP META B PANEL) 11/11/23 Lipid Profile (LIPOPROTEINS) 11/11/23 T4, Free (T4, FREE) 11/11/23 Thyroid Stimulating Hormone (TSH) 4 Most recent to oldest [Reference Range]: 1 eGFR CKD-EPI [>60 mL/min/1.73 m2] 65 mL/ min/1.73 m2 1 (11/11/23 2:56 PM) Non-HDL 187 mg/dL 2 (11/11/23 2:56 PM) Estimated CrCl 49.88 mL/min (11/11/23 3:43 PM) Anion Gap [5-14 mmol/L] 8 mmol/L (11/11/23 2:56 PM) Alb [3.5-5.0 g/dL] 4.0 g/dL (11/11/23 2:56 PM) Alk Phos [38-126 unit/L] 87 unit/L (11/11/23 2:56 PM) ALT [<35 unit/L] 15 unit/L (11/11/23 2:56 PM) AST [15-46 unit/L] 31 unit/L (11/11/23 2:56 PM) BUN [7-20 mg/dL] 8 mg/dL (11/11/23 2:56 PM) Ca [8.4-10.2 mg/dL] 8.8 mg/dL (11/11/23 2:56 PM) Chol/HDL 4 (11/11/23 2:56 PM) Chol [125-200 mg/dL] 248 mg/dL *HI* (11/11/23 2:56 PM) Cl- [96-107 mmol/L] 98 mmol/L (11/11/23 2:56 PM) HCO3 [22-30 mmol/L] 31 mmol/L *HI* (11/11/23 2:56 PM) Cret [0.60-1.00 mg/dL] 0.88 mg/dL (11/11/23 2:56 PM) Glu [74-106 mg/dL] 189 mg/dL *HI* (11/11/23 2:56 PM) HDL [>35 mg/dL] 61 mg/dL (11/11/23 2:56 PM) K [3.5-5.1 mmol/L] 4.1 mmol/L (11/11/23 2:56 PM) LDL Chol, Calculated [50-130 mg/dL] 142 mg/dL *HI* (11/11/23 2:56 PM) Na [137-145 mmol/L] 137 mmol/L (11/11/23 2:56 PM) Free T4 [0.70-1.48 ng/dL] 1.26 ng/dL 3 (11/11/23 2:56 PM) T Bili [0.2-1.3 mg/dL] 0.5 mg/dL (11/11/23 2:56 PM) Prot [6.3-8.2 g/dL] 7.7 g/dL (11/11/23 2:56 PM) TG [<200 mg/dL] 224 mg/dL *HI* (11/11/23 2:56 PM) TSH [0.47-4.68 uIU/mL] 1.36 uIU/mL 4 (11/11/23 2:56 PM) 1Result Comment: Testing Performed By: [facility] [address], [address], [place] [address] 2Result Comment: Testing Performed By: [facility] [address], [address], [place] [address] 3Result Comment: Testing Performed By: [facility] [address], [address], [place] [address] 4Result Comment: Testing Performed By: [facility] [address], [address], [place] [address] Vital Signs Most recent to oldest [Reference Range]: 1 Heart Rate 87 bpm (11/11/23 2:22 PM) Respiratory Rate 18 br/min (11/11/23 2:22 PM) Blood Pressure 130/64mmHg (11/11/23 2:22 PM) BP Location # 1 Left Arm (11/11/23 2:22 PM) Social History Social History Type Response Smoking Status Never smoked cigaret ovidio Sex Female Sex Representation Female (finding) Cardiology * Contributor_system, MUSE01: VERIFY, PERFORM Event Display: EKG Authored Date: Please click on link to see image. Cardiology Outpatient Note * GREG Sutton Sarah A: PERFORM, MODIFY Event Display: Cardiology Outpt Note Authored Date: Primary Care Provider FERMIN Rojas, Mariangel A Chief Complaint Feeling well , shortness of breath about the same denies chest pain/ tightness, flutters, heartracing, palpitations, dizziness, or lightheadedness, no edema, Palpitations, no resent ER visits no unusual bleeding, History of Present Illness Ms. Perez presents for follow up of known coronary artery disease with occlusion of the RCA, high-grade ostial stenosis of D2, preserved left ventricular systolic function without evidence of significant valvular heart disease in 2018, hypertension, hyperlipidemia and chronic angina with mo [id number] dyspnea and paroxysmal atrial fibrillation status post failed cardioversion, but now in sinus rhythm on amiodarone and anticoagulation and chronic diastolic heart failure. No chest discomfort. She does laundry on Mondays and cleaning her house on . She will cleanfor 10 or 15 minutes and then sit down and take her inhaler and can keep cleaning. No palpitations. No racing heart. No edema. No falls. She notes that she feels better than she has in a while Review of Systems All other systems reviewed and negative except as discussed in the HPI Physical Exam Vitals & Measurements HR:87(Monitored) RR:18 BP:130/64 SpO2:98% Physical Examination General: Alert and oriented, No acute distress. Respiratory: Lungs are clear to auscultation, Respirations are non-labored. Cardiovascular: Normal rate, Regular rhythm, No murmur, No edema, no carotid bruits to auscultation bilaterally. Integumentary: Warm, Dry, [place] Neurologic: Alert, Oriented. Cognition and Speech: Speech clear and coherent. Psychiatric: Cooperative, Appropriate mood & affect. Assessment/Plan Impression: 1. Coronary artery disease status post cardiac catheterization 12/2018 with a large caliber LAD with a 30% proximal to mid-lesion, moderate caliber second diagonal with an 80-90% ostial stenosis and a 50- 60% mid-stenosis, large caliber codominant circumflex with a 40-50% ostial stenosis of a small OM2; with totally occluded mid-RCA with left to right collaterals. 2. Preserved left ventricular size and function with an EF in the range of 60% with a dilated right ventricle and normal RV function 08/2019. 3. Chronic shortness of breath remaining functional class 3. 4. Hypertension. 5. Paroxysmal atrial fibrillation, status post failed cardioversion but in sinus rhythm on amiodarone 10/28/19. 6. Hyperlipidemia. 7. 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 8. Negative dobutamine stress echo 11/2017. 9. Chronic diastolic heart failure. 10. Chronic stable angina. Gena is doing well. The angina she had been having last winter has resolved. She continues to live alone and can care for her house. She had an EKG today which showed NSR. She has very small T wave inversions in the lateral leads but given that she feels well and is actually having less angina, no change to her regimen at this point. Her blood pressure is controlled. She will have a cmp, tsh and t4 on her way out today. She will return to the clinic in 6 months. Problem List/Past Medical History Ongoing ANXIETY Asthma Atrial fibrillation CAD (coronary artery disease) Central obesity Chronic depression Chronic diarrhea Chronic diastolic CHF (congestive heart failure) Chronic Helicobacter pylori gastritis Chronic RLQ pain Cough Diabetes mellitus with microalbuminuria, without long-term current use of insulin Diabetic neuropathy Fatigue Forgetfulness HERMELINDO (generalized anxiety disorder) Gait instability Gallbladder Generalized osteoarthritis HEARTBURN Hx of viral illness Hyperlipidemia Insomnia Knee replacement Nodules present Polypharmacy Traumatic hematoma of lower back Tubal ligation Type 2 diabetes mellitus with peripheral neuropathy Weight disorder Resolved Breathing-related sleep disorder NOS CHEST PAIN Cold intolerance Encounter for mammogram to establish baseline mammogram Shortness of breath Procedure/Surgical History Chest X-ray| Service Date: 3CT of left foot| Service Date: 09/22/2022X-ray of left foot| Service Date: 3Chest X-ray| Service Date: 3Chest X-ray| Service Date: 2Cardioversion| Service Date: 10/13/2019Cardiac catheterisation| Service Date: 01/16 19Stress echocardiography using dobutamine| Service Date: 12/17/2017Upper GI endoscopy| Service Date: 04/15/2017Upper GI endoscopy| Service Date: 04/15/2017Colonoscopy| Service Date: 04/15/2017Mammogram - screening| Service Date: 08/27/2016Shave biopsy and cauterization of skin| Service Date: 12/12/2015Full sleep study| Service Date: 10/31/2015Two-dimensional transthoracicechocardiogram| Service Date: 10/23/2015Cardiac echo| Service Date: 10/22/2015CXR - Chest X-ray| Service Date: 10/22/2015Cervical spine X-ray| Service Date: 09/05/2015Gastric emptying study| Service Date: 08/01/2015Mammogram with CAD| Service Date: 05/09/2015Dilated retinal eye exam with interpretation by an chief engineer production or deputy director of nursing documented and reviewed (DM)| Service Date: 01/26/2015Colonoscopy| Service Date: 03/30/2013ilateral replacement of knee jointsHandsurgery serviceLaser eye surgeryCataracts, bilateralCholecystectomy Medications albuterol(Ventolin HFA 90 mcg/inh inhalation aerosol), 2 puff, inhaled, qid, PRN, 6 refills amiodarone(amiodarone 200 mg oral tablet), 1 tab, PO, Daily amitriptyline(Elavil 25 mg oral tablet), 25 mg= 1 tab, PO, qhs, 1 refills aspirin(aspirin 81 mg oral delayed release tablet), 81 mg= 1 tab, PO, Daily, 3 refills clonazePAM(KlonoPIN 0.5 mg oral tablet), 0.5 mg= 1 tab, PO, bid, 2 refills diabetes supplies(One Touch Ultra Test Strips 100 ct), See Instructions, 2 refills diabetes supplies(One Touch Verio Flex Glucose Monitor), See Instructions diabetes supplies(One Touch Verio Test Strips), See Instructions, 3 refills diabetes supplies(One Touch Delica Plus (33G) Lancets), See Instructions diclofenac topical(diclofenac 1% topical gel), See Instructions fluticasone(Flovent HFA 110 mcg/inh MDI), 2 puff, inhaled, bid, 1 refills furosemide(furosemide 40 mg oral tablet), 1.5 tab, PO, Daily glipiZIDE(glipiZIDE 5 mg oral tablet, extended release), See Instructions isosorbide mononitrate(isosorbide mononitrate 30 mg oral tablet, extended release), See Instructions lisinopril(lisinopril 5 mg oral tablet), 5 mg= 1 tab, PO, Daily, 3 refills metoprolol(Metoprolol Succinate ER 25 mg oral tablet, extended release), See Instructions naloxone(Narcan 4 mg/0.1 mL nasal spray), 4 mg, intranasal, ONCE nitroglycerin(nitroglycerin 0.4 mg sublingual tablet), See Instructions omeprazole(omeprazole 20 mg oral delayed release capsule), 1 cap, PO, Daily ondansetron(ondansetron 4 mg oral tablet), 4 mg= 1 tab, PO, tid, PRN polyethylene glycol 3350(MiraLax oral powder for reconstitution), 17 g, PO, Daily, 11 refills potassium chloride(Potassium Chloride (Eqv-K-Tab) 20 mEq oral tablet, extended release), See Instructions predniSONE(predniSONE 20 mg oral tablet), 20 mg= 1 tab, PO, Daily sertraline(sertraline 50 mg oral tablet), 1 tab, PO, Daily, 1 refills traMADol(traMADol 50 mg oral tablet), See Instructions, 2 refills venlafaxine(venlafaxine 37.5 mg oral capsule, extended release), 1 cap, PO, Daily, 1 refills Allergies CiproDiarrhea CymbaltaFainting Eliquisnumbness Januvianausea gabapentinitchy/jittery pravastatinshortness of breath Social History Smoking Status Never smoked cigarettes Alcohol - Denies Alcohol Use Use:Past Type:Wine Frequency:1-2 times per month Employment/School Status:Retired Exercise Times per week:Daily Exercise type:Walking - Comments: CHAIR EXERCISES Home/Environment Home equipment:CPAP/BiPAP, Glucose monitoring, Wheelchair Substance Abuse - Denies Substance Abuse Tobacco - Denies Tobacco Use Family History Breast ca..: Mother and Sister. Cancer: Maternal Aunt. Cancer...: Brother and MGM. Lymphoma: Brother. Health Status Family Member(s) Electronic Signature on File CC: Mariangel Rojas PA-C [id number] [id number] Electronically Reviewed/Signed by: GREG Naylor Author Signature Dt/Tm:11/11/2023 03:15 PM [facility] Patient Care team information Care Team Personnel Name: FERMIN Rojas Kimberly A Position: Physician Asst Exmpt - Family Med Member Role: Primary Care Provider Address: [address] Name: GIOVANA Gibbons Leslie L Position: GIOVANA Schedule II Member Role: HIS Lifetime Care Team Related Persons Name: MENDY LAKE"
--- OUTSIDE RECORDS SUMMARY | 2024-02-25 22:34 | External Medical Summary | Continuity of Care Document ---
Author Name Unknown Organization [facility] [id number] [place] [id number] Care Team Providers Care Rewriter Name Role Phone Mariangel Rojas Primary Care Physician [phone] Encounter [facility] [id number] Date(s): 11/17/23 - 11/17/23 [facility] [address] Medical [facility] [address] [facility] [address] [place] [address] [phone] Encounter Diagnosis Chest pain due to CAD(Discharge Diagnosis) - 11/17/23 Discharge Disposition: Home or Self Care Attending [...] Daily, Disp# 90 tab, Refills: 3, Pharmacy: [id number] Start Date: 05/06/23 Status: Ordered aspirin 81 mg oral delayed release tablet Start: 08/31/19 11:41:00 AM EDT, 1 tab, PO, Daily, Disp# 90 tab, Refills: 3, other Start Date: 08/31/19 Status: Ordered diclofenac 1% topical gel Start: 11/02/23 12:55:00 PM EDT, See Instructions, Disp# 100 g, Refills: 11, APPLY TO AFFECTED AREA 4TIMES A DAY, Pharmacy: [id number] Start Date: 11/02/23 Status: Ordered Elavil 25 mg oral tablet Start: 10/30/23 3:45:00 PM EDT, 1 tab, PO, qhs, Disp# 90 tab, Refills: 1, Pharmacy: [facility]/pharmacy #[id number] Start Date: 10/30/23 Stop Date: 04/27/24 Status: Ordered Flovent HFA 110 mcg/inh MDI Start: 06/01/22 5:03:00 PM EST, 2 puff, inhaled, bid, Disp# 1 each, Refills: 1, Pharmacy: [facility]/pharmacy #[id number] Start Date: 06/01/22 Status: Ordered furosemide 40 mg oral tablet Start: 05/21/23 4:50:00 PM EST, 1.5 tab, PO, Daily, Disp# 135 tab, Refills: 3, Pharmacy: [id number] Start Date: 05/21/23 Status: Ordered glipiZIDE 5 mg oral tablet, extended release Start: 11/17/23 11:42:00 AM EDT, See Instructions, Disp# 90 tab, Refills: 3, TAKE 1 TABLET BY MOUTH EVERY DAY, Pharmacy: [facility]/pharmacy #[id number] Start Date: 11/17/23 Status: Ordered isosorbide mononitrate 30 mg oral tablet, extended release Start: 11/12/23 10:29:00 AM EDT, 1 tab, PO, qAM, Disp# 90 tab, Refills: 4, Pharmacy: [id number] Start Date: 11/12/23 Status: Ordered KlonoPIN 0.5 mg oral tablet Start: 10/12/23 3:27:00 PM EDT, 1 tab, PO, bid, Disp# 60 tab, Refills: 2, Pharmacy: [facility]/pharmacy #[id number] Start Date: 10/12/23 Stop Date: 01/10/24 Status: Ordered lisinopril 5 mg oral tablet Start: 07/09/23 4:08:00 PM EDT, 1 tab, PO, Daily, Disp# 90 tab, Refills: 3, Pharmacy: [facility]/pharmacy #[id number] Start Date: 07/09/23 Status: Ordered Metoprolol Succinate ER 25 mg oral tablet, extended release See Instructions, Disp# 60 tab, Refills: 11, TAKE 1 TABLET BY MOUTH TWICE A DAY, Pharmacy: [id number] Start Date: 12/02/19 Status: Ordered MiraLax oral powder for reconstitution Start: 10/24/19 4:50:00 PM EDT, 17 g =, PO, Daily, Disp# 527 g, Refills: 11, [id number] Start Date: 10/24/19 Status: Ordered Narcan 4 mg/0.1 mL nasal spray Start: 01/07/23 4:50:00 PM EDT, 4 mg =, intranasal, ONCE, Disp# 2 each, may repeat every 2 to 3 minutes until patient responds, [id number] Start Date: 01/07/23 Status: Ordered nitroglycerin 0.4 mg sublingual tablet Start: 09/01/22 4:57:00 PM EDT, See Instructions, Disp# 100 tab, Refills: 0, 1 TAB SUBLINGUALLY [id number], NEEDED FOR CHEST PAIN (UP TO 3 DOSES), [id number] Start Date: 09/01/22 Status: Ordered omeprazole 20 mg oral delayed release capsule Start: 01/27/23 4:06:00 PM EDT, 1 cap, PO, Daily, Disp# 90 cap, Refills: 2, Pharmacy: [id number] Start Date: 01/27/23 Status: Ordered ondansetron 4 mg oral tablet Start: 04/11/22 3:51:00 AM EST, 1 tab, PO, tid, Disp# 30 tab, Refills: 0, PRN: as needed for nausea/vomiting, [id number] Start Date: 04/11/22 Status: Ordered One Touch Delica Plus (33G) Lancets Start: 04/09/23 9:28:00 PM EST, See Instructions, Disp# 100 each, check blood glucose 3x per day andas needed for concerns of hypo or hyperglycemia, Pharmacy: [facility] #[id number] Start Date: 04/09/23 Status: Ordered One Touch Ultra Test Strips 100 ct Start: 08/12/22 8:03:00 AM EDT, See Instructions, Disp# 100 strip, Refills: 2, TEST ONCE DAILY. DX :E11.9., [id number] Start Date: 08/12/22 Status: Ordered One Touch Verio Flex Glucose Monitor Start: 04/09/23 9:28:00 PM EST, See Instructions, Disp# 1 each, E11.65, Note to Pharmacy: Dispense as written;, Pharmacy: [facility] #[id number] Start Date: 04/09/23 Status: Ordered One Touch Verio Test Strips Start: 04/09/23 9:28:00 PM EST, See Instructions, Disp# 100 each, Refills: 3, check blood glucose 1xper day and as needed for concerns of hypo or hyperglycemia, Note to Pharmacy: E11.65, [id number] Start Date: 04/09/23 Status: Ordered Potassium Chloride (Eqv-K-Tab) 20 mEq oral tablet, extended release Start: 11/12/23 10:29:00 AM EDT, 1 tab, PO, Daily, Disp# 90 tab, Refills: 3, Pharmacy: [id number] Start Date: 11/12/23 Status: Ordered predniSONE 20 mg oral tablet Start: 03/02/23 2:50:00 PM EST, 1 tab, PO, Daily, Disp# 3 tab, Pharmacy: [facility] #[id number] Start Date: 03/02/23 Stop Date: 03/05/23 Status: Ordered sertraline 50 mg oral tablet Start: 07/10/23 7:19:00 AM EDT, 1 tab, PO, Daily, Disp# 90 tab, Refills: 1, [id number] Start Date: 07/10/23 Status: Ordered traMADol 50 mg oral tablet Start: 10/12/23 3:27:00 PM EDT, See Instructions, Disp# 100 tab, Refills: 2, TAKE 1 TABLET BY MOUTH TWICE A DAY AND 2 TABS BEFORE BED NEEDED FOR SEVERE PAIN (7-10), Pharmacy: [facility] #[id number] Start Date: 10/12/23 Status: Ordered venlafaxine 37.5 mg oral capsule, extended release Start: 07/10/23 7:19:00 AM EDT, 1 cap, PO, Daily, Disp# 90 cap, Refills: 1, Pharmacy: [facility] #[id number] Start Date: 07/10/23 Status: Ordered Ventolin HFA 90 mcg/inh inhalation aerosol Start: 04/03/22 1:01:00 PM EST, 2 puff, inhaled, qid, Disp# 1 each, Refills: 6, PRN: as needed for wheezing, Pharmacy: [facility] #[id number] Start Date: 04/03/22 Status: Ordered Mental Status 11/17/23 Barriers to Learning one year None evide nt Mandatory Health Literacy Documentation Yes Health Literacy Communication Barriers N ever Primary Language Luxembourgish Problem List Condition Confirmation Course Effective Dates [...] Diagnosis Diagnosis Type Effective Dates Health Status Cl inical Service Informant Chest pain due to CAD Discharge Diagnosis 11/17/23 Non-Specified Procedures Procedure Date Related Diagnosis Body [...] eye exam wit h interpretation by an congregational care pastor or sweater operator documented and reviewed (DM) 23 01/26/15 Completed [...] return to atrial fibrillation 7Heart catherization at [facility] 8Dobutamine Stress Echo: 1. Negative dobutamine stress [...] days to document efficacy and compliance. 17[facility] Impression: 1. Normal biventricular dilatation. trace tricuspid [...] 21Findings are consistent with a normal study. [facility]: AR Bi Rads Category 2: benign There is no mammographic evidence of malignancy. A 1 year screening mammogram is recommended. The patient will recieve written notification of the results. 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
--- NOTE | 2024-02-25 23:19 | Emergency Department Note ---
Impression & Plan Closed fracture of neck of right femur, Fall, Closed head injury ED Provider Note CHIEF COMPLAINT: Fall, right hip pain HISTORY OF PRESENT ILLNESS: This 83-year-old female patient presents to the emergency department via ambulance for evaluation of right hip pain after fall. The patient states she was walking outside when she tripped on a small ledge and fell, landing on the concrete patio on her right hip. The patient states she did strike her head as well, but states "it was only very light". The patient states since that time, she has been unable to move the right lower extremity due to pain in the hip. She states the pain is worse with any attempts at movement of the right lower extremity. She did receive pain medication via ambulance while en route to the emergency department, and states her pain is much better at this time. The patient is uncertain whether or not she currently takes a blood thinner. Patient denies any chest pain, trouble breathing, abdominal pain. No nausea or vomiting. No headache, dizziness, lightheadedness, visual disturbances, or other associated symptoms. History provided by: Patient REVIEW OF SYSTEMS: A 10 system review of systems was performed with positives and pertinent negatives listed in the history of present illness. All other systems were reviewed and are negative. ALLERGIES: pravastatin, Eliquis, duloxetine, ciprofloxacin, metformin, sitagliptin PHYSICAL EXAM: VITALS: Vitals are noted on the nurse's note and reviewed by myself. GENERAL: This is an 83 year old female, in no acute distress, nondiaphoretic, well-developed well-nourished. SKIN: The skin was without rashes, erythema, edema, or bruising. There is no tenting of the skin. Capillary refill less than 2 seconds. HEAD: Normocephalic atraumatic. EARS: External auditory canals clear, tympanic membranes pearly foley without erythema or effusion bilaterally. No hemotympanum. Negative casey sign EYES: Pupils equal round and reactive to light and accommodation. Conjunctivae without injection, sclerae without icterus. Extraocular movements intact. NOSE: Patent, turbinates without inflammation or discharge. No sinus tenderness. MOUTH: Mucous membranes moist. Tonsils are not enlarged. Pharynx without erythema or exudate. Uvula midline. Airway patent. Tongue does not deviate. NECK: Supple without nuchal rigidity. No lymphadenopathy. Cervical spine is nontender. No JVD. HEART: Regular rate and rhythm without murmurs gallops or rubs. LUNGS: Clear to auscultation bilaterally without wheezes, rales or rhonchi. No retractions or accessory muscle use. ABDOMEN: Positive bowel sounds x 4. Soft, nontender, without masses or organomegaly. Manuel sign negative. No guarding or rebound tenderness. MUSCULOSKELETAL: The right lower extremity is shortened and externally rotated. The patient does have tenderness to palpation of the right hip. Patient is unable to perform range of motion of the right lower extremity due to pain at the hip. She is able to move her toes and ankle, but does complain of pain. No open wounds. No muscle atrophy, erythema, or edema noted. Full range of motion without joint tenderness in all extremities except as noted. No tenderness to palpation except as noted. NEURO: Patient was alert and oriented to person place and time. Normal sensation to light and sharp touch in the bilateral lower extremities. Deep tendon reflexes 2+ throughout. No focal neurological deficits. An order was placed for continuous panel monitor. The monitor showed a normal sinus rhythm at a ventricular rate of 80 bpm, per my interpretation. EKG was reviewed by myself and found to be sinus rhythm with 1st degree AV block at a rate of 77 beats per minute and per my interpretation reveals no ST elevation or depression. No T wave inversion. When compared to previous EKG of 11/12/2023, QT has lengthened. Imaging as interpreted by myself and the radiologist revealed right femoral neck fracture on hip x-ray, no acute abnormalities on CT of the head or chest x-ray, with radiologist interpretation as above. I agree with the radiologist's findings as based upon my independent interpretation. EMERGENCY DEPARTMENT COURSE: The patient was seen and evaluated as above. The patient presents to the emergency department for evaluation of right hip pain. The patient fell while walking outside. She landed on her right hip. Patient did strike her head. On examination, the patient has a shortened and externally rotated right lower extremity with tenderness palpation of the right hip. IV access was obtained, labs were drawn. Patient was offered analgesics and declined. X-ray of the right hip and chest x-ray were completed and reviewed by myself radiologist as noted. The patient does have a right femoral neck fracture. CT imaging of the head was completed and was negative for acute abnormality. I discussed the case with nurse healthcare manager. I discussed the case with Dr. Stephens, [facility]. She did agree to evaluate the patient for admission. Labs reviewed. Per my interpretation, renal, hepatic function and electrolytes without significant abnormality. Coags normal. CBC hemolyzed and is pending at the time of admission. Urinalysis negative for blood or clear evidence of infection. Case was discussed with the attending physician. I attest that I have personally reviewed the patient medication list. I attest that I have reviewed the patient's blood pressure and it was found to be normal GCS: 15 In the evaluation and treatment of this patient the following differential diagnoses were entertained: Fracture, dislocation, neurovascular compromise, compartment syndrome, soft tissue injury, CHI, skull fracture, concussion, as well as other pathologies. The chart was completed utilizing [employer] Speech voice recognition software. Grammatical errors, random word insertions, pronoun errors, and incomplete sentences are an occasional consequence of this system due to software limitations, ambient noise, and hardware issues. Any formal questions or concerns about the content, text, or information contained within the body of this dictation should be directly addressed to the provider for clarification. Past Med/Surg History Problem List (Updated 02/26/24 @ 02:04 by Carolina Williamson PA-C) Closed head injury (Acute) Fall (Acute) Closed fracture of neck of right femur (Acute) Tremor Personal history of diabetic foot ulcer Diabetic peripheral neuropathy associated with type 2 diabetes mellitus Asthma Anxiety (Acute) Atrial fibrillation with RVR (Acute) BMI 34.0-34.9,adult (Acute) Benign hypertension (Acute 07/12/12) Chronic diarrhea (Acute) Depression (Acute) GERD without esophagitis (Acute) Hyperlipidemia (Acute) Microalbuminuria (Acute) Obstructive sleep apnea Osteopenia (Acute) Medical History History of acute respiratory failure Chronic sinusitis Carpal tunnel syndrome (07/12/12) Arthritis Allergic rhinitis Abnormal ECG Diarrhea Abdominal pain Dyslipidemia Hypertension Diabetes mellitus, type 2 Asthma Fracture of fibula, distal, right, closed (~2013) Surgical History H/O tubal ligation Hx of cataract surgery Hx of cholecystectomy Hx of total knee arthroplasty Family History Grandmother Cancer Mother Diabetes Breast cancer Arthritis Skin cancer Brother Diabetes Lymphoma Sister Breast cancer Skin cancer Grandmother Lung cancer Social History Smoking Status: Never smoker Hx Alcohol Use: No Hx Substance Use: No Preferred Language: Bengali Communication Ability: Effective Visual Impairment: Limited Hearing Ability: Normal Parts Expediter Required: No Beliefs That Will Affect Care: None marital status: / Current Living Situation: Family Current Living Situation Comment: grandson lives with pt current occupational status: retired How many Children do You have: 4 How many Children do You have Comment: Most children are local but not very involved with care. Feels Safe at Home: Yes Safety Concerns Comment: Pt stated adult grandson at times is very "mouthy" with her. Diet: regular Assistive Devices: Scooter/Electric Scooter and Other Allergies Allergies Allergy/AdvReac Type Severity Reaction Status Date / Time pravastatin Allergy Intermediate HEART Verified 10/21/22 14:21 ATTACK LIKE SYMPTOMS apixaban [From Eliquis] AdvReac Severe BODY WENT Verified 10/21/22 14:21 NUMB duloxetine AdvReac Severe LOSS OF Verified 10/21/22 14:21 CONSCIOUSNESS ciprofloxacin AdvReac Intermediate DIARRHEA Verified 10/21/22 14:21 metformin AdvReac Intermediate Diarrhea Verified 10/21/22 14:21 sitagliptin AdvReac Intermediate ILLNESS Verified 10/21/22 14:21 Home Meds Home Medications Medication Instructions Recorded Confirmed albuterol sulfate 90 mcg/actuation 2 puff inhalation QID PRN Wheezing 12/16/17 06/30/23 aerosol inhaler (Ventolin HFA) amitriptyline 10 mg tablet 10 mg PO HS 07/19/18 06/30/23 ondansetron HCl 4 mg tablet 4 mg PO TID PRN Nausea/vomiting 01/04/19 06/30/23 pantoprazole 40 mg tablet,delayed 40 mg PO DAILY 01/04/19 06/30/23 release tramadol 50 mg tablet 50 mg PO .COMPLEX PRN Pain 01/24/19 06/30/23 amiodarone 200 mg tablet 200 mg PO DAILY 09/27/20 06/30/23 furosemide 40 mg tablet 40 mg PO DAILY 09/27/20 06/30/23 glipizide 5 mg tablet, extended 5 mg PO DAILY 09/27/20 06/30/23 release 24 hr isosorbide mononitrate 30 mg 30 mg PO QAM 09/27/20 06/30/23 tablet,extended release 24 hr omeprazole 20 mg capsule,delayed 20 mg PO DAILY 09/27/20 06/30/23 release potassium chloride 20 mEq 20 meq PO DAILY 09/27/20 06/30/23 tablet,extended release sertraline 50 mg tablet 50 mg PO DAILY 09/27/20 06/30/23 venlafaxine 37.5 mg 37.5 mg PO DAILY 09/27/20 06/30/23 capsule,extended release 24 hr aspirin 81 mg tablet,delayed 81 mg PO DAILY 03/10/22 06/30/23 release diclofenac sodium 1 % topical gel 1 ea topical QID PRN Pain 03/10/22 06/30/23 lisinopril 5 mg tablet 5 mg PO DAILY 03/10/22 06/30/23 polyethylene glycol 3350 17 17 g PO DAILY 03/10/22 06/30/23 gram/dose oral powder (Miralax) clonazepam 0.5 mg tablet 0.5 mg PO DAILY 06/30/23 06/30/23 Previous Rx's Medication Instructions Recorded nitroglycerin 0.3 mg sublingual 0.3 mg sublingual Q5M PRN chest 01/05/19 tablet pain #10 tabs metoprolol succinate 25 mg 25 mg PO BID #60 tabs 10/14/19 tablet,extended release 24 hr Results & Data (ED) Vital Signs Vital Signs - 24 hr 02/25/24 22:40 02/25/24 22:40 02/25/24 22:40 Temperature 36.8 C 36.8 C Temperature Source Oral Oral Pulse Rate 81 82 Pulse Rate [Apical] 80 Pulse Rhythm Regular Pulse Rhythm [Apical] Regular Pulse Strength Normal Pulse Strength [Apical] Normal Respiratory Rate 17 20 Respiratory Effort / Characteristics Non-Labored Spontaneous Non-Labored Spontaneous Respiratory Depth Normal Normal Respiratory Pattern Regular Regular Blood Pressure 110/65 Blood Pressure [Right Arm] 110/65 Blood Pressure Mean 80 Blood Pressure Mean [Right Arm] 80 Pulse Oximetry 94 93 Oxygen Delivery Method Room Air Room Air Oxygen Flow Rate Sepsis Recent Fever Within 48 Hours No Sepsis New/Unexplained Change in Mental Status No Sepsis Action Taken by Nursing No Action Required 02/25/24 23:00 02/25/24 23:30 02/25/24 23:39 Temperature Temperature Source Pulse Rate 80 80 Pulse Rate [Apical] Pulse Rhythm Pulse Rhythm [Apical] Pulse Strength Pulse Strength [Apical] Respiratory Rate 22 16 Respiratory Effort / Characteristics Respiratory Depth Respiratory Pattern Blood Pressure 111/60 128/82 Blood Pressure [Right Arm] Blood Pressure Mean 73 105 Blood Pressure Mean [Right Arm] Pulse Oximetry 91 93 92 Oxygen Delivery Method Room Air Room Air Room Air Oxygen Flow Rate Sepsis Recent Fever Within 48 Hours Sepsis New/Unexplained Change in Mental Status Sepsis Action Taken by Nursing 02/26/24 00:00 02/26/24 00:31 02/26/24 01:14 Temperature Temperature Source Pulse Rate 80 73 78 Pulse Rate [Apical] Pulse Rhythm Pulse Rhythm [Apical] Pulse Strength Pulse Strength [Apical] Respiratory Rate 18 18 20 Respiratory Effort / Characteristics Respiratory Depth Respiratory Pattern Blood Pressure 109/58 L 126/54 L 105/66 Blood Pressure [Right Arm] Blood Pressure Mean 71 68 78 Blood Pressure Mean [Right Arm] Pulse Oximetry 94 94 94 Oxygen Delivery Method Room Air Nasal Cannula Nasal Cannula Oxygen Flow Rate 2 2 Sepsis Recent Fever Within 48 Hours Sepsis New/Unexplained Change in Mental Status Sepsis Action Taken by Nursing 02/26/24 01:42 Temperature Temperature Source Pulse Rate 74 Pulse Rate [Apical] Pulse Rhythm Pulse Rhythm [Apical] Pulse Strength Pulse Strength [Apical] Respiratory Rate 18 Respiratory Effort / Characteristics Respiratory Depth Respiratory Pattern Blood Pressure 102/48 L Blood Pressure [Right Arm] Blood Pressure Mean 66 Blood Pressure Mean [Right Arm] Pulse Oximetry 94 Oxygen Delivery Method Nasal Cannula Oxygen Flow Rate 2 Sepsis Recent Fever Within 48 Hours Sepsis New/Unexplained Change in Mental Status Sepsis Action Taken by Nursing Laboratory Data 02/26/24 00:55 02/26/24 00:55 Lab Results 02/26/24 02/26/24 02/26/24 Range/Units 00:25 00:55 01:40 WBC Cancelled RBC Cancelled Hgb Cancelled Hct Cancelled MCV Cancelled MCH Cancelled MCHC Cancelled RDW Std Deviation Cancelled RDW Coeff of Roxi Cancelled Plt Count Cancelled MPV Cancelled Immature Gran % (Auto) Cancelled Neut % (Auto) Cancelled Lymph % (Auto) Cancelled Glenn % (Auto) Cancelled Eos % (Auto) Cancelled Baso % (Auto) Cancelled Neut # (Auto) Cancelled Lymph # (Auto) Cancelled Glenn # (Auto) Cancelled Eos # (Auto) Cancelled Baso # (Auto) Cancelled Immature Gran # (Auto) Cancelled Absolute Nucleated RBC Cancelled Nucleated RBC % (auto) Cancelled Neutrophils % (Manual) Cancelled Band Neutrophils % Cancelled Lymphocytes % (Manual) Cancelled Prolymphocyte % Cancelled Reactive Lymphs % (Man) Cancelled Monocytes % (Manual) Cancelled Eosinophils % (Manual) Cancelled Basophils % (Manual) Cancelled Metamyelocytes % (Man) Cancelled Myelocytes % (Man) Cancelled Promyelocytes % (Man) Cancelled Blast Cells % (Manual) Cancelled Plasma Cell % (Manual) Cancelled Other Cells % Cancelled Nucleated RBC % Cancelled Neutrophils # (Manual) Cancelled Band Neutrophils # Cancelled Total Absolute Neuts Cancelled Lymphocytes # (Manual) Cancelled Prolymphocyte # Cancelled Reactive Lymphs # Cancelled Total Abs Lymphocytes Cancelled Monocytes # (Manual) Cancelled Eosinophils # (Manual) Cancelled Basophils # (Manual) Cancelled Metamyelocytes # (Man) Cancelled Myelocytes # (Manual) Cancelled Promyelocytes # (Man) Cancelled Blast Cells # (Man) Cancelled Plasma Cell # (Manual) Cancelled Other Cells # Cancelled Nucleated RBCs # (Man) Cancelled Hypersegmented Neuts Cancelled Hyposegmented Neuts Cancelled Hypogranular Neuts Cancelled Large Granular Lymphs Cancelled # Lrg Granular Lymphs Cancelled Hairy Cells Cancelled Smudge Cells Cancelled Blood Smear Review Cancelled Toxic Granulation Cancelled Toxic Vacuolation Cancelled Dohle Bodies Cancelled Jerry Rods Cancelled Platelet Estimate Cancelled Hypogranular Platelets Cancelled Giant Platelets Cancelled Platelet Satelliting Cancelled RBC Morphology Cancelled Polychromasia Cancelled Hypochromasia Cancelled Poikilocytosis Cancelled Basophilic Stippling Cancelled Anisocytosis Cancelled Microcytosis Cancelled Macrocytosis Cancelled Spherocytes Cancelled Pappenheimer Bodies Cancelled Sickle Cells Cancelled Target Cells Cancelled Tear Drop Cells Cancelled Ovalocytes Cancelled Stomatocytes Cancelled [place] Bodies Cancelled Echinocytes Cancelled Acanthocytes (Spur) Cancelled Rouleaux Cancelled RBC Agglutinates Cancelled Schistocytes Cancelled Sezary Cell Cancelled PT 10.4 (9.0-12.0) Seconds INR 1.0 (0.9-1.1) APTT 26 (21-31) Seconds PTT Ratio 1.0 Sodium 135 L (136-145) mmol/L Potassium 3.9 (3.5-5.1) mmol/L Chloride 101 (98-107) mmol/L Carbon Dioxide 26 (21-32) mmol/L Anion Gap 8 (3-11) BUN 13 (6-23) mg/dl Creatinine 1.15 (0.6-1.2) mg/dl Est Cr Clr Drug Dosing 40.0 ml/min eGFR 46.97 BUN/Creatinine Ratio 11.3 (10-20) Glucose 175 H (70-99(Fasting)) mg/dl Calcium 8.5 L (8.6-10.3) mg/dl Total Bilirubin 0.3 (0.2-1.0) mg/dl AST 22 (13-39) U/L ALT 10 (7-52) U/L Alkaline Phosphatase 62 (34-104) U/L Total Protein 6.7 (6.0-8.3) gm/dl Albumin 3.6 (3.4-5.0) gm/dl Globulin 3.1 (2.5-4.0) gm/dl Albumin/Globulin Ratio 1.2 (0.9-2) Urine Color Yellow Urine Appearance Clear (Clear) Urine pH 5.5 (4.5-7.5) Ur Specific [place] 1.009 (1.000-1.030) Urine Protein Negative (Negative) Urine Glucose (UA) Negative (Negative) Urine Ketones Negative (Negative) Urine Blood Negative (Negative) Urine Nitrite Negative (Negative) Urine Bilirubin Negative (Negative) Urine Urobilinogen Negative (Negative) Ur Leukocyte Esterase Trace H (Negative) Urine WBC (Auto) 0-5 (0-5) /hpf Urine RBC (Auto) 0-2 (0-2) /hpf U Hyaline Cast (Auto) 0-2 (0-2) /lpf U Epithel Cells (Auto) 0-2 (0-2) /hpf Urine Bacteria (Auto) None Seen (None Seen) Blood Parasites ID Cancelled Administered Medications Discontinued Medications Morphine Sulfate (Morphine Sulfate 4 Mg/Ml 1 Ml Carp\\Vial) 4 mg IV NOW STA Stop: 02/25/24 23:49 Last Admin: 02/25/24 23:58 Dose: 4 mg Documented By: DOMINICK Ondansetron HCl (Ondansetron Inj 2 Mg/Ml 2 Ml Vial) 4 mg IV NOW STA Stop: 02/25/24 23:49 Last Admin: 02/25/24 23:58 Dose: 4 mg Documented By: DOMINICK Imaging Data Radiologist's Impression: Head CT 02/25/24 23:07 EXAM: CT head/brain wo con CLINICAL HISTORY: FELL AND HIT HEAD TECHNIQUE: An axial non-contrast CT scan of the brain was performed from the skull base to the high parietal region. One of the following dose reduction techniques was utilized for this exam: Automated exposure control, adjustment of the mA and/or kV according to patient size, and use of iterative reconstruction. (CTDI: 37.32 mGy, DLP: 625.80 mGy*cm) COMPARISON: 09/27/2020 FINDINGS: Brain Parenchyma: Multiple subcortical and ventricular white matter hypodensities likely represent chronic microvascular ischemic changes. Normal attenuation of the cerebral hemispheres, cerebellum, and brainstem. No evidence of acute infarct, hemorrhage, or mass effect. No abnormal areas of hyperattenuation. Ventricular System: The capacious ventricular system, denoting senile brain atrophic changes. No evidence of hydrocephalus or ventricular enlargement. Subarachnoid Spaces: Capacious CSF spaces, denoting senile brain atrophic changes. No evidence of subarachnoid hemorrhage or extra-axial fluid collections. Cerebellum and Brainstem: Normal size and attenuation. No masses, lesions, or areas of abnormal attenuation. Orbits: Normal appearance of the globes, optic nerves, and extraocular muscles. No evidence of orbital masses or abnormal attenuation. Sinuses: Clear paranasal sinuses. No evidence of sinusitis or mucosal thickening. Mastoid Air Cells: Clear mastoid air cells. No evidence of mastoiditis. Skull and Meninges: Mild frontal bone thickening. Unchanged. Likely of no clinical significance. IMPRESSION: 1. No evidence of acute skull vault fracture or acute intracranial hemorrhage. 2. Chronic microvascular ischemic changes. 3. Senile brain atrophy changes 4. No significant interval changes compared to the prior study, dated 09/27/2020. Electronically signed by Lan Villa 02-26-2024 12:49 AM Hip X-Ray 02/25/24 23:07 Exam(s): XR RIGHT HIP EXAM: XR Right Hip With Pelvis When Performed, 2 or 3 Views CLINICAL HISTORY: fall, right hip pain. TECHNIQUE: Two or three views of the right hip with pelvis when performed. COMPARISON: No relevant prior studies available. FINDINGS: Bones/joints: Displaced right femoral neck fracture with slight foreshortening of the femoral shaft. The femoral head remains in the acetabulum. Limited inclusion of the pelvic bones is unremarkable. Soft tissues: No definite significant traumatic injury suspected. No radiopaque foreign body. IMPRESSION: Displaced right femoral neck fracture with slight foreshortening of the femoral shaft. The femoral head remains in the acetabulum. Electronically signed by: Rito Barillas MD 02/26/24 00:26 AM Chest X-Ray 02/25/24 23:08 Exam(s): XR CXR 1 VIEW EXAM: XR Chest, 1 View CLINICAL HISTORY: fall, hip pain. TECHNIQUE: Frontal view of the chest. COMPARISON: Chest single view 11/12/2023 FINDINGS: Lungs: The lungs are similarly expanded. No definite focal airspace consolidation identified. Similar presumed chronic interstitial changes noted. No radiographic evidence for florid CHF. Pleural space: No definite large pleural effusion or pneumothorax, accounting for supine technique and overlying soft tissues. Heart: The cardiac silhouette is within normal limits, accounting for portable supine technique. Mediastinum: No significant abnormality identified. The trachea is midline. Bones/joints: Multilevel degenerative changes throughout the thoracolumbar spine. No acute osseous abnormality. Vasculature: The nasal contours are stable and unremarkable with atherosclerotic calcification aortic arch. No tracheal deviation. IMPRESSION: No definite acute cardiopulmonary process or significant alteration from the prior examination. Electronically signed by: Rito Barillas MD 02/26/24 00:25 AM Discharge Plan Visit Data Chief Complaint: Fall Stated Complaint: FALL, R HIP PAIN ED Provider: Saulo Carson ED Midlevel Provider: Carolina Williamson Discharge Problem: Closed fracture of neck of right femur, Fall, Closed head injury Patient Disposition: Admitted As Inpatient Discharge Instructions Interventions: ED Discharge Assessment Last Done: 02/26/24 01:50 Forms Stand Alone Forms: [employer] Prescriptions Prescriptions: No Action ondansetron HCl 4 mg tablet 4 mg PO TID PRN (Reason: Nausea/vomiting) pantoprazole 40 mg tablet,delayed release (DR/EC) 40 mg PO DAILY tramadol 50 mg tablet 50 mg PO .COMPLEX PRN (Reason: Pain) Rx Instructions: 50 mg BID and 100 mg QHS as needed for pain clonazepam 0.5 mg tablet 0.5 mg PO DAILY amitriptyline 10 mg tablet 10 mg PO HS metoprolol succinate 25 mg Tablet Extended Release 24 Hr 25 mg PO BID Qty: 60 0RF albuterol sulfate [Ventolin HFA] 90 mcg/actuation Hfa Aerosol Inhaler 2 puff INHALATION QID PRN (Reason: Wheezing) nitroglycerin 0.3 mg tablet, sublingual 0.3 mg sublingual Q5M PRN (Reason: chest pain) Qty: 10 0RF amiodarone 200 mg tablet 200 mg PO DAILY omeprazole 20 mg capsule,delayed release(DR/EC) 20 mg PO DAILY furosemide 40 mg tablet 40 mg PO DAILY glipizide 5 mg tablet extended release 24hr 5 mg PO DAILY isosorbide mononitrate 30 mg tablet extended release 24 hr 30 mg PO QAM venlafaxine 37.5 mg capsule,extended release 24hr 37.5 mg PO DAILY sertraline 50 mg tablet 50 mg PO DAILY potassium chloride 20 mEq tablet extended release 20 meq PO DAILY aspirin 81 mg Tablet,Delayed Release (Dr/Ec) 81 mg PO DAILY lisinopril 5 mg Tablet 5 mg PO DAILY diclofenac sodium 1 % Gel 1 ea TOPICAL QID PRN (Reason: Pain) polyethylene glycol 3350 [Miralax] 17 gram/dose Powder 17 g PO DAILY Referrals Referrals: Mariangel Rojas PA-C [Primary Care Provider] -
[2024-02-25] MEDS: ONDANSETRON INJ 2 MG/ML 2 ML VIAL IV STA (23:58)
[2024-02-25] MEDS: MoRPHine SULFATE 4 MG/ML 1 ML CARP\\VIAL IV STA (23:58)
--- NOTE | 2024-02-26 00:25 | History & Physical Report ---
Date of Service February 26, 2024 Assessment & Plan (1) Fall: Plan: 83yo female with history of HTN, HLP, DM, AF (not on anticoagulation), JILLIAN presenting from home following a ground level fall resulting in displaced right femoral neck fracture. -Admit to medical -Place Dorado catheter with routine care q shift -Pain control with Morphine PRN -Zofran PRN nausea -Bowel regimen -Orthopedic Surgery consultation appreciated -Patient will remain NPO. Will hold ASA, Isosorbide mononitrate and Lisinopril for possible OR. Continue metoprolol 25mg po BID Per RCRI Criteria patient is medically stable. She may proceed to surgery with no additional testing. Medication management as above (2) Closed fracture of neck of right femur: Plan: Patient with displaced femoral neck fracture. -Pain control with morphine PRN -Zofran PRN -Bowel regimen -Orthopedic surgery consultation appreciated (3) Obstructive sleep apnea: Plan: Chronic, stable -CPAP 10cm H2O qHS (4) Diabetic peripheral neuropathy associated with type 2 diabetes mellitus: Plan: Blood sugar well controlled -Hold home Glipizide -ISS (5) Benign hypertension: Plan: Blood pressure well controlled -Hold Isosorbide mononitrate and Lisinopril for possible OR -Continue metoprolol -Monitor BP Plan Chronic Medical Conditions: Paroxysmal Atrial Fibrillation - patient presently in NSR -Continue Metoprolol -Continue Amiodarone -Not on anticoagulation Depression -Continue Sertraline 50mg po daily -Continue Venlafaxine 37.5mg po daily -Continue Clonazepam -Continue Amitriptyline GERD -Continue Protonix 40mg po daily F/E/N - LR at 100mL/hr x 2L, electrolytes WNL, NPO for now Ppx - SCDs to bilateral LE Code - Full Dispo - Admit to medical, possible OR in AM for repair of right hip fracture History of Present Illness Chief Complaint: fall, right hip fracture Primary Care Provider: Mariangel Perez is an 83yo female with history of HTN, HLP, DM, AF, GERD and JILLIAN presenting after sustaining a fall at home. Patient was walking onto her porch and tripped on a small ledge. She fell and landed on the concrete on her right hip. She did hit her head lightly as well. She denies chest pain, palpitations, dizziness, LOC. Presently with complaint of right hip pain, otherwise no additional complaints. In the ER she is afebrile, HD stable, NAD ER Course: Zofran 4mg IV Morphine 4mg IV Allergies Allergy/AdvReac Type Severity Reaction Status Date / Time pravastatin Allergy Intermediate HEART Verified 10/21/22 14:21 ATTACK LIKE SYMPTOMS apixaban [From Eliquis] AdvReac Severe BODY WENT Verified 10/21/22 14:21 NUMB duloxetine AdvReac Severe LOSS OF Verified 10/21/22 14:21 CONSCIOUSNESS ciprofloxacin AdvReac Intermediate DIARRHEA Verified 10/21/22 14:21 metformin AdvReac Intermediate Diarrhea Verified 10/21/22 14:21 sitagliptin AdvReac Intermediate ILLNESS Verified 10/21/22 14:21 Home Medications Medication Instructions Recorded Confirmed Type albuterol sulfate 90 mcg/actuation 2 puff inhalation QID PRN Wheezing 12/16/17 06/30/23 History aerosol inhaler (Ventolin HFA) amitriptyline 10 mg tablet 10 mg PO HS 07/19/18 06/30/23 History ondansetron HCl 4 mg tablet 4 mg PO TID PRN Nausea/vomiting 01/04/19 06/30/23 History pantoprazole 40 mg tablet,delayed 40 mg PO DAILY 01/04/19 06/30/23 History release nitroglycerin 0.3 mg sublingual 0.3 mg sublingual Q5M PRN chest 01/05/19 06/30/23 Rx tablet pain #10 tabs tramadol 50 mg tablet 50 mg PO .COMPLEX PRN Pain 01/24/19 06/30/23 History metoprolol succinate 25 mg 25 mg PO BID #60 tabs 10/14/19 06/30/23 Rx tablet,extended release 24 hr amiodarone 200 mg tablet 200 mg PO DAILY 09/27/20 06/30/23 History furosemide 40 mg tablet 40 mg PO DAILY 09/27/20 06/30/23 History glipizide 5 mg tablet, extended 5 mg PO DAILY 09/27/20 06/30/23 History release 24 hr isosorbide mononitrate 30 mg 30 mg PO QAM 09/27/20 06/30/23 History tablet,extended release 24 hr omeprazole 20 mg capsule,delayed 20 mg PO DAILY 09/27/20 06/30/23 History release potassium chloride 20 mEq 20 meq PO DAILY 09/27/20 06/30/23 History tablet,extended release sertraline 50 mg tablet 50 mg PO DAILY 09/27/20 06/30/23 History venlafaxine 37.5 mg 37.5 mg PO DAILY 09/27/20 06/30/23 History capsule,extended release 24 hr aspirin 81 mg tablet,delayed 81 mg PO DAILY 03/10/22 06/30/23 History release diclofenac sodium 1 % topical gel 1 ea topical QID PRN Pain 03/10/22 06/30/23 History lisinopril 5 mg tablet 5 mg PO DAILY 03/10/22 06/30/23 History polyethylene glycol 3350 17 17 g PO DAILY 03/10/22 06/30/23 History gram/dose oral powder (Miralax) clonazepam 0.5 mg tablet 0.5 mg PO DAILY 06/30/23 06/30/23 History Past Med/Surg History Problem List Closed head injury (Acute) Fall (Acute) Closed fracture of neck of right femur (Acute) Tremor Personal history of diabetic foot ulcer Diabetic peripheral neuropathy associated with type 2 diabetes mellitus Asthma Anxiety (Acute) Atrial fibrillation with RVR (Acute) BMI 34.0-34.9,adult (Acute) Benign hypertension (Acute 07/12/12) Chronic diarrhea (Acute) Depression (Acute) GERD without esophagitis (Acute) Hyperlipidemia (Acute) Microalbuminuria (Acute) Obstructive sleep apnea Osteopenia (Acute) Medical History History of acute respiratory failure Chronic sinusitis Carpal tunnel syndrome (07/12/12) Arthritis Allergic rhinitis Abnormal ECG Diarrhea Abdominal pain Dyslipidemia Hypertension Diabetes mellitus, type 2 Asthma Fracture of fibula, distal, right, closed (~2013) Surgical History H/O tubal ligation Hx of cataract surgery Hx of cholecystectomy Hx of total knee arthroplasty Family History Grandmother Cancer Mother Diabetes Breast cancer Arthritis Skin cancer Brother Diabetes Lymphoma Sister Breast cancer Skin cancer Grandmother Lung cancer Social History (Reviewed 02/26/24 @ 02:35 by VIDAL Justin Smoking Status: Never smoker Hx Alcohol Use: No Hx Substance Use: No Preferred Language: Cymro Communication Ability: Effective Visual Impairment: Limited Hearing Ability: Normal Scissors Grinder Required: No Beliefs That Will Affect Care: None marital status: / Current Living Situation: Family Current Living Situation Comment: grandson lives with pt current occupational status: retired How many Children do You have: 4 How many Children do You have Comment: Most children are local but not very involved with care. Feels Safe at Home: Yes Safety Concerns Comment: Pt stated adult grandson at times is very "mouthy" with her. Diet: regular Assistive Devices: Scooter/Electric Scooter and Other Review of Systems Review of Systems: All systems reviewed & are unremarkable except as noted in HPI & below Physical Exam Physical Exam: General: patient resting comfortably, NAD, non-toxic in appearance, AA&O x 4 Skin: warm, dry, intact, no rashes or lesions HEENT: NC/AT, PERRL, EOMI, anicteric sclera, conjunctiva without injection, external ear normal to inspection and nontender, nares patent, moist mucus membranes, dentition intact, no oropharyngeal lesions, neck supple, trachea midline, no LAD, no thyromegaly, no JVD Heart: +S1/S2, regular, no m/r/g Lungs: equal air entry bilaterally, no rales/rhonchi/wheezes Abd: +BS, soft, NT/ND, no masses/organomegaly/ascites Ext: RLE shortened and externally rotated, painful to touch at right hip, some diminished sensation of right foot and leg to knee, 2+ pulses Neuro: nonfocal, patient AA&O x 4, speech intact, no facial droop, moving all extremities on command with equal strength 5/5 Results & Data Results & Data Vital Signs (Past 12 Hours) Vital Signs Temp Pulse Pulse Resp BP BP Pulse Ox 02/25/24 23:39 92 02/25/24 22:40 82 02/25/24 22:40 36.8 C 80 20 110/65 93 02/25/24 22:40 36.8 C 81 17 110/65 94 O2 Del Method 02/25/24 23:39 Room Air 02/25/24 22:40 02/25/24 22:40 Room Air 02/25/24 22:40 Room Air Laboratory Results Laboratory Results WBC Cancelled 02/26/24 00:55 RBC Cancelled 02/26/24 00:55 Hgb Cancelled 02/26/24 00:55 Hct Cancelled 02/26/24 00:55 MCV Cancelled 02/26/24 00:55 MCH Cancelled 02/26/24 00:55 MCHC Cancelled 02/26/24 00:55 RDW Std Deviation Cancelled 02/26/24 00:55 RDW Coeff of Roxi Cancelled 02/26/24 00:55 Plt Count Cancelled 02/26/24 00:55 MPV Cancelled 02/26/24 00:55 Immature Gran % (Auto) Cancelled 02/26/24 00:55 Neut % (Auto) Cancelled 02/26/24 00:55 Lymph % (Auto) Cancelled 02/26/24 00:55 [place] % (Auto) Cancelled 02/26/24 00:55 Eos % (Auto) Cancelled 02/26/24 00:55 Baso % (Auto) Cancelled 02/26/24 00:55 Neut # (Auto) Cancelled 02/26/24 00:55 Lymph # (Auto) Cancelled 02/26/24 00:55 [place] # (Auto) Cancelled 02/26/24 00:55 Eos # (Auto) Cancelled 02/26/24 00:55 Baso # (Auto) Cancelled 02/26/24 00:55 Immature Gran # (Auto) Cancelled 02/26/24 00:55 Absolute Nucleated RBC Cancelled 02/26/24 00:55 Nucleated RBC % (auto) Cancelled 02/26/24 00:55 Neutrophils % (Manual) Cancelled 02/26/24 00:55 Band Neutrophils % Cancelled 02/26/24 00:55 Lymphocytes % (Manual) Cancelled 02/26/24 00:55 Prolymphocyte % Cancelled 02/26/24 00:55 Reactive Lymphs % (Man) Cancelled 02/26/24 00:55 Monocytes % (Manual) Cancelled 02/26/24 00:55 Eosinophils % (Manual) Cancelled 02/26/24 00:55 Basophils % (Manual) Cancelled 02/26/24 00:55 Metamyelocytes % (Man) Cancelled 02/26/24 00:55 Myelocytes % (Man) Cancelled 02/26/24 00:55 Promyelocytes % (Man) Cancelled 02/26/24 00:55 Blast Cells % (Manual) Cancelled 02/26/24 00:55 Plasma Cell % (Manual) Cancelled 02/26/24 00:55 Other Cells % Cancelled 02/26/24 00:55 Nucleated RBC % Cancelled 02/26/24 00:55 Neutrophils # (Manual) Cancelled 02/26/24 00:55 Band Neutrophils # Cancelled 02/26/24 00:55 Total Absolute Neuts Cancelled 02/26/24 00:55 Lymphocytes # (Manual) Cancelled 02/26/24 00:55 Prolymphocyte # Cancelled 02/26/24 00:55 Reactive Lymphs # Cancelled 02/26/24 00:55 Total Abs Lymphocytes Cancelled 02/26/24 00:55 Monocytes # (Manual) Cancelled 02/26/24 00:55 Eosinophils # (Manual) Cancelled 02/26/24 00:55 Basophils # (Manual) Cancelled 02/26/24 00:55 Metamyelocytes # (Man) Cancelled 02/26/24 00:55 Myelocytes # (Manual) Cancelled 02/26/24 00:55 Promyelocytes # (Man) Cancelled 02/26/24 00:55 Blast Cells # (Man) Cancelled 02/26/24 00:55 Plasma Cell # (Manual) Cancelled 02/26/24 00:55 Other Cells # Cancelled 02/26/24 00:55 Nucleated RBCs # (Man) Cancelled 02/26/24 00:55 Hypersegmented Neuts Cancelled 02/26/24 00:55 Hyposegmented Neuts Cancelled 02/26/24 00:55 Hypogranular Neuts Cancelled 02/26/24 00:55 Large Granular Lymphs Cancelled 02/26/24 00:55 # Lrg Granular Lymphs Cancelled 02/26/24 00:55 Hairy Cells Cancelled 02/26/24 00:55 Smudge Cells Cancelled 02/26/24 00:55 Blood Smear Review Cancelled 02/26/24 01:40 Toxic Granulation Cancelled 02/26/24 00:55 Toxic Vacuolation Cancelled 02/26/24 00:55 Dohle Bodies Cancelled 02/26/24 00:55 Jerry Rods Cancelled 02/26/24 00:55 Platelet Estimate Cancelled 02/26/24 00:55 Hypogranular Platelets Cancelled 02/26/24 00:55 Giant Platelets Cancelled 02/26/24 00:55 Platelet Satelliting Cancelled 02/26/24 00:55 RBC Morphology Cancelled 02/26/24 00:55 Polychromasia Cancelled 02/26/24 00:55 Hypochromasia Cancelled 02/26/24 00:55 Poikilocytosis Cancelled 02/26/24 00:55 Basophilic Stippling Cancelled 02/26/24 00:55 Anisocytosis Cancelled 02/26/24 00:55 Microcytosis Cancelled 02/26/24 00:55 Macrocytosis Cancelled 02/26/24 00:55 Spherocytes Cancelled 02/26/24 00:55 Pappenheimer Bodies Cancelled 02/26/24 00:55 Sickle Cells Cancelled 02/26/24 00:55 Target Cells Cancelled 02/26/24 00:55 Tear Drop Cells Cancelled 02/26/24 00:55 Ovalocytes Cancelled 02/26/24 00:55 Stomatocytes Cancelled 02/26/24 00:55 [place] Bodies Cancelled 02/26/24 00:55 Echinocytes Cancelled 02/26/24 00:55 Acanthocytes (Spur) Cancelled 02/26/24 00:55 Rouleaux Cancelled 02/26/24 00:55 RBC Agglutinates Cancelled 02/26/24 00:55 Schistocytes Cancelled 02/26/24 00:55 Sezary Cell Cancelled 02/26/24 00:55 PT 10.4 Seconds (9.0-12.0) 02/26/24 00:55 INR 1.0 (0.9-1.1) 02/26/24 00:55 APTT 26 Seconds (21-31) 02/26/24 00:55 PTT Ratio 1.0 02/26/24 00:55 Sodium 135 mmol/L (136-145) L 02/26/24 00:55 Potassium 3.9 mmol/L (3.5-5.1) 02/26/24 00:55 Chloride 101 mmol/L (98-107) 02/26/24 00:55 Carbon Dioxide 26 mmol/L (21-32) 02/26/24 00:55 Anion Gap 8 (3-11) 02/26/24 00:55 BUN 13 mg/dl (6-23) 02/26/24 00:55 Creatinine 1.15 mg/dl (0.6-1.2) 02/26/24 00:55 Est Cr Clr Drug Dosing 40.0 ml/min 02/26/24 00:55 eGFR 46.97 02/26/24 00:55 BUN/Creatinine Ratio 11.3 (10-20) 02/26/24 00:55 Glucose 175 mg/dl (70-99(Fasting)) H 02/26/24 00:55 POC Glucose 174 mg/dl (70-99) H 02/26/24 02:12 Calcium 8.5 mg/dl (8.6-10.3) L 02/26/24 00:55 Total Bilirubin 0.3 mg/dl (0.2-1.0) 02/26/24 00:55 AST 22 U/L (13-39) 02/26/24 00:55 ALT 10 U/L (7-52) 02/26/24 00:55 Alkaline Phosphatase 62 U/L (34-104) 02/26/24 00:55 Total Protein 6.7 gm/dl (6.0-8.3) 02/26/24 00:55 Albumin 3.6 gm/dl (3.4-5.0) 02/26/24 00:55 Globulin 3.1 gm/dl (2.5-4.0) 02/26/24 00:55 Albumin/Globulin Ratio 1.2 (0.9-2) 02/26/24 00:55 Urine Color Yellow 02/26/24 00:25 Urine Appearance Clear (Clear) 02/26/24 00:25 Urine pH 5.5 (4.5-7.5) 02/26/24 00:25 Ur Specific [place] 1.009 (1.000-1.030) 02/26/24 00:25 Urine Protein Negative (Negative) 02/26/24 00:25 Urine Glucose (UA) Negative (Negative) 02/26/24:25 Urine Ketones Negative (Negative) 02/26/24: Urine Blood Negative (Negative) 02/26/24: Urine Nitrite Negative (Negative) 11/29/24 00:25 Urine Bilirubin Negative (Negative) 02/26/24 00:25 Urine Urobilinogen Negative (Negative) 02/26/24 00:25 Ur Leukocyte Esterase Trace (Negative) H 02/26/24 00:25 Urine WBC (Auto) 0-5 /hpf (0-5) 02/26/24 00:25 Urine RBC (Auto) 0-2 /hpf (0-2) 02/26/24 00:25 U Hyaline Cast (Auto) 0-2 /lpf (0-2) 02/26/24 00:25 U Epithel Cells (Auto) 0-2 /hpf (0-2) 02/26/24 00:25 Urine Bacteria (Auto) None Seen (None Seen) 02/26/24 00:25 Blood Parasites ID Cancelled 02/26/24 00:[address] 02/25/24 23:07 EXAM: CT head/brain wo con CLINICAL HISTORY: FELL AND HIT HEAD TECHNIQUE: An axial non-contrast CT scan of the brain was performed from the skull base to the high parietal region. One of the following dose reduction techniques was utilized for this exam: Automated exposure control, adjustment of the mA and/or kV according to patient size, and use of iterative reconstruction. (CTDI: 37.32 mGy, DLP: 625.80 mGy*cm) COMPARISON: 09/27/2020 FINDINGS: Brain Parenchyma: Multiple subcortical and ventricular white matter hypodensities likely represent chronic microvascular ischemic changes. Normal attenuation of the cerebral hemispheres, cerebellum, and brainstem. No evidence of acute infarct, hemorrhage, or mass effect. No abnormal areas of hyperattenuation. Ventricular System: The capacious ventricular system, denoting senile brain atrophic changes. No evidence of hydrocephalus or ventricular enlargement. Subarachnoid Spaces: Capacious CSF spaces, denoting senile brain atrophic changes. No evidence of subarachnoid hemorrhage or extra-axial fluid collections. Cerebellum and Brainstem: Normal size and attenuation. No masses, lesions, or areas of abnormal attenuation. Orbits: Normal appearance of the globes, optic nerves, and extraocular muscles. No evidence of orbital masses or abnormal attenuation. Sinuses: Clear paranasal sinuses. No evidence of sinusitis or mucosal thickening. Mastoid Air Cells: Clear mastoid air cells. No evidence of mastoiditis. Skull and Meninges: Mild frontal bone thickening. Unchanged. Likely of no clinical significance. IMPRESSION: 1. No evidence of acute skull vault fracture or acute intracranial hemorrhage. 2. Chronic microvascular ischemic changes. 3. Senile brain atrophy changes 4. No significant interval changes compared to the prior study, dated 09/27/2020. Electronically signed by Lan Villa 02-26-2024 12:49 AM Hip X-Ray 02/25/24 23:07 Exam(s): XR RIGHT HIP EXAM: XR Right Hip With Pelvis When Performed, 2 or 3 Views CLINICAL HISTORY: fall, right hip pain. TECHNIQUE: Two or three views of the right hip with pelvis when performed. COMPARISON: No relevant prior studies available. FINDINGS: Bones/joints: Displaced right femoral neck fracture with slight foreshortening of the femoral shaft. The femoral head remains in the acetabulum. Limited inclusion of the pelvic bones is unremarkable. Soft tissues: No definite significant traumatic injury suspected. No radiopaque foreign body. IMPRESSION: Displaced right femoral neck fracture with slight foreshortening of the femoral shaft. The femoral head remains in the acetabulum. Electronically signed by: Rito Barillas MD 02/26/24 00:26 AM Chest X-Ray 02/25/24 23:08 Exam(s): XR CXR 1 VIEW EXAM: XR Chest, 1 View CLINICAL HISTORY: fall, hip pain. TECHNIQUE: Frontal view of the chest. COMPARISON: Chest single view 11/12/2023 FINDINGS: Lungs: The lungs are similarly expanded. No definite focal airspace consolidation identified. Similar presumed chronic interstitial changes noted. No radiographic evidence for florid CHF. Pleural space: No definite large pleural effusion or pneumothorax, accounting for supine technique and overlying soft tissues. Heart: The cardiac silhouette is within normal limits, accounting for portable supine technique. Mediastinum: No significant abnormality identified. The trachea is midline. Bones/joints: Multilevel degenerative changes throughout the thoracolumbar spine. No acute osseous abnormality. Vasculature: The nasal contours are stable and unremarkable with atherosclerotic calcification aortic arch. No tracheal deviation. IMPRESSION: No definite acute cardiopulmonary process or significant alteration from the prior examination. Electronically signed by: Rito Barillas MD 02/26/24 00:25 AM ECG Additional Comments: EKG with SR at 77bpm, 1st degree AV block with GA=962, QRS=70, OKr=604, no acute ischemic changes, Code Status & VTE Plan VTE Prophylaxis Plan VTE Prophylaxis will be ordered: Yes PG Care Time/CCT Total # of Minutes Spent Total Time Spent with Patient: Total time spent is greater than 50% in coordination of care (as documented) at patient's floor/unit and/or counseling patient: Coding Level of Care Code 11122 INT INP/OBS CARE 3/75MIN Diagnoses Fall W19.XXXA Closed fracture of neck of right femur S72.001A Obstructive sleep apnea G47.33 Diabetic peripheral neuropathy associated with type 2 diabetes mellitus E11.42 Benign hypertension I10
[2024-02-26 00:44] LABS: Appearance Urine Clear (Clear); Bacteria Urine Automated None Seen (None Seen); Bilirubin Urine Negative (Negative); Blood Urine Negative (Negative); Cast Urine Automated 0-2 /lpf (0-2); Color Urine Yellow; Epithelial Cell Urine Auto 0-2 /hpf (0-2); Glucose Urine UA Negative (Negative); Ketones Urine Negative (Negative); Leukocyte Esterase Urine Trace (Negative); Nitrite Urine Negative (Negative); Protein Urine Negative (Negative); RBC Urine Automated 0-2 /hpf (0-2); Specific Gravity Urine 1.009 (1.000-1.030); Urobilinogen Urine Negative (Negative); WBC Urine Automated 0-5 /hpf (0-5); pH Urine 5.5 (4.5-7.5)
--- NOTE | 2024-02-26 00:49 | CT Scan Report ---
EXAM: CT head/brain wo con CLINICAL HISTORY: FELL AND HIT HEAD TECHNIQUE: An axial non-contrast CT scan of the brain was performed from the skull base to the high parietal region. One of the following dose reduction techniques was utilized for this exam: Automated exposure control, adjustment of the mA and/or kV according to patient size, and use of iterative reconstruction. (CTDI: 37.32 mGy, DLP: 625.80 mGy*cm) COMPARISON: 09/27/2020 FINDINGS: Brain Parenchyma: Multiple subcortical and ventricular white matter hypodensities likely represent chronic microvascular ischemic changes. Normal attenuation of the cerebral hemispheres, cerebellum, and brainstem. No evidence of acute infarct, hemorrhage, or mass effect. No abnormal areas of hyperattenuation. Ventricular System: The capacious ventricular system, denoting senile brain atrophic changes. No evidence of hydrocephalus or ventricular enlargement. Subarachnoid Spaces: Capacious CSF spaces, denoting senile brain atrophic changes. No evidence of subarachnoid hemorrhage or extra-axial fluid collections. Cerebellum and Brainstem: Normal size and attenuation. No masses, lesions, or areas of abnormal attenuation. Orbits: Normal appearance of the globes, optic nerves, and extraocular muscles. No evidence of orbital masses or abnormal attenuation. Sinuses: Clear paranasal sinuses. No evidence of sinusitis or mucosal thickening. Mastoid Air Cells: Clear mastoid air cells. No evidence of mastoiditis. Skull and Meninges: Mild frontal bone thickening. Unchanged. Likely of no clinical significance. IMPRESSION: 1. No evidence of acute skull vault fracture or acute intracranial hemorrhage. 2. Chronic microvascular ischemic changes. 3. Senile brain atrophy changes 4. No significant interval changes compared to the prior study, dated 09/27/2020. Electronically signed by Lan Villa 02-26-2024 12:49 AM
[2024-02-26 01:27] LABS: Albumin Level 3.6 gm/dl (3.4-5.0); Bilirubin,Total 0.3 mg/dl (0.2-1.0); Calcium 8.5 mg/dl (8.6-10.3); Potassium 3.9 mmol/L (3.5-5.1)
[2024-02-26 01:33] LABS: Albumin Globulin Ratio 1.2 (0.9-2); BUN Creatinine Ratio 11.3 (10-20); Globulin 3.1 gm/dl (2.5-4.0); Total Protein 6.7 gm/dl (6.0-8.3)
[2024-02-26 01:55] LABS: Partial Thromboplastin Time 26 Seconds (21-31); Prothrombin Time 10.4 Seconds (9.0-12.0)
[2024-02-26] MEDS ORDERED: DEXTROSE 50% 50 ML SYRINGE IV PRN (02:35)
[2024-02-26] MEDS ORDERED: CARBOHYDRATES FOR HYPOGLYCEMIA PO PRN (02:35)
[2024-02-26] MEDS ORDERED: GLUCOSE 10 TAB/TUBE PO PRN (02:35)
[2024-02-26] MEDS ORDERED: ACETAMINOPHEN 325 MG TAB PO PRN (02:35)
[2024-02-26] MEDS ORDERED: MAGNESIUM HYDROXIDE SUSP 30 ML UDC PO PRN (02:35)
[2024-02-26] MEDS ORDERED: MoRPHine SULFATE 2 MG/ML CARP IV PRN ×3 (02:35→08:59)
[2024-02-26] MEDS ORDERED: ONDANSETRON INJ 2 MG/ML 2 ML VIAL IV PRN (02:35)
[2024-02-26] MEDS ORDERED: bisacodyL 10 MG SUPP PR PRN ×2 (02:35→15:35)
[2024-02-26] MEDS ORDERED: NALOXONE HCL 0.4 MG/1 ML VIAL/CARP IV PRN ×2 (02:35→15:35)
[2024-02-26] MEDS ORDERED: traMADol HCL 50 MG TABLET PO PRN ×2 (02:35→02:42)
[2024-02-26] MEDS ORDERED: GLUCAGON FOR INJ 1 MG VIAL SQ PRN (02:35)
[2024-02-26] MEDS ORDERED: GLUCOSE 40% GEL 15 GM TUBE PO PRN (02:35)
[2024-02-26] MEDS: LACTATED RINGER'S 1,000 ML IV SCH (03:30)
[2024-02-26] MEDS: MoRPHine SULFATE 2 MG/ML CARP IV PRN (03:33)
[2024-02-26 03:54] LABS: Basophils # (auto) 0.03 K/uL (0.00-0.20); Basophils % (auto) 0.3 %; Eosinophils # (auto) 0.07 K/uL (0.00-0.50); Eosinophils % (auto) 0.7 %; Hematocrit (blood only) 36.8 % (37.0-47.0); Hemoglobin 11.8 g/dl (12.0-16.0); Immature Granulocytes # (auto) 0.04 K/uL (0.01-0.20); Immature Granulocytes % (auto) 0.4 %; Lymphocytes # (auto) 1.11 K/uL (1.20-3.40); Lymphocytes % (auto) 11.1 %; Mean Corpuscular Hemoglobin 29.1 pg (25.0-34.0); Mean Corpuscular Hgb Conc 32.1 g/dL (32.0-36.0); Mean Corpuscular Volume 90.6 fL (80.0-100.0); Mean Platelet Volume 9.2 fL (9.4-12.4); Monocytes # (auto) 0.65 K/uL (0.11-0.59); Monocytes % (auto) 6.5 %; Neutrophils # (auto) 8.13 K/uL (1.40-6.50); Platelet Count 205 K/uL (130-400); RDW Coefficient of Variation 14.2 % (11.5-14.5); RDW Standard Deviation 47.8 fL (36.4-46.3); Red Blood Count 4.06 M/uL (4.20-5.40); White Blood Count 10.03 K/ul (4.8-10.8)
[2024-02-26] MEDS: INSULIN ASPART PER UNIT CHARGE SC SCH ×2 (06:16→17:37)
--- NOTE | 2024-02-26 07:58 | Hospitalist Progress Note ---
Date of Service February 26, 2024 Assessment & Plan (1) Fall: Plan: 83yo female with history of HTN, HLP, DM, AF (not on anticoagulation), JILLIAN presenting from home following a ground level fall resulting in femoral fracture CT head negative for acute CVA CXR no acute changes Imaging w/ displaced right femoral neck fracture Orthopedics consulted NPO LR x 2 L ordered, lasix order placed on hold while NPO/getting IVF Holding ISMN, lisinopril for surgery, monitor to resume. Continue metoprolol BID Pain control: morphine 4mg IV x 1 for uncontrolled pain, increased prn dosing and will monitor Bowel regimen, escalate as needed [place] placed in ER Per RCRI Criteria patient is medically stable. She may proceed to surgery with no additional testing. Medication management as above (2) Closed fracture of neck of right femur: Plan: Patient with displaced femoral neck fracture. -Pain control with morphine PRN -Zofran PRN -Bowel regimen -Orthopedic surgery consultation appreciated (3) Obstructive sleep apnea: Plan: Chronic, stable -CPAP 10cm H2O qHS (reports hasn't been using at home for several weeks from neck discomfort) Supplemental O2 as needed (4) Diabetic peripheral neuropathy associated with type 2 diabetes mellitus: Plan: Blood sugar well controlled -Hold home Glipizide -ISS (5) Benign hypertension: Plan: Blood pressure well controlled, presently 126/65 Will continue metoprolol BID, hold ISMN/lisinopril/lasix for now for OR Monitor/resume as able post-op if stable BP/renal function Plan Chronic Medical Conditions: Paroxysmal Atrial Fibrillation - patient presently in NSR, not on eliquis/anticoagulation due to frequent falls. Continue metoprolol, amoidarone. Ordered 1gm IV mag while waiting for OR and added to AM labs to ensure replete for surgery. K stable 3.9 Depression -Continue Sertraline 50mg po daily, Venlafaxine 37.5mg po daily, Clonazepam, Amitriptyline GERD -Continue Protonix 40mg po daily F/E/N - LR at 100mL/hr x 2L, electrolytes WNL, NPO for now Ppx - SCDs to bilateral LE for now, chemoproph following OR Updated daughter at bedside Admission and Anticipated Discharge Date Admission Date: February 26, 2024 Supervising Physician Co-Signing Physician Notes The patient was not seen by me. The chart was reviewed. Case discussed with TREVIN Preston. Agree with assessment and plan Subjective BRIDGE NOTE : Admitted after midnight Eval this morning, daughters Emerson/Dorinda in room. Pain tolerable but not yet well controlled. No issues w/ pain meds reported in the past. Will have RN provide Morphine 4mg IV x 1 now, adjust scale and monitor for adjustments. [place] in placed, will continue until post-op and eval by therapy. Daughters report she lives alone, uses walker/cane for ambulation but for longer distances patient reports she uses her hoverround. Has JILLIAN, not able ot wear CPAP w/ prior falls and pain to her neck, on supplemental O2. Discussed can discuss nasal pillows in f/u with PCP. No fever/chills, chest pain reported. Says some SOB from dry mouth but no cough/sputum production, mm appearing dry. On IVF and remains NPO for hopeful OR today but has not yet seen by orthopedics. Questions/concerns addressed at this time. Physical Exam 2 Physical Exam: General: 83yo female laying in bed, NAD but mildly uncomfortable with any movements/staying still HEENT: head atraumatic, normocephalic, mm DRY, trachea midline Resp: diminished in the bases but no overt wheezing/rales, on 2L O2 CV: RRR, faint systolic murmur, trace pedal edema but no pitting edema, pulses present/cap refill wnl GI: +BS, soft/slight distension, nontender : fairbanks draining concentrated urine MSK/Neuro: RLE shortened and externally rotated, +tenderness to palpation lateral hip, some slight diminished sensation along right foot but pulses present/cap refill wnl Psych: AOx3, cooperative with exam Results & Data Results & Data Vital Signs (Past 12 Hours) Vital Signs Temp Pulse Pulse Pulse Pulse Resp BP 02/26/24 07:13 36.7 C 74 16 02/26/24 02:51 02/26/24 02:51 37.0 C 71 16 02/26/24 01:42 74 18 102/48 L 02/26/24 01:14 78 20 105/66 02/26/24 00:31 73 18 126/54 L 02/26/24 00:00 80 18 109/58 L 02/25/24 23:39 02/25/24 23:30 80 16 128/82 02/25/24 23:00 80 22 111/60 02/25/24 22:40 82 02/25/24 22:40 36.8 C 80 20 02/25/24 22:40 36.8 C 81 17 110/65 BP BP Pulse Ox O2 Del Method O2 Flow Rate 02/26/24 07:13 126/65 93 Nasal Cannula 2 02/26/24 02:51 Nasal Cannula 2 02/26/24 02:51 165/72 H 96 Nasal Cannula 2 02/26/24 01:42 94 Nasal Cannula 2 02/26/24 01:14 94 Nasal Cannula 2 02/26/24 00:31 94 Nasal Cannula 2 02/26/24 00:00 94 Room Air 02/25/24 23:39 92 Room Air 02/25/24 23:30 93 Room Air 02/25/24 23:00 91 Room Air 02/25/24 22:40 02/25/24 22:40 110/65 93 Room Air 02/25/24 22:40 94 Room Air Laboratory Results 02/26/24 03:31 02/26/24 00:[address] 02/25/24 23:07 EXAM: CT head/brain wo con CLINICAL HISTORY: FELL AND HIT HEAD TECHNIQUE: An axial non-contrast CT scan of the brain was performed from the skull base to the high parietal region. One of the following dose reduction techniques was utilized for this exam: Automated exposure control, adjustment of the mA and/or kV according to patient size, and use of iterative reconstruction. (CTDI: 37.32 mGy, DLP: 625.80 mGy*cm) COMPARISON: 09/27/2020 FINDINGS: Brain Parenchyma: Multiple subcortical and ventricular white matter hypodensities likely represent chronic microvascular ischemic changes. Normal attenuation of the cerebral hemispheres, cerebellum, and brainstem. No evidence of acute infarct, hemorrhage, or mass effect. No abnormal areas of hyperattenuation. Ventricular System: The capacious ventricular system, denoting senile brain atrophic changes. No evidence of hydrocephalus or ventricular enlargement. Subarachnoid Spaces: Capacious CSF spaces, denoting senile brain atrophic changes. No evidence of subarachnoid hemorrhage or extra-axial fluid collections. Cerebellum and Brainstem: Normal size and attenuation. No masses, lesions, or areas of abnormal attenuation. Orbits: Normal appearance of the globes, optic nerves, and extraocular muscles. No evidence of orbital masses or abnormal attenuation. Sinuses: Clear paranasal sinuses. No evidence of sinusitis or mucosal thickening. Mastoid Air Cells: Clear mastoid air cells. No evidence of mastoiditis. Skull and Meninges: Mild frontal bone thickening. Unchanged. Likely of no clinical significance. IMPRESSION: 1. No evidence of acute skull vault fracture or acute intracranial hemorrhage. 2. Chronic microvascular ischemic changes. 3. Senile brain atrophy changes 4. No significant interval changes compared to the prior study, dated 09/27/2020. Electronically signed by Lan Villa 02-26-2024 12:49 AM Hip X-Ray 02/25/24 23:07 Exam(s): XR RIGHT HIP EXAM: XR Right Hip With Pelvis When Performed, 2 or 3 Views CLINICAL HISTORY: fall, right hip pain. TECHNIQUE: Two or three views of the right hip with pelvis when performed. COMPARISON: No relevant prior studies available. FINDINGS: Bones/joints: Displaced right femoral neck fracture with slight foreshortening of the femoral shaft. The femoral head remains in the acetabulum. Limited inclusion of the pelvic bones is unremarkable. Soft tissues: No definite significant traumatic injury suspected. No radiopaque foreign body. IMPRESSION: Displaced right femoral neck fracture with slight foreshortening of the femoral shaft. The femoral head remains in the acetabulum. Electronically signed by: Rito Barillas MD 02/26/24 00:26 AM Chest X-Ray 02/25/24 23:08 Exam(s): XR CXR 1 VIEW EXAM: XR Chest, 1 View CLINICAL HISTORY: fall, hip pain. TECHNIQUE: Frontal view of the chest. COMPARISON: Chest single view 11/12/2023 FINDINGS: Lungs: The lungs are similarly expanded. No definite focal airspace consolidation identified. Similar presumed chronic interstitial changes noted. No radiographic evidence for florid CHF. Pleural space: No definite large pleural effusion or pneumothorax, accounting for supine technique and overlying soft tissues. Heart: The cardiac silhouette is within normal limits, accounting for portable supine technique. Mediastinum: No significant abnormality identified. The trachea is midline. Bones/joints: Multilevel degenerative changes throughout the thoracolumbar spine. No acute osseous abnormality. Vasculature: The nasal contours are stable and unremarkable with atherosclerotic calcification aortic arch. No tracheal deviation. IMPRESSION: No definite acute cardiopulmonary process or significant alteration from the prior examination. Electronically signed by: Rito Barillas MD 02/26/24 00:25 AM PG Care Time/CCT Total # of Minutes Spent Total Time Spent with Patient: Total time spent is greater than 50% in coordination of care (as documented) at patient's floor/unit and/or counseling patient: Coding Level of Care Code None Diagnoses Fall W19.XXXA Closed fracture of neck of right femur S72.001A Obstructive sleep apnea G47.33 Diabetic peripheral neuropathy associated with type 2 diabetes mellitus E11.42 Benign hypertension I10
--- NOTE | 2024-02-26 08:31 | Orthopedic Consultation ---
Date of Consultation February 26, 2024 Assessment & Plan (1) Closed fracture of neck of right femur: The patient is a 83 year old female who sustained a Traumatic Osteoporotic fracture of right femoral neck in setting of ground level fall. After orthopedic consult discussing the patients treatment options of conservative versus surgical intervention, the patient agreed for a planned hemiarthroplasty. Since the patient was ambulatory prior to the injury and to avoid the risks of bed sores, pulmonary complications, and to give the patient the best chance for ambulation, I recommended surgery. The patient understands the risks of surgery, which include but are not limited to: bleeding, infection, re-operation, damage to nerves and arteries, continued pain, failure of the hardware, fracture, dislocation, DVT, TX, stroke, and . In addition, the patient is aware of the 20-30% morbidity associated with hip fracture for up to 1 year following a hip fracture. The patient understands all of these instructions and explanations, all of their questions have been satisfactorily addressed. The patient has elected to proceed with surgery and the informed consent was signed. The patient has a [place] in place. Continue pain control. Has been NPO with fluids after midnight. The patient will be admitted to the Hospitalist service. The patient has been placed on the add-on list for today and will plan to proceed with surgery as she is medically cleared. Present on Admission?: Yes History of Present Illness Reason for Consultation: R hip fracture Requesting Physician: Ilan Pratt MD Attending Physician: Ovi Henry MD History of Present Illness 83 yo female sustained a ground level fall injuring her right hip. She came to ED where x-rays were obtained and she was noted to have right hip fracture. She was admitted to Hospitalist service and I was consulted for further evaluation and treatment of the hip fracture. She ambulates with a cane and walker. Allergies Allergy/AdvReac Type Severity Reaction Status Date / Time pravastatin Allergy Intermediate HEART Verified 02/26/24 11:07 ATTACK LIKE SYMPTOMS apixaban [From Eliquis] AdvReac Severe BODY WENT Verified 02/26/24 11:07 NUMB duloxetine AdvReac Severe LOSS OF Verified 02/26/24 11:07 CONSCIOUSNESS ciprofloxacin AdvReac Intermediate DIARRHEA Verified 02/26/24 11:07 metformin AdvReac Intermediate Diarrhea Verified 02/26/24 11:07 sitagliptin AdvReac Intermediate ILLNESS Verified 02/26/24 11:07 Home Medications Medication Instructions Recorded Confirmed Type albuterol sulfate 90 mcg/actuation 2 puff inhalation QID PRN Wheezing 12/16/17 06/30/23 History aerosol inhaler (Ventolin HFA) amitriptyline 10 mg tablet 10 mg PO HS 07/19/18 06/30/23 History ondansetron HCl 4 mg tablet 4 mg PO TID PRN Nausea/vomiting 01/04/19 06/30/23 History pantoprazole 40 mg tablet,delayed 40 mg PO DAILY 01/04/19 06/30/23 History release nitroglycerin 0.3 mg sublingual 0.3 mg sublingual Q5M PRN chest 01/05/19 06/30/23 Rx tablet pain #10 tabs tramadol 50 mg tablet 50 mg PO .COMPLEX PRN Pain 01/24/19 06/30/23 History metoprolol succinate 25 mg 25 mg PO BID #60 tabs 10/14/19 06/30/23 Rx tablet,extended release 24 hr amiodarone 200 mg tablet 200 mg PO DAILY 09/27/20 06/30/23 History furosemide 40 mg tablet 40 mg PO DAILY 09/27/20 06/30/23 History glipizide 5 mg tablet, extended 5 mg PO DAILY 09/27/20 06/30/23 History release 24 hr isosorbide mononitrate 30 mg 30 mg PO QAM 09/27/20 06/30/23 History tablet,extended release 24 hr omeprazole 20 mg capsule,delayed 20 mg PO DAILY 09/27/20 06/30/23 History release potassium chloride 20 mEq 20 meq PO DAILY 09/27/20 06/30/23 History tablet,extended release sertraline 50 mg tablet 50 mg PO DAILY 09/27/20 06/30/23 History venlafaxine 37.5 mg 37.5 mg PO DAILY 09/27/20 06/30/23 History capsule,extended release 24 hr aspirin 81 mg tablet,delayed 81 mg PO DAILY 03/10/22 06/30/23 History release diclofenac sodium 1 % topical gel 1 ea topical QID PRN Pain 03/10/22 06/30/23 History lisinopril 5 mg tablet 5 mg PO DAILY 03/10/22 06/30/23 History polyethylene glycol 3350 17 17 g PO DAILY 03/10/22 06/30/23 History gram/dose oral powder (Miralax) clonazepam 0.5 mg tablet 0.5 mg PO DAILY 06/30/23 06/30/23 History Patient History Medical History History of acute respiratory failure Chronic sinusitis Carpal tunnel syndrome (07/12/12) Arthritis Allergic rhinitis Abnormal ECG Diarrhea Abdominal pain Dyslipidemia Hypertension Diabetes mellitus, type 2 Asthma Fracture of fibula, distal, right, closed (~2013) Surgical History H/O tubal ligation Hx of cataract surgery Hx of cholecystectomy Hx of total knee arthroplasty Family History Grandmother Cancer Mother Diabetes Breast cancer Arthritis Skin cancer Brother Diabetes Lymphoma Sister Breast cancer Skin cancer Grandmother Lung cancer Social History Smoking Status: Never smoker Hx Alcohol Use: No Hx Substance Use: No Preferred Language: Portuguese Communication Ability: Effective Visual Impairment: Limited Hearing Ability: Normal Shipper Required: No Beliefs That Will Affect Care: None marital status: / Current Living Situation: Alone Current Living Situation Comment: grandson lives with pt current occupational status: retired How many Children do You have: 4 How many Children do You have Comment: Most children are local but not very involved with care. Feels Safe at Home: Yes Safety Concerns: Feels Safe At This Time Safety Concerns Comment: Pt stated adult grandson at times is very "mouthy" with her. Diet: regular Assistive Devices: Oxygen - Continuous and Scooter/Electric Scooter Review of Systems Review of Systems: All systems reviewed & are unremarkable except as noted in HPI & below Physical Exam Physical Exam: RLE: Sensation to light touch 50% reduced since the injury. BCR < 2 sec. Wiggling toes and ankle. Shortened and externally rotated. Results & Data Vital Signs (Past 12 Hours) Vital Signs Temp Pulse Pulse Pulse Pulse Resp BP 02/26/24 07:13 36.7 C 74 16 02/26/24 02:51 02/26/24 02:51 37.0 C 71 16 02/26/24 01:42 74 18 102/48 L 02/26/24 01:14 78 20 105/66 02/26/24 00:31 73 18 126/54 L 02/26/24 00:00 80 18 109/58 L 02/25/24 23:39 02/25/24 23:30 80 16 128/82 02/25/24 23:00 80 22 111/60 02/25/24 22:40 82 02/25/24 22:40 36.8 C 80 20 02/25/24 22:40 36.8 C 81 17 110/65 BP BP Pulse Ox O2 Del Method O2 Flow Rate 02/26/24 07:13 126/65 93 Nasal Cannula 2 02/26/24 02:51 Nasal Cannula 2 02/26/24 02:51 165/72 H 96 Nasal Cannula 2 02/26/24 01:42 94 Nasal Cannula 2 02/26/24 01:14 94 Nasal Cannula 2 02/26/24 00:31 94 Nasal Cannula 2 02/26/24 00:00 94 Room Air 02/25/24 23:39 92 Room Air 02/25/24 23:30 93 Room Air 02/25/24 23:00 91 Room Air 02/25/24 22:40 02/25/24 22:40 110/65 93 Room Air 02/25/24 22:40 94 Room Air Laboratory Results Laboratory Results WBC 10.03 K/ul (4.8-10.8) 02/26/24 03:31 RBC 4.06 M/uL (4.20-5.40) L 02/26/24 03:31 Hgb 11.8 g/dl (12.0-16.0) L 02/26/24 03:31 Hct 36.8 % (37.0-47.0) L 02/26/24 03:31 MCV 90.6 fL (80.0-100.0) 02/26/24 03:31 MCH 29.1 pg (25.0-34.0) 02/26/24 03:31 MCHC 32.1 g/dL (32.0-36.0) 02/26/24 03:31 RDW Std Deviation 47.8 fL (36.4-46.3) H 02/26/24 03:31 RDW Coeff of [place] 14.2 % (11.5-14.5) 02/26/24 03:31 Plt Count 205 K/uL (130-400) 02/26/24 03:31 MPV 9.2 fL (9.4-12.4) L 02/26/24 03:31 Immature Gran % (Auto) 0.4 % 02/26/24 03:31 Neut % (Auto) 81.0 % 02/26/24 03:31 Lymph % (Auto) 11.1 % 02/26/24 03:31 [place] % (Auto) 6.5 % 02/26/24 03:31 Eos % (Auto) 0.7 % 02/26/24 03:31 Baso % (Auto) 0.3 % 02/26/24 03:31 Neut # (Auto) 8.13 K/uL (1.40-6.50) H 02/26/24 03:31 Lymph # (Auto) 1.11 K/uL (1.20-3.40) L 02/26/24 03:31 [place] # (Auto) 0.65 K/uL (0.11-0.59) H 02/26/24 03:31 Eos # (Auto) 0.07 K/uL (0.00-0.50) 02/26/24 03:31 Baso # (Auto) 0.03 K/uL (0.00-0.20) 02/26/24 03:31 Immature Gran # (Auto) 0.04 K/uL (0.01-0.20) 02/26/24 03:31 Absolute Nucleated RBC Cancelled 02/26/24 00:55 Nucleated RBC % (auto) Cancelled 02/26/24 00:55 Neutrophils % (Manual) Cancelled 02/26/24 00:55 Band Neutrophils % Cancelled 02/26/24 00:55 Lymphocytes % (Manual) Cancelled 02/26/24 00:55 Prolymphocyte % Cancelled 02/26/24 00:55 Reactive Lymphs % (Man) Cancelled 02/26/24 00:55 Monocytes % (Manual) Cancelled 02/26/24 00:55 Eosinophils % (Manual) Cancelled 02/26/24 00:55 Basophils % (Manual) Cancelled 02/26/24 00:55 Metamyelocytes % (Man) Cancelled 02/26/24 00:55 Myelocytes % (Man) Cancelled 02/26/24 00:55 Promyelocytes % (Man) Cancelled 02/26/24 00:55 Blast Cells % (Manual) Cancelled 02/26/24 00:55 Plasma Cell % (Manual) Cancelled 02/26/24 00:55 Other Cells % Cancelled 02/26/24 00:55 Nucleated RBC % Cancelled 02/26/24 00:55 Neutrophils # (Manual) Cancelled 02/26/24 00:55 Band Neutrophils # Cancelled 02/26/24 00:55 Total Absolute Neuts Cancelled 02/26/24 00:55 Lymphocytes # (Manual) Cancelled 02/26/24 00:55 Prolymphocyte # Cancelled 02/26/24 00:55 Reactive Lymphs # Cancelled 02/26/24 00:55 Total Abs Lymphocytes Cancelled 02/26/24 00:55 Monocytes # (Manual) Cancelled 02/26/24 00:55 Eosinophils # (Manual) Cancelled 02/26/24 00:55 Basophils # (Manual) Cancelled 02/26/24 00:55 Metamyelocytes # (Man) Cancelled 02/26/24 00:55 Myelocytes # (Manual) Cancelled 02/26/24 00:55 Promyelocytes # (Man) Cancelled 02/26/24 00:55 Blast Cells # (Man) Cancelled 02/26/24 00:55 Plasma Cell # (Manual) Cancelled 02/26/24 00:55 Other Cells # Cancelled 02/26/24 00:55 Nucleated RBCs # (Man) Cancelled 02/26/24 00:55 Hypersegmented Neuts Cancelled 02/26/24 00:55 Hyposegmented Neuts Cancelled 02/26/24 00:55 Hypogranular Neuts Cancelled 02/26/24 00:55 Large Granular Lymphs Cancelled 02/26/24 00:55 # Lrg Granular Lymphs Cancelled 02/26/24 00:55 Hairy Cells Cancelled 02/26/24 00:55 Smudge Cells Cancelled 02/26/24 00:55 Blood Smear Review Cancelled 02/26/24 01:40 Toxic Granulation Cancelled 02/26/24 00:55 Toxic Vacuolation Cancelled 02/26/24 00:55 Dohle Bodies Cancelled 02/26/24 00:55 Jerry Rods Cancelled 02/26/24 00:55 Platelet Estimate Cancelled 02/26/24 00:55 Hypogranular Platelets Cancelled 02/26/24 00:55 Giant Platelets Cancelled 02/26/24 00:55 Platelet Satelliting Cancelled 02/26/24 00:55 RBC Morphology Cancelled 02/26/24 00:55 Polychromasia Cancelled 02/26/24 00:55 Hypochromasia Cancelled 02/26/24 00:55 Poikilocytosis Cancelled 02/26/24 00:55 Basophilic Stippling Cancelled 02/26/24 00:55 Anisocytosis Cancelled 02/26/24 00:55 Microcytosis Cancelled 02/26/24 00:55 Macrocytosis Cancelled 02/26/24 00:55 Spherocytes Cancelled 02/26/24 00:55 Pappenheimer Bodies Cancelled 02/26/24 00:55 Sickle Cells Cancelled 02/26/24 00:55 Target Cells Cancelled 02/26/24 00:55 Tear Drop Cells Cancelled 02/26/24 00:55 Ovalocytes Cancelled 02/26/24 00:55 Stomatocytes Cancelled 02/26/24 00:55 [place]-Burdick Bodies Cancelled 02/26/24 00:55 Echinocytes Cancelled 02/26/24 00:55 Acanthocytes (Spur) Cancelled 02/26/24 00:55 Rouleaux Cancelled 02/26/24 00:55 RBC Agglutinates Cancelled 02/26/24 00:55 Schistocytes Cancelled 02/26/24 00:55 Sezary Cell Cancelled 02/26/24 00:55 PT 10.4 Seconds (9.0-12.0) 02/26/24 00:55 INR 1.0 (0.9-1.1) 02/26/24 00:55 APTT 26 Seconds (21-31) 02/26/24 00:55 PTT Ratio 1.0 02/26/24 00:55 Sodium 135 mmol/L (136-145) L 02/26/24 00:55 Potassium 3.9 mmol/L (3.5-5.1) 02/26/24 00:55 Chloride 101 mmol/L (98-107) 02/26/24 00:55 Carbon Dioxide 26 mmol/L (21-32) 02/26/24 00:55 Anion Gap 8 (3-11) 02/26/24 00:55 BUN 13 mg/dl (6-23) 02/26/24 00:55 Creatinine 1.15 mg/dl (0.6-1.2) 02/26/24 00:55 Est Cr Clr Drug Dosing 40.0 ml/min 02/26/24 00:55 eGFR 46.97 02/26/24 00:55 BUN/Creatinine Ratio 11.3 (10-20) 02/26/24 00:55 Glucose 175 mg/dl (70-99(Fasting)) H 02/26/24 00:55 POC Glucose 186 mg/dl (70-99) H 02/26/24 06:08 Calcium 8.5 mg/dl (8.6-10.3) L 02/26/24 00:55 Total Bilirubin 0.3 mg/dl (0.2-1.0) 02/26/24 00:55 AST 22 U/L (13-39) 02/26/24 00:55 ALT 10 U/L (7-52) 02/26/24 00:55 Alkaline Phosphatase 62 U/L (34-104) 02/26/24 00:55 Total Protein 6.7 gm/dl (6.0-8.3) 02/26/24 00:55 Albumin 3.6 gm/dl (3.4-5.0) 02/26/24 00:55 Globulin 3.1 gm/dl (2.5-4.0) 02/26/24 00:55 Albumin/Globulin Ratio 1.2 (0.9-2) 02/26/24 00:55 Urine Color Yellow 02/26/24 00:25 Urine Appearance Clear (Clear) 02/26/24 00:25 Urine pH 5.5 (4.5-7.5) 02/26/24 00:25 Ur Specific [place] 1.009 (1.000-1.030) 02/26/24 00:25 Urine Protein Negative (Negative) 02/26/24 00:25 Urine Glucose (UA) Negative (Negative) 02/26/24 00:25 Urine Ketones Negative (Negative) 02/26/24 00:25 Urine Blood Negative (Negative) 02/26/24 00: Urine Nitrite Negative (Negative) 02/26/24 00:25 Urine Bilirubin Negative (Negative) 02/26/24 00:25 Urine Urobilinogen Negative (Negative) 02/26/24 00:25 Ur Leukocyte Esterase Trace (Negative) H 02/26/24 00:25 Urine WBC (Auto) 0-5 /hpf (0-5) 02/26/24 00:25 Urine RBC (Auto) 0-2 /hpf (0-2) 02/26/24 00:25 U Hyaline Cast (Auto) 0-2 /lpf (0-2) 02/26/24 00:25 U Epithel Cells (Auto) 0-2 /hpf (0-2) 02/26/24 00:25 Urine Bacteria (Auto) None Seen (None Seen) 02/26/24 00:25 Blood Parasites ID Cancelled 02/26/24 00:[address] 02/25/24 23:07 EXAM: CT head/brain wo con CLINICAL HISTORY: FELL AND HIT HEAD TECHNIQUE: An axial non-contrast CT scan of the brain was performed from the skull base to the high parietal region. One of the following dose reduction techniques was utilized for this exam: Automated exposure control, adjustment of the mA and/or kV according to patient size, and use of iterative reconstruction. (CTDI: 37.32 mGy, DLP: 625.80 mGy*cm) COMPARISON: 09/27/2020 FINDINGS: Brain Parenchyma: Multiple subcortical and ventricular white matter hypodensities likely represent chronic microvascular ischemic changes. Normal attenuation of the cerebral hemispheres, cerebellum, and brainstem. No evidence of acute infarct, hemorrhage, or mass effect. No abnormal areas of hyperattenuation. Ventricular System: The capacious ventricular system, denoting senile brain atrophic changes. No evidence of hydrocephalus or ventricular enlargement. Subarachnoid Spaces: Capacious CSF spaces, denoting senile brain atrophic changes. No evidence of subarachnoid hemorrhage or extra-axial fluid collections. Cerebellum and Brainstem: Normal size and attenuation. No masses, lesions, or areas of abnormal attenuation. Orbits: Normal appearance of the globes, optic nerves, and extraocular muscles. No evidence of orbital masses or abnormal attenuation. Sinuses: Clear paranasal sinuses. No evidence of sinusitis or mucosal thickening. Mastoid Air Cells: Clear mastoid air cells. No evidence of mastoiditis. Skull and Meninges: Mild frontal bone thickening. Unchanged. Likely of no clinical significance. IMPRESSION: 1. No evidence of acute skull vault fracture or acute intracranial hemorrhage. 2. Chronic microvascular ischemic changes. 3. Senile brain atrophy changes 4. No significant interval changes compared to the prior study, dated 09/27/2020. Electronically signed by Lan Villa 02-26-2024 12:49 AM Hip X-Ray 02/25/24 23:07 Exam(s): XR RIGHT HIP EXAM: XR Right Hip With Pelvis When Performed, 2 or 3 Views CLINICAL HISTORY: fall, right hip pain. TECHNIQUE: Two or three views of the right hip with pelvis when performed. COMPARISON: No relevant prior studies available. FINDINGS: Bones/joints: Displaced right femoral neck fracture with slight foreshortening of the femoral shaft. The femoral head remains in the acetabulum. Limited inclusion of the pelvic bones is unremarkable. Soft tissues: No definite significant traumatic injury suspected. No radiopaque foreign body. IMPRESSION: Displaced right femoral neck fracture with slight foreshortening of the femoral shaft. The femoral head remains in the acetabulum. Electronically signed by: Rito Barillas MD 02/26/24 00:26 AM Chest X-Ray 02/25/24 23:08 Exam(s): XR CXR 1 VIEW EXAM: XR Chest, 1 View CLINICAL HISTORY: fall, hip pain. TECHNIQUE: Frontal view of the chest. COMPARISON: Chest single view 11/12/2023 FINDINGS: Lungs: The lungs are similarly expanded. No definite focal airspace consolidation identified. Similar presumed chronic interstitial changes noted. No radiographic evidence for florid CHF. Pleural space: No definite large pleural effusion or pneumothorax, accounting for supine technique and overlying soft tissues. Heart: The cardiac silhouette is within normal limits, accounting for portable supine technique. Mediastinum: No significant abnormality identified. The trachea is midline. Bones/joints: Multilevel degenerative changes throughout the thoracolumbar spine. No acute osseous abnormality. Vasculature: The nasal contours are stable and unremarkable with atherosclerotic calcification aortic arch. No tracheal deviation. IMPRESSION: No definite acute cardiopulmonary process or significant alteration from the prior examination. Electronically signed by: Rito Barillas MD 02/26/24 00:25 AM
[2024-02-26] MEDS: FUROSEMIDE 40 MG TAB PO SCH (09:15)
[2024-02-26] MEDS: MAGNESIUM SULFATE / D5W 1 GM/100 ML BAG IV ONE (09:24)
[2024-02-26] MEDS: MoRPHine SULFATE 4 MG/ML 1 ML CARP\\VIAL IV STA (09:26)
[2024-02-26] MEDS: AMIODARONE 200 MG TAB PO SCH (09:29)
[2024-02-26] MEDS: PANTOprazole 40 MG TAB PO SCH (09:29)
[2024-02-26] MEDS: SERTRALINE HCL 50 MG TABLET PO SCH (09:30)
[2024-02-26] MEDS: VENLAFAXINE HCL XR 37.5 MG CAPXR PO SCH (09:30)
[2024-02-26] MEDS: METOPROLOL SUCC 25MG EXT REL TAB PO SCH (09:30)
[2024-02-26 09:35] LABS: Magnesium 1.9 mg/dl (1.7-2.4)
--- NOTE | 2024-02-26 11:02 | Anesthesiology Consultation ---
Date of Service February 26, 2024 Assessment & Plan Chart Review Chart Review: Acceptable Risk for Surgery and Patient NOT seen in Pre Admission Testing Consults Requested none History Surgery Operation Date: 02/26/24 10:00 Proposed Procedures p Right Hip Hemiarthroplasty - Himanshu Pratt MD Height/Weight Height: 5 ft 3 in Weight: 91.2 kg Allergies Allergy/AdvReac Type Severity Reaction Status Date / Time pravastatin Allergy Intermediate HEART Verified 10/21/22 14:21 ATTACK LIKE SYMPTOMS apixaban [From Eliquis] AdvReac Severe BODY WENT Verified 10/21/22 14:21 NUMB duloxetine AdvReac Severe LOSS OF Verified 10/21/22 14:21 CONSCIOUSNESS ciprofloxacin AdvReac Intermediate DIARRHEA Verified 10/21/22 14:21 metformin AdvReac Intermediate Diarrhea Verified 10/21/22 14:21 sitagliptin AdvReac Intermediate ILLNESS Verified 10/21/22 14:21 Medications Home Medications Medication Instructions Recorded Confirmed Last Taken albuterol sulfate 90 mcg/actuation 2 puff inhalation QID PRN Wheezing 12/16/17 06/30/23 Unknown aerosol inhaler (Ventolin HFA) amitriptyline 10 mg tablet 10 mg PO HS 07/19/18 06/30/23 09/21/22 ondansetron HCl 4 mg tablet 4 mg PO TID PRN Nausea/vomiting 01/04/19 06/30/23 Unknown pantoprazole 40 mg tablet,delayed 40 mg PO DAILY 01/04/19 06/30/23 09/22/22 release nitroglycerin 0.3 mg sublingual 0.3 mg sublingual Q5M PRN chest 01/05/19 06/30/23 Unknown tablet pain #10 tabs tramadol 50 mg tablet 50 mg PO .COMPLEX PRN Pain 01/24/19 06/30/23 10/11/19 metoprolol succinate 25 mg 25 mg PO BID #60 tabs 10/14/19 06/30/23 09/22/22 08:00 tablet,extended release 24 hr amiodarone 200 mg tablet 200 mg PO DAILY 09/27/20 06/30/23 09/22/22 furosemide 40 mg tablet 40 mg PO DAILY 09/27/20 06/30/23 09/22/22 glipizide 5 mg tablet, extended 5 mg PO DAILY 09/27/20 06/30/23 09/22/22 release 24 hr isosorbide mononitrate 30 mg 30 mg PO QAM 09/27/20 06/30/23 09/22/22 tablet,extended release 24 hr omeprazole 20 mg capsule,delayed 20 mg PO DAILY 09/27/20 06/30/23 09/22/22 release potassium chloride 20 mEq 20 meq PO DAILY 09/27/20 06/30/23 09/22/22 tablet,extended release sertraline 50 mg tablet 50 mg PO DAILY 09/27/20 06/30/23 09/22/22 venlafaxine 37.5 mg 37.5 mg PO DAILY 09/27/20 06/30/23 09/22/22 capsule,extended release 24 hr aspirin 81 mg tablet,delayed 81 mg PO DAILY 03/10/22 06/30/23 09/22/22 release diclofenac sodium 1 % topical gel 1 ea topical QID PRN Pain 03/10/22 06/30/23 Unknown lisinopril 5 mg tablet 5 mg PO DAILY 03/10/22 06/30/23 09/22/22 polyethylene glycol 3350 17 17 g PO DAILY 03/10/22 06/30/23 09/22/22 gram/dose oral powder (Miralax) clonazepam 0.5 mg tablet 0.5 mg PO DAILY 06/30/23 06/30/23 Unknown Active Medications Generic Name Dose Route Start Last Admin Trade Name Freq PRN Reason Stop Dose Admin Amiodarone HCl 200 mg 02/26/24 09:00 02/26/24 09:29 Amiodarone 200 Mg Tab PO 03/27/24 08:59 200 mg DAILY RIVAS Administration Furosemide 40 mg 02/26/24 09:00 02/26/24 09:15 Furosemide 40 Mg Tab PO 03/27/24 08:59 Not Given DAILY RIVAS Lactated Ringer's 1,000 mls @ 100 mls/hr 02/26/24 03:00 02/26/24 03:30 Lr IV 02/27/24 22:59 100 mls/hr .Q10H RIVAS Administration Insulin Aspart 0 units 02/26/24 06:00 02/26/24 06:16 Insulin Aspart Per Unit Charge SC 03/27/24 05:59 1 units Q6 RIVAS Administration Metoprolol Succinate 25 mg 02/26/24 09:00 02/26/24 09:30 Metoprolol Succ 25mg Ext Rel Tab PO 03/27/24 08:59 25 mg BID RIVAS Administration Pantoprazole Sodium 40 mg 02/26/24 09:00 02/26/24 09:29 Pantoprazole 40 Mg Tab PO 03/27/24 08:59 40 mg DAILY RIVAS Administration Sertraline HCl 50 mg 02/26/24 09:00 02/26/24 09:30 Sertraline Hcl 50 Mg Tablet PO 03/27/24 08:59 50 mg DAILY RIVAS Administration Venlafaxine HCl 37.5 mg 02/26/24 09:00 02/26/24 09:30 Venlafaxine Hcl Xr 37.5 Mg Capxr PO 03/27/24 08:59 37.5 mg DAILY RIVAS Administration Past Medical History Medical History History of acute respiratory failure Chronic sinusitis Carpal tunnel syndrome (07/12/12) Arthritis Allergic rhinitis Abnormal ECG Diarrhea Abdominal pain Dyslipidemia Hypertension Diabetes mellitus, type 2 Asthma Fracture of fibula, distal, right, closed (~2013) Past Family History Family History Grandmother Cancer Mother Diabetes Breast cancer Arthritis Skin cancer Brother Diabetes Lymphoma Sister Breast cancer Skin cancer Grandmother Lung cancer Past Surgical History Surgical History H/O tubal ligation Hx of cataract surgery Hx of cholecystectomy Hx of total knee arthroplasty Social History Smoking Status: Never smoker Hx Alcohol Use: No Hx Substance Use: No Physical Exam Vital Signs Last Vital Signs Temp 36.7 C 02/26/24 07:13 Pulse 74 02/26/24 07:13 Resp 16 02/26/24 07:13 BP 126/65 02/26/24 07:13 Pulse Ox 93 02/26/24 07:13 O2 Del Method Nasal Cannula 02/26/24 07:13 O2 Flow Rate 2 02/26/24 07:13 Testing Laboratory Results 02/26/24 03:31 02/26/24 00:55 PT 10.4 Seconds (9.0-12.0) 02/26/24 00:55 INR 1.0 (0.9-1.1) 02/26/24 00:55 APTT 26 Seconds (21-31) 02/26/24 00:55 Urine Color Yellow 02/26/24 00:25 Urine Appearance Clear (Clear) 02/26/24 00:25 Urine pH 5.5 (4.5-7.5) 02/26/24 00:25 Ur Specific [place] 1.009 (1.000-1.030) 02/26/24 00:25 Urine Protein Negative (Negative) 02/26/24 00:25 Urine Glucose (UA) Negative (Negative) 02/26/24 00:25 Urine Ketones Negative (Negative) 02/26/24 00:25 Urine Nitrite Negative (Negative) 02/26/24 00:25 Ur Leukocyte Esterase Trace (Negative) H 02/26/24 00:25 Urine WBC (Auto) 0-5 /hpf (0-5) 02/26/24 00:25 Urine RBC (Auto) 0-2 /hpf (0-2) 02/26/24 00:25 U Hyaline Cast (Auto) 0-2 /lpf (0-2) 02/26/24 00:25 U Epithel Cells (Auto) 0-2 /hpf (0-2) 02/26/24 00:25 Urine Bacteria (Auto) None Seen (None Seen) 02/26/24 00:25 02/26/24 02/26/24 06:08 02:12 POC Glucose 186 H 174 H
[2024-02-26] MEDS ORDERED: LIDOCAINE 2% 2 ML VIAL/AMP(20MG/ML) INFIL ONE (11:45)
[2024-02-26] MEDS ORDERED: ONDANSETRON INJ 2 MG/ML 2 ML VIAL ONE (11:45)
[2024-02-26] MEDS ORDERED: PROPOFOL IV EMULSION 10 MG/ML 20 ML VIAL IV ONE (11:45)
[2024-02-26] MEDS ORDERED: DEXAMETHASONE SOD INJ 4 MG/ML VIAL ONE (11:45)
[2024-02-26] MEDS ORDERED: MIDAZOLAM HCL 1 MG/ML 2ML VIAL ONE (11:46)
[2024-02-26] MEDS ORDERED: fentaNYL citrate PF 100 MCG/2 ML VIAL ONE (11:46)
[2024-02-26] MEDS ORDERED: ROCURONIUM BROMIDE 10 MG/ML 5 ML VIAL IV ONE ×2 (11:51→13:26)
[2024-02-26] MEDS: TRANEXAMIC ACID / 0.7% NACL 1,000 MG/100 ML BAG IV ONE ×2 (12:11→13:23)
[2024-02-26] MEDS: ceFAZolin 2000MG 2,000 MG/15 ML SYR IV ONE (12:20)
[2024-02-26] MEDS: BUPIVACAINE 0.5 % 5 MG/1 ML MPF 30ML VIAL ONE (13:03)
[2024-02-26] MEDS: LIDOCAINE 1%/EPINEPHRINE 1:100,000 50 ML VIAL INFIL ONE (13:04)
[2024-02-26] MEDS ORDERED: ePHEDrine sulfate 50 MG/5 ML SYR ONE (14:18)
--- NOTE | 2024-02-26 14:33 | XRay Report ---
EXAM: Radiographs of the Right Hip 1 View INDICATION: Intraoperative imaging during arthroplasty. TECHNIQUE: Frontal and lateral views provided. Image obtained at 2:14 PM COMPARISON: No relevant prior studies available. FINDINGS: Bones/joints: The proximal femur has been resected. Metallic hardware noted in the femoral shaft. No fracture. Soft tissues: Gas in the soft tissues at the level of the proximal femur typical of an open wound. Vasculature: Atherosclerosis. IMPRESSION: Intraoperative image right hip during replacement. ACT 112: Negative or not required by law. Electronically signed by Natalia Culver 02-26-2024 2:32 PM
[2024-02-26] MEDS ORDERED: NEOSTIGMINE METHYLSULFATE 1 MG/ML 10ML VIAL ONE (14:40)
[2024-02-26] MEDS ORDERED: GLYCOPYRROLATE 0.2 MG/ML VIAL ONE ×2 (14:40)
[2024-02-26] MEDS ORDERED: SUGAMMADEX SODIUM 200 MG/2 ML VIAL IV ONE (14:59)
--- NOTE | 2024-02-26 15:23 | Post Operative Brief Note ---
Immediate Post Op Note Date of Surgery February 26, 2024 Pre & Post Diagnosis Operation Date: 02/26/24 10:00 Pre-Op Diagnosis: Right hip fracture Post-Op Diagnosis: Right hip fracture I identified the patient and participated in the time-out.: Yes Procedure Operation Date: 02/26/24 10:00 Actual Procedures p Right Hip Hemiarthroplasty(Right) - Himanshu Pratt MD Surgeon Himanshu Pratt MD Application Design Engineer EVERETT Patel PA-C (No fellow avail) Estimated Blood Loss 120 Findings Consistent with Post-Op Diagnosis Fluids 1400 cc Specimens R hip contents Drains [place] Catheter Anesthesia Type General Complications none
--- NOTE | 2024-02-26 15:24 | Operative Report ---
Post Operative Report Pre & Post Diagnosis Operation Date: 02/26/24 10:00 Pre-Op Diagnosis: Right hip fracture Post-Op Diagnosis: Right hip fracture I identified the patient and participated in the time-out.: Yes Procedure Operation Date: 02/26/24 10:00 Actual Procedures p Right Hip Hemiarthroplasty(Right) - Himanshu Pratt MD Surgeon Himanshu Pratt MD Adoption Coordinator EVERETT Patel PA-C (No fellow avail) Estimated Blood Loss 120 Findings See Below R femoral neck fracture, comminuted, displaced, impaled and torn capsule. Fluids 1400 cc Specimens R hip contents Drains [place] Anesthesia Type General Complications none Indications The patient is an 83 year old female who sustained a Traumatic Osteoporotic fracture of right femoral neck in setting of ground level fall. After orthopedic consult discussing the patients treatment options of conservative versus surgical intervention, she agreed for a planned hemiarthroplasty. Since the patient was ambulatory prior to the injury and to avoid the risks of bed sores, pulmonary complications, and to give the patient the best chance for ambulation, I recommended surgery. The patient understands the risks of reyes rosalba, which include but are not limited to: bleeding, infection, re-operation, damage to nerves and arteries, continued pain, failure of the hardware, dislocation, DVT, and . In addition, the patient is aware of the 20-30% morbidity associated with hip fracture for up to 1 year following a hip fracture. The patient understands all of these instructions and explanations, all of their questions have been satisfactorily addressed. The patient has elected to proceed with surgery and the informed consent was signed. Description of Procedure EVERETT Patel PA-C is assisting with positioning, retraction, reducing the hip, and closure due to fellow not available. IMPLANTS: 1) 9 x 130, Echo Fx Cemented Stem, High offset (Brandi/Biomet). 2) Femoral Head 28mm Diameter, + 3 mm Neck Length. 3) 44 mm Bipolar Shell. 4) Distal Centralizer. 5) Palacos cement x 2 PROCEDURE: The patient was taken to the Operating Room and placed in the lateral position with Stulberg following general anesthesia administration. A multidisciplinary time-out was performed identifying my initials on the right lower limb as the correct and operative limb. Prior to the incision being made, 2 grams of intravenous Ancef were given. The right lower extremity was prepped in the standard fashion. The trochanter was marked as was the planned incision 1/3 proximal and 2/3 distal to the tip of the greater trochanter. The incision was injected with a 50:50 mixture of 1% Lidocaine epi and 0.5% Bupivacaine plain for a total of 10cc. A standard posterior approach was made. The planned incision was carried down through the Tensor Fascia Lizzette, which was then split in-line with its fibers. The Gluteus Paul was bluntly dissected. The Piriformis and short external rotators were dissected off the capsule and femur and tagged for later repair. The fracture was easily identified as it had impaled the posterior capsule. The capsule was incised and freed off the fracture fragments. The Neck cut was made to allow removal of the femoral head and comminuted fragments. The femoral canal was prepared with Box osteotome, followed by a canal finder. The femur was sequentially broached in the standard fashion, and trial heads were placed. Fluoroscopy was brought in to ensure adequate proper alignment, fill of the canal, head size, and leg length, after trailing several head, neck, and offset combinations, so the leg lengthes were equal and there was good stability. Fluoroscopy showed canal fill and good position. The trial components were removed and the wound and femoral canal were copiously irrigated and dried. The femur was cemented using 3rd generation technique followed by placement of the components in the standard fashion and the hip reduced. There was excellent stability with no sense of dislocation with 20 degrees adduction, flexion 90 degrees, and internal rotation to 35 degrees. The wounds were copiously irrigated. The External rotators and capsule were closed over bone bridges with #2 FiberWire. The Tensor Fascia Lizzette was closed with #1 Vicryl. The subcutaneous fat had a few stay sutures placed using 2-0 Vicryl. The subcutaneous tissue was closed with 3-0 Vicryl. The skin was closed with Zipline and shield. The incisions were covered with 4 x 4's, ABD, and foam tape. The patient was transferred to her hospital bed and taken to the PACU in stable condition. The sponge and needle counts were correct. Post-op Instructions: The patient was admitted back to the Hospitalist service on the Med/Surg floor. Final x-rays will be obtained in the PACU. The patient will be WBAT with a walker. The patient will be seen by PT/OT. Total hip precautions will be followed. The patient's labs will be checked in the am. DVT prophylaxis will be with TEDs, mechanical devices and ASA in the AM. I attest to the content of the Intraoperative Record and any orders documented therein. Any exceptions are noted below.
[2024-02-26] MEDS ORDERED: METOCLOPRAMIDE HCL INJ 5 MG/ML 2 ML VIAL IV PRN (15:35)
[2024-02-26] MEDS ORDERED: PHARMACY GLYCEMIC MGMT CONSULT PRN (15:35)
[2024-02-26] MEDS ORDERED: oxyCODONE HCL IR 5 MG TAB (IMMEDIATE RELEASE) PO PRN (15:35)
[2024-02-26] MEDS ORDERED: diphenhydrAMINE 50 MG/ML VIAL IV PRN (15:35)
--- NOTE | 2024-02-26 15:35 | Operative Report ---
Post Operative Report Pre & Post Diagnosis Operation Date: 02/26/24 10:00 Pre-Op Diagnosis: Right hip fracture Post-Op Diagnosis: Right hip fracture I identified the patient and participated in the time-out.: Yes Procedure Operation Date: 02/26/24 10:00 Actual Procedures p Right Hip Hemiarthroplasty(Right) - Himanshu Pratt MD Surgeon Himanshu Pratt MD Crematory Attendant EVERETT Patel PA-C (No fellow avail) Estimated Blood Loss 120 Findings Consistent with Post-Op Diagnosis Specimens femoral head Description of Procedure I was present during the entire case assisting with positioning, prepping, draping, wound retraction, wound closure, dressing and abduction pillow placement. No fellow present. Please see Dr. Pratt procedure note for specifics of the case. I attest to the content of the Intraoperative Record and any orders documented therein. Any exceptions are noted below.
--- NOTE | 2024-02-26 15:55 | XRay Report ---
EXAM: Radiographs of the Pelvis 1 View INDICATION: Hip replacement. TECHNIQUE: Frontal view of the pelvis. COMPARISON: Intraoperative images same day. FINDINGS: Limitations: None. Bones/joints: The iliac crest are not included. The pelvis is rotated and tilted to the right. Satisfactory appearance of cemented total hip arthroplasty. Components well-seated and intact. No fracture or dislocation. Soft tissues: Expected postoperative soft tissue swelling and gas noted along the right femur. IMPRESSION: Satisfactory appearance of right hip arthroplasty. ACT 112: Negative or not required by law. Electronically signed by Natalia Culver 02-26-2024 3:55 PM
--- NOTE | 2024-02-26 16:33 | Anesthesiology Progress Note ---
Date of Service February 26, 2024 Anesthesia Post Procedure Vital Signs Vital Signs: Temp Pulse Pulse Pulse Pulse Resp BP 02/26/24 16:32 37.1 C 80 20 02/26/24 16:15 36.4 C L 76 18 02/26/24 16:05 76 15 02/26/24 15:55 76 19 02/26/24 15:45 75 19 02/26/24 15:36 36.8 C 78 13 02/26/24 11:07 37.6 C H 78 20 02/26/24 07:45 02/26/24 07:13 36.7 C 74 16 02/26/24 02:51 02/26/24 02:51 37.0 C 71 16 02/26/24 01:42 74 18 102/48 L 02/26/24 01:14 78 20 105/66 02/26/24 00:31 73 18 126/54 L 02/26/24 00:00 80 18 109/58 L 02/25/24 23:39 02/25/24 23:30 80 16 128/82 02/25/24 23:00 80 22 111/60 02/25/24 22:40 82 02/25/24 22:40 36.8 C 80 20 02/25/24 22:40 36.8 C 81 17 110/65 BP BP Pulse Ox O2 Del Method O2 Flow Rate 02/26/24 16:32 154/72 H 93 Nasal Cannula 3 02/26/24 16:15 155/59 H 95 Oxymask 2 02/26/24 16:05 151/68 H 93 Oxymask 2 02/26/24 15:55 143/62 H 94 Oxymask 8 02/26/24 15:45 138/85 94 Oxymask 8 02/26/24 15:36 155/61 H 93 Oxymask 12 02/26/24 11:07 162/80 H 93 Oxymask 95 02/26/24 07:45 Nasal Cannula 2 02/26/24 07:13 126/65 93 Nasal Cannula 2 02/26/24 02:51 Nasal Cannula 2 02/26/24 02:51 165/72 H 96 Nasal Cannula 2 02/26/24 01:42 94 Nasal Cannula 2 02/26/24 01:14 94 Nasal Cannula 2 02/26/24 00:31 94 Nasal Cannula 2 02/26/24 00:00 94 Room Air 02/25/24 23:39 92 Room Air 02/25/24 23:30 93 Room Air 02/25/24 23:00 91 Room Air 02/25/24 22:40 02/25/24 22:40 110/65 93 Room Air 02/25/24 22:40 94 Room Air Pain Intensity Right Hip: Pain Intensity: 8 Back: Pain Intensity: 9 Transfer of Care Handoff Completed per policy Notes Mental Status: alert / awake / arousable Patient Amnestic to Procedure: Yes Nausea / Vomiting: adequately controlled Pain: adequately controlled Airway Patency, RR, SpO2: stable & adequate BP & HR: stable & adequate Hydration State: stable & adequate Anesthetic Complications: no major complications apparent and Pt Satisfied with anesthetic care
[2024-02-26] MEDS: POLYETHYLENE (MIRALAX) 17 GM PACK PO SCH (17:29)
[2024-02-26] MEDS: clonazePAM 0.5 MG TAB PO SCH (17:29)
[2024-02-26] MEDS: FERROUS GLUCONATE 324 MG TAB PO SCH (17:29)
[2024-02-26] MEDS: ASCORBIC ACID 500 MG TAB PO SCH (17:29)
[2024-02-26] MEDS: KETOROLAC TROMETHAMINE 15 MG/ML VIAL IV SCH (17:38)
[2024-02-26] MEDS: LANTUS PER UNIT CHARGE SC ONE (20:58)
[2024-02-26] MEDS: SENNA 8.6 MG TAB PO SCH (21:02)
[2024-02-26] MEDS: DOCUSATE SODIUM 100 MG CAP PO SCH (21:02)
[2024-02-26] MEDS: ASPIRIN 81 MG ECTAB PO SCH (21:02)
[2024-02-26] MEDS: AMITRIPTYLINE HCL 10 MG TAB PO SCH (21:03)
[2024-02-26] MEDS: ACETAMINOPHEN 500 MG TAB PO SCH (21:34)
[2024-02-26] MEDS: ceFAZolin 2000MG 2,000 MG/15 ML SYR IV SCH (21:34)
[2024-02-27 06:13] LABS: Basophils # (auto) 0.01 K/uL (0.00-0.20); Basophils % (auto) 0.1 %; Hemoglobin 10.1 g/dl (12.0-16.0); Immature Granulocytes # (auto) 0.05 K/uL (0.01-0.20); Immature Granulocytes % (auto) 0.6 %; Lymphocytes # (auto) 0.72 K/uL (1.20-3.40); Mean Corpuscular Hemoglobin 29.3 pg (25.0-34.0); Mean Corpuscular Hgb Conc 32.6 g/dL (32.0-36.0); Mean Corpuscular Volume 89.9 fL (80.0-100.0); Mean Platelet Volume 9.4 fL (9.4-12.4); Monocytes # (auto) 0.71 K/uL (0.11-0.59); Monocytes % (auto) 7.9 %; Neutrophils # (auto) 7.53 K/uL (1.40-6.50); Neutrophils % (auto) 83.4 %; Platelet Count 177 K/uL (130-400); RDW Coefficient of Variation 14.2 % (11.5-14.5); RDW Standard Deviation 46.6 fL (36.4-46.3); Red Blood Count 3.45 M/uL (4.20-5.40); White Blood Count 9.02 K/ul (4.8-10.8)
[2024-02-27 06:30] LABS: BUN Creatinine Ratio 12.4 (10-20); Creatinine Clr Calc Pharmacy 46.3 ml/min; Magnesium 1.8 mg/dl (1.7-2.4); Potassium 4.2 mmol/L (3.5-5.1)
[2024-02-27 07:19] LABS: Estimated Average Glucose 166 mg/dl; Hemoglobin A1C 7.4 % (4.5-5.6)
--- NOTE | 2024-02-27 07:35 | Electrocardiogram Report ---
Test Reason : Blood Pressure : */* mmHG Vent. Rate : 77 BPM Atrial Rate : 77 BPM P-R Int : 216 ms QRS Dur : 70 ms QT Int : 454 ms P-R-T Axes : 78 -10 97 degrees QTcB Int : 513 ms Sinus rhythm with 1st degree A-V block Anteroseptal infarct (cited on or before 22-Oct-2015) Abnormal ECG When compared with ECG of 12-Nov-2023 14:49, Criteria for Inferior infarct are no longer Present Nonspecific T wave abnormality no longer evident in Inferior leads Nonspecific T wave abnormality, improved in Lateral leads Confirmed by Juan Singleton ([id number]) on 02/27/2024 7:34:52 AM Referred By: REFERRED SELF Confirmed By: Juan Singleton
--- NOTE | 2024-02-27 07:37 | Orthopedic Progress Note ---
Date of Service February 27, 2024 Assessment & Plan (1) Closed fracture of neck of right femur: Plan: POD #1 s/p R hip hemiarthroplasty, doing as well as expected. Resume diet. WBAT with walker. Tot hip precautions 8 weeks OOB to chair. Continue pain control. DVT prophylaxis: TEDs 3 weeks,SCD's while in hospital, ASA 81 mg BID for 6 weeks. PT/OT. D/C planning. Dressing to be changed POD 2-3 to Silverlon type dressing. Continue care per primary service. Admission and Anticipated Discharge Date Admission Date: February 26, 2024 Subjective No hip pain Physical Exam Physical Exam: RLE: Sensation to light touch 50% reduced since the injury. BCR < 2 sec. Wiggling toes and ankle. Dressing is clean, dry, intact. Results & Data Vital Signs (Past 12 Hours) Vital Signs Temp Pulse Resp BP Pulse Ox O2 Del Method O2 Flow Rate 02/27/24 07:09 36.6 C 77 16 134/72 98 Nasal Cannula 2 02/27/24 03:00 36.7 C 74 18 104/62 95 Nasal Cannula 2 02/26/24 22:56 37.3 C 79 18 111/62 95 Nasal Cannula 3 02/26/24 21:00 Nasal Cannula 3 02/26/24 20:16 76 114/67 Laboratory Results Laboratory Results WBC 9.02 K/ul (4.8-10.8) 02/27/24 05:51 RBC 3.45 M/uL (4.20-5.40) L 02/27/24 05:51 Hgb 10.1 g/dl (12.0-16.0) L 02/27/24 05:51 Hct 31.0 % (37.0-47.0) L 02/27/24 05:51 MCV 89.9 fL (80.0-100.0) 02/27/24 05:51 MCH 29.3 pg (25.0-34.0) 02/27/24 05:51 MCHC 32.6 g/dL (32.0-36.0) 02/27/24 05:51 RDW Std Deviation 46.6 fL (36.4-46.3) H 02/27/24 05:51 RDW Coeff of [place] 14.2 % (11.5-14.5) 02/27/24 05:51 Plt Count 177 K/uL (130-400) 02/27/24 05:51 MPV 9.4 fL (9.4-12.4) 02/27/24 05:51 Immature Gran % (Auto) 0.6 % 02/27/24 05:51 Neut % (Auto) 83.4 % 02/27/24 05:51 Lymph % (Auto) 8.0 % 02/27/24 05:51 [place] % (Auto) 7.9 % 02/27/24 05:51 Eos % (Auto) 0.0 % 02/27/24 05:51 Baso % (Auto) 0.1 % 02/27/24 05:51 Neut # (Auto) 7.53 K/uL (1.40-6.50) H 02/27/24 05:51 Lymph # (Auto) 0.72 K/uL (1.20-3.40) L 02/27/24 05:51 [place] # (Auto) 0.71 K/uL (0.11-0.59) H 02/27/24 05:51 Eos # (Auto) 0.00 K/uL (0.00-0.50) 02/27/24 05:51 Baso # (Auto) 0.01 K/uL (0.00-0.20) 02/27/24 05:51 Immature Gran # (Auto) 0.05 K/uL (0.01-0.20) 02/27/24 05:51 Absolute Nucleated RBC Cancelled 02/26/24 00:55 Nucleated RBC % (auto) Cancelled 02/26/24 00:55 Neutrophils % (Manual) Cancelled 02/26/24 00:55 Band Neutrophils % Cancelled 02/26/24 00:55 Lymphocytes % (Manual) Cancelled 02/26/24 00:55 Prolymphocyte % Cancelled 02/26/24 00:55 Reactive Lymphs % (Man) Cancelled 02/26/24 00:55 Monocytes % (Manual) Cancelled 02/26/24 00:55 Eosinophils % (Manual) Cancelled 02/26/24 00:55 Basophils % (Manual) Cancelled 02/26/24 00:55 Metamyelocytes % (Man) Cancelled 02/26/24 00:55 Myelocytes % (Man) Cancelled 02/26/24 00:55 Promyelocytes % (Man) Cancelled 02/26/24 00:55 Blast Cells % (Manual) Cancelled 02/26/24 00:55 Plasma Cell % (Manual) Cancelled 02/26/24 00:55 Other Cells % Cancelled 02/26/24 00:55 Nucleated RBC % Cancelled 02/26/24 00:55 Neutrophils # (Manual) Cancelled 02/26/24 00:55 Band Neutrophils # Cancelled 02/26/24 00:55 Total Absolute Neuts Cancelled 02/26/24 00:55 Lymphocytes # (Manual) Cancelled 02/26/24 00:55 Prolymphocyte # Cancelled 02/26/24 00:55 Reactive Lymphs # Cancelled 02/26/24 00:55 Total Abs Lymphocytes Cancelled 02/26/24 00:55 Monocytes # (Manual) Cancelled 02/26/24 00:55 Eosinophils # (Manual) Cancelled 02/26/24 00:55 Basophils # (Manual) Cancelled 02/26/24 00:55 Metamyelocytes # (Man) Cancelled 02/26/24 00:55 Myelocytes # (Manual) Cancelled 02/26/24 00:55 Promyelocytes # (Man) Cancelled 02/26/24 00:55 Blast Cells # (Man) Cancelled 02/26/24 00:55 Plasma Cell # (Manual) Cancelled 02/26/24 00:55 Other Cells # Cancelled 02/26/24 00:55 Nucleated RBCs # (Man) Cancelled 02/26/24 00:55 Hypersegmented Neuts Cancelled 02/26/24 00:55 Hyposegmented Neuts Cancelled 02/26/24 00:55 Hypogranular Neuts Cancelled 02/26/24 00:55 Large Granular Lymphs Cancelled 02/26/24 00:55 # Lrg Granular Lymphs Cancelled 02/26/24 00:55 Hairy Cells Cancelled 02/26/24 00:55 Smudge Cells Cancelled 02/26/24 00:55 Blood Smear Review Cancelled 02/26/24 01:40 Toxic Granulation Cancelled 02/26/24 00:55 Toxic Vacuolation Cancelled 02/26/24 00:55 Dohle Bodies Cancelled 02/26/24 00:55 Jerry Rods Cancelled 02/26/24 00:55 Platelet Estimate Cancelled 02/26/24 00:55 Hypogranular Platelets Cancelled 02/26/24 00:55 Giant Platelets Cancelled 02/26/24 00:55 Platelet Satelliting Cancelled 02/26/24 00:55 RBC Morphology Cancelled 02/26/24 00:55 Polychromasia Cancelled 02/26/24 00:55 Hypochromasia Cancelled 02/26/24 00:55 Poikilocytosis Cancelled 02/26/24 00:55 Basophilic Stippling Cancelled 02/26/24 00:55 Anisocytosis Cancelled 02/26/24 00:55 Microcytosis Cancelled 02/26/24 00:55 Macrocytosis Cancelled 02/26/24 00:55 Spherocytes Cancelled 02/26/24 00:55 Pappenheimer Bodies Cancelled 02/26/24 00:55 Sickle Cells Cancelled 02/26/24 00:55 Target Cells Cancelled 02/26/24 00:55 Tear Drop Cells Cancelled 02/26/24 00:55 Ovalocytes Cancelled 02/26/24 00:55 Stomatocytes Cancelled 02/26/24 00:55 [place] Bodies Cancelled 02/26/24 00:55 Echinocytes Cancelled 02/26/24 00:55 Acanthocytes (Spur) Cancelled 02/26/24 00:55 Rouleaux Cancelled 02/26/24 00:55 RBC Agglutinates Cancelled 02/26/24 00:55 Schistocytes Cancelled 02/26/24 00:55 Sezary Cell Cancelled 02/26/24 00:55 PT 10.4 Seconds (9.0-12.0) 02/26/24 00:55 INR 1.0 (0.9-1.1) 02/26/24 00:55 APTT 26 Seconds (21-31) 02/26/24 00:55 PTT Ratio 1.0 02/26/24 00:55 Sodium 134 mmol/L (136-145) L 02/27/24 05:51 Potassium 4.2 mmol/L (3.5-5.1) 02/27/24 05:51 Chloride 101 mmol/L (98-107) 02/27/24 05:51 Carbon Dioxide 26 mmol/L (21-32) 02/27/24 05:51 Anion Gap 7 (3-11) 02/27/24 05:51 BUN 12 mg/dl (6-23) 02/27/24 05:51 Creatinine 0.97 mg/dl (0.6-1.2) 02/27/24 05:51 Est Cr Clr Drug Dosing 46.3 ml/min 02/27/24 05:51 eGFR 57.62 02/27/24 05:51 BUN/Creatinine Ratio 12.4 (10-20) 02/27/24 05:51 Glucose 205 mg/dl (70-99(Fasting)) H 02/27/24 05:51 POC Glucose 238 mg/dl (70-99) H 02/26/24 20:33 Estimat Average Glucose 166 mg/dl 02/27/24 05:51 Hemoglobin A1c 7.4 % (4.5-5.6) H 02/27/24 05:51 Calcium 8.0 mg/dl (8.6-10.3) L 02/27/24 05:51 Magnesium 1.8 mg/dl (1.7-2.4) 02/27/24 05:51 Total Bilirubin 0.3 mg/dl (0.2-1.0) 02/26/24 00:55 AST 22 U/L (13-39) 02/26/24 00:55 ALT 10 U/L (7-52) 02/26/24 00:55 Alkaline Phosphatase 62 U/L (34-104) 02/26/24 00:55 Total Protein 6.7 gm/dl (6.0-8.3) 02/26/24 00:55 Albumin 3.6 gm/dl (3.4-5.0) 02/26/24 00:55 Globulin 3.1 gm/dl (2.5-4.0) 02/26/24 00:55 Albumin/Globulin Ratio 1.2 (0.9-2) 02/26/24 00:55 Urine Color Yellow 02/26/24 00:25 Urine Appearance Clear (Clear) 02/26/24 00:25 Urine pH 5.5 (4.5-7.5) 02/26/24 00:25 Ur Specific [place] 1.009 (1.000-1.030) 02/26/24 00:25 Urine Protein Negative (Negative) 02/26/24 00:25 Urine Glucose (UA) Negative (Negative) 02/26/24 00:25 Urine Ketones Negative (Negative) 02/26/24 00:25 Urine Blood Negative (Negative) 02/26/24 00:25 Urine Nitrite Negative (Negative) 02/26/24 00:25 Urine Bilirubin Negative (Negative) 02/26/24 00:25 Urine Urobilinogen Negative (Negative) 02/26/24 00:25 Ur Leukocyte Esterase Trace (Negative) H 02/26/24 00:25 Urine WBC (Auto) 0-5 /hpf (0-5) 02/26/24 00:25 Urine RBC (Auto) 0-2 /hpf (0-2) 02/26/24 00:25 U Hyaline Cast (Auto) 0-2 /lpf (0-2) 02/26/24 00:25 U Epithel Cells (Auto) 0-2 /hpf (0-2) 02/26/24 00:25 Urine Bacteria (Auto) None Seen (None Seen) 02/26/24 00:25 Blood Parasites ID Cancelled 02/26/24 00:55 Diagnostic Findings Hip X-Ray 02/26/24 00:00 EXAM: Radiographs of the Right Hip 1 View INDICATION: Intraoperative imaging during arthroplasty. TECHNIQUE: Frontal and lateral views provided. Image obtained at 2:14 PM COMPARISON: No relevant prior studies available. FINDINGS: Bones/joints: The proximal femur has been resected. Metallic hardware noted in the femoral shaft. No fracture. Soft tissues: Gas in the soft tissues at the level of the proximal femur typical of an open wound. Vasculature: Atherosclerosis. IMPRESSION: Intraoperative image right hip during replacement. ACT 112: Negative or not required by law. Electronically signed by Natalia Culver 02-26-2024 2:32 PM Pelvis X-Ray 02/26/24 15:35 EXAM: Radiographs of the Pelvis 1 View INDICATION: Hip replacement. TECHNIQUE: Frontal view of the pelvis. COMPARISON: Intraoperative images same day. FINDINGS: Limitations: None. Bones/joints: The iliac crest are not included. The pelvis is rotated and tilted to the right. Satisfactory appearance of cemented total hip arthroplasty. Components well-seated and intact. No fracture or dislocation. Soft tissues: Expected postoperative soft tissue swelling and gas noted along the right femur. IMPRESSION: Satisfactory appearance of right hip arthroplasty. ACT 112: Negative or not required by law. Electronically signed by Natalia Culver 02-26-2024 3:55 PM
[2024-02-27] MEDS: MULTIVITAMIN TAB PO SCH (07:49)
[2024-02-27] MEDS: LANTUS PER UNIT CHARGE SC SCH (08:36)
[2024-02-27] MEDS: POTASSIUM CHLORIDE CRTAB 20 MEQ TABCR PO SCH (08:36)
--- NOTE | 2024-02-27 08:58 | Hospitalist Progress Note ---
Date of Service February 27, 2024 Assessment & Plan (1) Closed fracture of neck of right femur: Plan: 83yo female with history of HTN, HLP, DM, AF (not on anticoagulation), JILLIAN presenting from home following a ground level fall resulting in right femoral neck fracture Operation Date: 02/26/24 10:00 Actual Procedures p Right Hip Hemiarthroplasty(Right) - Himanshu Pratt MD -tolerated surgery well -continue pain control, bowel regimen, DVT ppx - ASA bid x 6 weeks -q48h FeSO4 (equally effective compared to daily or bid) -PT/OT recommend rehab (2) Obstructive sleep apnea: Plan: Chronic, stable -CPAP 10cm H2O qHS (reports hasn't been using at home for several weeks from neck discomfort) Supplemental O2 as needed (3) Diabetic peripheral neuropathy associated with type 2 diabetes mellitus: Plan: Blood sugar 200s x 2 -Hold home Glipizide -continue premeal aspart, agree with 10u glargine added this AM by ortho (4) Benign hypertension: Plan: Blood pressure well controlled, normotensive today Resume lasix in AM Continue metoprolol Holding ISMN, lisinopril Plan Chronic Medical Conditions: Paroxysmal Atrial Fibrillation - patient presently in NSR, not on eliquis/anticoagulation due to frequent falls. Continue metoprolol, amoidarone. Depression -Continue Sertraline 50mg po daily, Venlafaxine 37.5mg po daily, Clonazepam, Amitriptyline GERD -Continue Protonix 40mg po daily Ppx - SCDs, ASA 81 mg bid x 6 weeks Updated daughter at bedside 02/25 Admission and Anticipated Discharge Date Admission Date: February 26, 2024 Subjective She is doing well, walked with PT/OT, [place] is out, R hip pain controlled on meds and improved compared to prior to surgery no shortness of breath Physical Exam 2 Physical Exam: PHYSICAL EXAMINATION Last 24h vital signs reviewed, see documentation in flowsheet General: comfortable appearing, no distress, sitting up in chair eating lunch HEENT: Normocephalic, atraumatic, pupils round and equal, sclerae anicteric, no conjunctival injection, moist mucus membranes Lungs: Normal respiratory effort. Heart: deferred Abdomen: Soft, nondistended Extremities: Warm, dry, well-perfused. 2+ bilateral lower extremity edema. Neuro: Alert and oriented x 4, face symmetric, moves 4 extremities well Psych: Normal affect and behavior Results & Data Results & Data Vital Signs (Past 12 Hours) Vital Signs Temp Pulse Resp BP Pulse Ox O2 Del Method O2 Flow Rate 02/27/24 07:46 94 Nasal Cannula 2 02/27/24 07:45 20 83 L Room Air 02/27/24 07:09 97.9 F 77 16 134/72 98 Nasal Cannula 2 02/27/24 03:00 98.1 F 74 18 104/62 95 Nasal Cannula 2 02/26/24 22:56 99.1 F 79 18 111/62 95 Nasal Cannula 3 02/26/24 21:00 Nasal Cannula 3 Laboratory Results 02/27/24 05:51 02/27/24 05:51 PG Care Time/CCT Total # of Minutes Spent Total Time Spent with Patient: Total time spent is greater than 50% in coordination of care (as documented) at patient's floor/unit and/or counseling patient: Coding Level of Care Code 50362 SUB INP/OBS CARE 2/35MIN Diagnoses Closed fracture of neck of right femur S72.001A Obstructive sleep apnea G47.33 Diabetic peripheral neuropathy associated with type 2 diabetes mellitus E11.42 Benign hypertension I10
[2024-02-27] MEDS: FERROUS GLUCONATE 324 MG TAB PO SCH (10:49)
[2024-02-27] MEDS: traMADol HCL 50 MG TABLET PO PRN (12:14)
--- NOTE | 2024-02-27 14:36 | Pharmacy Report ---
Pharmacy Glycemic Short Note 2 - Date of Service February 27, 2024 - Glycemic Short BSG Results (Last 24 hours): 02/26/24 02/26/24 02/26/24 15:41 16:59 20:33 Glucose POC Glucose 168 H 226 H 238 H 02/27/24 02/27/24 02/27/24 05:51 07:40 11:30 Glucose 205 H POC Glucose 210 H 128 H OUTPATIENT ANTIDIABETIC REGIMEN: * glipizide 5mg daily * HbA1c 7.4% (02/27/24) ASSESSMENT: * Gena is an 83 YOF admitted status post right hip hemiarthroplasty with a history of twyp 2 diabetes mellitus. Pharmacy has been consulted to assist with glycemic management. * Preoperative BSG elevated, also received dexamethasone 8mg IV intraoperatively, Lantus at approx 0.1units/kg administered in the evening and NovoLog tightened to a weight based stress of 3. * Fasting BSG this AM elevated, will repeat the 0.1units/kg dose of Lantus * BSGs trending down at lunchtime, will loosened NovoLog as dexamethasone is wearing off, no other glycemic stressors noted. * Currently, pending rehab placement PLAN FOR INPATIENT GLYCEMIC CONTROL: * Hold outpatient oral diabetes medications * Basal insulin * Lantus 10 units SQ this AM * Reassess basal tomorrow morning. * Bolus insulin * NovoLog per scale ACHS or Q6hrs while NPO * Goal Range: Low 110 mg/dL - High 140 mg/dL * Correction Factor: 25 mg/dL/unit * Nutritional / Prandial insulin per carb ratio of 1 unit per 8 grams CHO consumed
[2024-02-27] MEDS: ALUMINUM/MAGNESIUM SUSP 30 ML UDC PO PRN (17:54)
--- NOTE | 2024-02-28 09:42 | Orthopedic Progress Note ---
Date of Service February 28, 2024 Assessment & Plan (1) Closed fracture of neck of right femur: Plan: POD #2 s/p R hip hemiarthroplasty, doing as well as expected. Resume diet. WBAT with walker. Tot hip precautions 8 weeks OOB to chair. Continue pain control. DVT prophylaxis: TEDs 3 weeks,SCD's while in hospital, ASA 81 mg BID for 6 weeks. PT/OT. D/C planning. Dressing to be changed POD 3 to Silverlon type dressing. Continue care per primary service. Admission and Anticipated Discharge Date Admission Date: February 26, 2024 Subjective Right hip pain while sitting. Doing well with ambulating. Overall feels better than before surgery. Physical Exam Physical Exam: Sitting comfortably in chair. RLE: Sensation to light touch 50% reduced since the injury. BCR < 2 sec. Able to flex hip, extend knee, wiggling toes and ankle. Dressing is clean, dry, intact. Results & Data Vital Signs (Past 12 Hours) Vital Signs Temp Pulse Resp BP Pulse Ox O2 Del Method 02/28/24 07:22 37.1 C 85 16 122/71 94 Room Air Laboratory Results 02/28/24 02/27/24 02/27/24 Range/Units 07:20 20:05 16:28 POC Glucose 120 H 104 H 109 H (70-99) mg/dl 02/27/24 Range/Units 11:30 POC Glucose 128 H (70-99) mg/dl
[2024-02-28] MEDS ORDERED: FAMOTIDINE 20 MG TAB PO PRN (10:30)
[2024-02-28] MEDS: ALUMINUM/MAGNESIUM SUSP 30 ML UDC PO PRN (11:13)
[2024-02-28] MEDS ORDERED: BENZOCAINE 20% (ORAJEL) 11.9 GM TUBE MT PRN (13:15)
--- NOTE | 2024-02-28 13:22 | Hospitalist Progress Note ---
Date of Service February 28, 2024 Assessment & Plan (1) Closed fracture of neck of right femur: Plan: 83yo female with history of HTN, HLP, DM, AF (not on anticoagulation), JILLIAN presenting from home following a ground level fall resulting in right femoral neck fracture Operation Date: 02/26/24 10:00 Actual Procedures p Right Hip Hemiarthroplasty(Right) - Himanshu Pratt MD -tolerated surgery well -continue pain control, bowel regimen, DVT ppx - ASA bid x 6 weeks -q48h FeSO4 (equally effective compared to daily or bid) -PT/OT recommend rehab - discussed with Gena and her daughter at bedside (2) Obstructive sleep apnea: Plan: Chronic, stable -CPAP 10cm H2O qHS (reports hasn't been using at home for several weeks from neck discomfort) Supplemental O2 as needed (3) Diabetic peripheral neuropathy associated with type 2 diabetes mellitus: Plan: Blood sugar 200s x 2 -Hold home Glipizide -continue premeal aspart and glargine, reviewed BG, pharmacy managing (4) Benign hypertension: Plan: Normotensive Resumed lasix Continue metoprolol Holding ISMN, lisinopril Plan Chronic Medical Conditions: Paroxysmal Atrial Fibrillation - patient presently in NSR, not on eliquis/anticoagulation due to frequent falls. Continue metoprolol, amoidarone. Depression -Continue Sertraline 50mg po daily, Venlafaxine 37.5mg po daily, Clonazepam, Amitriptyline GERD -Continue Protonix 40mg po daily. added maalox, prn pepcid mouth pain - possibly apthous ulcer or trauma from intubation - prn orajel Ppx - SCDs, ASA 81 mg bid x 6 weeks Updated daughter at bedside 02/27 Admission and Anticipated Discharge Date Admission Date: February 26, 2024 Subjective has some posterior mouth pain behind dentures RN reported heartburn but she denied hip pain controlled on current meds Physical Exam 2 Physical Exam: PHYSICAL EXAMINATION Last 24h vital signs reviewed, see documentation in flowsheet General: sitting in chair HEENT: Normocephalic, atraumatic, pupils round and equal, sclerae anicteric, no conjunctival injection, moist mucus membranes I can't see past her tongue to posterior pharynx Lungs: Normal respiratory effort. CTAB no rrw Heart: Reg no mrg Abdomen: Soft, nondistended +BT Extremities: Warm, dry, well-perfused. 2+ bilateral lower extremity edema. Neuro: Alert and oriented x 4, face symmetric, moves 4 extremities well Psych: Normal affect and behavior Results & Data Results & Data Vital Signs (Past 12 Hours) Vital Signs Temp Pulse Resp BP Pulse Ox O2 Del Method 02/28/24 07:45 Room Air 02/28/24 07:22 98.8 F 85 16 122/71 94 Room Air Laboratory Results 02/27/24 05:51 02/27/24 05:51 PG Care Time/CCT Total # of Minutes Spent Total Time Spent with Patient: Total time spent is greater than 50% in coordination of care (as documented) at patient's floor/unit and/or counseling patient: Coding Level of Care Code 05364 SUB INP/OBS CARE 2/35MIN Diagnoses Closed fracture of neck of right femur S72.001A Obstructive sleep apnea G47.33 Diabetic peripheral neuropathy associated with type 2 diabetes mellitus E11.42 Benign hypertension I10
--- NOTE | 2024-02-29 10:57 | Orthopedic Progress Note ---
Date of Service February 29, 2024 Assessment & Plan (1) Closed fracture of neck of right femur: Plan: POD #3 s/p R hip hemiarthroplasty, doing as well as expected. WBAT with walker And assistance as needed Total hip precautions 8 weeks OOB to chair. Continue pain control. DVT prophylaxis: TEDs 3 weeks,SCD's while in hospital, ASA 81 mg BID for 6 weeks. PT/OT. D/C planning. Dressing was changed today to a Silverlon dressing which she can leave on until we see her in the office in 2 weeks. Nursing may reinforce as needed. Continue care per primary service. She is Orthopedically stable for discharge. Will sign off for now. Please [place] text with any questions or concerns. Admission and Anticipated Discharge Date Admission Date: February 26, 2024 Subjective Patient was seen and examined bedside. She says that she is having pain this morning. She has been doing her exercises multiple times a day. She is able to move her leg better this morning. Physical Exam Physical Exam: General: Pt laying in hospital bed AA&O, in NAD, calm and cooperative during exam Lower Extremity: Dressing in tact and not saturated. Dressing taken down. Incisions clean, dry and with minimal drainage and no surrounding erythema, warmth or purulent drainage. Pt has full ROM of ankle and all 5 digits. Pt has 5/5 strength with resisted DF/PF. Calf supple and non tender. BCR < 2 sec. Sensation to light touch distally improving to 75%. Lower extremity noted to have good color and temperature with no signs of vascular or lymphatic insufficiency. She is able to fully extend her knee and flex to 90 degrees. She is able to tolerate some gentle passive range of motion of her hip with flexion and abduction. Results & Data Vital Signs (Past 12 Hours) Vital Signs Temp Pulse Resp BP Pulse Ox O2 Del Method 02/29/24 07:38 36.7 C 70 18 162/81 H 95 Room Air 02/29/24 07:20 Room Air Laboratory Results 02/29/24 02/28/24 02/28/24 Range/Units 07:50 19:56 16:19 POC Glucose 142 H 143 H 136 H (70-99) mg/dl 02/28/24 Range/Units 11:26 POC Glucose 119 H (70-99) mg/dl
--- NOTE | 2024-02-29 15:55 | Hospitalist Progress Note ---
Date of Service February 29, 2024 Assessment & Plan (1) Closed fracture of neck of right femur: Plan: 83yo female with history of HTN, HLP, DM, AF (not on anticoagulation), JILLIAN presenting from home following a ground level fall resulting in right femoral neck fracture Operation Date: 02/26/24 10:00 Actual Procedures p Right Hip Hemiarthroplasty(Right) - Himanshu Pratt MD -tolerated surgery well -continue pain control, bowel regimen, DVT ppx - ASA bid x 6 weeks - silver dressing applied to 02/28this may remain in place until Ortho follow-up in 2 weeks - bowel regimen -q48h FeSO4 (equally effective compared to daily or bid) -PT/OT recommend rehab, medically stable for discharge to rehab/SNF at this time (2) Obstructive sleep apnea: Plan: Chronic, stable -CPAP 10cm H2O qHS (reports hasn't been using at home for several weeks from neck discomfort) Supplemental O2 as needed (3) Diabetic peripheral neuropathy associated with type 2 diabetes mellitus: Plan: Blood sugar 200s x 2 -Hold home Glipizide -continue premeal aspart and glargine, reviewed BG, pharmacy managing - glucose well-controlled 02/28 (4) Benign hypertension: Plan: Resumed lasix Continue metoprolol still Holding ISMN, lisinopril - BP relatively labile last 24 hours few checks yesterday afternoon/evening on the low side Plan Chronic Medical Conditions: Paroxysmal Atrial Fibrillation - patient presently in NSR, not on eliquis/anticoagulation due to frequent falls. Continue metoprolol, amoidarone. Depression -Continue Sertraline 50mg po daily, Venlafaxine 37.5mg po daily, Clonazepam, Amitriptyline GERD -Continue Protonix 40mg po daily. added maalox, prn pepcid mouth pain - possibly apthous ulcer or trauma from intubation - prn orajel Ppx - SCDs, ASA 81 mg bid x 6 weeks Updated daughter at bedside 02/27 Admission and Anticipated Discharge Date Admission Date: February 26, 2024 Subjective Gena continuing to have some right hip pain controlled with oxycodone she is now having bowel movements eating and drinking well no shortness of breath Physical Exam 2 Physical Exam: PHYSICAL EXAMINATION Last 24h vital signs reviewed, see documentation in flowsheet General: reclining in bed no distress HEENT: Normocephalic, atraumatic, pupils round and equal, sclerae anicteric, no conjunctival injection, moist mucus membranes Lungs: Normal respiratory effort. CTAB no rrw Heart: Reg no mrg Abdomen: Soft, nondistended +BT Extremities: Warm, dry, well-perfused. right hip is dressed in silver dressing 2+ bilateral lower extremity edema. Neuro: Alert and oriented x 4, face symmetric, moves 4 extremities well Psych: Normal affect and behavior Results & Data Results & Data Vital Signs (Past 12 Hours) Vital Signs Temp Pulse Resp BP BP Pulse Ox O2 Del Method 02/29/24 15:03 98.6 F 79 18 126/73 90 Room Air 02/29/24 07:38 98.1 F 70 18 162/81 H 95 Room Air 02/29/24 07:20 Room Air Laboratory Results 02/27/24 05:51 02/27/24 05:51 PG Care Time/CCT Total # of Minutes Spent Total Time Spent with Patient: Total time spent is greater than 50% in coordination of care (as documented) at patient's floor/unit and/or counseling patient: Coding Level of Care Code 44438 SUB INP/OBS CARE 04/23MIN Diagnoses Closed fracture of neck of right femur S72.001A Obstructive sleep apnea G47.33 Diabetic peripheral neuropathy associated with type 2 diabetes mellitus E11.42 Benign hypertension I10
[2024-03-01] MEDS: MAGNESIUM HYDROXIDE SUSP 30 ML UDC PO PRN (07:58)
[2024-03-01 10:30] LABS: Appearance Urine Clear (Clear); Bacteria Urine Automated None Seen (None Seen); Bilirubin Urine Negative (Negative); Blood Urine Negative (Negative); Cast Urine Automated 0-2 /lpf (0-2); Color Urine Yellow; Epithelial Cell Urine Auto 0-2 /hpf (0-2); Glucose Urine UA Negative (Negative); Ketones Urine Negative (Negative); Leukocyte Esterase Urine 1+ (Negative); Nitrite Urine Negative (Negative); Protein Urine Negative (Negative); RBC Urine Automated 0-2 /hpf (0-2); Specific Gravity Urine 1.007 (1.000-1.030); Urobilinogen Urine Negative (Negative); WBC Urine Automated 0-5 /hpf (0-5); pH Urine 5.5 (4.5-7.5)
--- NOTE | 2024-03-01 10:30 | Orthopedic Progress Note ---
Date of Service March 01, 2024 Assessment & Plan (1) Status post hemiarthroplasty of right hip: Plan: The patient was educated regarding today's findings. Her increased urine output may be related to fluids from surgery finally clearing. She does not exhibit any UTI symptoms. Will continue to observe. She was encouraged to be out of bed frequently and sit had a bedside chair. Continue physical therapy today. She is okay for discharge from an orthopedic standpoint. Follow-up in the office as scheduled. Continue pain control with oral meds. Call the office with any other concerns. Continue hip precautions. Admission and Anticipated Discharge Date Admission Date: February 26, 2024 Subjective This 83-year-old female is seen today in her room. She is status post right hip hemiarthroplasty. She states she has been out of bed. She has been going to the bathroom frequently last night and this morning. Denies any burning or urgency. She does not think the recovery is going as easy as she had hoped. She is waiting for placement at a [place] [facility] or [facility] hospital. No other complaints at this point. Physical Exam Physical Exam: General: Well-developed, well-nourished, elderly female, in no acute distress. Laying in bed. Alert and oriented. Conversive. Skin: Warm and dry with good turgor. No ecchymosis on the lateral thigh. Her Silverlon dressing is in place. There is no bleeding around or through the dressing. No significant edema in her lower extremity. Musculoskeletal: The patient has intact motor function of her hip, knee, ankle, and toes. She is able to plantarflex and dorsiflex at the ankle. She is able to perform a small heel slide without much difficulty. No significant pain at the hip with logrolling. Neurologic: Gross sensation is intact across the right leg by soft touch. Peripheral pulses are 2+. Results & Data Vital Signs (Past 12 Hours) Vital Signs Temp Pulse Resp BP Pulse Ox O2 Del Method 03/01/24 07:45 Room Air 03/01/24 07:16 36.8 C 85 18 187/83 H 93 Room Air Laboratory Results Glucose today is 182.
--- NOTE | 2024-03-01 12:23 | Hospitalist Progress Note ---
Date of Service March 01, 2024 Assessment & Plan (1) Closed fracture of neck of right femur: Plan: 83yo female with history of HTN, HLP, DM, AF (not on anticoagulation), JILLIAN presenting from home following a ground level fall resulting in right femoral neck fracture - Right hip hemiarthroplasty with Dr. Pratt 02/25 > Total hip precautions x 8 weeks > WBAT with walker and assistance as needed > DVT PPx: SCDs while in hospital, TEDs x 3 weeks, ASA 81 mg BID x 6 weeks - Tolerated surgery well - Silver dressing applied 02/28 this may remain in place until Ortho follow-up in 2 weeks - Continue pain control, bowel regimen, DVT ppx - ASA bid x 6 weeks - Continue bowel regimen - Continue Q48H FeSO4 (equally effective compared to daily or bid) - PT/OT recommend rehab, referrals pending. Medically stable for discharge to rehab/SNF at this time (2) Obstructive sleep apnea: Plan: Chronic, stable - CPAP 10cm H2O qHS (reports hasn't been using at home for several weeks from neck discomfort) - Supplemental O2 as needed (3) Diabetic peripheral neuropathy associated with type 2 diabetes mellitus: Plan: Blood sugar 200s x 2 - Hold home Glipizide - Continue premeal aspart and glargine - Pharmacy managing - Reviewed BG, well-controlled 03/01 (4) Benign hypertension: Plan: Continue metoprolol, Lasix Still holding lisinopril and isosorbide mononitrate - Monitor BPs on when to resume Plan Ordered and reviewed UA Chronic Medical Conditions: Paroxysmal Atrial Fibrillation - patient presently in NSR, not on eliquis/anticoagulation due to frequent falls. Continue metoprolol, amoidarone. Depression-Continue Sertraline 50mg po daily, Venlafaxine 37.5mg po daily, Clonazepam, Amitriptyline GERD-Continue Protonix 40mg po daily. added maalox, prn pepcid Mouth pain - possibly aphthous ulcer or trauma from intubation - prn orajel Increased urinary output - no infectious urinary signs or symptoms; UA negative 03/01; may be related to fluids from surgery finally clearing Dispo: waiting rehab placement; medically stable for discharge to rehab/SNF VTE PPx - SCDs, ASA 81 mg bid x 6 weeks CODE STATUS: Full code Updated daughter at bedside 02/27 Admission and Anticipated Discharge Date Admission Date: February 26, 2024 Subjective Patient seen and evaluated at bedside. She reports increased urinary output today. She also had 2 bowel movements today. She reports feeling bloated, though states this has improved since her bowel movements. She reports that her pain is well-controlled with her current regimen. She denies any dysuria. She has been ambulating the halls today. Continue inpatient stay while waiting rehab placement. No additional complaints or concerns at this time. Physical Exam Physical Exam: General: No acute distress, nondiaphoretic, well-developed, well-nourished. Skin: The skin was without rashes, erythema, edema, or bruising. Cardiac: Regular rate and rhythm without murmurs gallops or rubs. Pulm: Clear to auscultation bilaterally without wheezes, rales or rhonchi. No respiratory distress. 94% on room air. Abdominal: Soft, nontender, distended secondary to body habitus. Bowel sounds present. Neuro: A&O x3. No focal neurological deficits. Extremities: Right hip dressed in silver dressing. Warm, dry, well-perfused. 2+ edema to lower extremities bilaterally. Sensation in tact to light touch. Regular strength. Results & Data Results & Data Vital Signs (Past 12 Hours) Vital Signs Temp Pulse Resp BP Pulse Ox O2 Del Method 03/01/24 11:34 98.8 F 80 18 149/77 H 94 Room Air 03/01/24 07:45 Room Air 03/01/24 07:16 98.2 F 85 18 187/83 H 93 Room Air Laboratory Results Reviewed UA PG Care Time/CCT Total # of Minutes Spent Total Time Spent with Patient: Total time spent is greater than 50% in coordination of care (as documented) at patient's floor/unit and/or counseling patient: Coding Level of Care Code 19944 SUB INP/OBS CARE 2/35MIN Diagnoses Closed fracture of neck of right femur S72.001A Obstructive sleep apnea G47.33 Diabetic peripheral neuropathy associated with type 2 diabetes mellitus E11.42 Benign hypertension I10
--- NOTE | 2024-03-01 13:24 | Pharmacy Report ---
Pharmacy Glycemic Short Note 2 - Date of Service March 01, 2024 - Glycemic Short BSG Results (Last 24 hours): 02/29/24 02/29/24 03/01/24 16:13 20:29 07:57 POC Glucose 108 H 240 H 182 H 03/01/24 11:38 POC Glucose 106 H OUTPATIENT ANTIDIABETIC REGIMEN: * glipizide 5mg daily * HbA1c 7.4% (02/27/24) ASSESSMENT: 03/01 * Patient received 20 units of insulin yesterday, all were bolus. * BSGs were on the lower side the last few days so no basal insulin was ordered (ranged from 104-143mg/dL) * But, last night, the bedtime BSG was elevated at 240mg/dL but with bolus insulin coverage, the fasting BSG this morning was 182mg/dL and lunch BSG was 106mg/dL. * This is POD #3, no antibiotic or steroids currently ordered. * Will continue bolus insulin regimen as ordered. If continued elevated BSGs noted, will consider added a small dose of basal insulin back in. 02/26 * Gena is an 83 YOF admitted status post right hip hemiarthroplasty with a history of twyp 2 diabetes mellitus. Pharmacy has been consulted to assist with glycemic management. * Preoperative BSG elevated, also received dexamethasone 8mg IV intraoperatively, Lantus at approx 0.1units/kg administered in the evening and NovoLog tightened to a weight based stress of 3. * Fasting BSG this AM elevated, will repeat the 0.1units/kg dose of Lantus * BSGs trending down at lunchtime, will loosened NovoLog as dexamethasone is wearing off, no other glycemic stressors noted. * Currently, pending rehab placement PLAN FOR INPATIENT GLYCEMIC CONTROL: * Hold outpatient oral diabetes medications * Bolus insulin * NovoLog per scale ACHS or Q6hrs while NPO * Goal Range: Low 110 mg/dL - High 140 mg/dL * Correction Factor: 25 mg/dL/unit * Nutritional / Prandial insulin per carb ratio of 1 unit per 8 grams CHO consumed
[2024-03-01] MEDS: ONDANSETRON INJ 2 MG/ML 2 ML VIAL IV PRN (16:24)
[2024-03-02] MEDS: LANTUS PER UNIT CHARGE SC ONE (08:48)
--- NOTE | 2024-03-02 08:48 | Hospitalist Progress Note ---
Date of Service March 02, 2024 Assessment & Plan (1) Closed fracture of neck of right femur: Plan: 83yo female with history of HTN, HLP, DM, AF (not on anticoagulation), JILLIAN presenting from home following a ground level fall resulting in Age-related osteoporosis with current pathologic fracture, right femur - Right hip hemiarthroplasty with Dr. Pratt 02/25 > Total hip precautions x 8 weeks > WBAT with walker and assistance as needed > DVT PPx: SCDs while in hospital, TEDs x 3 weeks, ASA 81 mg BID x 6 weeks - Tolerated surgery well - Silver dressing applied 02/28 this may remain in place until Ortho follow-up in 2 weeks - Continue pain control, bowel regimen, DVT ppx - ASA bid x 6 weeks - Continue bowel regimen - Continue Q48H FeSO4 (equally effective compared to daily or bid) - PT/OT recommend rehab, referrals pending. Medically stable for discharge to rehab/SNF at this time (2) Pulmonary emboli: Plan: Increased SOB both with ambulation and at rest, mild tachypnea, low-grade fever 03/02/24 - Chest CTA revealed segmental PE within left upper lobe - Started heparin drip with bolus -- confirmed ok with ortho - Plan to transition to Eliquis (3) UTI (urinary tract infection): Plan: Increased urinary frequency x few days - Urine culture revealed pansensitive E. coli Urinary tract infection - Started/continue Amoxil 500 mg TID x 3 days (4) Benign hypertension: Plan: Continue metoprolol, Lasix Resumed lisinopril Still holding isosorbide mononitrate - Monitor BPs on when to resume (5) Diabetic peripheral neuropathy associated with type 2 diabetes mellitus: Plan: Blood sugar 200s x 2 - Hold home Glipizide - Continue premeal aspart and glargine - Pharmacy managing - Reviewed BG, well-controlled 03/02 (6) Obstructive sleep apnea: Plan: Chronic, stable - CPAP 10cm H2O qHS (reports hasn't been using at home for several weeks from neck discomfort) - Supplemental O2 as needed Plan Updated daughter via phone call Resumed lisinopril Ordered chest CTA Ordered Ativan x 1, morphine x 1 Ordered heparin drip with bolus Started Amoxil for UTI Chronic Medical Conditions: Paroxysmal Atrial Fibrillation - patient presently in NSR, not on eliquis/anticoagulation due to frequent falls. Continue metoprolol, amoidarone. Depression-Continue Sertraline 50mg po daily, Venlafaxine 37.5mg po daily, Clonazepam, Amitriptyline GERD-Continue Protonix 40mg po daily. added maalox, prn pepcid Mouth pain - possibly aphthous ulcer or trauma from intubation - prn orajel Increased urinary output - no infectious urinary signs or symptoms; UA negative 03/01; may be related to fluids from surgery finally clearing Dispo: waiting rehab placement; medically stable for discharge to rehab/SNF VTE PPx - SCDs, ASA 81 mg bid x 6 weeks CODE STATUS: Full code Admission and Anticipated Discharge Date Admission Date: February 26, 2024 Subjective Patient seen and evaluated in bedside chair. She is very anxious. She had a small episode of emesis prior to me entering the room. She reports shortness of breath, worse with ambulation. She is unsure if her SOB at rest is due to her anxiety right now, as she was not previously short of breath at rest. She continues to have urinary frequency. She states "I need to get out of the hospital or I will scream bloody murder." We discussed getting imaging of her chest and giving some Ativan to help calm her anxiety. Returned to bedside to inform patient of CTA results and treatment plan. All questions/concerns answered. No additional complaints at this time. Physical Exam Physical Exam: General: Well-developed, well-nourished. Mild distress secondary to anxiety. Skin: The skin was without rashes, erythema, edema, or bruising. Cardiac: Regular rate and rhythm without murmurs gallops or rubs. Pulm: Diminished breath sounds in left upper lobe, otherwise clear to auscultation bilaterally without wheezes, rales or rhonchi. No respiratory distress. 95% on room air. Mild tachypnea. Abdominal: Soft, nontender, distended secondary to body habitus. Bowel sounds present. Neuro: A&O x3. No focal neurological deficits. Extremities: Right hip dressed in silver dressing. Warm, dry, well-perfused. 2+ edema to lower extremities bilaterally. Sensation in tact to light touch. Regular strength. Results & Data Results & Data Vital Signs (Past 12 Hours) Vital Signs Temp Pulse Pulse Resp BP BP Pulse Ox 03/02/24 07:38 98.2 F 86 20 174/80 H 94 03/02/24 07:18 98.2 F 89 17 172/81 H 91 O2 Del Method 03/02/24 07:38 Room Air 03/02/24 07:18 Room Air Laboratory Results Reviewd [facility] Diagnostic Findings Reviewed chest CTA Chest CTA 03/02/24 12:59 CT ANGIOGRAPHY OF THE CHEST, PULMONARY EMBOLUS PROTOCOL CLINICAL HISTORY: Shortness of breath. Evaluate for pulmonary embolus. COMPARISON STUDY: Chest CT November 12, 2023. Chest radiograph February 25, 2024. TECHNIQUE: Following IV administration of 118 mL of Optiray, helical axial images of the chest were obtained utilizing the pulmonary embolus protocol. Maximal intensity projections and sagittal and coronal reformats were viewed on an independent 3D workstation. IV contrast was administered without complication. Automated exposure control was utilized for the study. A dose lowering technique was utilized adhering to the principles of ALARA. CT DOSE: 806.13 mGy.cm FINDINGS: This exam is moderately compromised by motion artifact however there is a segmental pulmonary embolus within the left upper lobe on image 138 of 199. No definite additional pulmonary emboli are identified. Moderate cardiomegaly is unchanged. There is no pericardial effusion. No thoracic aortic dissection is present. There is moderate coronary artery calcification. The lungs are suboptimally assessed due to respiratory motion. A few patchy groundglass opacities are present. There is no consolidation. The gallbladder is surgically absent. IMPRESSION: 1. Segmental pulmonary embolus within the left upper lobe. Exam compromised by respiratory motion. No additional pulmonary emboli identified. 2. A few patchy groundglass opacities. These are nonspecific although could reflect an infectious process. Although less likely, pulmonary infarcts cannot be excluded. 3. Cardiomegaly. 2. ACT 112: Negative or not required by law. Electronically signed by: Arnold Rivers M.D. 03/02/2024 2:53 PM PG Care Time/CCT Total # of Minutes Spent Total Time Spent with Patient: Total time spent is greater than 50% in coordination of care (as documented) at patient's floor/unit and/or counseling patient: Coding Level of Care Code 78610 SUB INP/OBS CARE 3/50MIN Diagnoses Closed fracture of neck of right femur S72.001A Pulmonary emboli I26.99 UTI (urinary tract infection) N39.0 Benign hypertension I10 Diabetic peripheral neuropathy associated with type 2 diabetes mellitus E11.42 Obstructive sleep apnea G47.33
[2024-03-02 09:34] LABS: Calcium 8.8 mg/dl (8.6-10.3); Creatinine Clr Calc Pharmacy 59.9 ml/min
[2024-03-02] MEDS: lisinopril 5 MG TAB PO SCH (10:48)
--- NOTE | 2024-03-02 11:00 | Orthopedic Progress Note ---
Date of Service March 02, 2024 Assessment & Plan (1) Status post hemiarthroplasty of right hip: Plan: The patient was educated regarding today's findings. Her increased urine output may still be related to fluids from surgery finally clearing. She does not e xhibit any UTI symptoms. Will continue to observe. She was encouraged to be out of bed frequently and sit in her bedside chair. Continue physical therapy. She seems to require frequent reminders and additional cues to follow her restrictions. She is okay for discharge to SNF or rehab from an orthopedic standpoint. Follow-up in the office as scheduled. Continue pain control with oral meds. Call the office with any other concerns. Continue hip precautions. Admission and Anticipated Discharge Date Admission Date: February 26, 2024 Subjective This 83-year-old female is seen today in her room. She is currently sitting in a bedside chair after working with physical therapy. She states she is having a lot of pain today in her hip. She also did not sleep well. She believes she only got 2 hours of sleep. She complains of being very hot on her head but very cold in her upper arms as well as her feet. She does have a history of peripheral neuropathy and is unsure if this is contributing to her symptoms. She states she just cannot sleep. She is still urinating frequently and had to get up many times throughout the night. UA yesterday shows no evidence for infection. No additional complaints. She is still waiting for placement. Physical Exam Physical Exam: General: Well-developed, well-nourished, elderly female, in no acute distress. Sitting in her bedside chair. Alert and oriented. Conversive. Skin: Warm and dry with good turgor. No ecchymosis on the lateral thigh. Her Silverlon dressing is in place. There is no bleeding around or through the dressing. No significant edema in her lower extremity. Musculoskeletal: The patient has intact motor function of her hip, knee, ankle, and toes. She is able to plantarflex and dorsiflex at the ankle. She is able to perform a small heel slide without much difficulty. She is able to rise from the chair under her own power. Neurologic: Gross sensation is intact across the right leg by soft touch. Peripheral pulses are 2+. Results & Data Vital Signs (Past 12 Hours) Vital Signs Temp Pulse Pulse Resp BP BP Pulse Ox 03/02/24 08:00 03/02/24 07:38 36.8 C 86 20 174/80 H 94 03/02/24 07:18 36.8 C 89 17 172/81 H 91 O2 Del Method 03/02/24 08:00 Room Air 03/02/24 07:38 Room Air 03/02/24 07:18 Room Air Laboratory Results PRP obtained this morning shows sodium 136, potassium 4.0, BUN of 9, creatinine 0.75. Glucose 197.
--- NOTE | 2024-03-02 11:17 | Pharmacy Report ---
Pharmacy Glycemic Short Note 2 - Date of Service March 02, 2024 - Glycemic Short BSG Results (Last 24 hours): 03/01/24 03/01/24 03/01/24 11:38 16:45 20:44 Glucose POC Glucose 106 H 156 H 198 H 03/02/24 03/02/24 03/02/24 07:16 08:45 11:05 Glucose 197 H POC Glucose 162 H 127 H OUTPATIENT ANTIDIABETIC REGIMEN: * glipizide 5mg daily * HbA1c 7.4% (02/27/24) ASSESSMENT: 03/02 * Patient received 13 units of insulin yesterday, all were bolus. * BSGs have been trending up (HS was 198mg/dL and fasting today was 162mg/dL) * Lantus 5 units x 1 was ordered for this morning. Further need will be reassessed with BSGs. 03/01 * Patient received 20 units of insulin yesterday, all were bolus. * BSGs were on the lower side the last few days so no basal insulin was ordered (ranged from 104-143mg/dL) * But, last night, the bedtime BSG was elevated at 240mg/dL but with bolus insulin coverage, the fasting BSG this morning was 182mg/dL and lunch BSG was 106mg/dL. * This is POD #3, no antibiotic or steroids currently ordered. * Will continue bolus insulin regimen as ordered. If continued elevated BSGs noted, will consider added a small dose of basal insulin back in. 02/26 * Gena is an 83 YOF admitted status post right hip hemiarthroplasty with a history of twyp 2 diabetes mellitus. Pharmacy has been consulted to assist with glycemic management. * Preoperative BSG elevated, also received dexamethasone 8mg IV intraoperatively, Lantus at approx 0.1units/kg administered in the evening and NovoLog tightened to a weight based stress of 3. * Fasting BSG this AM elevated, will repeat the 0.1units/kg dose of Lantus * BSGs trending down at lunchtime, will loosened NovoLog as dexamethasone is wearing off, no other glycemic stressors noted. * Currently, pending rehab placement PLAN FOR INPATIENT GLYCEMIC CONTROL: * Hold outpatient oral diabetes medications * Basal insulin * Lantus 5 units x 1 this morning * Bolus insulin * NovoLog per scale ACHS or Q6hrs while NPO * Goal Range: Low 110 mg/dL - High 140 mg/dL * Correction Factor: 25 mg/dL/unit * Nutritional / Prandial insulin per carb ratio of 1 unit per 9 grams CHO consumed
[2024-03-02] MEDS: LORazepam 1 MG TAB PO STA (13:26)
[2024-03-02] MEDS: ALBUTEROL HFA 8 GM INHALER INH PRN (13:28)
[2024-03-02] MEDS: OPTIRAY 320 125ml IV ONE (14:21)
--- NOTE | 2024-03-02 14:55 | CT Scan Report ---
CT ANGIOGRAPHY OF THE CHEST, PULMONARY EMBOLUS PROTOCOL CLINICAL HISTORY: Shortness of breath. Evaluate for pulmonary embolus. COMPARISON STUDY: Chest CT November 12, 2023. Chest radiograph February 25, 2024. TECHNIQUE: Following IV administration of 118 mL of Optiray, helical axial images of the chest were o btained utilizing the pulmonary embolus protocol. Maximal intensity projections and sagittal and cor onal reformats were viewed on an independent 3D workstation. IV contrast was administered without co mplication. Automated exposure control was utilized for the study. A dose lowering technique was ut ilized adhering to the principles of ALARA. CT DOSE: 806.13 mGy.cm FINDINGS: This exam is moderately compromised by motion artifact however there is a segmental pulmon larry embolus within the left upper lobe on image 138 of 199. No definite additional pulmonary emboli a re identified. Moderate cardiomegaly is unchanged. There is no pericardial effusion. No thoracic aort ic dissection is present. There is moderate coronary artery calcification. The lungs are suboptimally assessed due to respiratory motion. A few patchy groundglass opacities are present. There is no cons olidation. The gallbladder is surgically absent. IMPRESSION: 1. Segmental pulmonary embolus within the left upper lobe. Exam compromised by respiratory motion. No additional pulmonary emboli identified. 2. A few patchy groundglass opacities. These are nonspecific although could reflect an infectious pro cess. Although less likely, pulmonary infarcts cannot be excluded. 3. Cardiomegaly. 2. ACT 112: Negative or not required by law. Electronically signed by: Arnold Rivers M.D. 03/02/2024 2:53 PM
[2024-03-02] MEDS: HEPARIN SODIUM/DEXTROSE 25,000 UNITS/500 ML BAG IV SCH (15:51)
[2024-03-02] MEDS: HEPARIN SOD (PORCINE) 1000 UNIT/ML IV ONE (15:55)
[2024-03-02] MEDS: MoRPHine SULFATE 2 MG/ML CARP IV STA (15:58)
[2024-03-02 16:08] LABS: Basophils # (auto) 0.02 K/uL (0.00-0.20); Basophils % (auto) 0.3 %; Eosinophils # (auto) 0.08 K/uL (0.00-0.50); Eosinophils % (auto) 1.2 %; Hematocrit (blood only) 32.8 % (37.0-47.0); Hemoglobin 10.8 g/dl (12.0-16.0); Immature Granulocytes # (auto) 0.03 K/uL (0.01-0.20); Immature Granulocytes % (auto) 0.4 %; Lymphocytes # (auto) 0.91 K/uL (1.20-3.40); Lymphocytes % (auto) 13.3 %; Mean Corpuscular Hemoglobin 29.3 pg (25.0-34.0); Mean Corpuscular Hgb Conc 32.9 g/dL (32.0-36.0); Mean Corpuscular Volume 88.9 fL (80.0-100.0); Mean Platelet Volume 9.8 fL (9.4-12.4); Monocytes % (auto) 10.2 %; Neutrophils # (auto) 5.09 K/uL (1.40-6.50); Neutrophils % (auto) 74.6 %; Platelet Count 306 K/uL (130-400); RDW Coefficient of Variation 14.5 % (11.5-14.5); RDW Standard Deviation 46.4 fL (36.4-46.3); Red Blood Count 3.69 M/uL (4.20-5.40); White Blood Count 6.83 K/ul (4.8-10.8)
[2024-03-02] MEDS: Heparin IV Adult Wt-Based Standard w/ INITIAL Bolus Protocol IV STA (16:21)
[2024-03-02 16:32] LABS: Partial Thromboplastin Time 28 Seconds (21-31); Prothrombin Time 10.8 Seconds (9.0-12.0)
[2024-03-02] MEDS: AMOXICILLIN 500 MG CAP PO SCH (23:04)
[2024-03-02 23:28] LABS: ANTI-Xa, UFH(UnfractionatedHep 0.48 IU/ml (0.3-0.7)
[2024-03-03 07:14] LABS: Hematocrit (blood only) 30.6 % (37.0-47.0); Hemoglobin 10.1 g/dl (12.0-16.0); Mean Corpuscular Hemoglobin 29.2 pg (25.0-34.0); Mean Corpuscular Volume 88.4 fL (80.0-100.0); Mean Platelet Volume 9.4 fL (9.4-12.4); Platelet Count 286 K/uL (130-400); RDW Coefficient of Variation 14.6 % (11.5-14.5); RDW Standard Deviation 47.1 fL (36.4-46.3); Red Blood Count 3.46 M/uL (4.20-5.40)
[2024-03-03 07:31] LABS: ANTI-Xa, UFH(UnfractionatedHep 0.43 IU/ml (0.3-0.7); Calcium 8.5 mg/dl (8.6-10.3)
[2024-03-03 07:36] LABS: BUN Creatinine Ratio 11.2 (10-20); Creatinine Clr Calc Pharmacy 50.5 ml/min
[2024-03-03 08:07] VITALS: BP 145/83; PULSE 81; RESP 16; TEMP 98.2; O2SAT 91
[2024-03-03] MEDS: LANTUS PER UNIT CHARGE SC SCH (09:37)
--- NOTE | 2024-03-03 10:52 | Discharge Summary ---
Discharge Summary Date of Service March 03, 2024 Principal Dx & Hospital Course #1 = Principal Diagnosis (1) Closed fracture of neck of right femur: 83yo female with history of HTN, HLP, DM, AF (not on anticoagulation), JILLIAN presenting from home following a ground level fall resulting in Age-related osteoporosis with current pathologic fracture, right femur - Right hip hemiarthroplasty with Dr. Pratt 02/25 > Total hip precautions x 8 weeks > WBAT with walker and assistance as needed > DVT PPx: SCDs while in hospital, TEDs x 3 weeks, ASA 81 mg BID x 6 weeks - Silver dressing applied 02/28 this may remain in place until Ortho follow-up in 2 weeks - Continue pain control, bowel regimen, DVT ppx - ASA bid x 6 weeks - Continue bowel regimen - Continue Q48H FeSO4 (equally effective compared to daily or bid) - PT/OT recommend rehab, discharged to [facility] 03/03 (2) Pulmonary emboli: Increased SOB both with ambulation and at rest, mild tachypnea, low-grade fever 03/02/24 - Chest CTA revealed segmental PE within left upper lobe - Started heparin drip with bolus -- confirmed ok with ortho - Transitioned to Xarelto -- 15 mg BID x 21 days, followed by 20 mg daily. Eliquis not selected as listed allergy in chart (3) UTI (urinary tract infection): Increased urinary frequency x few days - Urine culture revealed pansensitive E. coli Urinary tract infection - Continue Amoxil 500 mg TID x 3 days (4) Benign hypertension: Continue metoprolol, Lasix, lisinopril, isosorbide mononitrate (5) Diabetic peripheral neuropathy associated with type 2 diabetes mellitus: Blood sugar 200s x 2 - Pharmacy managed while inpatient - Resumed home regimen on discharge (6) Obstructive sleep apnea: Chronic, stable - CPAP 10cm H2O qHS (reports hasn't been using at home for several weeks from neck discomfort) - Supplemental O2 as needed Plan Chronic Medical Conditions: Paroxysmal Atrial Fibrillation - patient presently in NSR, not on eliqui s/anticoagulation due to frequent falls. Continue metoprolol, amoidarone. Depression - Continue Sertraline 50mg po daily, Venlafaxine 37.5mg po daily, Clonazepam, Amitriptyline GERD - Continue Protonix 40mg po daily. added maalox, prn pepcid Mouth pain - possibly aphthous ulcer or trauma from intubation - prn orajel CODE STATUS: Full code Notes For Next Care Provider Presented after mechanical fall resulted in right femur fracture. Had right hip hemiarthroplasty on 02/[address] Pratt. Found to have acute segmental PE within left upper lobe on 03/02. Treated with heparin with bolus, then transition to Xarelto (listed allergy to Eliquis). Also treated for UTI with Amoxil x 3 days. Medication Changes From Visit Started ferrous sulfate Started Xarelto Amoxil x 3 days Admission HPI Per Admitting Provider Gena Perez is an 83yo female with history of HTN, HLP, DM, AF, GERD and JILLIAN presenting after sustaining a fall at home. Patient was walking onto her porch and tripped on a small ledge. She fell and landed on the concrete on her right hip. She did hit her head lightly as well. She denies chest pain, palpitations, dizziness, LOC. Presently with complaint of right hip pain, otherwise no additional complaints. In the ER she is afebrile, HD stable, NAD ER Course: Zofran 4mg IV Morphine 4mg IV Discharge Exam General: No acute distress, nondiaphoretic, well-developed, well-nourished. Skin: The skin was without rashes, erythema, edema, or bruising. Cardiac: Regular rate and rhythm without murmurs gallops or rubs. Pulm: Diminished breath sounds in left upper lobe, otherwise clear to auscultation bilaterally without wheezes, rales or rhonchi. No respiratory distress. 91% on room air. Abdominal: Soft, nontender, distended secondary to body habitus. Bowel sounds present. Neuro: A&O x3. No focal neurological deficits. Extremities: Right hip dressed in silver dressing. Warm, dry, well-perfused. 2+ edema to lower extremities bilaterally. Sensation in tact to light touch. Regular strength. Discharge Plan Discharge Items Patient Disposition: Transfer Half-Way Fac Reason For Visit: FALL, RIGHT HIP FRACTURE Discharge Diagnosis: Right femur fracture s/p right hip hemiarthroplasty Acute pulmonary emboli Urinary tract infection Activity: Per Instructions section Non-emergency contact: Primary Care Provider Call non-emergency contact if: you have any medication questions and your symptoms worsen Follow-up/Referrals: Mariangel Rojas PA-C [Primary Care Provider] - (Follow-up in 1-2 weeks) Bambi Quiroz PA-C [Physician Resolution Specialist] - 03/14/24 4:00 pm Diet: Carb Consistent or DM2 Addtl Attending Provider Instructions: Gena, You were admitted to the hospital due to a ground-level fall resulting in a right femur fracture. You had a right hip replacement with Dr. Pratt on 02/26/2024. Please follow the discharge instructions from your orthopedic team as listed below. Additionally, you were found to have a pulmonary embolism (blood clot in your lung). This is the cause of your shortness of breath. You were treated with an IV blood thinner and transition to an oral blood thinner that you will continue to take after leaving the hospital. You also were found to have a urinary tract infection (UTI) which you are being treated with an oral antibiotic for. Upon discharge from the hospital: * Take Xarelto (blood thinner) 15 mg twice daily with food x 21 days. Then starting on day 22, take 20 mg once daily with food. This is to treat the blood clot in your lung and prevent future blood clots. * Take amoxicillin (antibiotic) 3 times daily until 03/05/24. This is to treat your UTI. * Continue your other home medications as prescribed. * Follow orthopedics instructions as outlined below. * Follow-up with orthopedics outpatient. Your appointment is scheduled for 03/14/24 at 4:00 PM. * Follow-up with your PCP in 1-2 weeks. Please return to the hospital if you experience any of the following: Chest pain, difficulty breathing, fast heartbeat, heavy or uncontrolled bleeding, confusion, passing out, or any other symptoms concerning for you. It was a pleasure taking care of you while you were in the hospital, Kirsten Alcaraz PA-C Addtl Multifocal Button Inspector Provider Instructions: ORTHOPEDIC DISCHARGE INSTRUCTIONS -Weight bearing as tolerated with walker to assist in ambulation -Posterior hip precautions for 8 weeks: DO NOT flex your hip past 90, DO NOT internally rotate your foot/leg, DO NOT cross your legs -Please do rehab exercises as instructed -Frequently ice, at least 20 minutes 5 times a day. -You may shower on Post op Day 3. Leave Mepilex/Silverlon dressing in tact until follow up appt in 2 weeks. Your dressing is water-resistant, meaning you can shower with it on as long as it is in-tact. Letting some running water run over top of it from the shower is okay. You cannot submerge your incision in water. No baths, hot tubs or swimming pools. Keep dressing clean and dry. If your dressing starts to peel off or gets moisture under it, nursing may reinforce as needed. -DVT prophylaxis: Aspirin 81mg twice a day for 6 weeks, UZMA compression stockings for 3 weeks -While taking Aspirin, if you start to get upset stomach, we recommend taking over the counter Pepcid, 20mg twice a day as long as you are taking the Aspirin -Pain control: Recommend oxycodone 5mg every 4-6 hours as needed, Tylenol 500- 1000mg every 8 hours -To promote healing, please take 500mg Vitamin C twice a day with meals x 2 weeks and Iron 325 mg twice a day with meals x 2 weeks -While on narcotic pain medication and iron supplement, we recommend you take a stool softener to prevent constipation -Follow up in 2 weeks with [facility] for post op evaluation and Zip-line removal. Please call our office sooner @ [phone] if you have any questions or concerns Pending Studies at Discharge: No Stand-Alone Forms: [facility] Skilled Items Patient informed of condition?: Yes DNR: No Discharge Level of Care: Acute rehab Communicable Disease: No Discharge Prognosis: Stable Lines: None Urinary Catheter: No Medications and DC Order Prescriptions: New amoxicillin 500 mg Capsule 500 mg PO TID Qty: 7 0RF ferrous gluconate 324 mg (38 mg iron) Tablet 324 mg PO Q48H Qty: 30 0RF Xarelto 15 mg Tablet 15 mg PO BID Qty: 20 0RF Xarelto 20 mg tablet 20 mg PO DAILY Qty: 30 0RF Rx Instructions: must administer with evening meal START ON DAY 22 OF TREATMENT Continued ondansetron HCl 4 mg tablet 4 mg PO TID PRN (Reason: Nausea/vomiting) pantoprazole 40 mg tablet,delayed release (DR/EC) 40 mg PO DAILY tramadol 50 mg tablet 50 mg PO .COMPLEX PRN (Reason: Pain) Rx Instructions: 50 mg BID and 100 mg QHS as needed for pain clonazepam 0.5 mg tablet 0.5 mg PO DAILY amitriptyline 10 mg tablet 10 mg PO HS metoprolol succinate 25 mg Tablet Extended Release 24 Hr 25 mg PO BID Qty: 60 0RF albuterol sulfate [Ventolin HFA] 90 mcg/actuation Hfa Aerosol Inhaler 2 puff INHALATION QID PRN (Reason: Wheezing) nitroglycerin 0.3 mg tablet, sublingual 0.3 mg sublingual Q5M PRN (Reason: chest pain) Qty: 10 0RF amiodarone 200 mg tablet 200 mg PO DAILY omeprazole 20 mg capsule,delayed release(DR/EC) 20 mg PO DAILY furosemide 40 mg tablet 40 mg PO DAILY glipizide 5 mg tablet extended release 24hr 5 mg PO DAILY isosorbide mononitrate 30 mg tablet extended release 24 hr 30 mg PO QAM venlafaxine 37.5 mg capsule,extended release 24hr 37.5 mg PO DAILY sertraline 50 mg tablet 50 mg PO DAILY potassium chloride 20 mEq tablet extended release 20 meq PO DAILY aspirin 81 mg Tablet,Delayed Release (Dr/Ec) 81 mg PO DAILY lisinopril 5 mg Tablet 5 mg PO DAILY diclofenac sodium 1 % Gel 1 ea TOPICAL QID PRN (Reason: Pain) polyethylene glycol 3350 [Miralax] 17 gram/dose Powder 17 g PO DAILY Discharge Orders: Discharge Order (Routine); Ordered 03/03/24 Ordered By: Kirsten Harris/Other Patient Handouts: High Blood Sugar (Hyperglycemia), Hypoglycemia (Low Blood Sugar), Managing Type 2 Diabetes, Pulmonary Embolism Dc Admission Data Admit Date/Time: 02/26/24 00:25 Attending Provider: Wes Fulton Admit Provider: Kirsten Stephens Primary Care Provider: Mariangel Rojas Other Providers: Kirsten Stephens; Himanshu Pratt; Julian Juarez [facility]; [facility] Hospital Stay Data Consultations 02/26/24 00:22 ED Decision to Admit Stat 02/26/24 00:25 Consult Orthopedic Surgery Routine Procedures Performed Operation Date: 02/26/24 10:00 Actual Procedures p Right Hip Hemiarthroplasty(Right) - Himanshu Pratt MD Diagnostic Imagining Performed Head CT 02/25/24 23:07 EXAM: CT head/brain wo con CLINICAL HISTORY: FELL AND HIT HEAD TECHNIQUE: An axial non-contrast CT scan of the brain was performed from the skull base to the high parietal region. One of the following dose reduction techniques was utilized for this exam: Automated exposure control, adjustment of the mA and/or kV according to patient size, and use of iterative reconstruction. (CTDI: 37.32 mGy, DLP: 625.80 mGy*cm) COMPARISON: 09/27/2020 FINDINGS: Brain Parenchyma: Multiple subcortical and ventricular white matter hypodensities likely represent chronic microvascular ischemic changes. Normal attenuation of the cerebral hemispheres, cerebellum, and brainstem. No evidence of acute infarct, hemorrhage, or mass effect. No abnormal areas of hyperattenuation. Ventricular System: The capacious ventricular system, denoting senile brain atrophic changes. No evidence of hydrocephalus or ventricular enlargement. Subarachnoid Spaces: Capacious CSF spaces, denoting senile brain atrophic changes. No evidence of subarachnoid hemorrhage or extra-axial fluid collections. Cerebellum and Brainstem: Normal size and attenuation. No masses, lesions, or areas of abnormal attenuation. Orbits: Normal appearance of the globes, optic nerves, and extraocular muscles. No evidence of orbital masses or abnormal attenuation. Sinuses: Clear paranasal sinuses. No evidence of sinusitis or mucosal thickening. Mastoid Air Cells: Clear mastoid air cells. No evidence of mastoiditis. Skull and Meninges: Mild frontal bone thickening. Unchanged. Likely of no clinical significance. IMPRESSION: 1. No evidence of acute skull vault fracture or acute intracranial hemorrhage. 2. Chronic microvascular ischemic changes. 3. Senile brain atrophy changes 4. No significant interval changes compared to the prior study, dated 09/27/2020. Electronically signed by Lan Villa 02-26-2024 12:49 AM Hip X-Ray 02/25/24 23:07 Exam(s): XR RIGHT HIP EXAM: XR Right Hip With Pelvis When Performed, 2 or 3 Views CLINICAL HISTORY: fall, right hip pain. TECHNIQUE: Two or three views of the right hip with pelvis when performed. COMPARISON: No relevant prior studies available. FINDINGS: Bones/joints: Displaced right femoral neck fracture with slight foreshortening of the femoral shaft. The femoral head remains in the acetabulum. Limited inclusion of the pelvic bones is unremarkable. Soft tissues: No definite significant traumatic injury suspected. No radiopaque foreign body. IMPRESSION: Displaced right femoral neck fracture with slight foreshortening of the femoral shaft. The femoral head remains in the acetabulum. Electronically signed by: Rito Barillas MD 02/26/24 00:26 AM Chest X-Ray 02/25/24 23:08 Exam(s): XR CXR 1 VIEW EXAM: XR Chest, 1 View CLINICAL HISTORY: fall, hip pain. TECHNIQUE: Frontal view of the chest. COMPARISON: Chest single view 11/12/2023 FINDINGS: Lungs: The lungs are similarly expanded. No definite focal airspace consolidation identified. Similar presumed chronic interstitial changes noted. No radiographic evidence for florid CHF. Pleural space: No definite large pleural effusion or pneumothorax, accounting for supine technique and overlying soft tissues. Heart: The cardiac silhouette is within normal limits, accounting for portable supine technique. Mediastinum: No significant abnormality identified. The trachea is midline. Bones/joints: Multilevel degenerative changes throughout the thoracolumbar spine. No acute osseous abnormality. Vasculature: The nasal contours are stable and unremarkable with atherosclerotic calcification aortic arch. No tracheal deviation. IMPRESSION: No definite acute cardiopulmonary process or significant alteration from the prior examination. Electronically signed by: Rito Barillas MD 02/26/24 00:25 AM Hip X-Ray 02/26/24 00:00 EXAM: Radiographs of the Right Hip 1 View INDICATION: Intraoperative imaging during arthroplasty. TECHNIQUE: Frontal and lateral views provided. Image obtained at 2:14 PM COMPARISON: No relevant prior studies available. FINDINGS: Bones/joints: The proximal femur has been resected. Metallic hardware noted in the femoral shaft. No fracture. Soft tissues: Gas in the soft tissues at the level of the proximal femur typical of an open wound. Vasculature: Atherosclerosis. IMPRESSION: Intraoperative image right hip during replacement. ACT 112: Negative or not required by law. Electronically signed by Natalia Culver 02-26-2024 2:32 PM Pelvis X-Ray 02/26/24 15:35 EXAM: Radiographs of the Pelvis 1 View INDICATION: Hip replacement. TECHNIQUE: Frontal view of the pelvis. COMPARISON: Intraoperative images same day. FINDINGS: Limitations: None. Bones/joints: The iliac crest are not included. The pelvis is rotated and tilted to the right. Satisfactory appearance of cemented total hip arthroplasty. Components well-seated and intact. No fracture or dislocation. Soft tissues: Expected postoperative soft tissue swelling and gas noted along the right femur. IMPRESSION: Satisfactory appearance of right hip arthroplasty. ACT 112: Negative or not required by law. Electronically signed by Natalia Culver 02-26-2024 3:55 PM Chest CTA 03/02/24 12:59 CT ANGIOGRAPHY OF THE CHEST, PULMONARY EMBOLUS PROTOCOL CLINICAL HISTORY: Shortness of breath. Evaluate for pulmonary embolus. COMPARISON STUDY: Chest CT November 12, 2023. Chest radiograph February 25, 2024. TECHNIQUE: Following IV administration of 118 mL of Optiray, helical axial images of the chest were obtained utilizing the pulmonary embolus protocol. Maximal intensity projections and sagittal and coronal reformats were viewed on an independent 3D workstation. IV contrast was administered without complication. Automated exposure control was utilized for the study. A dose lowering technique was utilized adhering to the principles of ALARA. CT DOSE: 806.13 mGy.cm FINDINGS: This exam is moderately compromised by motion artifact however there is a segmental pulmonary embolus within the left upper lobe on image 138 of 199. No definite additional pulmonary emboli are identified. Moderate cardiomegaly is unchanged. There is no pericardial effusion. No thoracic aortic dissection is present. There is moderate coronary artery calcification. The lungs are suboptimally assessed due to respiratory motion. A few patchy groundglass opacities are present. There is no consolidation. The gallbladder is surgically absent. IMPRESSION: 1. Segmental pulmonary embolus within the left upper lobe. Exam compromised by respiratory motion. No additional pulmonary emboli identified. 2. A few patchy groundglass opacities. These are nonspecific although could reflect an infectious process. Although less likely, pulmonary infarcts cannot be excluded. 3. Cardiomegaly. 2. ACT 112: Negative or not required by law. Electronically signed by: Arnold Rivers M.D. 03/02/2024 2:53 PM Pending Results Patient Have Any Pending Studies at Discharge: No Discharge Instructions Given to Patient (Per Discharging Provider) Gena, You were admitted to the hospital due to a ground-level fall resulting in a right femur fracture. You had a right hip replacement with Dr. Pratt on 02/26/2024. Please follow the discharge instructions from your orthopedic team as listed below. Additionally, you were found to have a pulmonary embolism (blood clot in your lung). This is the cause of your shortness of breath. You were treated with an IV blood thinner and transition to an oral blood thinner that you will continue to take after leaving the hospital. You also were found to have a urinary tract infection (UTI) which you are being treated with an oral antibiotic for. Upon discharge from the hospital: * Take Xarelto (blood thinner) 15 mg twice daily with food x 21 days. Then starting on day 22, take 20 mg once daily with food. This is to treat the blood clot in your lung and prevent future blood clots. * Take amoxicillin (antibiotic) 3 times daily until 03/05/24. This is to treat your UTI. * Continue your other home medications as prescribed. * Follow orthopedics instructions as outlined below. * Follow-up with orthopedics outpatient. Your appointment is scheduled for 03/14/24 at 4:00 PM. * Follow-up with your PCP in 1-2 weeks. Please return to the hospital if you experience any of the following: Chest pain, difficulty breathing, fast heartbeat, heavy or uncontrolled bleeding, confusion, passing out, or any other symptoms concerning for you. It was a pleasure taking care of you while you were in the hospital, Kirsten Alcaraz PA-C Total Time Total Time Spent Total Time Spent (In Minutes): Greater than 30 minutes spent completing this discharge process including direct patient care, medication reconciliation, documentation, review of labs and images, and coordination of care. Coding Level of Care Code 38931 INP/OBS DISCH >30 MIN Diagnoses Closed fracture of neck of right femur S72.001A Pulmonary emboli I26.99 UTI (urinary tract infection) N39.0 Benign hypertension I10 Diabetic peripheral neuropathy associated with type 2 diabetes mellitus E11.42 Obstructive sleep apnea G47.33
[2024-03-03] MEDS: RIVAROXABAN 15 MG TAB PO SCH (11:29)
--- NOTE | 2024-03-04 13:00 | Coding Query ---
PRESENT ON ADMISSION QUERY To promote full compliance with coding requirements relating to pateint care, physician participation is requested in all cases of esl teacher uncertainty. Please assist us with the question(s) below: Clinical Indicators: Progress Note 03/02/2024: (2) Pulmonary emboli: Plan: * Increased SOB both with ambulation and at rest, mild tachypnea, low-grade fever 03/02/24 * Chest CTA revealed segmental PE within left upper lobe * Started heparin drip with bolus -- confirmed ok with ortho * Plan to transition to Eliquis Please place an X within the parenthesis (x). The following diagnosis(es) listed in this patient's medical record require physician assistance to determine if they were present on admission (POA) or not. Please advise for each diagnosis whether it was present on admission, not present on admission, or if it was clinically undetermined. 1.Segmental pulmonary embolus within the left upper lobe. ( ) Present On Admission (xx ) Not Present On Admission (xx ) Clinically Undetermined Thank you Sharla Roa *Definition of the present on admission (POA)-Present on admission is defined as present at the time the order for inpatient admission occurs. Conditions that develop during an outpatient encounter prior to a written order for inpatient admission (including emergency department, observation, or outpatient surgery) are considered present on admission. MTDD
== END 2024-03-03 12:38 | DRG 522 ==
LOC: ED 22:31 → 3N 02-26 00:25 → SUATTDRO 02-26 00:25 → 3N 02-26 01:50